=== PATIENT | female | born 1955 | race Caucasian/White ===

== ENCOUNTER 2016-04-25 18:59 | Inpatient (IN) | payer MEDICARE, OTHER ==
[2016-04-25] MEDS: NS 0.9% 1000 ML* 3,000 ML IV ONE ×2 (19:10→20:22)
[2016-04-25] MEDS ORDERED: Naloxone* 0.4 MG/ML 1 ML VIAL IV PUSH ONE (19:13)
[2016-04-25 19:26] LABS: Hematocrit 38 % (35-47); Hemoglobin 12.1 g/dl (12.0-16.0); Mean Corpuscular HGB Conc 32 g/dl (31-36); Mean Corpuscular Hemoglobin 28 pg (27-31); Mean Corpuscular Volume 88 fL (80-97); Mean Platelet Volume 8 um3 (7.4-10.4); Red Blood Count 4.27 10^6/ul (4.0-5.4); Red Cell Distribution Width 17 % (10.5-15); White Blood Count 5.3 10^3/ul (3.5-10.8)
[2016-04-25 19:33] LABS: Urine Bacteria Absent (Absent); Urine Bilirubin Negative (Negative); Urine Glucose Negative (Negative); Urine Nitrite Negative (Negative)
[2016-04-25] MEDS ORDERED: LORazepam INJ* 2 MG/ML 1 ML VIAL IV PUSH ONE ×4 (19:38→20:18)
[2016-04-25] MEDS ORDERED: LORazepam INJ* 2 MG/ML 1 ML VIAL ONE (19:39)
[2016-04-25 19:43] LABS: ALT 13 U/L (7-52); AST 25 U/L (13-39); Albumin 3.3 g/dL (3.2-5.2); Alkaline Phosphatase 60 U/L (34-104); Anion Gap 5 mmol/L (2-11); Blood Urea Nitrogen 19 mg/dL (6-24); CO2 Carbon Dioxide 34 mmol/L (22-32); Calcium 9.5 mg/dL (8.6-10.3); Chloride 95 mmol/L (101-111); Creatine Kinase 236 U/L (10-223); EGFR African American 42.8 (>60); EGFR Non-African American 33.2 (>60); Glucose 131 mg/dL (70-100); Potassium 3.8 mmol/L (3.5-5.0); Sodium 134 mmol/L (133-145); Total Protein 6.3 g/dL (6.4-8.9); Troponin I 0.02 ng/mL (<0.04)
[2016-04-25 20:03] LABS: Acetaminophen < 15 mcg/mL; Salicylate < 2.50 mg/dL (<30)
[2016-04-25] MEDS ORDERED: Ondansetron INJ* 2 MG/ML VIAL IV PRN (20:46)
[2016-04-25] MEDS ORDERED: Acetaminophen TAB* 325 MG PO PRN (20:46)
--- NOTE | 2016-04-25 20:56 | ED ---
I, Oh,Soohdebbie, scribed for Archie Patricia MD on 04/25/16 at 1925 . Altered Mental Status - HPI Summary HPI Summary: LEVEL 5 CAVEAT secondary to AMS This 60 y/o female presents to ED for AMS for unknown duration of time. Pt was found difficulty to arouse and nonverbal by EMT at the time of initial encounter. Pt has recently up the doses of her fentanyl patches from 50 mcg to 75 mcg. Pt also took unknown number of oxycodone 1400 PM today. She continues to be difficult to arouse and nonverbal at the time of the initial evaluation. PMHx includes LLE DVT, chronic regional pain syndrome, C5-6 compression fracture , and depression. Pt is DNR patient. Pt is noted with blood pressure of 63/54. - History Of Current Complaint Stated Complaint: POSSIBLE OVERDOSE Hx Obtained From: EMS Hx From Patient Unobtainable Due To: Altered Mental Status Onset/Duration: Unknown Timing: Constant Severity Initially: Severe Severity Currently: Severe Character: Responsiveness Aggravating Factor(s): Nothing Alleviating Factor(s): Nothing Associated Signs And Symptoms: Positive: Negative - Allergies/Home Medications Allergies/Adverse Reactions: Allergies Allergy/AdvReac Type Severity Reaction Status Date / Time Furosemide Allergy Severe Altered Verified 02/22/16 07:08 Mental Status Morphine Allergy Severe Altered Verified 02/22/16 07:08 Mental Status Latex Allergy Intermediate Rash Verified 02/22/16 07:08 Adhesive Tape Allergy Mild Blisters Verified 02/22/16 07:08 PMH/Surg Hx/FS Hx/Imm Hx Endocrine/Hematology History: Reports: Hx Diabetes, Hx Thyroid Disease - ON MEDS Cardiovascular History: Reports: Hx Hypertension - on medication, Other Cardiovascular Problems/Disorders - hx DVT LLE Denies: Hx Congestive Heart Failure, Hx Pacemaker/ICD History: Reports: Hx Kidney Stones - RT Denies: Hx Renal Disease Musculoskeletal History: Reports: Hx Arthritis - osteoarthritis, Other Musculoskeletal History - c5-c6 disc compression Sensory History: Reports: Hx Contacts or Glasses Denies: Hx Cataracts, Hx Glaucoma, Hx Hearing Aid Opthamlomology History: Reports: Hx Contacts or Glasses Denies: Hx Cataracts, Hx Glaucoma Neurological History: Reports: Other Neuro Impairments/Disorders - Chronic Regional Pain Syndrome, c5-c6 disc compression Psychiatric History: Reports: Hx Anxiety, Hx Depression Denies: Hx Panic Disorder - Cancer History Cancer Type, 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 Hx Chemotherapy: Yes Hx Radiation Therapy: No - Surgical History Surgery Procedure, Year, and Place: Carpel Tunnel Release in 1994, SKIN CA REMOVED FROM RIGHT LEG, gallbladder removed, isolation limb profusion, multiple moles removed. KIDNEY STENT. Hx Anesthesia Reactions: No - Family History Known Family History: Positive: Unknown - LEVEL 5 CAVEAT secondary to AMS - Social History Alcohol Use: None Hx Substance Use: No Substance Use Type: Reports: None Hx Tobacco Use: Yes Smoking Status (MU): Former Smoker Type: Cigarettes Review of Systems - ROS Summary Review of Systems Summary: LEVEL 5 CAVEAT secondary to AMS. Negative: Fever Positive: Other - blood pressure of 63/54 Neurological: Other - decreased level of responsiveness. Nonverbal Positive: Other - Possible OD. Negative: Anxious, Depressed All Other Systems Reviewed And Are Negative: No Physical Exam - Summary Physical Exam Summary: The patient is obese, unresponsive, and nonverbal. The skin is warm and dry and skin color reflects adequate perfusion. Melanoma RLE. HEENT: The head is normocephalic and atraumatic. The pupils are not pin point and 4 mm wide. The conjunctivae are clear and without drainage. Nares are patent and without drainage. Mouth reveals DRY mucous membranes. The external ears are intact. The ear canals are patent and without drainage. The tympanic membranes are intact bilat. Neck is supple with full range of motion and non-tender. There are no carotid bruits. There is no neck vein distension. Negative nuchal rigidity. Respiratory: Chest is non-tender. Lungs are clear to auscultation anteriorly and breath sounds are symmetrical and equal. Cardiovascular: Hear is regular rate and rhythm. There is no murmur or rub auscultated. There is no peripheral edema and pulses are symmetrical and equal. Abdomen: The abdomen is soft and non-tender. There are normal bowel sounds heard in all four quadrants and there is no organomegaly palpated. Musculoskeletal: There is no back pain noted. Extremities are non-tender with full range of motion. There is good capillary refill. Positive pitting edema. Neurological: Patient is alert and oriented to person, place and time. The patient has symmetrical motor strength in all four extremities. Cranial nerves are grossly intact. Deep tendon reflexes are symmetrical and equal in all four extremities. Psychiatric: The patient is nonresponsive and nonverbal. Triage Information Reviewed: Yes Vital Signs On Initial Exam: Initial Vitals Temp Pulse Resp BP Pulse Ox 98.2 F 88 30 77/63 100 04/25/16 19:00 04/25/16 19:00 04/25/16 19:00 04/25/16 19:00 04/25/16 19:00 Vital Signs Reviewed: Yes Diagnostics - Vital Signs Vital Signs Temp Pulse Resp BP Pulse Ox 04/25/16 20:30 98 24 210/113 98 04/25/16 20:26 20 04/25/16 20:17 94 17 202/117 98 04/25/16 20:00 93 21 97 04/25/16 19:50 28 04/25/16 19:40 30 04/25/16 19:38 88 19 100 04/25/16 19:30 88 23 185/117 99 04/25/16 19:24 14 04/25/16 19:23 156/116 04/25/16 19:00 98.2 F 88 30 77/63 100 - Laboratory Lab Results: Lab Results 04/25/16 04/25/16 04/25/16 Range/Units 19:10 19:10 19:10 WBC 5.3 (3.5-10.8) 10^3/ul RBC 4.27 (4.0-5.4) 10^6/ul Hgb 12.1 (12.0-16.0) g/dl Hct 38 (35-47) % MCV 88 (80-97) fL MCH 28 (27-31) pg MCHC 32 (31-36) g/dl RDW 17 H (10.5-15) % Plt Count 209 (150-450) 10^3/ul MPV 8 (7.4-10.4) um3 Neut % (Auto) 46.1 (38-83) % Lymph % (Auto) 37.6 (25-47) % [place] % (Auto) 9.1 H (1-9) % Eos % (Auto) 6.5 H (0-6) % Baso % (Auto) 0.7 (0-2) % Absolute Neuts (auto) 2.4 (1.5-7.7) 10^3/ul Absolute Lymphs (auto) 2.0 (1.0-4.8) 10^3/ul Absolute Monos (auto) 0.5 (0-0.8) 10^3/ul Absolute Eos (auto) 0.3 (0-0.6) 10^3/ul Absolute Basos (auto) 0 (0-0.2) 10^3/ul Absolute Nucleated RBC 0.01 10^3/ul Nucleated RBC % 0.2 INR (Anticoag Therapy) (0.89-1.11) Sodium 134 (133-145) mmol/L Potassium 3.8 (3.5-5.0) mmol/L Chloride 95 L (101-111) mmol/L Carbon Dioxide 34 H (22-32) mmol/L Anion Gap 5 (2-11) mmol/L BUN 19 (6-24) mg/dL Creatinine 1.58 H (0.51-0.95) mg/dL Est GFR ( Amer) 42.8 (>60) Est GFR (Non-Af Amer) 33.2 (>60) BUN/Creatinine Ratio 12.0 (8-20) Glucose 131 H (70-100) mg/dL Lactic Acid 1.6 (0.5-2.0) mmol/L Calcium 9.5 (8.6-10.3) mg/dL Total Bilirubin 0.50 (0.2-1.0) mg/dL AST 25 (13-39) U/L ALT 13 (7-52) U/L Alkaline Phosphatase 60 (34-104) U/L Ammonia (16-53) mol/L Total Creatine Kinase 236 H (10-223) U/L Troponin I 0.02 (<0.04) ng/mL B-Natriuretic Peptide ( - 100) pg/mL Total Protein 6.3 L (6.4-8.9) g/dL Albumin 3.3 (3.2-5.2) g/dL Globulin 3.0 (2-4) g/dL Albumin/Globulin Ratio 1.1 (1-3) Urine Color Urine Appearance Urine pH (5-9) Ur Specific Moriarty (1.010-1.030) Urine Protein (Negative) Urine Ketones (Negative) Urine Blood (Negative) Urine Nitrate (Negative) Urine Bilirubin (Negative) Urine Urobilinogen (Negative) Ur Leukocyte Esterase (Negative) Urine WBC (Auto) (Absent) Urine RBC (Auto) (Absent) Ur Squamous Epith Cells (Absent) Urine Bacteria (Absent) Urine Glucose (Negative) Salicylates < 2.50 (<30) mg/dL Acetaminophen < 15 mcg/mL 04/25/16 04/25/16 04/25/16 Range/Units 19:10 19:10 19:19 WBC (3.5-10.8) 10^3/ul RBC (4.0-5.4) 10^6/ul Hgb (12.0-16.0) g/dl Hct (35-47) % MCV (80-97) fL MCH (27-31) pg MCHC (31-36) g/dl RDW (10.5-15) % Plt Count (150-450) 10^3/ul MPV (7.4-10.4) um3 Neut % (Auto) (38-83) % Lymph % (Auto) (25-47) % Port[place] % (Auto) (1-9) % Eos % (Auto) (0-6) % Baso % (Auto) (0-2) % Absolute Neuts (auto) (1.5-7.7) 10^3/ul Absolute Lymphs (auto) (1.0-4.8) 10^3/ul Absolute Monos (auto) (0-0.8) 10^3/ul Absolute Eos (auto) (0-0.6) 10^3/ul Absolute Basos (auto) (0-0.2) 10^3/ul Absolute Nucleated RBC 10^3/ul Nucleated RBC % INR (Anticoag Therapy) 0.90 (0.89-1.11) Sodium (133-145) mmol/L Potassium (3.5-5.0) mmol/L Chloride (101-111) mmol/L Carbon Dioxide (22-32) mmol/L Anion Gap (2-11) mmol/L BUN (6-24) mg/dL Creatinine (0.51-0.95) mg/dL Est GFR ( Amer) (>60) Est GFR (Non-Af Amer) (>60) BUN/Creatinine Ratio (8-20) Glucose (70-100) mg/dL Lactic Acid (0.5-2.0) mmol/L Calcium (8.6-10.3) mg/dL Total Bilirubin (0.2-1.0) mg/dL AST (13-39) U/L ALT (7-52) U/L Alkaline Phosphatase (34-104) U/L Ammonia (16-53) mol/L Total Creatine Kinase (10-223) U/L Troponin I (<0.04) ng/mL B-Natriuretic Peptide 27 ( - 100) pg/mL Total Protein (6.4-8.9) g/dL Albumin (3.2-5.2) g/dL Globulin (2-4) g/dL Albumin/Globulin Ratio (1-3) Urine Color Yellow Urine Appearance Cloudy Urine pH 7.0 (5-9) Ur Specific Moriarty 1.010 (1.010-1.030) Urine Protein Negative (Negative) Urine Ketones Negative (Negative) Urine Blood 2+ H (Negative) Urine Nitrate Negative (Negative) Urine Bilirubin Negative (Negative) Urine Urobilinogen Negative (Negative) Ur Leukocyte Esterase 2+ H (Negative) Urine WBC (Auto) 2+(11-20/hpf) H (Absent) Urine RBC (Auto) 1+(3-5/hpf) H (Absent) Ur Squamous Epith Cells Present H (Absent) Urine Bacteria Absent (Absent) Urine Glucose Negative (Negative) Salicylates (<30) mg/dL Acetaminophen mcg/mL 04/25/16 Range/Units 20:00 WBC (3.5-10.8) 10^3/ul RBC (4.0-5.4) 10^6/ul Hgb (12.0-16.0) g/dl Hct (35-47) % MCV (80-97) fL MCH (27-31) pg MCHC (31-36) g/dl RDW (10.5-15) % Plt Count (150-450) 10^3/ul MPV (7.4-10.4) um3 Neut % (Auto) (38-83) % Lymph % (Auto) (25-47) % [place] % (Auto) (1-9) % Eos % (Auto) (0-6) % Baso % (Auto) (0-2) % Absolute Neuts (auto) (1.5-7.7) 10^3/ul Absolute Lymphs (auto) (1.0-4.8) 10^3/ul Absolute Monos (auto) (0-0.8) 10^3/ul Absolute Eos (auto) (0-0.6) 10^3/ul Absolute Basos (auto) (0-0.2) 10^3/ul Absolute Nucleated RBC 10^3/ul Nucleated RBC % INR (Anticoag Therapy) (0.89-1.11) Sodium (133-145) mmol/L Potassium (3.5-5.0) mmol/L Chloride (101-111) mmol/L Carbon Dioxide (22-32) mmol/L Anion Gap (2-11) mmol/L BUN (6-24) mg/dL Creatinine (0.51-0.95) mg/dL Est GFR ( Amer) (>60) Est GFR (Non-Af Amer) (>60) BUN/Creatinine Ratio (8-20) Glucose (70-100) mg/dL Lactic Acid (0.5-2.0) mmol/L Calcium (8.6-10.3) mg/dL Total Bilirubin (0.2-1.0) mg/dL AST (13-39) U/L ALT (7-52) U/L Alkaline Phosphatase (34-104) U/L Ammonia 57 H (16-53) mol/L Total Creatine Kinase (10-223) U/L Troponin I (<0.04) ng/mL B-Natriuretic Peptide ( - 100) pg/mL Total Protein (6.4-8.9) g/dL Albumin (3.2-5.2) g/dL Globulin (2-4) g/dL Albumin/Globulin Ratio (1-3) Urine Color Urine Appearance Urine pH (5-9) Ur Specific Moriarty (1.010-1.030) Urine Protein (Negative) Urine Ketones (Negative) Urine Blood (Negative) Urine Nitrate (Negative) Urine Bilirubin (Negative) Urine Urobilinogen (Negative) Ur Leukocyte Esterase (Negative) Urine WBC (Auto) (Absent) Urine RBC (Auto) (Absent) Ur Squamous Epith Cells (Absent) Urine Bacteria (Absent) Urine Glucose (Negative) Salicylates (<30) mg/dL Acetaminophen mcg/mL Result Diagrams: 04/25/16 19:10 04/25/16 19:10 Lab Statement: Any lab studies that have been ordered have been reviewed, and results considered in the medical decision making process. - Radiology CXR Radiology Interpretation Completed By: Radiologist - ordered -- pending. Please see EMR for radiologist reading - CT Brain CT Interpretation Completed By: Radiologist - ordered -- pending. See EMR for radiologist reading Re-Evaluation - Re-Evaluation First Eval Re-Evaluation Time: 19:37 Change: Worse Comment: Pt's responsiveness improves with narcan, but now Pt appears agitated and moves without purposes. 2x doses of Ativan ordered. Second Eval Re-Evaluation Time: 20:11 Change: Unchanged Comment: Unable to sedate for CT scan. Pt appears agitated with no purposeful movement. Pt is unable to follow command. Talked to pt's uncle. Plan of care is discussed. Altered Mental Statu Course/Dx - Course Assessment/Plan: Pt presents to ED via ambulance somnolent. Pt was noted with blood pressure of 63/54. IV fluid was ordered to improve pt's blood pressure. Pt 's responsiveness improved after administration of narcan, but then pt was noted agitated and unpurposeful movement. Due to these movements, pt was not able to be sent over for CT scan. 4x doses of lorazepam were ordered in order to control pt's agitated movement. Plan of care involving hospital admission was discussed with Dr. Rebollar, who accepts the admission of the pt. - Diagnoses Differential Diagnosis/HQI/PQRI: CVA, Hypoglycemia, Hypoxia, Intracranial Bleed , Metabolic Disorder, Postictal State, Sepsis, Other - narcotic od, hepatic encephelopathy Discharge Diagnoses: suspected narcotic overdose, Altered mental status - Provider Notifications Discussed Care Of Patient With: Dr. Rebollar (Hospitalist) at 2015 PM Time Discussed With Above Provider: 20:15 Discharge - Discharge Plan Condition: Stable Disposition: ADMITTED TO [facility] Referrals: Anne IBARRA,Darryn Molina [Primary Care Provider] - The documentation as recorded by the Brenton salcedo Soohyun accurately reflects the service I personally performed and the decisions made by me, Archie Patricia MD.
[2016-04-25] MEDS ORDERED: NS 0.9% 1000 ML* 1,000 ML IV SCH (21:00)
[2016-04-25 22:08] LABS: TSH (Thyroid Stimulating Horm) 0.92 mcIU/mL (0.34-5.60)
[2016-04-25] MEDS ORDERED: LORazepam INJ* 2 MG/ML 1 ML VIAL IV PUSH PRN (23:49)
[2016-04-26 00:02] LABS: Benzodiazepine Urine Screen None Detected (None Detect)
--- NOTE | 2016-04-26 00:31 | HP ---
HISTORY AND PHYSICAL: DATE OF ADMISSION: 04/25/16 PRIMARY CARE PROVIDER: Dr. Bro at [facility]. ATTENDING PHYSICIAN WHILE IN THE HOSPITAL: Dr. Chapito Rebollar * (report dictated by Heron Segura NP) CHIEF COMPLAINT: Altered mental status. HISTORY OF PRESENT ILLNESS: Ms. Diallo is a 60-year-old female patient. She has a history of hypertension, metastatic melanoma starting in her right leg, DVT in the past, pancreatitis, reflex dystrophy, carpal tunnel, C5-C6 compression. She also has a history of hypopituitarism, also history of hyperammonemia, history of urinary retention causing encephalopathy. In addition to this, also carries a history of hypothyroidism. She comes into the ER today, recently had an increase in her pain medications at [facility]. She resides there currently. According to her friend, the patient is unable to give any history because she is altered. She had a recent increase in her oxycodone. In addition to this, was on a fentanyl patch. The family members have noticed that over the last few days, she has been having worsening confusion. She has been more drowsy, more lethargic, but today she was almost nonverbal. Yesterday, the patient would follow commands and get up out of bed. There has been no recent reports of fever, neck pain. There has been no recent reports of cough and no recent reports of vomiting or diarrhea. There has been a recent report of bilateral swelling. The patient has not been complaining of any increased back pain or any dysuria according to the family that is present. There was concern because of the recent change in her medications that the patient may be experiencing adverse affects and may have been more confused because of narcotics. An attempt at the alf to give Narcan was tried, but they were unable to obtain the Narcan and it was noted that she was becoming more unresponsive. So, the alf sent the patient over to the ER. She was given 2 mg of Narcan. She woke up, but she is now noted to be extremely agitated and restless. There was concern because of the altered mental status and the hospitalist service was asked to evaluate for admission. PAST MEDICAL HISTORY: Significant for: 1. Hypertension. 2. Melanoma. 3. History of DVT. 4. Pancreatitis. 5. Reflex sympathetic dystrophy. 6. Carpal tunnel. 7. C5-C6 compression. 8. Hypopituitarism. 9. Hyperammonemia. 10. Hypothyroidism. PAST SURGICAL HISTORY: Unable to be obtained. I do note according to old notes , she has had extensive surgery to the right lower extremity from melanoma. HOME MEDICATIONS: She is currently taking according to [facility] include: 1. Hydrocortisone 10 mg p.o. daily. 2. Hydrochlorothiazide 25 mg daily. 3. Celexa 20 mg daily. 4. Atenolol 50 mg daily. 5. Xanax 0.25 mg daily. 6. Oxycodone 10 mg every 4 hours as needed. 7. Fentanyl patch 25 mcg transdermally every 72 hours. 8. Gabapentin 400 mg p.o. t.i.d. 9. Tylenol 1000 mg p.o. every 8 hours as needed. 10. Potassium 20 mEq p.o. b.i.d. ALLERGIES TO MEDICATIONS: Include LASIX, MORPHINE, LATEX and ADHESIVE TAPE. FAMILY HISTORY: According to old records, mother had history of bleeding. Father had heart disease. SOCIAL HISTORY: She has never been smoker. Does not drink. Surrogate decision maker is her friend, Lisa. She does reside at [facility]. REVIEW OF SYSTEMS: Unable to be obtained given the patient's current mentation. PHYSICAL EXAMINATION GENERAL: At this time, Ms. Diallo is a 60-year-old female patient. She is sitting in the ER stretcher. She is restless, agitated. She is unable to follow commands. VITAL SIGNS: Blood pressure 174/83; initially when she came in, it was 77/66, but then it was 185/117 and in the 200 systolically, heart rate is noted to be in the 90s, 98 to 97, respirations are 24, O2 sat 100%, temperature 99. HEENT: Head: Atraumatic, normocephalic. Eyes: Pupils were dilated bilaterally , but were reactive. She does blink to threat. Sclerae anicteric and not pale. Throat: Oral mucosa appears to be moist. No oropharyngeal erythema. NECK: Supple. LUNGS: Clear to auscultation bilaterally. No wheezes, rales, or rhonchi. HEART: Sounds S1, S2. Regular rate and rhythm. No murmurs, rubs, or gallops. ABDOMEN: Soft, it was flat, nontender. There was no CVA tenderness. EXTREMITIES: She is moving all 4 extremities grossly, but not to command. She does have +2 edema in the pedal area. NEUROLOGIC: She is awake, but again is restless, agitated, nonverbal at this point. She does withdrawal all 4 extremities to pain. She will open her eyes to sternal rub and then also open them sporadically when she is agitated. SKIN: Intact. LABORATORY DATA: Her labs today reveal a WBC of 5.7, RBC of 4.27, hemoglobin 12.1, hematocrit 38, platelet count 209. INR is 0.90. Sodium 134, potassium 3.8, chloride of 95, bicarb 34, BUN 19, creatinine 1.58, glucose 131, lactic 1.6 , calcium 9.5, total bili 0.5, AST 25, ALT 13, alk phos 60, ammonia was 57. She has been as high as 80 in the past. The troponin was 0.02, CK 236. BNP of 27, albumin 3.3. Urine shows 2+ blood, 2+ leukocyte esterase, 1+ rbc, 2+ wbc. Toxicology was negative. Again, a brain CT is pending at this point along with a chest x-ray and a renal ultrasound. Old medical records were reviewed. ASSESSMENT AND PLAN: Ms. Diallo is a 60-year-old female patient with multiple medical problems coming in today with a very complex presentation. She comes in essentially with altered mental status with unclear etiology. She will be admitted under inpatient status to the ICU for: 1. Altered mental status. Etiology is unclear. I do note that when we placed the To, she did place out about 3 L of urine. She has had encephalopathy in the past secondary to urinary retention. She may be experiencing urinary retention secondary to obstructive uropathy or possibly secondary to the fact that she had been taking increasing narcotics and this may have been causing urinary retention thus been causing her to become more confused in addition to this the narcotics causing her to be more confused. I do not see an active sign of infection. She had a PET scan back on 03/23/16 that showed no metastatic disease. I would like to obviously get a CT scan but at this point, she is restless and the CAT scan would be useless at this point because of her restlessness and inability to stay still long enough to get a good image. I think at this point, we will get a renal ultrasound to assess for obstructive uropathy. I am going to treat the ammonia level at 57 because she has had encephalopathy related to elevated ammonia in the past. We will panculture her which has been done. Her urine has been sent. We will try to get a chest x-ray , although I do not think she has any infection. We are going to hold her narcotics. Neuro checks every hour and continue to follow. I do not believe this is a seizure activity as she again will withdraw and respond to pain and grimace to pain as well. I will continue to monitor her. 2. Acute renal failure. Again, this could be from obstructive uropathy. She has had this in the past. I am going to go ahead and get a FENa. In addition to this, we will go ahead and ultrasound her kidneys and I will continue to follow. If there is any obstructive uropathy, we will get involvement of Urology. 3. Hypertension. Her blood pressure when she came in was in the 200s. At this point, given the Narcan and checking her blood pressure certainly could cause an elevation of blood pressure. We will treat this with p.r.n. hydralazine and her p.o. medications. 4. Melanoma. She can follow with her primary oncologist. 5. History of deep venous thrombosis. Not an active issue at this point, we will follow. 6. History of reflex sympathetic dystrophy. She is on disability for this and she is taking medications for this and chronic neck pain. We will go ahead and hold off on any narcotics because of the altered mental status. 7. Hypothyroidism. We have confirmed that she is not taking Synthroid. I am going to go ahead and check a TSH as this certainly could contribute to altered mental status and we will continue to follow and again we did clarify that she is not currently not on any more Synthroid. 8. Hypopituitary. Continue her hydrocortisone and follow. 9. DVT prophylaxis. Because I do not have a CAT scan back in altered mental status, I want to hold off on giving her any heparin products. I am just going to put her on SCDs. 10. Code status: She is a DNR. 11. Fluids, electrolytes, and nutrition: She is n.p.o. until her mentation clears. TIME SPENT: Time spent on the admission was approximately 90 minutes, greater than half the time was spent [id number] with the patient obtaining my history and physical, and the other half time was spent going over the plan of care with patient and implementing plan of care. I did discuss the plan of care with my attending, Dr. Rebollar, he is in agreement. HERON SEGURA NP CC: Dr. Bro at [facility]. [id number]/CPS #: [id number] MTDUsman
[2016-04-26 00:52] LABS: BUN/Creatinine Ratio 12.3 (8-20); Calcium 8.4 mg/dL (8.6-10.3); EGFR African American 53.6 (>60); EGFR Non-African American 41.6 (>60); Magnesium 1.5 mg/dL (1.9-2.7); Potassium 2.9 mmol/L (3.5-5.0)
[2016-04-26] MEDS: Lactulose 480 ML BTL*STOCK USE 480 ML ML PR SCH ×2 (01:08→04:27)
[2016-04-26] MEDS: NS 0.45% 1000 ML BAG* 1,000 ML IV SCH ×2 (03:09→07:04)
[2016-04-26] MEDS: hydrALAZINE IV* 20 MG/ML VIAL IV SLOW PU PRN (07:01)
--- NOTE | 2016-04-26 07:35 | RAD ---
INDICATION: Acute renal failure, kidney stones. COMPARISON: Comparison is made with a prior PET/CT study from March 23, 2016. TECHNIQUE: Multiple real-time images of the kidneys were obtained. FINDINGS: The kidneys are normal in size shape and echogenicity. There appears to be cortical thinning in the right kidney. The right kidney measured 10.5 x 5.1 x 5.9 cm and the left kidney measured 12.4 x 5.2 x 5.2 cm. There are multiple calculi in the upper and midportion of the right kidney. There is fullness in the right renal collecting system possibly indicating hydronephrosis. IMPRESSION: MULTIPLE RIGHT RENAL CALCULI AND POSSIBLE RIGHT RENAL HYDRONEPHROSIS. THIS COULD BE FURTHER EVALUATED WITH A CT OF THE ABDOMEN AND PELVIS WITHOUT CONTRAST.
--- NOTE | 2016-04-26 07:46 | RAD ---
HISTORY: Altered mental status COMPARISONS: December 30, 2015 VIEWS:1: Single frontal portable view of the chest at 1:00 AM FINDINGS: LINES AND TUBES: None. CARDIOMEDIASTINAL SILHOUETTE: The cardiac silhouette is enlarged. The cardiomediastinal silhouette is otherwise normal for portable technique. PLEURA: The costophrenic angles are sharp. No pleural abnormalities are noted. LUNG PARENCHYMA: The lung volumes are low. There is prominence of the central pulmonary vasculature with a diffuse reticular pattern of opacification ABDOMEN: The upper abdomen is clear. There is no subphrenic gas. BONES AND SOFT TISSUES: No bone or soft tissue abnormalities are noted. IMPRESSION: 1. LOW LUNG VOLUMES. 2. CARDIOMEGALY WITH PULMONARY INTERSTITIAL EDEMA
--- NOTE | 2016-04-26 07:49 | RAD ---
INDICATION: Altered mental status. COMPARISON: Comparison is made with a prior CT of the brain from December 18, 2015. TECHNIQUE: Contiguous axial sections of the brain were obtained from the skull base to the vertex without contrast. FINDINGS: The ventricles, cisterns and sulci are within normal limits. There are new focal areas of decreased attenuation present in the left caudate and lentiform nuclei suspicious for subacute infarcts. No hemorrhage is seen. There is mild mass effect with mild compression of the frontal horn of the left lateral ventricle. No significant focal osseous abnormality is seen. The visualized portion of the paranasal sinuses and mastoid air cells appear clear. IMPRESSION: THERE ARE FOCAL AREAS OF DECREASED ATTENUATION PRESENT WITHIN THE LEFT CAUDATE AND LENTIFORM NUCLEI NONSPECIFIC ALTHOUGH MOST CONSISTENT WITH SUBACUTE INFARCTS. RECOMMEND CLINICAL CORRELATION AND FOLLOW-UP.
[2016-04-26] MEDS ORDERED: Magnesium Sulfate IV* 3 GM in NS 0.9% 100 ML* 100 ML IVPB ONE (08:15)
[2016-04-26 08:18] LABS: Hematocrit 39 % (35-47); Hemoglobin 12.9 g/dl (12.0-16.0); Mean Corpuscular HGB Conc 33 g/dl (31-36); Mean Corpuscular Hemoglobin 29 pg (27-31); Mean Corpuscular Volume 87 fL (80-97); Mean Platelet Volume 8 um3 (7.4-10.4); Red Blood Count 4.44 10^6/ul (4.0-5.4); Red Cell Distribution Width 17 % (10.5-15); White Blood Count 9.2 10^3/ul (3.5-10.8)
[2016-04-26] MEDS ORDERED: Hydrocortisone TAB* 10 MG PO SCH (08:30)
[2016-04-26 08:33] LABS: Anion Gap 9 mmol/L (2-11); BUN/Creatinine Ratio 11.3 (8-20); Blood Urea Nitrogen 14 mg/dL (6-24); CO2 Carbon Dioxide 31 mmol/L (22-32); Calcium 9.1 mg/dL (8.6-10.3); Chloride 93 mmol/L (101-111); EGFR African American 56.6 (>60); Glucose 117 mg/dL (70-100); Sodium 133 mmol/L (133-145)
[2016-04-26] MEDS ORDERED: Citalopram TAB* 20 MG PO SCH (09:00)
[2016-04-26] MEDS ORDERED: Atenolol TAB* 50 MG PO SCH (09:00)
[2016-04-26] MEDS ORDERED: NS 0.45% 1000 ML BAG* 1,000 ML IV SCH (09:02)
[2016-04-26] MEDS: KCL 10 MEQ/50 ML IVPREMIX* 10 MEQ/50 ML BAG IV SCH ×3 (09:20→12:34)
[2016-04-26] MEDS: Hydrocortisone INJ* 100 MG VIAL IV SCH ×2 (09:35→19:20)
--- NOTE | 2016-04-26 10:29 | RAD ---
INDICATION: Right renal stone, hydronephrosis. COMPARISON: Correlation is made with a prior PET/CT study from March 23, 2016. TECHNIQUE: A CT scan of the abdomen and pelvis was performed without intravenous or oral contrast. Contiguous axial sections were obtained from the lung bases through the symphysis pubis. Images were reconstructed in the coronal and sagittal planes. FINDINGS: The lung bases are clear. There is mild pleural thickening at the left lung base. No pleural effusion is present. The liver is mildly enlarged without significant focal abnormality on this noncontrast study. The spleen appears to be within normal limits. The patient is status post cholecystectomy. The pancreas is normal in size. No ductal distention is seen. The adrenal glands and kidneys are normal in size. There is mild cortical thinning present on the right side. There are multiple right renal calculi measuring up to 1.3 cm in diameter. In addition there is a 1.2 cm calculus present in the right renal pelvis located at the ureteropelvic junction causing mild hydronephrosis. This is unchanged from the prior study. No bladder calculi are seen. There is a catheter within the urinary bladder. The aorta is normal in caliber with moderate calcific plaque present. No significant enlarged retroperitoneal lymph nodes are seen. The stomach, small and large bowel appear nondistended. The appendix is not well seen. There is mild descending and sigmoid diverticulosis without evidence for diverticulitis. The uterus is anteverted and normal in size. No free intraperitoneal air or fluid is seen. No significant focal osseous abnormality is seen. IMPRESSION: 1. MULTIPLE RIGHT RENAL CALCULI. IN ADDITION THERE IS A 1.2 CM CALCULUS PRESENT IN THE RIGHT RENAL PELVIS AT THE URETEROPELVIC JUNCTION CAUSING MILD HYDRONEPHROSIS WHICH IS UNCHANGED FROM THE PRIOR EXAM. 2. STATUS POST CHOLECYSTECTOMY.
[2016-04-26] MEDS ORDERED: Lactulose 480 ML BTL*STOCK USE 480 ML ML PR SCH (14:00)
[2016-04-26] MEDS: Heparin VIAL(*) 5000 UNITS/ML VIAL (FIVE THOUSAND) SUBCUT SCH ×2 (14:17→21:51)
[2016-04-26] MEDS ORDERED: cefTRIAXone VIAL(*) 1,000 MG in NS 0.9% 50 ML* 50 ML IVPB SCH (15:00)
--- NOTE | 2016-04-26 15:22 | PN ---
Subjective Date of Service: 04/26/16 Interval History: Patient seen this morning and again early afternoon. Remains lethargic but awakens briefly to sternal rub, will nod in response to questions, not speaking , quickly falls back asleep. Moving all 4 extremities. Family History: Unchanged from Admission Social History: Unchanged from Admission Past Medical History: Unchanged from Admission Objective Active Medications: Acetaminophen (Tylenol Tab*) 650 mg PO Q4H PRN Heparin Sodium (Porcine) (Heparin Vial(*)) 5,000 units SUBCUT Q8HR IMANI Hydralazine HCl (Apresoline Iv*) 5 mg IV SLOW PU Q6H PRN Hydrocortisone Sodium Succinate (Solu-Cortef*) 50 mg IV Q8H IMANI Sodium Chloride (Ns 0.45% 1000 Ml Bag*) 1,000 mls @ 10 mls/hr IV KVO IMANI Ceftriaxone Sodium 1,000 mg/ (Sodium Chloride) 50 mls @ 200 mls/hr IVPB Q24H IMANI Lactulose (Lactulose 480 Ml Btl*) 300 ml VA 0400,1000,1600,2200 IMANI Lorazepam (Ativan Inj*) 0.5 mg IV PUSH Q4H PRN Ondansetron HCl (Zofran Inj*) 4 mg IV Q6H PRN Vital Signs 04/25/16 04/25/16 04/25/16 20:59 21:00 21:02 Temperature 99 F Pulse Rate 97 Respiratory 22 Rate Blood Pressure 201/92 (mmHg) O2 Sat by Pulse 100 Oximetry 04/26/16 04/26/16 04/26/16 02:00 02:37 02:45 Temperature 98.6 F 98.3 F 98.3 F Pulse Rate 69 68 68 Respiratory 18 18 16 Rate Blood Pressure 153/82 138/85 (mmHg) O2 Sat by Pulse 99 100 100 Oximetry 04/26/16 04/26/16 04/26/16 08:05 08:30 08:44 Temperature 97.7 F 97.8 F 97.7 F Pulse Rate 51 62 60 Respiratory 14 13 12 Rate Blood Pressure 176/89 169/98 155/93 (mmHg) O2 Sat by Pulse 100 100 100 Oximetry 04/26/16 14:00 Temperature 98.1 F Pulse Rate 69 Respiratory 12 Rate Blood Pressure 167/91 (mmHg) O2 Sat by Pulse 100 Oximetry Oxygen Devices in Use Now: Nasal Cannula - 3L this AM, weaned off Appearance: Middle-aged, obese, F, laying in bed, asleep, lethargic Eyes: No Scleral Icterus Ears/Nose/Mouth/Throat: - - Dry MM Neck: NL Appearance and Movements; NL JVP Respiratory: Symmetrical Chest Expansion and Respiratory Effort, Clear to Auscultation - in anterior and lateral vidal Cardiovascular: NL Sounds; No Murmurs; No JVD, RRR Abdominal: NL Sounds; No Tenderness; No Distention Lymphatic: No Cervical Adenopathy Extremities: - - B/L LE edema, B/L UE edema, RLE with post-surgical changes Skin: No Rash or Ulcers Neurological: - - Lethargic, opens eyes to sternal rub, not verbal, withdraws to pain in all 4 extremities Result Diagrams: 04/26/16 08:03 04/26/16 08:03 Additional Lab and Data: Microbiology and Other Data: Microbiology 04/25/16 21:40 Nasal Screen MRSA (PCR)(MAXIMINO) - Final Nasal Mrsa Negative Assess/Plan/Problems-Billing Assessment: Altered mental status, encephalopathy in a 60 yo F with hx of HTN, melanoma not currently on treatment, pancreatitis, RSD, chronic pain on narcotics, hypopituitarism, hyperammonemia, hypothyroidism - Patient Problems (1) Altered mental state Current Visit: No Comment: Encephlaopathy. Somewhat similar to previous presentation. Patient did have increase in Fentanyl patch within the last 1-2 weeks and received large doses of BZDs in the ED after she had agitation post- narcan. CT shows subacute stroke, unclear if this is contributing to current presentation. Appreciate Neurology assistance. Will order MRI of the brain, EEG. UA abnormal, will cover for UTI until culture returns. Will give Hydrocortisone IV. Ammonia improved but will continue Lactulose VA as per Dr. Molina. Patient likely has some element of JENIFFER, should get overnight pulseox once more alert, sleep study as outpatient. (2) SLAVA (acute kidney injury) Current Visit: Yes Comment: Improving. Likely some post-obstructive (?2/2 narcotics) diuresis ongoing. Will hold on additional IVF for today, may need some maintenance tomorrow if not waking up. Monitor BMP daily. CT abd/pelvis shows renal calculus is unchanged. (3) HTN (hypertension) Current Visit: No Comment: BPs elevated, cannot take PO. Will start IV Metoprolol q6h in addition to prn hydralazine. (4) Hypopituitarism Current Visit: No Comment: IV hydrocortisone as above (5) Hypothyroidism Current Visit: Yes Comment: TSH low/normal. Not on outpatient therapy. (6) Reflex sympathetic dystrophy Current Visit: No Comment: Holding narcotics for now. (7) DVT prophylaxis Current Visit: No Comment: HSQ
[2016-04-26] MEDS: Metoprolol Tartrate IV* 1 MG/ML 5 ML VIAL IV SCH ×2 (16:06→21:52)
[2016-04-26] MEDS: LACTULOSE PR SCH ×2 (18:34→21:52)
--- NOTE | 2016-04-26 18:45 | CONS ---
CONSULTATION REPORT: DATE OF CONSULT/DICTATION: 04/26/16 PATIENT OF: Dr. Craft. HISTORY OF PRESENT ILLNESS: This is a 60-year-old woman I am asked to evaluate for obtundation, I had seen back in end of November for confusion and she had an elevated ammonia level at that point as well as a kidney disease and workup included an unremarkable MRI scan. LP was considered but she was doing better clinically, was being treated with lactulose, and therefore the LP was deferred. She had been not confused in her assisted up until a past couple of weeks, then the sister notes that she has begun acting a little bit loopy, although awake and talking. She was not sure what the change was at that point. She had some change in her pain medication in the recent week or so and she notes that on this past Monday, she had a conversation in the morning with Chela when she appeared awake and alert, and then later on in the day apparently , she was sleeping, left alone by the assisted, and then on Monday, she was transferred and was significantly obtunded and without any words yesterday. She also has a history of hypopituitarism, urinary retention associated with her past encephalopathy, she has metastatic melanoma starting in her leg. She has reflex sympathetic dystrophy and is on many pain meds. PAST MEDICAL HISTORY: Significant for hypertension, melanoma, history of DVT, pancreatitis, reflex sympathetic dystrophy, carpal tunnel syndrome, C5-6 compression, hypopituitarism, hyperammonemia, hypothyroidism. She has had surgery to the right lower extremity due to her melanoma at [facility]. MEDICATIONS: She is on: 1. Hydrocortisone 10 mg daily. 2. Hydrochlorothiazide 25 mg daily. 3. Celexa 20 mg daily. 4. Atenolol 50 daily. 5. Xanax 0.25 daily. 6. Oxycodone 10 mg q.4 hours as needed. 7. Fentanyl patch 25 mcg every 72 hours. 8. Gabapentin 400 t.i.d. 9. Potassium 20 mEq p.o. b.i.d. ALLERGIES: She is allergic to LASIX, MORPHINE, and LATEX. FAMILY HISTORY: There is a family history for bleeding in the mother and the father had heart disease. She has not been a smoker. She does not drink. REVIEW OF SYSTEMS: Negative in all 14 spheres other than HPI. PHYSICAL EXAM: Temperature 97.7 and she has been afebrile this hospitalization , pulse 63, respirations 12, blood pressure 169/94. She had not been opening her eyes earlier this morning, but she opened her eyes when her leg was repositioned and she was in pain. When her eyes were opened, I asked her name and she distinctly said Chela and then she went back to sleep. She was clearly obtunded. Pupils were equal, round, reactive to light. Red reflexes present. There were no focal cranial nerve findings, but she was not cooperative with exam. She did have symmetric facies and she had extraocular movements on doll' s maneuver. When they were manipulating her legs, she seemed to move all 4 extremities and seemed to be in pain at that point. Reflexes were trace to 1. Chest: Clear. Cardiovascular: Regular rate and rhythm. Abdomen: Soft with positive bowel sounds. She was obese. DIAGNOSTIC STUDIES/LAB DATA: Her CT scan was reviewed and showed at least 2 focal areas of hypoattenuation in the left basal ganglia without significant mass effect. Labs include CMP showing chloride of 95; bicarb of 34; creatinine initially 1.58 , now 1.24. CPK 236. Total protein 6.3. Ammonia was 57 initially, today it was 43 and she had been on lactulose which has now been stopped. Other labs include normal CBC, normal INR, negative toxicology studies. UA showing 2+ white cells, negative bacteria, and 2+ leuk esterase. She is getting increased hydrocortisone 50 mg IV q.12. IMPRESSION AND PLAN: I spoke with the sister and I have a call into Dr. Craft. I think that she could still have a liver encephalopathy even with normal ammonia level and her ammonia had been a little bit abnormal yesterday, will continue the lactulose for now. I will discuss with Dr. Craft the UA findings, whether she needs to be on antibiotics that could be another cause for her encephalopathy. Her change in pain meds in the assisted could also make an encephalopathy worse and I think that she should have at some point sleep study to make sure she is not having sleep apnea and possibly increasing her meds could have contributed more to that as well. We need to get an MRI scan hopefully with and without contrast to assess her new findings on CT scan. Her encephalopathy would suggest more of a generalized process, but there could be focal lesions in the brain that are contributing in that I would get that with and without contrast given her history of cancer if her radiologist thought her renal situation would allow for the contrast. [id number]/[facility] #: [id number] [facility]
--- NOTE | 2016-04-26 22:32 | RAD ---
HISTORY: Worsening confusion over 2-3 days COMPARISONS: Similar MRI of the brain dated December 19, 2015 TECHNIQUE: The following sequences were obtained of the head: Sagittal T1-weighted images, axial T2-weighted images, axial FLAIR images, axial susceptibility weighted images, axial T1-weighted images. Additionally, axial diffusion-weighted images were obtained with calculated apparent diffusion coefficients.. FINDINGS: HEMORRHAGE/INFARCT: There is no hemorrhage or acute infarct. MASSES/SHIFT: There is no mass or shift. EXTRA-AXIAL SPACES/MENINGES: There are no extra-axial fluid collections. SULCI AND VENTRICLES: The sulci and ventricles are normal in size and position for the patient's stated age. CEREBRUM: On the diffusion-weighted images there is increased signal at the left caudate head nucleus as well as the left basal ganglia and left subinsular ribbon consistent with subacute infarction. On the T2-weighted images there is corresponding high signal at these locations. There are additional T2 bright foci scattered in the periventricular and subcortical white matter more compatible with chronic microvascular disease. BRAINSTEM: There are no focal parenchymal abnormalities. CEREBELLUM: There are no focal parenchymal abnormalities. The cerebellar tonsils are normal in size and position. SELLA: The sella is normal. PINEAL: The pineal region is clear. CP ANGLE/TEMPORAL BONES: The labyrinthine structures are grossly normal. VESSELS: Normal flow-voids are noted within the visualized vertebral vasculature. DIFFUSION ABNORMALITIES: There are no diffusion abnormalities. PARANASAL SINUSES/MASTOIDS: The paranasal sinuses are clear. ORBITS: The orbits are unremarkable. BONES AND SOFT TISSUE: No bone or soft tissue abnormalities are noted. IMPRESSION: MRI FINDINGS ARE COMPATIBLE WITH MULTIFOCAL SUBACUTE INFARCTIONS INVOLVING THE LEFT CAUDATE HEAD NUCLEUS, BASAL GANGLIA AND SUBINSULAR RIBBON. FINDINGS WERE DISCUSSED WITH DYLAN AVILA RN AND DR. RAMONITA SHIPMAN OVER THE TELEPHONE AT 2220 HOURS ON APRIL 26, 2016
--- NOTE | 2016-04-27 02:21 | EEG ---
ELECTROENCEPHALOGRAPHY: DATE OF STUDY/DICTATION: 04/26/16 - ROOM #ICU-09 PATIENT OF: Dr. Craft. HISTORY: This 60-year-old woman being evaluated for encephalopathy. MEDICINES: Include: 1. Zofran. 2. Ativan. 3. Apresoline. 4. Hydrocodone. 5. Rocephin. 6. Lactulose. INTERPRETATION: With the patient obtunded, background cerebral activity consists of moderate amplitude 6 Hz rhythm with some admixed slow wave delta activity. No clear triphasic waves, epileptiform potentials, or major asymmetries of background are noted. IMPRESSION: This EEG is consistent with a diffuse encephalopathy, but nonspecific as to etiology. [id number]/[facility] #: [id number] MTDD
[2016-04-27] MEDS: Hydrocortisone INJ* 100 MG VIAL IV SCH ×3 (02:29→17:52)
[2016-04-27] MEDS: LACTULOSE PR SCH ×2 (04:42→10:53)
[2016-04-27] MEDS: Heparin VIAL(*) 5000 UNITS/ML VIAL (FIVE THOUSAND) SUBCUT SCH ×3 (05:43→22:42)
[2016-04-27] MEDS: Metoprolol Tartrate IV* 1 MG/ML 5 ML VIAL IV SCH ×4 (05:43→22:41)
[2016-04-27 07:57] LABS: BUN/Creatinine Ratio 9.6 (8-20); Blood Urea Nitrogen 10 mg/dL (6-24); CO2 Carbon Dioxide 28 mmol/L (22-32); Calcium 9.4 mg/dL (8.6-10.3); Chloride 93 mmol/L (101-111); EGFR African American 69.3 (>60); EGFR Non-African American 53.9 (>60); Glucose 154 mg/dL (70-100); Sodium 132 mmol/L (133-145)
--- NOTE | 2016-04-27 09:28 | PN ---
Subjective Date of Service: 04/27/16 Interval History: Patient seen this morning. Was very difficult to arouse but once awake was able to stay alert. Could tell me she was in the hospital and that it was Apr 2016. Was not sure why she was here. Denied SOB, said she was not feeling hungry. Followed, commands, moved all 4 extremities. Family History: Unchanged from Admission Social History: Unchanged from Admission Past Medical History: Unchanged from Admission Objective Active Medications: Acetaminophen (Tylenol Tab*) 650 mg PO Q4H PRN Heparin Sodium (Porcine) (Heparin Vial(*)) 5,000 units SUBCUT Q8HR IMANI Hydralazine HCl (Apresoline Iv*) 5 mg IV SLOW PU Q6H PRN Hydrocortisone Sodium Succinate (Solu-Cortef*) 50 mg IV Q8H IMANI Sodium Chloride (Ns 0.45% 1000 Ml Bag*) 1,000 mls @ 10 mls/hr IV KVO IMANI Ceftriaxone Sodium 1,000 mg/ (Sodium Chloride) 50 mls @ 200 mls/hr IVPB Q24H IMANI Potassium Chloride (Potassium Chloride 10 Meq/50 Ml Ivpremix*) 10 meq in 50 mls @ 50 mls/hr IV Q2H IMANI Lactulose (Lactulose 480 Ml Btl*) 300 ml NE 0400,1000,1600,2200 IMANI Lorazepam (Ativan Inj*) 0.5 mg IV PUSH Q4H PRN Metoprolol Tartrate (Lopressor Iv*) 5 mg IV Q6H IMANI Ondansetron HCl (Zofran Inj*) 4 mg IV Q6H PRN Vital Signs 04/26/16 04/26/16 04/26/16 10:00 10:30 11:00 Temperature 97.6 F 97.5 F 97.6 F Pulse Rate 66 65 63 Respiratory 13 12 12 Rate Blood Pressure 155/79 165/114 (mmHg) O2 Sat by Pulse 98 99 99 Oximetry 04/26/16 04/26/16 04/26/16 11:30 12:00 12:30 Temperature 97.6 F 97.7 F 97.9 F Pulse Rate 65 65 66 Respiratory 12 13 13 Rate Blood Pressure 171/74 169/104 177/89 (mmHg) O2 Sat by Pulse 100 100 100 Oximetry 04/26/16 04/26/16 04/26/16 13:00 13:30 14:00 Temperature 98.0 F 98.0 F 98.1 F Pulse Rate 66 68 69 Respiratory 15 18 12 Rate Blood Pressure 176/94 181/91 167/91 (mmHg) O2 Sat by Pulse 100 100 100 Oximetry 04/26/16 04/26/16 04/26/16 14:30 15:00 15:30 Temperature 98.2 F 98.3 F 98.4 F Pulse Rate 70 72 71 Respiratory 13 12 13 Rate Blood Pressure 158/91 192/91 173/93 (mmHg) O2 Sat by Pulse 100 100 100 Oximetry 04/26/16 04/26/16 04/26/16 15:45 16:00 16:30 Temperature 98.5 F 98.5 F 98.6 F Pulse Rate 72 71 69 Respiratory 12 12 11 Rate Blood Pressure 177/84 172/82 163/86 (mmHg) O2 Sat by Pulse 100 100 100 Oximetry 04/26/16 04/26/16 04/26/16 17:00 18:00 18:06 Temperature 98.7 F Pulse Rate 71 68 Respiratory 11 12 7 Rate Blood Pressure 146/85 (mmHg) O2 Sat by Pulse 100 76 Oximetry 04/26/16 04/26/16 04/26/16 18:20 19:00 19:28 Temperature 98.7 F 98.5 F 98.4 F Pulse Rate 70 67 66 Respiratory 14 12 11 Rate Blood Pressure 124/75 (mmHg) O2 Sat by Pulse 99 100 99 Oximetry 04/26/16 04/26/16 04/26/16 19:30 20:00 20:30 Temperature 98.5 F 97.4 F 98.5 F Pulse Rate 65 66 67 Respiratory 11 10 12 Rate Blood Pressure 138/85 149/74 150/97 (mmHg) O2 Sat by Pulse 99 99 99 Oximetry 04/26/16 04/26/16 04/26/16 21:00 21:30 22:00 Temperature 98.6 F 98.6 F 98.6 F Pulse Rate 66 65 65 Respiratory 11 11 11 Rate Blood Pressure 144/77 154/97 155/90 (mmHg) O2 Sat by Pulse 100 100 99 Oximetry 04/26/16 04/26/16 04/26/16 22:17 22:30 23:00 Temperature 98.7 F 98.6 F 98.7 F Pulse Rate 66 65 67 Respiratory 12 12 13 Rate Blood Pressure 153/101 154/93 (mmHg) O2 Sat by Pulse 100 100 100 Oximetry 04/26/16 04/27/16 04/27/16 23:30 00:00 00:01 Temperature 98.7 F 98.6 F 98.6 F Pulse Rate 66 71 69 Respiratory 11 13 12 Rate Blood Pressure 149/91 154/76 (mmHg) O2 Sat by Pulse 100 99 97 Oximetry 04/27/16 04/27/16 04/27/16 00:32 00:59 01:00 Temperature 98.6 F 98.6 F Pulse Rate 69 69 Respiratory 10 11 Rate Blood Pressure 93/47 (mmHg) O2 Sat by Pulse 100 98 100 Oximetry 04/27/16 04/27/16 04/27/16 01:03 01:30 02:00 Temperature 98.6 F 98.5 F 98.4 F Pulse Rate 69 73 66 Respiratory 12 14 19 Rate Blood Pressure 114/52 115/50 113/56 (mmHg) O2 Sat by Pulse 99 99 99 Oximetry 04/27/16 04/27/16 04/27/16 02:30 03:00 03:30 Temperature 98.4 F 98.4 F 98.4 F Pulse Rate 65 66 67 Respiratory 19 16 16 Rate Blood Pressure 111/61 114/58 119/71 (mmHg) O2 Sat by Pulse 100 100 99 Oximetry 04/27/16 04/27/16 04/27/16 04:00 04:30 05:00 Temperature 98.4 F 98.5 F 98.5 F Pulse Rate 66 63 64 Respiratory 19 16 15 Rate Blood Pressure 122/62 130/59 130/79 (mmHg) O2 Sat by Pulse 100 98 99 Oximetry 04/27/16 04/27/16 04/27/16 05:30 06:00 06:30 Temperature 98.6 F 98.3 F 98.6 F Pulse Rate 64 69 76 Respiratory 12 12 14 Rate Blood Pressure 137/82 149/93 174/155 (mmHg) O2 Sat by Pulse 98 100 82 Oximetry 04/27/16 04/27/16 07:00 08:00 Temperature 98.7 F 98.9 F Pulse Rate 66 72 Respiratory 12 12 Rate Blood Pressure 176/88 164/97 (mmHg) O2 Sat by Pulse 99 98 Oximetry Oxygen Devices in Use Now: Nasal Cannula Appearance: Middle-aged, obese, F, laying in bed in NAD Eyes: No Scleral Icterus Ears/Nose/Mouth/Throat: - - Dry MM Neck: NL Appearance and Movements; NL JVP Respiratory: Symmetrical Chest Expansion and Respiratory Effort, Clear to Auscultation - in anterior and lateral vidal Cardiovascular: NL Sounds; No Murmurs; No JVD, RRR Abdominal: - - Obese, soft, NTND, BS+ Lymphatic: No Cervical Adenopathy Extremities: - - B/L LE edema, B/L UE edema as well Skin: - - Chronic RLE surgical changes Neurological: - - Alert, oriented to self, place, month and year, follows commands, moves all 4 extremities Lines/Tubes/Other Access: Clean, Dry and Intact To Result Diagrams: 04/26/16 08:03 04/27/16 08:30 Additional Lab and Data: Microbiology and Other Data: Microbiology 04/25/16 21:40 Nasal Screen MRSA (PCR)(MAXIMINO) - Final Nasal Mrsa Negative Assess/Plan/Problems-Billing Assessment: Altered mental status, encephalopathy in a 60 yo F with hx of HTN, melanoma not currently on treatment, pancreatitis, RSD, chronic pain on narcotics, hypopituitarism, hyperammonemia, hypothyroidism - Patient Problems (1) Altered mental state Current Visit: No Comment: Encephlaopathy seems to be improving. Patient did have increase in Fentanyl patch within the last 1-2 weeks and received large doses of BZDs in the ED after she had agitation post-narcan. Appreciate Neurology assistance. MRI shows multifocal subacute infarcts, EEG c/w encephalopathy. UA abnormal, will cover for UTI until culture returns. Continue Hydrocortisone IV. Ammonia improved but will continue Lactulose NE as per Dr. Molina, can likely stop later today. Patient likely has some element of JENIFFER, should get overnight pulseox once more alert, sleep study as outpatient. Will get swallow eval. (2) SLAVA (acute kidney injury) Current Visit: Yes Comment: Improving. Hold additional IVF with diffuse edema , hopefully will be able to take PO today. CT abd/pelvis shows renal calculus is unchanged. (3) HTN (hypertension) Current Visit: No Comment: Continue IV Metoprolol q6h in addition to prn hydralazine. Consider restarting PO Atenolol today if she does well on swallow eval. (4) Hypopituitarism Current Visit: No Comment: IV hydrocortisone as above (5) Hypothyroidism Current Visit: Yes Comment: TSH low/normal. Not on outpatient therapy. (6) Reflex sympathetic dystrophy Current Visit: No Comment: Holding narcotics for now. (7) DVT prophylaxis Current Visit: No Comment: HSQ
[2016-04-27] MEDS: KCL 10 MEQ/50 ML IVPREMIX* 10 MEQ/50 ML BAG IV SCH ×2 (10:44→12:01)
[2016-04-27] MEDS ORDERED: Ampicillin ADVAN(*) 1 GM in NS 0.9% 50 ML* 50 ML IVPB SCH (14:00)
[2016-04-27] MEDS ORDERED: Lactulose 300 ML for PR* 10 GM/15 ML BTL PR SCH (16:00)
[2016-04-27] MEDS: Ampicillin ADVAN(*) 1 GM in NS 0.9% 50 ML* 50 ML IVPB SCH ×2 (16:10→22:38)
[2016-04-27] MEDS ORDERED: Iodixanol* (CONTRAST) 320 MG/ML 100 ML SDV IV ONE (20:03)
[2016-04-27] MEDS ORDERED: NS 0.9% 50 ML* 50 ML ONE (22:33)
[2016-04-27] MEDS: Aspirin EC Low Dose* 81 MG TAB.EC PO SCH (22:40)
--- NOTE | 2016-04-27 22:59 | RAD ---
INDICATION: CVA. COMPARISON: April 26, 2006 MRI brain TECHNIQUE: Multidetector CT images were obtained from the aortic arch to the vertex of the head with 80 mL Visipaque 320 IV contrast. Arterial phase of enhancement. Multiplanar reformation including maximum intensity projection. 3-D arterial volume rendering. Stenosis estimations based on denominator of distal arterial diameter. NECK ANGIOGRAM REPORT: Assessment of the ostia of the aortic arch branch vessels limited due to artifact from dense contrast in the LEFT brachiocephalic vein. Mild calcific and noncalcific plaque at the RIGHT carotid bifurcation with resulting 60% short segment stenosis. Mild predominant calcific plaque at the LEFT carotid bulb and proximal internal carotid artery with only approximate 20% stenosis resulting. Patent codominant vertebral arteries both contribute to the basilar artery. NECK ANGIOGRAM IMPRESSION: Approximate 60% short segment stenosis of the RIGHT proximal internal carotid artery. Approximate 20% short segment stenosis of the proximal LEFT internal carotid artery. HEAD ANGIOGRAM REPORT: While detail is limited due to surrounding dense bone at the skull base there is significant atherosclerotic plaque at the internal carotid arteries at the level of the carotid canals with approximate 70% bilateral internal carotid artery stenosis resulting. Moderate length segment approximate 50% stenosis of the M1 segment of the RIGHT middle cerebral artery. Unremarkable M2 segments of the RIGHT middle cerebral artery. Moderate length segment approximate 90% stenosis of the LEFT M1 middle cerebral artery segment. Corresponding moderately decreased opacification of the LEFT M2 segments. Patent diminutive A1 segments of the anterior cerebral arteries. Patent diminutive bilateral A2 anterior cerebral artery segments. Diminutive basilar artery without focal abnormality. Unremarkable cerebellar artery origins. Patent bilateral posterior cerebral arteries. The RIGHT posterior tibial artery is supplied by both the anterior and posterior circulation. The LEFT posterior cerebral artery is supplied predominantly by the posterior circulation with normal variant hypoplastic posterior communicating artery. No intracranial aneurysm or vascular malformation evident. HEAD ANGIOGRAM IMPRESSION: 1. While detail is limited due to surrounding dense bone at the skull base there is significant atherosclerotic plaque at the internal carotid arteries at the level of the carotid canals with approximate 70% bilateral internal carotid artery stenosis resulting. 2. Moderate length segment approximate 50% stenosis of the M1 segment of the RIGHT middle cerebral artery. 3. Moderate length segment approximate 90% stenosis of the LEFT M1 middle cerebral artery segment. Corresponding moderately decreased opacification of the LEFT M2 segments. CPT II: CPT II Codes: 3100F
[2016-04-28] MEDS: hydrALAZINE IV* 20 MG/ML VIAL IV SLOW PU PRN ×2 (00:16→18:08)
[2016-04-28] MEDS ORDERED: NS 0.9% 50 ML* 50 ML ONE ×2 (03:15→09:06)
[2016-04-28] MEDS: Hydrocortisone INJ* 100 MG VIAL IV SCH ×3 (03:18→18:06)
[2016-04-28] MEDS: Ampicillin ADVAN(*) 1 GM in NS 0.9% 50 ML* 50 ML IVPB SCH ×4 (03:29→21:21)
[2016-04-28] MEDS: Metoprolol Tartrate IV* 1 MG/ML 5 ML VIAL IV SCH (03:30)
[2016-04-28] MEDS: Heparin VIAL(*) 5000 UNITS/ML VIAL (FIVE THOUSAND) SUBCUT SCH ×3 (05:35→21:21)
[2016-04-28 06:06] LABS: BUN/Creatinine Ratio 10.5 (8-20); Calcium 8.6 mg/dL (8.6-10.3); EGFR African American 76.9 (>60); EGFR Non-African American 59.8 (>60); Potassium 2.9 mmol/L (3.5-5.0)
[2016-04-28] MEDS: Atenolol TAB* 50 MG PO SCH (09:24)
[2016-04-28] MEDS: KCL 20 MEQ/100 ML IVPREMIX* 20 MEQ/100 ML BAG IV SCH ×3 (09:24→15:51)
--- NOTE | 2016-04-28 12:52 | ECHO ---
Patient: LORENZO JACOBO [facility] Rec#: [id number] : 1955 Date: 04/28/2016 Age: 60y Height: 172 cm / 67.7 in Weight: 132 kg / 290.9 lbs Sex: F BSA: 2.39 Room#: [facility] Admit Date#: 04/28/2015 Type: Inpatient Referring: Eros Craft Reading: Toro Mcclain MD Manager Payer: Lester Newman RDCS Transthoracic Echocardiogram Indication: CVA BP: 140/78 HR: 82 Rhythm: NSR Findings History: Melanoma, chemotherapy, DVT Technical Comments: The study is technically limited due to patient body habitus. The study was technically limited due to the patient's inability to lay in the left lateral decubitus position. Completed 1100 Left Ventricle: The left ventricular chamber size is normal. There is normal left ventricular systolic function. The estimated ejection fraction is 55-60%. There is no consistent Doppler evidence of clinically significant diastolic dysfunction. Left Atrium: The left atrium is slightly dilated. Right Ventricle: The right ventricle is not well visualized. The right ventricular cavity size is normal. Right Atrium: The right atrial cavity size is normal. Aortic Valve: The aortic valve leaflets are mildly thickened. There is no evidence of aortic regurgitation. There is no evidence of aortic stenosis. Mitral Valve: The mitral valve leaflets appear normal. There is no evidence of mitral regurgitation. There is no evidence of mitral stenosis. Tricuspid Valve: The tricuspid valve structure is not well visualized. There is no evidence of tricuspid valve regurgitation. Pulmonic Valve: The pulmonic valve structure is not well visualized. Pericardium: There is no pericardial effusion. A pericardial fat pad is visualized. Aorta: There is no dilatation of the ascending aorta. The aortic arch is not well visualized. There is no dilation of the aortic root. Pulmonary Artery: The main pulmonary artery is not well visualized. Venous: The venous system is not well visualized. The inferior vena cava is not visualized. Conclusions The study is technically limited due to patient body habitus. The study was technically limited due to the patient's inability to lay in the left lateral decubitus position. There is normal left ventricular systolic function. The estimated ejection fraction is 55-60%. No significant valvular disease Measurements Name Value Normal Range RVIDd (AP) 2D 1.8 cm (0.9 - 2.6) RVDdMajor (2D) 3.6 cm (2.2 - 4.4) RAd ISD 4CH 4.1 cm (3.4 - 4.9) RA (A4C)W 3.3 cm (2.9 - 4.6) IVSd (2D) 1 cm (0.6 - 1) LVPWd (2D) 0.7 cm (0.6 - 1) LVIDd (2D) 5.4 cm (3.6 - 5.4) LVIDs (2D) 3.9 cm - LV FS (2D) 28 % (25 - 45) Aortic Annulus 1.9 cm (1.4 - 2.6) Ao root diameter (2D) 3.1 cm (2.1 - 3.5) Ascending Ao 2.8 cm (2.1 - 3.4) LA dimension (AP) 2D 3.9 cm (2.3 - 3.8) LAd ISD 4CH 5.7 cm (2.9 - 5.3) LA ISD 4CH W 3.7 cm (2.5 - 4.5) Name Value Normal Range LA ESV SP 4CH (A/L) 32 ml - LA ESV SP 2CH (A/L) 72 ml - LA ESV BP (A/L) 51 ml - LA ESV BP (A/L) index 21.4 ml/m2 - LA ESV SP 4CH (MOD) 30 ml - LA ESV SP 2CH (MOD) 68 ml - Name Value Normal Range MV E-wave Vmax 0.94 m/sec - MV deceleration time 143 msec - MV A-wave Vmax 0.91 m/sec - MV E:A ratio 1 ratio - LV septal e' Vmax 0.06 m/sec - LV lateral e' Vmax 0.08 m/sec - LV E:e' septal ratio 15 ratio - LV E:e' lateral ratio 11.8 ratio - Name Value Normal Range AV Vmax 0.8 m/sec - LVOT diameter 2.1 cm - LVOT Vmax 0.91 m/sec - Name Value Normal Range PV Vmax 0.6 m/sec -
--- NOTE | 2016-04-28 14:04 | PN ---
PROGRESS NOTE: DATE: 04/27/2016. PATIENT OF: Dr. Craft. HISTORY OF PRESENT ILLNESS: This is a 60-year-old woman, whom I am seeing in followup today. She is much more awake. She opens her eyes. She talks. She follows commands. She moves all extremities. She has no major complaints. MEDICATIONS: Include: 1. Metoprolol. 2. Lorazepam. 3. Lactulose. 4. Hydrocortisone. 5. Hydralazine. 6. Ampicillin. PHYSICAL EXAMINATION: Vital Signs: Temperature 98.9, pulse 77, respirations 19 , blood pressure 158/74. Neurologic: She is alert and oriented. She speaks in brief sentences today. Cranial nerves II through XII are intact. She has a minimal right facial weakness. Strength on the left side is trace weak, effort is not full, and 5-/5 strength on the right. Reflexes are 1. Toes are equivocal on the right and downgoing on the left. Chest: Clear. Cardiovascular: Regular rate and rhythm. Abdomen: Soft with positive bowel sounds. IMPRESSION AND RECOMMENDATIONS: I reviewed her MRI scan and showed the films to her sister, which showed subacute stroke in her basal ganglia, caudate nucleus, and subinsular region. I discussed with the sister and we will be discussing with Dr. Craft that even though these are distinct separate areas of brain injury, they are all in the distribution of the left middle cerebral artery, so this could be from a vascular lesion rather than cardioembolic, either would be possible, but the MRI scan is not specific to help distinguish between the two possibilities. She needs to have imaging of her carotids and cerebral vasculature and she needs to have an echo done as well. She should be started on an antiplatelet agent and fasting lipids should be checked. Discussed prognosis with the family. [id number]/[facility] #: [id number] CHAVA
--- NOTE | 2016-04-28 15:28 | PN ---
Subjective Date of Service: 04/28/16 Interval History: Patient seen this morning with Uncle Cedric in the room as well. She is alert and oriented, answering questions appropriately. Denies any pain or SOB. Says she has not felt hungry. Family History: Unchanged from Admission Social History: Unchanged from Admission Past Medical History: Unchanged from Admission Objective Active Medications: Acetaminophen (Tylenol Tab*) 650 mg PO Q4H PRN PRN Reason: FEVER/PAIN Aspirin (Ecotrin Ec Tab*) 325 mg PO DAILY [facility] Atenolol (Tenormin Tab*) 50 mg PO DAILY [facility] Last Admin: 04/28/16 09:24 Dose: 50 mg Atorvastatin Calcium (Lipitor*) 80 mg PO 1700 [facility] Heparin Sodium (Porcine) (Heparin Vial(*)) 5,000 units SUBCUT Q8HR [facility] Last Admin: 04/28/16 13:27 Dose: 5,000 units Hydralazine HCl (Apresoline Iv*) 5 mg IV SLOW PU Q6H PRN PRN Reason: BLOOD PRESSURE Last Admin: 04/28/16 00:16 Dose: 5 mg Hydrocortisone Sodium Succinate (Solu-Cortef*) 50 mg IV Q8H [facility] Last Admin: 04/28/16 09:21 Dose: 50 mg Sodium Chloride (Ns 0.45% 1000 Ml Bag*) 1,000 mls @ 10 mls/hr IV KVO [facility] Last Admin: 04/28/16 03:40 Dose: 10 mls/hr Ampicillin Sodium 1 gm/ Sodium (Chloride) 50 mls @ 200 mls/hr IVPB 0330,0930, 1530,2130 [facility] Last Admin: 04/28/16 09:22 Dose: 200 mls/hr Lorazepam (Ativan Inj*) 0.5 mg IV PUSH Q4H PRN PRN Reason: ANXIETY Ondansetron HCl (Zofran Inj*) 4 mg IV Q6H PRN PRN Reason: NAUSEA Vital Signs 04/27/16 04/27/16 04/27/16 16:00 17:00 18:00 Temperature 99.2 F 99.1 F 99.1 F Pulse Rate 72 76 75 Respiratory 10 13 13 Rate Blood Pressure 149/75 145/71 130/66 (mmHg) O2 Sat by Pulse 99 99 98 Oximetry 04/28/16 04/28/16 04/28/16 00:07 00:10 00:12 Temperature 99.2 F 99.1 F 99.1 F Pulse Rate 85 85 85 Respiratory 12 15 14 Rate Blood Pressure 196/89 175/108 187/103 (mmHg) O2 Sat by Pulse 96 95 97 Oximetry 04/28/16 04/28/16 04/28/16 01:00 02:00 03:00 Temperature 98.9 F 98.9 F 99.3 F Pulse Rate 85 89 91 Respiratory 23 13 17 Rate Blood Pressure 149/82 159/83 136/73 (mmHg) O2 Sat by Pulse 97 97 96 Oximetry 04/28/16 04/28/16 04/28/16 04:00 05:00 06:00 Temperature 99.4 F 99.6 F 99.6 F Pulse Rate 87 94 90 Respiratory 13 12 15 Rate Blood Pressure 137/75 140/78 (mmHg) O2 Sat by Pulse 97 93 95 Oximetry Oxygen Devices in Use Now: None Appearance: Middle-aged, F, laying in bed in NAD Eyes: No Scleral Icterus Ears/Nose/Mouth/Throat: Mucous Membranes Moist Neck: NL Appearance and Movements; NL JVP Respiratory: Symmetrical Chest Expansion and Respiratory Effort, Clear to Auscultation Cardiovascular: NL Sounds; No Murmurs; No JVD, RRR Abdominal: - - Obese, soft, NTND, BS+ Lymphatic: No Cervical Adenopathy Extremities: - - Chronic RLE surgical wounds, mild diffuse anasarca Skin: No Rash or Ulcers Neurological: Alert and Oriented x 3 Result Diagrams: 04/26/16 08:03 04/28/16 06:00 Additional Lab and Data: Microbiology and Other Data: Microbiology 04/25/16 21:40 Nasal Screen MRSA (PCR)(MAXIMINO) - Final Nasal Mrsa Negative Assess/Plan/Problems-Billing Assessment: Altered mental status, encephalopathy in a 60 yo F with hx of HTN, melanoma not currently on treatment, pancreatitis, RSD, chronic pain on narcotics, hypopituitarism, hyperammonemia, hypothyroidism - Patient Problems (1) Altered mental state Current Visit: No Comment: Encephlaopathy resolved, likely multifactorial. Patient did have increase in Fentanyl patch within the last 1-2 weeks and received large doses of BZDs in the ED after she had agitation post-narcan. Appreciate Neurology assistance. MRI of the brain shows multifocal subacute strokes, EEG c/w encephalopathy. Continue Ampicillin for Enterococcal UTI. Continue Hydrocortisone IV for today, can consider switching to PO over the next few days. Stopped Lactulose for mildly elevated ammonia. Patient likely has some element of JENIFFER, should get overnight pulseox once more alert, sleep study as outpatient. Will get swallow eval. (2) CVA (cerebral vascular accident) Current Visit: Yes Comment: Subacute infarcts on MRI. CTA shows 90% stenosis of M1 lesion and 70% lesions in the carotids B/L. Started ASA 325 mg daily and Atorvastatin [address] Molina feels she should have evaluation in the future for possible CEA. Images sent up to [place] ([place] by ICU steward/stewardess club car. Dr. Molina to let me know who to contact at [place]. Echo study was poor due to habitus, what was seen was unremarkable. (3) SLAVA (acute kidney injury) Current Visit: Yes Comment: Resolved. CT abd/pelvis shows renal calculus is unchanged. (4) HTN (hypertension) Current Visit: No Comment: Restarted home Atenolol. Continue prn hydralazine. (5) Hypopituitarism Current Visit: No Comment: IV hydrocortisone as above (6) Hypothyroidism Current Visit: Yes Comment: TSH low/normal. Not on outpatient therapy. (7) Reflex sympathetic dystrophy Current Visit: No Comment: Holding narcotics for now. (8) DVT prophylaxis Current Visit: No Comment: HSQ
[2016-04-28 16:24] LABS: BUN/Creatinine Ratio 10.2 (8-20); Calcium 9.5 mg/dL (8.6-10.3); EGFR African American 74.2 (>60); EGFR Non-African American 57.7 (>60); Potassium 5.4 mmol/L (3.5-5.0)
[2016-04-28] MEDS: Atorvastatin* 80 MG TAB PO SCH (18:09)
[2016-04-28] MEDS ORDERED: hydrALAZINE IV* 20 MG/ML VIAL IV SLOW PU ONE (18:37)
[2016-04-28] MEDS: Aspirin EC Low Dose* 81 MG TAB.EC PO SCH (19:14)
[2016-04-29] MEDS: Hydrocortisone INJ* 100 MG VIAL IV SCH ×3 (01:21→20:04)
[2016-04-29] MEDS: Ampicillin ADVAN(*) 1 GM in NS 0.9% 50 ML* 50 ML IVPB SCH ×4 (03:11→21:29)
[2016-04-29] MEDS: hydrALAZINE IV* 20 MG/ML VIAL IV SLOW PU PRN ×2 (04:12→11:54)
[2016-04-29] MEDS: Heparin VIAL(*) 5000 UNITS/ML VIAL (FIVE THOUSAND) SUBCUT SCH ×3 (05:10→21:33)
[2016-04-29] MEDS ORDERED: hydrALAZINE IV* 20 MG/ML VIAL IV SLOW PU ONE (05:40)
[2016-04-29 06:23] LABS: BUN/Creatinine Ratio 8.4 (8-20); Calcium 9.5 mg/dL (8.6-10.3); EGFR African American 76.9 (>60); EGFR Non-African American 59.8 (>60)
[2016-04-29 06:29] LABS: Potassium 2.6 mmol/L (3.5-5.0)
[2016-04-29] MEDS ORDERED: KCL 20 MEQ/100 ML IVPREMIX* 20 MEQ/100 ML BAG IV ONE (06:32)
[2016-04-29] MEDS ORDERED: Potassium Chlor TAB* 20 MEQ TAB.ER PO ONE (06:32)
--- NOTE | 2016-04-29 06:53 | PN ---
NEUROLOGY FOLLOWUP: DATE: 04/28/2016. PATIENT OF: Dr. Craft. HISTORY: A 60-year-old woman status post stroke. She has no headache or other complaints and is feeling good in general. She has not been up out of bed today , at this point, and she denies any confusion and feels mentally back to normal. She has now been started on Lipitor 80 mg daily and is on her aspirin, which is going to be increased to 325. She is now off her lactulose and her mental status remains good. Other meds are unchanged. PHYSICAL EXAMINATION: Vital Signs: Temperature 99.6, pulse 90, respirations 15 , and blood pressure 140/78. General: She is alert and oriented with normal speech. Cranial nerves II through XII were intact. Strength appears 5-/5 on the right, full on the left. Toes were downgoing. Chest: Clear. Cardiovascular: Regular rate and rhythm. Abdomen: Soft with positive bowel sounds. RADIOLOGICAL DATA: Her CTA showed a 70% bilateral carotid stenosis with 90% stenosis of the left M1 branch. Her echo was to be done. LABORATORY DATA: Include a potassium of 2.9 today, chloride of 98, and glucose 144. Her BNP is otherwise normal. Her LDL is 170 and is being treated now. As I had discussed earlier, her stroke is in the distribution of partial left middle cerebral artery stroke and this is most likely secondary to the abnormalities in her left M1 branch with 90% stenosis. It may have been a breakage of plaque for the downstream from her carotid. She was not a candidate for any acute intervention given the timing of her presentation but given her carotid stenosis on her symptomatic side, she would be a candidate for carotid endarterectomy and she would have vascular and neurosurgical followup and a referral to neurosurgeon should be made. She may or may not need rehab. What I would recommend doing is having the films pushed to [facility] [place] and then making referral to vascular neurosurgeons there. Thank you for sharing her case. [id number]/[facility] #: [id number] CHAAV
[2016-04-29] MEDS: Atenolol TAB* 50 MG PO SCH (08:34)
[2016-04-29] MEDS: Aspirin EC TAB* 325 MG PO SCH (08:34)
[2016-04-29] MEDS: Citalopram TAB* 20 MG PO SCH (08:34)
[2016-04-29] MEDS: KCL 20 MEQ/100 ML IVPREMIX* 20 MEQ/100 ML BAG IV SCH ×3 (15:38→20:02)
[2016-04-29] MEDS: amLODIPine TAB* 5 MG PO SCH (15:39)
[2016-04-29] MEDS: Atorvastatin* 80 MG TAB PO SCH (15:39)
[2016-04-29] MEDS: Hydrochlorothiazide TAB* 25 MG PO SCH (15:39)
--- NOTE | 2016-04-29 15:45 | PN ---
Subjective Date of Service: 04/29/16 Interval History: Seen with uncle william at bedside Pt without complaints She is beginning to wonder where she will go on discharge as she will not go to [facility]. Denies pain, N/V, LH, SOB Family History: Unchanged from Admission Social History: Unchanged from Admission Past Medical History: Unchanged from Admission Objective Active Medications: Acetaminophen (Tylenol Tab*) 650 mg PO Q4H PRN PRN Reason: FEVER/PAIN Amlodipine Besylate (Norvasc Tab*) 10 mg PO DAILY [facility] Last Admin: 04/29/16 15:39 Dose: 10 mg Aspirin (Ecotrin Ec Tab*) 325 mg PO DAILY [facility] Last Admin: 04/29/16 08:34 Dose: 325 mg Atenolol (Tenormin Tab*) 50 mg PO DAILY [facility] Last Admin: 04/29/16 08:34 Dose: 50 mg Atorvastatin Calcium (Lipitor*) 80 mg PO 1700 [facility] Last Admin: 04/29/16 15:39 Dose: 80 mg Citalopram Hydrobromide (Celexa Tab*) 20 mg PO DAILY [facility] Last Admin: 04/29/16 08:34 Dose: 20 mg Heparin Sodium (Porcine) (Heparin Vial(*)) 5,000 units SUBCUT Q8HR [facility] Last Admin: 04/29/16 15:39 Dose: 5,000 units Hydralazine HCl (Apresoline Iv*) 5 mg IV SLOW PU Q6H PRN PRN Reason: BLOOD PRESSURE Last Admin: 04/29/16 11:54 Dose: 5 mg Hydrochlorothiazide (Hydrodiuril Tab*) 25 mg PO DAILY [facility] Last Admin: 04/29/16 15:39 Dose: 25 mg Hydrocortisone Sodium Succinate (Solu-Cortef*) 50 mg IV Q12HR [facility] Ampicillin Sodium 1 gm/ Sodium (Chloride) 50 mls @ 200 mls/hr IVPB 0330,0930, 1530,2130 [facility] Last Admin: 04/29/16 10:46 Dose: 200 mls/hr Potassium Chloride (Potassium Chloride 20 Meq/100 Ml Ivpremix*) 20 meq in 100 mls @ 50 mls/hr IV Q2H [facility] Stop: 04/29/16 21:59 Last Admin: 04/29/16 15:38 Dose: 50 mls/hr Ondansetron HCl (Zofran Inj*) 4 mg IV Q6H PRN PRN Reason: NAUSEA Last Admin: 04/29/16 08:45 Dose: 4 mg Vital Signs 04/28/16 04/28/16 04/28/16 15:46 15:48 15:50 Temperature 98.5 F 98.4 F 98.4 F Pulse Rate 74 70 74 Respiratory 14 15 15 Rate Blood Pressure 179/105 (mmHg) O2 Sat by Pulse 97 96 94 Oximetry 04/28/16 04/28/16 04/28/16 16:00 17:00 18:10 Temperature 98.3 F 98.3 F 97.4 F Pulse Rate 60 65 72 Respiratory 18 17 16 Rate Blood Pressure 190/107 (mmHg) O2 Sat by Pulse 91 96 97 Oximetry 04/28/16 04/28/16 04/28/16 18:36 18:38 19:46 Temperature 98.0 F Pulse Rate 73 71 81 Respiratory 16 Rate Blood Pressure 181/106 208/98 176/94 (mmHg) O2 Sat by Pulse 99 99 97 Oximetry 04/28/16 04/28/16 04/28/16 20:00 21:30 23:33 Temperature 98.0 F Pulse Rate 74 Respiratory 16 20 Rate Blood Pressure 176/85 155/88 (mmHg) O2 Sat by Pulse 96 Oximetry 04/29/16 04/29/16 04/29/16 00:00 04:01 05:14 Temperature 98.0 F Pulse Rate 74 Respiratory 20 Rate Blood Pressure 186/89 183/77 (mmHg) O2 Sat by Pulse 96 98 Oximetry 04/29/16 04/29/16 04/29/16 06:29 07:32 08:00 Temperature 100.9 F Pulse Rate 88 Respiratory 16 20 Rate Blood Pressure 183/83 168/92 (mmHg) O2 Sat by Pulse 99 Oximetry 04/29/16 04/29/16 11:33 12:36 Temperature 100.9 F 98.5 F Pulse Rate 65 63 Respiratory 16 Rate Blood Pressure 192/95 180/96 (mmHg) O2 Sat by Pulse 97 97 Oximetry Oxygen Devices in Use Now: None Appearance: obese, interactive, NAD Eyes: No Scleral Icterus, PERRLA Ears/Nose/Mouth/Throat: Clear Oropharnyx, Mucous Membranes Moist Neck: NL Appearance and Movements; NL JVP, Trachea Midline Respiratory: Symmetrical Chest Expansion and Respiratory Effort, Clear to Auscultation Cardiovascular: NL Sounds; No Murmurs; No JVD, RRR Abdominal: NL Sounds; No Tenderness; No Distention, No Hepatosplenomegaly Lymphatic: No Cervical Adenopathy Extremities: No Edema, No Clubbing, Cyanosis Skin: - - multiple melanoms in right LE Neurological: Alert and Oriented x 3 Result Diagrams: 04/26/16 08:03 04/29/16 05:18 Additional Lab and Data: Microbiology and Other Data: Microbiology 04/25/16 21:40 Nasal Screen MRSA (PCR)(MAXIMINO) - Final Nasal Mrsa Negative Assess/Plan/Problems-Billing Assessment: 60 yo F with hx of HTN, melanoma on right LE (not currently on treatment), pancreatitis, RSD, chronic pain on narcotics, hypopituitarism on hydrocortisone , hyperammonemia, hypothyroidism p/w acute encephalopathy - Patient Problems (1) Altered mental state Comment: Acute Encephlaopathy now resolved. Etiology multifactorial: Recent increase in Fentanyl patch dose within the last 1-2 weeks MRI of the brain shows multifocal subacute strokes, EEG c/w encephalopathy. +Enterococcal UTI on Ampicillin for Decrease Hydrocortisone from TID to BID IV for today. Stopped Lactulose for mildly elevated ammonia. Patient likely has some element of JENIFFER, should get overnight pulseox once more alert, sleep study as outpatient. (2) CVA (cerebral vascular accident) Comment: Subacute infarcts on MRI. CTA shows 90% stenosis of M1 lesion and 70% lesions in the carotids B/L. Started ASA 325 mg daily and Atorvastatin [address] Molina feels she should have evaluation in the future for possible CEA ([phone]) Images sent up to [place]) by ICU airline stewardess. Unclear that CEA would be performed in setting of melanoma. Will follow up with records from Dr. Lynch's office (3) Acute urinary retention Comment: Suspect in setting of UTI and narcotics remove swenson 04/29/16 (4) UTI (urinary tract infection) Comment: On ampicillin (5) SLAVA (acute kidney injury) (6) HTN (hypertension) Comment: c/w Atenolol. start norvasc 10mg and HCTZ 25mg 05/09/16 Continue prn hydralazine. (7) Hypokalemia Comment: Replete IV trend (8) Hypothyroidism Comment: TSH low/normal. Not on outpatient therapy. (9) Reflex sympathetic dystrophy Comment: Holding narcotics for now. (10) DVT prophylaxis Comment: Q
[2016-04-29] MEDS: oxyCODONE TAB* 5 MG TAB PO PRN (19:07)
[2016-04-30] MEDS: oxyCODONE TAB* 5 MG TAB PO PRN ×5 (01:55→21:33)
[2016-04-30] MEDS: Ampicillin ADVAN(*) 1 GM in NS 0.9% 50 ML* 50 ML IVPB SCH ×4 (03:20→21:30)
[2016-04-30] MEDS: Heparin VIAL(*) 5000 UNITS/ML VIAL (FIVE THOUSAND) SUBCUT SCH ×3 (05:42→21:34)
[2016-04-30 05:46] LABS: BUN/Creatinine Ratio 10.7 (8-20); Calcium 9.5 mg/dL (8.6-10.3); EGFR African American 70.1 (>60); EGFR Non-African American 54.5 (>60); Potassium 2.8 mmol/L (3.5-5.0)
[2016-04-30] MEDS: Aspirin EC TAB* 325 MG PO SCH (08:09)
[2016-04-30] MEDS: amLODIPine TAB* 5 MG PO SCH (08:10)
[2016-04-30] MEDS: Citalopram TAB* 20 MG PO SCH (08:10)
[2016-04-30] MEDS: Hydrochlorothiazide TAB* 25 MG PO SCH (08:10)
[2016-04-30] MEDS: Atenolol TAB* 50 MG PO SCH (08:10)
[2016-04-30] MEDS: Hydrocortisone INJ* 100 MG VIAL IV SCH ×2 (08:14→20:09)
[2016-04-30] MEDS: KCL 20 MEQ/100 ML IVPREMIX* 20 MEQ/100 ML BAG IV SCH ×3 (09:31→13:50)
[2016-04-30] MEDS ORDERED: Lisinopril TAB* 10 MG PO ONE (15:24)
--- NOTE | 2016-04-30 15:31 | PN ---
Subjective Date of Service: 04/30/16 Interval History: Seen with uncle and friend at bedside several episodes of loose stool today decreased appetite pain increased in legs and lower back Family History: Unchanged from Admission Social History: Unchanged from Admission Past Medical History: Unchanged from Admission Objective Active Medications: Acetaminophen (Tylenol Tab*) 650 mg PO Q4H PRN PRN Reason: FEVER/PAIN Amlodipine Besylate (Norvasc Tab*) 10 mg PO DAILY [facility] Aspirin (Ecotrin Ec Tab*) 325 mg PO DAILY [facility] Last Admin: 04/30/16 08:09 Dose: 325 mg Atenolol (Tenormin Tab*) 50 mg PO DAILY [facility] Last Admin: 04/30/16 08:10 Dose: 50 mg Atorvastatin Calcium (Lipitor*) 80 mg PO 1700 [facility] Last Admin: 04/29/16 15:39 Dose: 80 mg Citalopram Hydrobromide (Celexa Tab*) 20 mg PO DAILY [facility] Last Admin: 04/30/16 08:10 Dose: 20 mg Heparin Sodium (Porcine) (Heparin Vial(*)) 5,000 units SUBCUT Q8HR [facility] Last Admin: 04/30/16 13:50 Dose: 5,000 units Hydralazine HCl (Apresoline Iv*) 5 mg IV SLOW PU Q6H PRN PRN Reason: BLOOD PRESSURE Last Admin: 04/29/16 11:54 Dose: 5 mg Hydrochlorothiazide (Hydrodiuril Tab*) 25 mg PO DAILY [facility] Hydrocortisone Sodium Succinate (Solu-Cortef*) 50 mg IV Q12HR [facility] Last Admin: 04/30/16 08:14 Dose: 50 mg Ampicillin Sodium 1 gm/ Sodium (Chloride) 50 mls @ 200 mls/hr IVPB 0330,0930, 1530,2130 [facility] Last Admin: 04/30/16 08:14 Dose: 200 mls/hr Lisinopril (Prinivil Tab*) 20 mg PO ONCE ONE Stop: 04/30/16 15:25 Lisinopril (Prinivil Tab*) 20 mg PO DAILY [facility] Ondansetron HCl (Zofran Inj*) 4 mg IV Q6H PRN PRN Reason: NAUSEA Last Admin: 04/29/16 08:45 Dose: 4 mg Oxycodone HCl (Roxycodone Tab*) 10 mg PO Q4H PRN PRN Reason: PAIN Vital Signs 04/29/16 04/29/16 04/29/16 15:43 16:02 19:07 Temperature 98.5 F Pulse Rate 72 Respiratory 18 20 Rate Blood Pressure 174/83 (mmHg) O2 Sat by Pulse 97 97 Oximetry 04/29/16 04/29/16 04/29/16 19:08 20:00 21:05 Temperature 99.0 F Pulse Rate 73 Respiratory 18 18 18 Rate Blood Pressure 173/89 (mmHg) O2 Sat by Pulse 97 Oximetry 04/29/16 04/30/16 04/30/16 23:44 01:55 03:23 Temperature 97.8 F 97.6 F Pulse Rate 61 60 Respiratory 18 18 16 Rate Blood Pressure 159/85 166/84 (mmHg) O2 Sat by Pulse 98 97 Oximetry 04/30/16 04/30/16 04/30/16 03:55 07:47 08:00 Temperature 98.3 F Pulse Rate 65 Respiratory 18 16 16 Rate Blood Pressure 191/101 (mmHg) O2 Sat by Pulse 97 Oximetry 04/30/16 04/30/16 04/30/16 08:09 10:09 10:17 Temperature Pulse Rate 60 Respiratory 16 16 Rate Blood Pressure 155/83 (mmHg) O2 Sat by Pulse Oximetry 04/30/16 04/30/16 11:25 12:48 Temperature 98.6 F Pulse Rate 58 Respiratory 16 16 Rate Blood Pressure 171/94 (mmHg) O2 Sat by Pulse 97 Oximetry Oxygen Devices in Use Now: None Appearance: obese, interactive, NAD Eyes: No Scleral Icterus, PERRLA Ears/Nose/Mouth/Throat: Clear Oropharnyx, Mucous Membranes Moist Neck: NL Appearance and Movements; NL JVP, Trachea Midline Respiratory: Symmetrical Chest Expansion and Respiratory Effort, Clear to Auscultation Cardiovascular: NL Sounds; No Murmurs; No JVD, RRR Abdominal: No Hepatosplenomegaly, - - soft, mild TTP RUQ, ND, +bs Lymphatic: No Cervical Adenopathy Extremities: No Edema Neurological: Alert and Oriented x 3 Result Diagrams: 04/26/16 08:03 04/30/16 05:04 Additional Lab and Data: Microbiology and Other Data: Microbiology 04/25/16 21:40 Nasal Screen MRSA (PCR)(MAXIMINO) - Final Nasal Mrsa Negative Assess/Plan/Problems-Billing Assessment: 60 yo F with hx of HTN, melanoma on right LE (not currently on treatment), pancreatitis, RSD, chronic pain on narcotics, hypopituitarism on hydrocortisone , hyperammonemia, hypothyroidism p/w acute encephalopathy - Patient Problems (1) Altered mental state Comment: Acute Encephlaopathy now resolved. Etiology multifactorial: Recent increase in Fentanyl patch dose within the last 1-2 weeks MRI of the brain shows multifocal subacute strokes, EEG c/w encephalopathy. +Enterococcal UTI on Ampicillin Decrease Hydrocortisone from TID to BID IV for 04/29/16 Stopped Lactulose for mildly elevated ammonia. Patient likely has some element of JENIFFER, should get overnight pulseox once more alert, sleep study as outpatient. (2) Loose stools Comment: suspect component of narcotic withdrawal and in setting of abx increased narcotics for pain follow (3) CVA (cerebral vascular accident) Comment: Subacute infarcts on MRI. CTA shows 90% stenosis of M1 lesion and 70% lesions in the carotids B/L. Started ASA 325 mg daily and Atorvastatin [address] Molina feels she should have evaluation in the future for possible CEA ([phone]) [facility] sent [facility] to [facility]) by ICU pantry steward/stewardess. Unclear that CEA would be performed in setting of melanoma. Will follow up with records from Dr. Lynch's office (4) Acute urinary retention Comment: Suspect in setting of UTI and narcotics remove swenson 04/30/16 (5) UTI (urinary tract infection) Comment: On ampicillin day 08/28 (6) SLAVA (acute kidney injury) (7) HTN (hypertension) Comment: c/w Atenolol. start norvasc 10mg and HCTZ 25mg 05/09/16 start lisinopril 20mg 04/30/16 Continue prn hydralazine. (8) Hypokalemia Comment: Replete IV trend (9) Hypothyroidism Comment: TSH low/normal. Not on outpatient therapy. (10) Reflex sympathetic dystrophy Comment: increase oxycodone from 5mg to 10mg PRN (11) DVT prophylaxis Comment: HSQ
[2016-04-30] MEDS: Atorvastatin* 80 MG TAB PO SCH (16:07)
[2016-05-01] MEDS: oxyCODONE TAB* 5 MG TAB PO PRN ×3 (01:54→21:41)
[2016-05-01] MEDS: Ampicillin ADVAN(*) 1 GM in NS 0.9% 50 ML* 50 ML IVPB SCH ×4 (03:20→21:37)
[2016-05-01] MEDS: Heparin VIAL(*) 5000 UNITS/ML VIAL (FIVE THOUSAND) SUBCUT SCH ×3 (05:13→21:42)
[2016-05-01] MEDS: Hydrocortisone INJ* 100 MG VIAL IV SCH (09:05)
[2016-05-01] MEDS: Citalopram TAB* 20 MG PO SCH (09:05)
[2016-05-01] MEDS: amLODIPine TAB* 5 MG PO SCH (09:05)
[2016-05-01] MEDS: Hydrochlorothiazide TAB* 25 MG PO SCH (09:05)
[2016-05-01] MEDS: Aspirin EC TAB* 325 MG PO SCH (09:05)
[2016-05-01] MEDS: Lisinopril TAB* 10 MG PO SCH (09:05)
[2016-05-01] MEDS: Atenolol TAB* 50 MG PO SCH (09:06)
[2016-05-01] MEDS ORDERED: oxyCODONE TAB* 5 MG TAB PO ONE (10:57)
[2016-05-01 11:23] LABS: BUN/Creatinine Ratio 15.2 (8-20); EGFR African American 63.6 (>60); EGFR Non-African American 49.5 (>60); Potassium 3.1 mmol/L (3.5-5.0)
[2016-05-01] MEDS ORDERED: Potassium Chlor TAB* 20 MEQ TAB.ER PO ONE (16:53)
--- NOTE | 2016-05-01 16:59 | PN ---
Subjective Date of Service: 05/01/16 Interval History: Seen and examined this AM Diarrhea/loose stool resolved Hesitant to get out of bed because she is concerned that she will get hurt Breathing at baseline. Pain well controlled on 10mg oxycodone but would like additional medication before getting out of bed with nurses Family History: Unchanged from Admission Social History: Unchanged from Admission Past Medical History: Unchanged from Admission Objective Active Medications: Acetaminophen (Tylenol Tab*) 650 mg PO Q4H PRN PRN Reason: FEVER/PAIN Amlodipine Besylate (Norvasc Tab*) 10 mg PO DAILY [facility] Last Admin: 05/01/16 09:05 Dose: 10 mg Aspirin (Ecotrin Ec Tab*) 325 mg PO DAILY [facility] Last Admin: 05/01/16 09:05 Dose: 325 mg Atenolol (Tenormin Tab*) 50 mg PO DAILY [facility] Last Admin: 05/01/16 09:06 Dose: 50 mg Atorvastatin Calcium (Lipitor*) 80 mg PO 1700 [facility] Last Admin: 04/30/16 16:07 Dose: 80 mg Citalopram Hydrobromide (Celexa Tab*) 20 mg PO DAILY [facility] Last Admin: 05/01/16 09:05 Dose: 20 mg Heparin Sodium (Porcine) (Heparin Vial(*)) 5,000 units SUBCUT Q8HR [facility] Last Admin: 05/01/16 13:43 Dose: 5,000 units Hydralazine HCl (Apresoline Iv*) 5 mg IV SLOW PU Q6H PRN PRN Reason: BLOOD PRESSURE Last Admin: 04/29/16 11:54 Dose: 5 mg Hydrochlorothiazide (Hydrodiuril Tab*) 25 mg PO DAILY [facility] Last Admin: 05/01/16 09:05 Dose: 25 mg Hydrocortisone Sodium Succinate (Solu-Cortef*) 50 mg IV Q12HR [facility] Last Admin: 05/01/16 09:05 Dose: 50 mg Ampicillin Sodium 1 gm/ Sodium (Chloride) 50 mls @ 200 mls/hr IVPB 0330,0930, 1530,2130 [facility] Last Admin: 05/01/16 15:01 Dose: 200 mls/hr Lisinopril (Prinivil Tab*) 20 mg PO DAILY [facility] Last Admin: 05/01/16 09:05 Dose: 20 mg Ondansetron HCl (Zofran Inj*) 4 mg IV Q6H PRN PRN Reason: NAUSEA Last Admin: 04/29/16 08:45 Dose: 4 mg Oxycodone HCl (Roxycodone Tab*) 10 mg PO Q4H PRN PRN Reason: PAIN Last Admin: 05/01/16 09:00 Dose: 10 mg Potassium Chloride (Klor Con Er Tab*) 60 meq PO ONCE ONE Stop: 05/01/16 16:54 Vital Signs 04/30/16 04/30/16 04/30/16 18:08 19:16 19:48 Temperature 98.4 F Pulse Rate 54 Respiratory 16 18 16 Rate Blood Pressure 134/67 (mmHg) O2 Sat by Pulse 95 Oximetry 04/30/16 04/30/16 05/01/16 21:33 23:33 00:20 Temperature 98.1 F Pulse Rate 51 Respiratory 18 16 20 Rate Blood Pressure 151/78 (mmHg) O2 Sat by Pulse 97 Oximetry 05/01/16 05/01/16 05/01/16 01:54 03:20 03:54 Temperature 98.5 F Pulse Rate 50 Respiratory 18 20 16 Rate Blood Pressure 152/82 (mmHg) O2 Sat by Pulse 96 Oximetry 05/01/16 05/01/16 05/01/16 07:37 08:00 09:00 Temperature 98.0 F Pulse Rate 53 Respiratory 16 12 14 Rate Blood Pressure 164/81 (mmHg) O2 Sat by Pulse 98 Oximetry 05/01/16 05/01/16 05/01/16 09:10 11:00 11:49 Temperature 98.5 F Pulse Rate 60 51 Respiratory 12 16 Rate Blood Pressure 152/81 (mmHg) O2 Sat by Pulse 100 Oximetry 05/01/16 05/01/16 12:02 14:02 Temperature Pulse Rate Respiratory 12 12 Rate Blood Pressure (mmHg) O2 Sat by Pulse Oximetry Oxygen Devices in Use Now: None Appearance: obese, interactive, NAD Eyes: No Scleral Icterus, PERRLA Ears/Nose/Mouth/Throat: Clear Oropharnyx, Mucous Membranes Moist Neck: NL Appearance and Movements; NL JVP, Trachea Midline Respiratory: Symmetrical Chest Expansion and Respiratory Effort, Clear to Auscultation Cardiovascular: RRR Abdominal: NL Sounds; No Tenderness; No Distention, No Hepatosplenomegaly Lymphatic: No Cervical Adenopathy Extremities: - - trace LE edema Skin: - - melanotic lesionon RLE Neurological: Alert and Oriented x 3 Result Diagrams: 04/26/16 08:03 05/01/16 11:00 Additional Lab and Data: Microbiology and Other Data: Microbiology 04/25/16 21:40 Nasal Screen MRSA (PCR)([facility]) - Final Nasal Mrsa Negative Assess/Plan/Problems-Billing Assessment: 60 yo F with hx of HTN, melanoma on right LE (not currently on treatment), pancreatitis, RSD, chronic pain on narcotics, hypopituitarism on hydrocortisone , hyperammonemia, hypothyroidism p/w acute encephalopathy - Patient Problems (1) Altered mental state Comment: Acute Encephlaopathy now resolved. Etiology multifactorial: Recent increase in Fentanyl patch dose within the last 1-2 weeks MRI of the brain shows multifocal subacute strokes, EEG c/w encephalopathy. +Enterococcal UTI on Ampicillin Stop Hydrocortisone IV 05/01 and restart PO 05/02 Stopped Lactulose for mildly elevated ammonia. Patient likely has some element of JENIFFER, should get overnight pulseox once more alert, sleep study as outpatient. (2) Loose stools Comment: suspect component of narcotic withdrawal and in setting of abx increased narcotics for pain resolved (3) CVA (cerebral vascular accident) Comment: Subacute infarcts on MRI. CTA shows 90% stenosis of M1 lesion and 70% lesions in the carotids B/L. Started ASA 325 mg daily and Atorvastatin [address] Molina feels she should have evaluation in the future for possible CEA ([phone]) Images sent up to [place] [facility] by ICU security clerk. Unclear that CEA would be performed in setting of melanoma. Will follow up with records from Dr. Lynch's office (4) Acute urinary retention Comment: Suspect in setting of UTI and narcotics remove swenson 04/30/16 (5) UTI (urinary tract infection) Comment: On ampicillin day 09/28 (6) SLAVA (acute kidney injury) (7) HTN (hypertension) Comment: c/w Atenolol. start norvasc 10mg and HCTZ 25mg 04/29/16 start lisinopril 20mg 04/30/16 Continue prn hydralazine. (8) Hypokalemia Comment: Replete PO trend (9) Hypothyroidism Comment: TSH low/normal. Not on outpatient therapy. (10) Reflex sympathetic dystrophy Comment: increase oxycodone from 5mg to 10mg PRN (11) DVT prophylaxis Comment: HSQ Status and Disposition: dispo planning starting tomorrow
[2016-05-01] MEDS: Atorvastatin* 80 MG TAB PO SCH (17:48)
[2016-05-02] MEDS: Ampicillin ADVAN(*) 1 GM in NS 0.9% 50 ML* 50 ML IVPB SCH ×2 (02:44→10:34)
[2016-05-02] MEDS: Heparin VIAL(*) 5000 UNITS/ML VIAL (FIVE THOUSAND) SUBCUT SCH ×2 (05:09→13:12)
[2016-05-02 07:47] LABS: BUN/Creatinine Ratio 18.4 (8-20); Calcium 9.2 mg/dL (8.6-10.3); EGFR African American 62.3 (>60); EGFR Non-African American 48.5 (>60); Potassium 3.4 mmol/L (3.5-5.0)
[2016-05-02] MEDS ORDERED: Potassium Chlor TAB* 20 MEQ TAB.ER PO ONE (08:36)
[2016-05-02] MEDS ORDERED: Hydrocortisone TAB* 10 MG PO SCH (09:00)
[2016-05-02 10:15] VITALS: BP 158/74
[2016-05-02] MEDS: oxyCODONE TAB* 5 MG TAB PO PRN ×2 (10:25→17:06)
[2016-05-02] MEDS: Lisinopril TAB* 10 MG PO SCH (10:27)
[2016-05-02] MEDS: Hydrochlorothiazide TAB* 25 MG PO SCH (10:28)
[2016-05-02] MEDS: Atenolol TAB* 50 MG PO SCH (10:29)
[2016-05-02] MEDS: Citalopram TAB* 20 MG PO SCH (10:29)
[2016-05-02] MEDS: Aspirin EC TAB* 325 MG PO SCH (10:29)
[2016-05-02] MEDS: amLODIPine TAB* 5 MG PO SCH (10:30)
--- NOTE | 2016-05-02 10:59 | PN ---
Progress Note - Progress Note SOAP: Subjective: []Meet with family after they call over weekend our office and Dr. Lynch at home. Following concerns: - They do not want to go back to [facility] - Diarrhea is recurred - Had bleeding from leg -Worried about strokes and blood clots in brain - still a little confused. Ms. Diallo is responsive and reports continued pain. She feels she is near baseline mental status. Not up much. Has diarrhea, no rectal pain. Acetaminophen (Tylenol Tab*) 650 mg PO Q4H PRN PRN Reason: FEVER/PAIN Amlodipine Besylate (Norvasc Tab*) 10 mg PO DAILY [facility] Last Admin: 05/02/16 10:30 Dose: 10 mg Aspirin (Ecotrin Ec Tab*) 325 mg PO DAILY [facility] Last Admin: 05/02/16 10:29 Dose: 325 mg Atenolol (Tenormin Tab*) 50 mg PO DAILY [facility] Last Admin: 05/02/16 10:29 Dose: 50 mg Atorvastatin Calcium (Lipitor*) 80 mg PO 1700 [facility] Last Admin: 05/01/16 17:48 Dose: 80 mg Citalopram Hydrobromide (Celexa Tab*) 20 mg PO DAILY [facility] Last Admin: 05/02/16 10:29 Dose: 20 mg Heparin Sodium (Porcine) (Heparin Vial(*)) 5,000 units SUBCUT Q8HR [facility] Last Admin: 05/02/16 05:09 Dose: 5,000 units Hydralazine HCl (Apresoline Iv*) 5 mg IV SLOW PU Q6H PRN PRN Reason: BLOOD PRESSURE Last Admin: 04/29/16 11:54 Dose: 5 mg Hydrochlorothiazide (Hydrodiuril Tab*) 25 mg PO DAILY [facility] Last Admin: 05/02/16 10:28 Dose: 25 mg Hydrocortisone (Cortef Tab*) 10 mg PO DAILY [facility] Last Admin: 05/02/16 10:28 Dose: 10 mg Ampicillin Sodium 1 gm/ Sodium (Chloride) 50 mls @ 200 mls/hr IVPB 0330,0930, 1530,2130 [facility] Last Admin: 05/02/16 10:34 Dose: 200 mls/hr Lisinopril (Prinivil Tab*) 20 mg PO DAILY [facility] Last Admin: 05/02/16 10:27 Dose: 20 mg Ondansetron HCl (Zofran Inj*) 4 mg IV Q6H PRN PRN Reason: NAUSEA Last Admin: 04/29/16 08:45 Dose: 4 mg Oxycodone HCl (Roxycodone Tab*) 10 mg PO Q4H PRN PRN Reason: PAIN Last Admin: 05/02/16 10:25 Dose: 10 mg Objective: [] Vital Signs Temp Pulse Resp BP Pulse Ox 99.3 F 60 12 158/74 99 05/02/16 08:06 05/02/16 08:06 05/02/16 10:25 05/02/16 08:06 05/02/16 08:06 HEENT - Pale and no lesions CTA RRR S1S2 Obese, non tender. Cannot feel liver, no CVA tenderness Right leg with multiple lesions. No bleeding. Nail setswana on hands. Neuro Oriented to hospital and understands she was confused at [place]. 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 Presented with MS changes after increase in narcotics at [facility], work up significant for UTI and kidney stones, mild increase in Ammonia. Now near baseline on antibiotics and short acting narcotics. Family contacted our office with concerns about discharge, diarrhea. Plan: []1. Discussed difficulty in staying in hospital with resolution of acute issues. She has refused going to [facility] and placement may take some time. If she is discharged in next day or two I can see her in clinic the day after discharge if needed. 2. Diarrhea. Consider C. dif and CBC. Will discuss imodium with Dr. Handy. 3. Melanoma. Therapy on hold. Question of T-VAC if functional status improved 4. Risk of additional CVA, medical management, surgical evaluation only as an outpatient. 5. Bleeding from leg on admission. No bleeding now and no infection.
--- NOTE | 2016-05-02 15:55 | DS ---
DATE OF ADMISSION: 04/25/2016. DATE OF DISCHARGE: 05/02/2016. PRIMARY CARE PHYSICIAN: Dr. Rodríguez. ONCOLOGIST: Dr. Lynch. PRIMARY DIAGNOSIS: Altered mental status. SECONDARY DIAGNOSES: Complicated urinary tract infection, unintentionally narcotic overdose, hyperammonemia, subacute cerebrovascular accidents, urinary retention, acute kidney injury, hypertensive urgency, hypokalemia, hypothyroidism, reflex sympathetic dystrophy, obesity, active melanoma, hypopituitarism per chart review. MEDICATIONS ON DISCHARGE: 1. Hydrocortisone 10 mg daily. 2. Hydrochlorothiazide 25 mg daily. 3. Citalopram 20 mg daily. 4. Atenolol 50 mg daily. 5. Alprazolam 0.25 mg daily. 6. Oxycodone 10 mg every 4 hours as needed for pain. 7. Gabapentin 400 mg 3 times a day. 8. Tylenol 1000 mg 3 times a day as needed for pain. 9. Potassium chloride tabs 20 mEq twice daily. 10. Amlodipine 10 mg daily. 11. Lisinopril 20 mg daily. 12. Atorvastatin 80 mg in the evening. 13. Aspirin 325 mg daily. PERTINENT IMAGING PERFORMED DURING HOSPITAL STAY: 1. CT abdomen and pelvis: Impression: Multiple right renal calculi. In addition, there is a 1.2 cm calculus present in the right renal pelvis and at the ureteropelvic junction causing mild hydro which is unchanged from the prior exam February 2016. Status post cholecystectomy. 2. Brain MRI: Impression: MRI findings are compatible with multifocal subacute infarcts involving the left caudate head nucleus, basal ganglia and subinsular ribbon. 3. CTA head and neck: Impression: Significant atherosclerotic plaque at the internal carotid arteries at the level of the carotid canals with approximately 70 percent bilateral internal carotid artery stenosis. Moderate length segment approximately 50 percent stenosis of the M1 segment of the right middle cerebral artery. Moderate length segment approximately 90 percent stenosis of the left M1 middle cerebral artery segment. Corresponding moderately decreased opacification of the left M2 segments. 4. Transthoracic echocardiogram: Impression: Technically limited. Normal left ventricular systolic function. Estimated LVEF 55 to 60 percent. No significant valvular disorder. 5. Telemetry monitoring: No malignant arrhythmia's including absence of atrial fibrillation. 6. Total cholesterol 255, LDL 170, HDL 46. HISTORY OF PRESENT ILLNESS AND HOSPITAL COURSE: This is a 60-year-old female who is currently [facility], who presented to the hospital with increasing altered mental status and confusion. It was noted that she had recently had an increase in her Fentanyl patch from 50 to 75 mcg. She received Narcan in the emergency room, became agitated after which she received Ativan for sedation. She was noted to have a urinary tract infection growing enterococcus faecalis, resistant with fluoroquinolones and tetracyclines. She is treated with the withholding of pain medications, particularly long-acting and reintroduction of Oxycodone prn as needed, as well as treatment of urinary tract infection with good response. Her mental status returned to its baseline. She did not require reinstitution of long-acting narcotics. Of note , her blood pressure was noted to be significantly elevated during the course of the hospital stay, systolics in the 200s. Multiple agents were started and continued on discharge with control of her blood pressure to sustain in the systolics 140s and diastolics 70 to 80s on the day of discharge. She is noted with multiple subacute CVA's, unclear how they contributed to her presentation; however, started on aspirin on discharge. She is noted to have 70 percent bilateral occlusions of her carotid arteries. A referral was sent to [facility]. They will contact the patient with a follow- up appointment; however, the patient is noted to have melanoma in her right leg , currently being evaluated by Dr. Lynch. She is potentially a candidate for further interventions. It is unclear how these further interventions will help or hinder potential planned intervention on her carotid arteries. Certainly conversation between neurovascular surgeon and an oncologist should be performed to establish best timeline for intervention of both her melanoma and her carotid arteries. On the day of discharge, the patient is interactive, pleasant, in no apparent distress. She had pain mostly in her right leg and her lower back, which was well-controlled with Oxycodone 10 mg as needed. Her blood pressure was under control. She had a regular rate and rhythm. Her lungs were clear to auscultation. She is alert and oriented times three and has an intact neurological exam without acute residual deficits. The patient did have loose stools during the hospital stay which improved the day prior to discharge with increasing Oxycodone dose. Resumed on the day of discharge loose stools; however, not increased frequency of loose stools. I suspect antibiotics are playing a roll in her loose stools. Today is her last day of Ampicillin after which she will be off of antibiotics. AT FOLLOW-UP, PLEASE: 1. Please ensure the patient follows with neurovascular surgeons in [place], as well as Dr. Lynch for interval followup. 2. Follow blood pressures, as I am sure you will. Ensure patient does not need additional titration of medications. As a target, Lisinopril can be doubled from 20 to 40. 3. The patient has hyperlipidemia, started on high dose statins, and had subacute CVA's. Please follow cholesterol for improvement. REASONS TO RETURN TO THE HOSPITAL INCLUDING, BUT NOT LIMITED TO: Recurrent or worsening symptoms, including chest pain, shortness of breath, nausea, vomiting , lightheadedness, headaches, loss of consciousness, near loss of consciousness , and increasing confusion were discussed with the patient and she acknowledged understanding. Sixty minutes were spent in the discharge of this patient. CC: Dr. Rodríguez; Dr. Lynch * [id number]/CPS #: [id number] MTDD
== END 2016-05-02 18:10 | DRG 70 ==
LOC: ED 18:59 → ICU 20:39 → MEDTELE 04-28 17:48
PROVIDERS: ADMIT Internal Medicine; ATTEND Internal Medicine
PROC: 0T9B70Z Drainage of Bladder with Drainage Device, Via Natural or Artificial Opening (ICD-10-PCS; principal; 2016-04-25)
PROC: 4A10X4Z Monitoring of Central Nervous Electrical Activity, External Approach (ICD-10-PCS; 2016-04-26)
DX: G93.40 Encephalopathy, unspecified (principal); I63.9 Cerebral infarction, unspecified; N17.9 Acute kidney failure, unspecified; E72.20 Disorder of urea cycle metabolism, unspecified; I10 Essential (primary) hypertension; E11.9 Type 2 diabetes mellitus without complications; B95.2 Enterococcus as the cause of diseases classified elsewhere; E23.0 Hypopituitarism; G90.50 Complex regional pain syndrome I, unspecified; N39.0 Urinary tract infection, site not specified; N13.2 Hydronephrosis with renal and ureteral calculous obstruction; Z68.41 Body mass index [BMI] 40.0-44.9, adult; R41.82 Altered mental status, unspecified; Z86.718 Personal history of other venous thrombosis and embolism; G89.4 Chronic pain syndrome; F32.9 Major depressive disorder, single episode, unspecified; Z66 Do not resuscitate; Z88.5 Allergy status to narcotic agent; Z88.8 Allergy status to other drugs, medicaments and biological substances; Z91.040 Latex allergy status; Z91.048 Other nonmedicinal substance allergy status; M19.90 Unspecified osteoarthritis, unspecified site; F41.9 Anxiety disorder, unspecified; Z87.891 Personal history of nicotine dependence; Z85.820 Personal history of malignant melanoma of skin; E66.9 Obesity, unspecified; E03.9 Hypothyroidism, unspecified; E87.6 Hypokalemia; R19.7 Diarrhea, unspecified; Z82.49 Family history of ischemic heart disease and other diseases of the circulatory system; I16.0 Hypertensive urgency; T40.601A Poisoning by unspecified narcotics, accidental (unintentional), initial encounter; Y92.9 Unspecified place or not applicable; Z79.82 Long term (current) use of aspirin; T36.95XA Adverse effect of unspecified systemic antibiotic, initial encounter
CPT/HCPCS: 36415; 70450; 70496; 70498; 70551; 71010; 74176; 76775; 80048; 80053; 80061; 80307; 80329; 81003; 81015; 82140; 82533; 82550; 82570; 83605; 83735; 83880; 83930; 83935; 84300; 84443; 84484; 85025; 85610; 87077; 87086; 87186; 87641; 93306; 94760; 95819; 99232; 99285; A9270-GY; G0480; J0360; J0696; J1644; J1720; J2060; J2405; J3475; J3480; J3490; Q9967

== ENCOUNTER 2016-10-11 12:16 | Inpatient (IN) | payer MEDICARE, OTHER ==
[2016-10-11] MEDS ORDERED: NS 0.9% 1000 ML* 1,000 ML IV ONE (14:36)
[2016-10-11] MEDS ORDERED: cefTRIAXone(*) 1 GM in NS 0.9% 50 ML* 50 ML IVPB ONE (14:50)
--- NOTE | 2016-10-11 15:19 | RAD ---
Indication: Right flank pain. CT of the abdomen and pelvis was performed after without oral or IV contrast administration. Coronal and sagittal reconstructed images were obtained. The lung bases demonstrate some minimal pleural thickening and dependent changes in the lung vidal. No focal nodules are identified. The heart demonstrates no pericardial effusion. Liver is normal in size. It is diffusely decreased in density consistent with hepatic steatosis. Patient status post cholecystectomy. No biliary duct dilatation is noted. Spleen is normal in size. The common duct is not dilated. The pancreas demonstrates no mass or pancreatic duct dilatation. No adrenal lesions are noted. There is marked right hydronephrosis present. There is an atrophic right kidney. There is a calculi in the proximal ureter at the level of L3. This calcification measures approximately 7 mm in greatest dimension. This calcification was present on prior exam of April 26, 2016. Calcifications is at the level of the left pelvic ureteral junction. Additional calculi in the posterior calyx of the right kidney measures up to 15 mm and 11 mm. This appears to be present on prior exam as well.. The left kidney demonstrates no hydronephrosis. No retroperitoneal adenopathy is noted. The colon is filled with stool. No hernias are noted. The urinary bladder is otherwise unremarkable. IMPRESSION: THERE IS A 12 MM CALCULI IN THE RIGHT URETER AT THE RIGHT URETEROPELVIC JUNCTION WITH MODERATE DEGREE OF RIGHT HYDRONEPHROSIS AND ATROPHY OF THE RIGHT KIDNEY. SIMILAR FINDINGS WERE NOTED ON APRIL 26, 2016. PERIURETERAL INFILTRATION OF FAT IS NOTED WHICH IS ALSO SIMILAR TO THAT SEEN ON APRIL 26, 2016. OTHER LARGE CALCULI MEASURING UP TO 15 MM ARE NOTED IN THE POSTERIOR INFERIOR CALYCES OF THE RIGHT KIDNEY. NO FREE FLUID IS IDENTIFIED.
[2016-10-11] MEDS ORDERED: Buffered Lidocaine 0.9% SYRIN* 5 ML/SYR SYRINGE INTRADERM ONE (16:03)
[2016-10-11] MEDS ORDERED: HYDROmorphone* 2 MG/ML 1 ML SYR IM ONE (16:53)
[2016-10-11] MEDS ORDERED: Ketorolac INJ* 60 MG/2 ML VIAL IM ONE (16:53)
[2016-10-11] MEDS ORDERED: Gabapentin CAP(*) 300 MG PO PRN (17:06)
[2016-10-11] MEDS ORDERED: Acetaminophen TAB* 325 MG PO PRN (17:06)
[2016-10-11] MEDS ORDERED: Ondansetron TAB* 4 MG PO PRN (17:21)
[2016-10-11] MEDS ORDERED: fentaNYL PATCHs 100 MCG/HR TRANSDERM SCH (18:00)
[2016-10-11] MEDS ORDERED: Al Hydrox/Mg Hydrox/Simet LIQ* 30 ML UDC PO PRN (18:58)
[2016-10-11] MEDS ORDERED: Magnesium CITRATE* 300 ML BTL PO ONE (19:01)
[2016-10-11 20:18] LABS: Urine Bacteria Absent (Absent); Urine Bilirubin Negative (Negative); Urine Glucose Negative (Negative); Urine Nitrite Negative (Negative)
[2016-10-11] MEDS ORDERED: cefTRIAXone VIAL(*) 1,000 MG VIAL IM ONE (22:50)
--- NOTE | 2016-10-11 23:59 | HP ---
CC: Dr. Friedman; [facility]; Dr. Bro * HISTORY AND PHYSICAL: DATE OF ADMISSION: 10/11/16 PRIMARY CARE PROVIDER: Physician at [facility]. CHIEF COMPLAINT: Abdominal pain. HISTORY OF PRESENT ILLNESS: Chela Diallo is a 60-year-old female with history of chronic right-sided hydronephrosis and chronic right ureteropelvic junction stone for which she is being evaluated by Dr. Friedman. The patient stated that she was seen by Dr. Friedman today in the morning and the ultrasound showed "new stones." After she left Dr. Friedman's office, she developed abdominal pain and she came to the ED for evaluation. Here, the CT of the abdomen and pelvis is basically unchanged from the CT from April 2016 and showed 12 mm calculi in the right ureter and right ureteropelvic junction with moderate degree of right hydronephrosis. The patient's pain is somewhat nonspecific and I am unsure if it is truly related to her hydronephrosis. She has not had a bowel movement for the past 3 days, but as per patient is "usual for her." She is going to be placed on overnight observation with plan to have a cystoscopy and stent placed by Dr. Vargas in the morning. PAST MEDICAL HISTORY: 1. History of hypertension. 2. History of melanoma of the right lower extremity, status post multiple surgeries on the right leg and chemotherapy that was stopped in 2015 due to side effects. 3. History of DVT. 4. History of pancreatitis. 5. History of reflex sympathetic dystrophy. 6. Carpal tunnel release. 7. History of C5-C6 compression. 8. Hypopituitarism. 9. Hyperammonemia due to fatty liver disease. 10. History of hypothyroidism. 11. History of recurrent bleeding and chronic wound on the right leg due to melanoma. MEDICATIONS AT HOME: Include: 1. Norvasc 10 mg daily. 2. Atenolol 50 mg daily. 3. Celexa 20 mg daily. 4. Fentanyl patch 100 mcg every 72 hours. 5. Gabapentin 300 mg b.i.d. p.r.n. 6. Hydrocortisone 10 mg daily. 7. Aspirin 325 mg daily. 8. Lisinopril 20 mg daily. 9. Roxicodone 5 mg every 4 hours p.r.n. 10. Voltaren gel 1% two applications daily to affected area. 11. Zofran 4 mg every 6 hours p.r.n. FAMILY HISTORY: Positive for father with heart disease. SOCIAL HISTORY: The patient denies any tobacco or drug use. She does not drink alcohol. She presented to the hospital with her uncle, who is her surrogate, Eric Contreras. The patient is currently a resident at [facility] and her ambulation is very limited. She is able to get out of bed with assist. Usually, she uses a wheelchair. REVIEW OF SYSTEMS: Please see in history of present illness. The patient stated that her right leg wound bleeds frequently. The dressings on the wound are changed every couple of days at [facility]. The patient stated that her last bowel movement was 3 days ago. She complains of abdominal pain that is localized in right upper and left upper quadrant and is intermittent. Currently, she is pain free. She denies any pain in her back or flanks. She denies any chest pain or shortness of breath. All the remaining 14 systems were reviewed with the patient and were otherwise negative. PHYSICAL EXAMINATION GENERAL: The patient is a very pleasant 60-year-old female, who is in no acute distress. Alert, awake, and oriented x3. VITAL SIGNS: Blood pressure of 139/70, heart rate of 44 and regular, respiratory rate 12, oxygen saturation 96% on room air, temperature of 97.7. HEENT: Head: Atraumatic, normocephalic. Eyes: Pupils equal, reactive to light and accommodation. Oropharynx clear. Mucosa moist. NECK: Supple. No JVD. No bruit bilaterally. RESPIRATORY: Clear to auscultation bilaterally. CARDIOVASCULAR: Regular rate and rhythm. No murmur. ABDOMEN: Soft, nontender. Bowel sounds present in all 4 quadrants. BACK: On evaluation of the back, the patient has mild CVA tenderness on the right side. EXTREMITIES: There is trace bilateral pedal edema. Pulses are 2+ bilaterally. There is no clubbing or cyanosis. The right lower extremity has multiple postsurgical changes from the level of the knee down. The patient has multiple areas of melanoma skin changes. There is a black raised lesion localized below her knee on the right lower extremity. There is also a lesion covered with eschar that is intermittently bleeding during the day of evaluation, localized in the middle of the distance between patient's ankle and patient's knee. Lesion is approximately 3 cm in diameter. NEUROLOGIC: Speech clear. Cranial nerves II through XII grossly intact. Motor strength is 5/5 bilaterally. PSYCHIATRIC: Oriented x3 with no evidence of anxiety or depression. DIAGNOSTIC STUDIES/LAB DATA: Still pending. We have also requested EKG to be performed that is still pending. CT of the abdomen and pelvis performed today, impression "there is a 12 mm calculus in the right ureter at the right ureteropelvic junction with moderate degree of right hydronephrosis and atrophy of the right kidney. Similar findings were noted on April 26, 2016. Periureteral infiltration of the fat is noted, which is also similar to that seen on 04/26/16. An enlarged calculi measuring up to 15 mm noted in the posterior and inferior calices of the right kidney. ASSESSMENT AND PLAN: A 60-year-old female with history of chronic right-sided hydronephrosis and nephrolithiasis as well as large right ureteral stone in the past who presents with some nonspecific abdominal pain. The patient was already planned for outpatient cystoscopy anyway. She is going to be placed on overnight observation. We will obtain her lab work. Due to her bradycardia, I will obtain an EKG to follow up and to clear the patient for surgery that will most likely happen in the morning. In regards to her hyperpituitarism and that she is "hydrocortisone dependent," the patient is going to receive 50 mg IV dose of hydrocortisone on the morning of surgery. For her hypertension, I will continue the patient's atenolol and Norvasc and hold her lisinopril preoperatively. For chronic pain, I will continue the patient's fentanyl patch as well as oxycodone as previously taken. For DVT prophylaxis, the patient is going to be placed on heparin subcutaneously. The patient's code status was confirmed with the patient and she wanted to be do not resuscitate. MOLST was previously signed and that is going to be confirmed. TIME SPENT: Approximately 65 minutes were spent on admission of this patient, more than half that time was spent [id number] with the patient during the interview and physical exam. [id number]/CPS #: [id number] [facility]TD[facility]
[2016-10-12] MEDS: Docusate CAP* 100 MG PO SCH ×3 (01:03→20:33)
[2016-10-12] MEDS ORDERED: oxyCODONE/Acetamin 5/325 MG* TAB PO ONE ×2 (01:14→02:12)
[2016-10-12] MEDS ORDERED: oxyCODONE/Acetamin 5/325 MG* TAB ONE ×2 (01:35→02:14)
[2016-10-12 02:31] LABS: Hematocrit 38 % (35-47); Hemoglobin 12.5 g/dl (12.0-16.0); Mean Corpuscular HGB Conc 33 g/dl (31-36); Mean Corpuscular Hemoglobin 30 pg (27-31); Mean Corpuscular Volume 90 fL (80-97); Mean Platelet Volume 8 um3 (7.4-10.4); Red Blood Count 4.24 10^6/ul (4.0-5.4); Red Cell Distribution Width 14 % (10.5-15); White Blood Count 5.8 10^3/ul (3.5-10.8)
[2016-10-12 02:47] LABS: ALT 36 U/L (7-52); AST 55 U/L (13-39); Albumin 4.2 g/dL (3.2-5.2); Alkaline Phosphatase 132 U/L (34-104); Anion Gap 6 mmol/L (2-11); BUN/Creatinine Ratio 17.1 (8-20); Blood Urea Nitrogen 18 mg/dL (6-24); C Reactive Protein 28.42 mg/L (< 5.00); CO2 Carbon Dioxide 29 mmol/L (22-32); Calcium 9.8 mg/dL (8.6-10.3); Chloride 96 mmol/L (101-111); EGFR African American 68.5 (>60); EGFR Non-African American 53.3 (>60); Globulin 3.4 g/dL (2-4); Glucose 98 mg/dL (70-100); Lipase < 10 U/L (11.0-82.0); Potassium 3.8 mmol/L (3.5-5.0); Sodium 131 mmol/L (133-145); Total Protein 7.6 g/dL (6.4-8.9)
[2016-10-12] MEDS ORDERED: NS 0.9% 1000 ML* 1,000 ML IV ONE (02:51)
[2016-10-12] MEDS ORDERED: HYDROmorphone* 1 MG/ML 1 ML SYR IV SLOW PU ONE (02:52)
[2016-10-12] MEDS ORDERED: HYDROmorphone* 1 MG/ML 1 ML SYR ONE (03:07)
[2016-10-12] MEDS ORDERED: Piperacillin/Tazobac (*) 3.375 GM ADDV.VIAL ONE (03:08)
[2016-10-12] MEDS ORDERED: fentaNYL PATCHs 100 MCG/HR TRANSDERM SCH ×2 (04:45)
[2016-10-12 06:04] LABS: Hematocrit 37 % (35-47); Hemoglobin 12.1 g/dl (12.0-16.0); Mean Corpuscular HGB Conc 33 g/dl (31-36); Mean Corpuscular Hemoglobin 30 pg (27-31); Mean Corpuscular Volume 89 fL (80-97); Mean Platelet Volume 8 um3 (7.4-10.4); Red Blood Count 4.09 10^6/ul (4.0-5.4); Red Cell Distribution Width 14 % (10.5-15); White Blood Count 4.9 10^3/ul (3.5-10.8)
[2016-10-12 06:27] LABS: BUN/Creatinine Ratio 16.7 (8-20); Calcium 9.4 mg/dL (8.6-10.3); EGFR African American 70.9 (>60); EGFR Non-African American 55.1 (>60); Potassium 3.8 mmol/L (3.5-5.0)
[2016-10-12] MEDS: fentaNYL Patch Check Q Shift 1 NOTE SCH ×3 (07:19→19:53)
[2016-10-12] MEDS ORDERED: Hydrocortisone INJ* 100 MG VIAL IV ONE (08:00)
[2016-10-12] MEDS ORDERED: Hydrocortisone INJ* 250 MG VIAL IV ONE (08:00)
[2016-10-12] MEDS: amLODIPine TAB* 5 MG PO SCH (08:18)
[2016-10-12] MEDS: Atenolol TAB* 50 MG PO SCH (08:18)
[2016-10-12] MEDS: Hydrocortisone TAB* 10 MG PO SCH (08:19)
[2016-10-12] MEDS ORDERED: Atenolol TAB* 50 MG PO SCH (09:00)
[2016-10-12] MEDS ORDERED: Iohexol 180 (CONTRAST) 10 ML SDV IV ONE (10:30)
[2016-10-12] MEDS ORDERED: fentaNYL* 50 MCG/ML 2 ML VIAL (100 MCG VIAL) ONE ×4 (10:53→13:55)
[2016-10-12] MEDS ORDERED: EPHEDrine (Pressors)* 50 MG/ML VIAL ONE (11:12)
[2016-10-12] MEDS ORDERED: Propofol* 10 MG/ML 20 ML BTL IV PUSH ONE (11:12)
[2016-10-12] MEDS ORDERED: Atropine 1MG/ML INJ* 1 ML VIAL ONE (11:12)
[2016-10-12] MEDS ORDERED: Lidocaine 2% PF * 5 ML VIAL ONE (11:23)
[2016-10-12] MEDS: fentaNYL* 50 MCG/ML 2 ML VIAL (100 MCG VIAL) IV PRN ×4 (12:20→14:12)
[2016-10-12] MEDS ORDERED: oxyCODONE TAB* 5 MG TAB ONE (12:31)
[2016-10-12] MEDS: oxyCODONE TAB* 5 MG TAB PO PRN ×2 (12:32→18:22)
--- NOTE | 2016-10-12 15:29 | PN ---
Subjective Date of Service: 10/12/16 Interval History: Pt is seen post op cystoscopy, slightly sedated, no c/o abd pain. Objective Active Medications: Acetaminophen (Tylenol Tab*) 1,000 mg PO Q8H PRN PRN Reason: TEMP > 100 or PAIN Al Hydrox/Mg Hydrox/Simethicone (Maalox Plus*) 30 ml PO Q6H PRN PRN Reason: INDIGESTION Amlodipine Besylate (Norvasc Tab*) 10 mg PO DAILY [facility] Last Admin: 10/12/16 08:18 Dose: Not Given Atenolol (Tenormin Tab*) 25 mg PO DAILY [facility] Last Admin: 10/12/16 08:18 Dose: Not Given Citalopram Hydrobromide (Celexa Tab*) 20 mg PO DAILY [facility] Docusate Sodium (Colace Cap*) 100 mg PO BID [facility] Last Admin: 10/12/16 08:19 Dose: Not Given Fentanyl (Duragesic Patch 100 Mcg/Hr *) 100 mcg TRANSDERM Q72H [facility] Last Admin: 10/12/16 04:53 Dose: 100 mcg Gabapentin (Neurontin Cap(*)) 300 mg PO BID PRN PRN Reason: PAIN Heparin Sodium (Porcine) (Heparin Vial(*)) 5,000 units SUBCUT Q8HR [facility] Hydrocortisone (Cortef Tab*) 10 mg PO DAILY [facility] Last Admin: 10/12/16 08:19 Dose: Not Given Lactated Ringer's (Lactated Ringers 1000 Ml Bag*) 1,000 mls @ 200 mls/hr IV PER RATE [facility] Stop: 10/12/16 20:00 Last Admin: 10/12/16 05:34 Dose: 200 mls/hr Ceftriaxone Sodium 1,000 mg/ (Sodium Chloride) 50 mls @ 200 mls/hr IVPB Q24H [facility] Ondansetron HCl (Zofran Tab*) 4 mg PO Q6H PRN PRN Reason: NAUSEA Oxycodone HCl (Roxycodone Tab*) 5 mg PO Q4H PRN PRN Reason: PAIN - MODERATE Last Admin: 10/12/16 12:32 Dose: 5 mg Pharmacy Profile Note (Fentanyl Patch Check Q Shift) 1 note N/A 0700,[id number] [facility] Last Admin: 10/12/16 07:19 Dose: 1 note Vital Signs 10/11/16 10/11/16 10/11/16 16:00 17:00 19:00 Temperature Pulse Rate 43 43 48 Respiratory Rate Blood Pressure (mmHg) O2 Sat by Pulse 96 96 97 Oximetry 10/11/16 10/11/16 10/11/16 20:00 22:45 22:56 Temperature Pulse Rate 46 45 Respiratory Rate Blood Pressure 114/65 105/67 (mmHg) O2 Sat by Pulse 97 96 Oximetry 10/11/16 10/11/16 10/12/16 23:00 23:30 00:00 Temperature Pulse Rate 45 43 47 Respiratory Rate Blood Pressure 113/65 114/58 (mmHg) O2 Sat by Pulse 96 96 96 Oximetry 10/12/16 10/12/16 10/12/16 00:01 00:30 01:00 Temperature Pulse Rate 47 44 44 Respiratory Rate Blood Pressure 113/70 119/69 121/79 (mmHg) O2 Sat by Pulse 97 98 96 Oximetry 10/12/16 10/12/16 10/12/16 01:30 01:36 02:15 Temperature Pulse Rate 43 Respiratory 16 18 Rate Blood Pressure (mmHg) O2 Sat by Pulse 97 Oximetry 10/12/16 10/12/16 10/12/16 02:49 02:58 03:00 Temperature 97.3 F Pulse Rate 46 Respiratory Rate Blood Pressure 119/60 (mmHg) O2 Sat by Pulse 96 Oximetry 10/12/16 10/12/16 10/12/16 03:09 03:30 04:00 Temperature 97.6 F Pulse Rate 44 44 Respiratory 18 15 20 Rate Blood Pressure 122/66 107/60 (mmHg) O2 Sat by Pulse 97 97 Oximetry 10/12/16 10/12/16 10/12/16 04:31 04:53 04:54 Temperature 97.3 F 97.6 F Pulse Rate 44 Respiratory 20 20 Rate Blood Pressure 107/60 (mmHg) O2 Sat by Pulse 97 Oximetry 10/12/16 10/12/16 10/12/16 07:31 08:00 11:35 Temperature 97.7 F 97.3 F Pulse Rate 45 58 Respiratory 18 17 12 Rate Blood Pressure 112/66 (mmHg) O2 Sat by Pulse 96 91 Oximetry 10/12/16 10/12/16 10/12/16 11:40 11:45 12:00 Temperature Pulse Rate 58 68 67 Respiratory 10 10 20 Rate Blood Pressure 95/61 109/72 113/71 (mmHg) O2 Sat by Pulse 94 95 99 Oximetry 10/12/16 10/12/16 10/12/16 12:15 12:20 12:29 Temperature Pulse Rate 67 Respiratory 18 22 20 Rate Blood Pressure 105/70 (mmHg) O2 Sat by Pulse 100 Oximetry 10/12/16 10/12/16 10/12/16 12:30 12:32 12:45 Temperature Pulse Rate 58 62 Respiratory 20 20 12 Rate Blood Pressure 119/71 124/70 (mmHg) O2 Sat by Pulse 100 100 Oximetry 10/12/16 10/12/16 10/12/16 13:00 13:15 13:30 Temperature Pulse Rate 57 53 56 Respiratory 16 11 8 Rate Blood Pressure 114/56 111/68 123/68 (mmHg) O2 Sat by Pulse 100 97 99 Oximetry 10/12/16 10/12/16 10/12/16 13:45 13:57 14:00 Temperature Pulse Rate 57 55 Respiratory 9 14 14 Rate Blood Pressure 103/69 121/66 (mmHg) O2 Sat by Pulse 100 100 Oximetry 10/12/16 10/12/16 10/12/16 14:12 14:15 14:35 Temperature 97.3 F Pulse Rate 59 51 Respiratory 16 14 13 Rate Blood Pressure 134/76 106/57 (mmHg) O2 Sat by Pulse 97 97 Oximetry Oxygen Devices in Use Now: None Appearance: 60 yo F in nAD, aAOx3 Eyes: No Scleral Icterus, PERRLA Ears/Nose/Mouth/Throat: NL Teeth, Lips, Gums, Mucous Membranes Moist Neck: NL Appearance and Movements; NL JVP, Trachea Midline Respiratory: Symmetrical Chest Expansion and Respiratory Effort, Clear to Auscultation Cardiovascular: NL Sounds; No Murmurs; No JVD, RRR Abdominal: NL Sounds; No Tenderness; No Distention, - - mild R CVA tenderness Lymphatic: No Cervical Adenopathy Extremities: No Clubbing, Cyanosis, - - trace pedal edema b/l Skin: No Nodules or Sclerosis, - - multiple melanotic lesions on r leg with eschar covered ulceration on R distal leg at 2-3 cm in diam Neurological: Alert and Oriented x 3, NL Muscle Strength and Tone Result Diagrams: 10/12/16 05:32 10/12/16 05:32 Microbiology and Other Data: Microbiology 10/12/16 09:00 Nasal Screen MRSA (PCR)(MAXIMINO) - Final Nasal Mrsa Negative Assess/Plan/Problems-Billing Assessment: 60 yo f with h/o r leg melanoma, HTN, depression presents with R kidney obstructing ureteral stone - Patient Problems (1) Pyelonephritis Comment: secondary to obstruction, s/p cystoscopy today.As d/w Dr. Vargas pt had purulent urine once stent was placed. cont Ceftriaxone. Will cont to monitor post op in hospital on IV antibiotics (2) Hypopituitarism Comment: IV hydrocortisone was given preop . will cont PO hydrocortisone in AM (3) HTN (hypertension) Comment: c/w Atenolol and Norvasc (4) DVT prophylaxis Comment: HSQ Status and Disposition: OBV will be changed to inpatient due to need for post op monitoring
[2016-10-12] MEDS: Citalopram TAB* 20 MG PO SCH (15:39)
--- NOTE | 2016-10-12 16:34 | RAD ---
INDICATION: Renal calculi, status post stent placement. COMPARISON: Comparison is made with a prior CT of the abdomen and pelvis from October 11, 2016. TECHNIQUE: Frontal supine films of the abdomen were obtained. FINDINGS: The small bowel and colon appear nondistended. There is a double-J stent catheter present on the right side. There are multiple right renal calculi. There is a 8 mm calculus adjacent to the proximal portion of the catheter. IMPRESSION: STATUS POST STENT PLACEMENT, MULTIPLE RIGHT RENAL CALCULI AND CALCULUS ADJACENT TO THE PROXIMAL PORTION OF THE STENT.
[2016-10-12] MEDS ORDERED: Acetaminophen TAB* 325 MG PO PRN (18:26)
[2016-10-12] MEDS: Heparin VIAL(*) 5000 UNITS/ML VIAL (FIVE THOUSAND) SUBCUT SCH ×2 (20:33→21:11)
[2016-10-12] MEDS ORDERED: cefTRIAXone VIAL(*) 1,000 MG in NS 0.9% 50 ML* 50 ML IVPB SCH (22:00)
[2016-10-13] MEDS: Heparin VIAL(*) 5000 UNITS/ML VIAL (FIVE THOUSAND) SUBCUT SCH (05:57)
[2016-10-13 06:18] LABS: Hematocrit 33 % (35-47); Mean Corpuscular HGB Conc 33 g/dl (31-36); Mean Corpuscular Hemoglobin 30 pg (27-31); Mean Corpuscular Volume 89 fL (80-97); Mean Platelet Volume 8 um3 (7.4-10.4); Red Blood Count 3.71 10^6/ul (4.0-5.4); Red Cell Distribution Width 14 % (10.5-15); White Blood Count 5.6 10^3/ul (3.5-10.8)
[2016-10-13 06:30] LABS: Calcium 9.1 mg/dL (8.6-10.3); EGFR African American 79.8 (>60); EGFR Non-African American 62.1 (>60); Potassium 3.6 mmol/L (3.5-5.0)
[2016-10-13] MEDS: fentaNYL Patch Check Q Shift 1 NOTE SCH (06:52)
[2016-10-13 07:47] VITALS: BP 106/54
--- NOTE | 2016-10-13 08:44 | RAD ---
INDICATION: RIGHT retrograde pyelogram and stent placement. Obstructive urolithiasis. COMPARISON: October 11, 2016 CT TECHNIQUE: 6 seconds fluoroscopy. FINDINGS: RIGHT retrograde pyelogram documents severe caliectasis. RIGHT ureteral stent placed IMPRESSION: Procedural fluoroscopy. CPT II Codes: 6045F
[2016-10-13] MEDS: amLODIPine TAB* 5 MG PO SCH (08:45)
[2016-10-13] MEDS: Docusate CAP* 100 MG PO SCH (08:45)
[2016-10-13] MEDS: Citalopram TAB* 20 MG PO SCH (08:46)
[2016-10-13] MEDS: oxyCODONE TAB* 5 MG TAB PO PRN ×2 (08:46→13:46)
[2016-10-13] MEDS: Hydrocortisone TAB* 10 MG PO SCH (08:46)
--- NOTE | 2016-10-13 09:39 | OP ---
CC: Darryn Rodríguez MD; Krissy Quinn MD * DATE OF OPERATION: 10/12/16 - ROOM #411 DATE OF : [birth year] - AGE/SEX: 60 years, female. SURGEON: Ron Vargas MD ANESTHESIOLOGIST: Johnny Roca MD ANESTHESIA: General. PRE-OP DIAGNOSES: 1. Right hydronephrosis. 2. Obstructing calculus, right proximal ureter. POST-OP DIAGNOSES: 1. Right hydronephrosis. 2. Obstructing calculus, right proximal ureter. OPERATIVE PROCEDURE: Cystoscopy, right retrograde pyelogram, right ureteral calculus manipulation, and right stent insertion. INDICATIONS: Chela Diallo is a 60-year-old lady with morbid obesity and recurrent renal calculi. She was evaluated and noted to have an obstructing calculus in the right proximal ureter. COMPLICATIONS: None. STENT USED: 8.5-Bahamian 28-cm silicone stent, right ureter. POSTOPERATIVE CONDITION: Stable. DESCRIPTION OF PROCEDURE: After induction of general anesthesia, the patient was placed in dorsal lithotomy position. Sequential compression device was in place on the left lower extremity, it was not placed on the right lower extremity where she has had a history of melanoma and prior surgery. Initial evaluation revealed a stenotic retracted urethral meatus. The bladder was examined. There was purulent urine noted in the bladder, which was drained and sent for culture. Because of the large amount of cloudy purulent urine, visibility during the cystoscopy was severely impaired. The right orifice was identified and a guidewire was introduced. Retrograde pyelogram confirmed right hydronephrosis. An open-ended catheter was carefully advanced under fluoroscopic monitoring and the calculus in the proximal ureter was advanced more proximally. Once this was done, there was significant amount of purulent urine draining from the right kidney noted. An 8.5- Bahamian 28-cm silicone stent was introduced and positioned under fluoroscopy with good proximal and distal positioning obtained. A To catheter was placed for bladder drainage. The patient tolerated the procedure satisfactorily and was transferred back to the recovery area in stable condition. [id number]/CPS #: [id number] [facility]
[2016-10-13] MEDS: Atenolol TAB* 50 MG PO SCH (09:41)
--- NOTE | 2016-10-13 11:44 | DS ---
CC: [facility] physician, Dr. Bro; Dr. Vargas * DISCHARGE SUMMARY: DATE OF ADMISSION: 10/11/16 DATE OF DISCHARGE: 10/13/16 PRIMARY CARE PROVIDER: [facility] physician, Dr. Bro. DISCHARGE DIAGNOSIS: Right-sided pyelonephritis due to obstructing ureteral stone, status post cystoscopy performed by Dr. Vargas on 10/12/16. SECONDARY DIAGNOSES: 1. History of nephrolithiasis. 2. History of hypertension. 3. History of melanoma in the right lower extremity. 4. History of deep venous thrombosis. 5. Pancreatitis. 6. History of reflex sympathetic dystrophy. 7. Status post carpal tunnel release. 8. History of C5-C6 compression. 9. History of chronic pain. 10. History of hypothyroidism. 11. History of fatty liver disease. 12. Hypopituitarism. 13. History of recurrent bleeding and chronic wound on the right leg due to melanoma. MEDICATIONS AT DISCHARGE: Include, 1. Cefdinir 300 mg b.i.d. for 10 days total. 2. Aspirin 325 mg daily. 3. Acetaminophen on a p.r.n. basis. 4. Celexa 20 mg daily. 5. Voltaren gel 1% apply to painful areas daily. 6. Gabapentin 10 mg twice a day. 7. Hydrocortisone 10 mg daily. 8. Lisinopril 20 mg daily. 9. Zofran 4 mg on a p.r.n. basis. 10. Norvasc 10 mg daily. 11. Fentanyl patch 100 mcg transdermally every 72 hours. 12. Oxycodone 5 mg every 4 hours p.r.n. Medications that were stopped was atenolol due to bradycardia throughout patient 's hospital stay. LABORATORY DATA AND STUDIES PERFORMED DURING THE HOSPITAL STAY: On 10/11/16, white blood cell count of 5.6, hemoglobin 11.7, hematocrit of 33, and platelets of 204. Sodium 136, potassium 3.6, chloride 101, carbon dioxide 29, BUN 11, creatinine 0.9. Microbiology tests showed urine cultures obtained from 10/11/16 were unremarkable and blood cultures also unremarkable. HOSPITALIZATION COURSE: Chela Diallo is a 50-year-old female with history of immobility due to right leg melanoma. The patient is currently a longterm resident at [facility]. The patient has history of chronic nephrolithiasis on the right kidney, but when she was seen by Dr. Vargas in his office on , it was noted to have progressed. At that point, the patient started complaining of right-sided abdominal pain and she came in for evaluation. A CT of the abdomen was basically unchanged from prior, which showed obstructing 12 mm right ureteral stone and right hydronephrosis. The patient was placed initially for overnight observation and then switched to inpatient care. A cystoscopy was performed by Dr. Vargas on 10/12/16 and after the obstruction was decompressed and stent was placed, purulent urine was obtained. The cultures are still pending at the time of dictation. The patient was placed on ceftriaxone with good results. The pain was basically gone by the time she is being discharged to home. She never became febrile. She did receive 1 stress- dose steroid prior to her cystoscopy in the morning due to her history of hypopituitarism. After discussion with Dr. Vargas at discharge, the patient is going to be continued on her antibiotics approximately for [address] Vargas is to see patient for a followup in approximately 7 days. PHYSICAL EXAM AT TIME OF DISCHARGE: Vital Signs: Blood pressure 106/54, heart rate of 61 and regular, respiratory rate 18, oxygen saturation 94% on room air, temperature 97.7. General: Patient is a very pleasant 60-year-old female who is in no acute distress. Alert, awake and oriented x3. HEENT: Head atraumatic , normocephalic. Eyes: Pupils equal, reactive to light and accommodation. Oropharynx clear. Mucosa moist. Neck: Supple. No JVD. No bruits bilaterally. Cardiovascular: Regular rate and rhythm. No murmur. Respiratory : Clear to auscultation bilaterally. Abdomen: Soft, nontender. Bowel sounds present in all 4 quadrants. Back: On evaluation of the back, there is very mild CVA tenderness on the right. Extremities: There is trace bilateral ankle edema. Pulses are 2+ bilaterally. There is no clubbing or cyanosis. On evaluation of the skin, the patient has melanoma lesions on her right lower extremity with 1 superficial ulcer approximately 2 cm that is covered with eschar. Please also note that the patient had been bradycardiac throughout her hospital stay and her atenolol was stopped. Please note this is a short summary of the patient's hospital stay. Please refer to further medical records for details. TIME SPENT: Approximately 45 minutes was spent in patient's discharge. [id number]/[facility] #: [id number] [facility]
== END 2016-10-13 13:45 | DRG 689 ==
LOC: ED 12:16 → MED 15:32 → OBSVTOIN 10-12 15:32
PROVIDERS: ADMIT Internal Medicine; ATTEND Internal Medicine
PROC: 0T768DZ Dilation of Right Ureter with Intraluminal Device, Via Natural or Artificial Opening Endoscopic (ICD-10-PCS; 2016-10-12)
PROC: BT1DYZZ Fluoroscopy of Right Kidney, Ureter and Bladder using Other Contrast (ICD-10-PCS; principal; 2016-10-12 11:30)
DX: N13.6 Pyonephrosis (principal); K85.90 Acute pancreatitis without necrosis or infection, unspecified; C43.71 Malignant melanoma of right lower limb, including hip; N11.1 Chronic obstructive pyelonephritis; K76.0 Fatty (change of) liver, not elsewhere classified; E23.0 Hypopituitarism; G90.50 Complex regional pain syndrome I, unspecified; Z68.42 Body mass index [BMI] 45.0-49.9, adult; E03.9 Hypothyroidism, unspecified; I10 Essential (primary) hypertension; R00.1 Bradycardia, unspecified; G89.29 Other chronic pain; Z66 Do not resuscitate; E66.01 Morbid (severe) obesity due to excess calories; Z82.49 Family history of ischemic heart disease and other diseases of the circulatory system; Z79.82 Long term (current) use of aspirin; Z79.899 Other long term (current) drug therapy; Z86.718 Personal history of other venous thrombosis and embolism
CPT/HCPCS: 36415; 74000; 74176; 74420; 80048; 80053; 81003; 81015; 83605; 83690; 85025; 85027; 86140; 87040; 87086; 87641; 93005; A9270-GY; C1876; G0378; J0461; J0696; J1170; J1580; J1644; J1720; J1885; J2543; J2704; J3010

== ENCOUNTER 2017-03-02 11:44 | Inpatient (IN) | payer MEDICARE, MEDICAID ==
[2017-03-02] MEDS: NS 0.9% 1000 ML* 3,000 ML IV ONE ×2 (12:10→12:12)
[2017-03-02] MEDS ORDERED: Naloxone* 0.4 MG/ML 1 ML VIAL ONE (12:13)
[2017-03-02] MEDS ORDERED: Ondansetron INJ* 2 MG/ML VIAL IV ONE (12:19)
[2017-03-02] MEDS ORDERED: Naloxone* 0.4 MG/ML 1 ML VIAL IV PUSH ONE ×2 (12:19→13:47)
[2017-03-02] MEDS ORDERED: Hydrocortisone INJ* 100 MG VIAL IV ONE (12:19)
[2017-03-02 12:36] LABS: Hematocrit 47 % (35-47); Hemoglobin 15.6 g/dl (12.0-16.0); Mean Corpuscular HGB Conc 33 g/dl (31-36); Mean Corpuscular Hemoglobin 30 pg (27-31); Mean Corpuscular Volume 90 fL (80-97); Mean Platelet Volume 9 um3 (7.4-10.4); Red Blood Count 5.24 10^6/ul (4.0-5.4); Red Cell Distribution Width 17 % (10.5-15); White Blood Count 9.3 10^3/ul (3.5-10.8)
[2017-03-02] MEDS ORDERED: Iodixanol* (CONTRAST) 320 MG/ML 100 ML SDV IV ONE (12:41)
[2017-03-02 12:49] LABS: ALT 18 U/L (7-52); Albumin 3.7 g/dL (3.2-5.2); Alkaline Phosphatase 52 U/L (34-104); BUN/Creatinine Ratio 18.5 (8-20); Blood Urea Nitrogen 28 mg/dL (6-24); CO2 Carbon Dioxide 28 mmol/L (22-32); Calcium 9.9 mg/dL (8.6-10.3); Chloride 99 mmol/L (101-111); EGFR African American 44.9 (>60); EGFR Non-African American 34.9 (>60); Globulin 3.3 g/dL (2-4); Glucose 154 mg/dL (70-100); Sodium 133 mmol/L (133-145)
[2017-03-02 12:52] LABS: Troponin I 0.03 ng/mL (<0.04)
[2017-03-02 12:56] LABS: Anion Gap 6 mmol/L (2-11)
[2017-03-02] MEDS ORDERED: Vancomycin(*) 1,000 MG VIAL IVPB SCH (13:00)
[2017-03-02] MEDS ORDERED: Vancomycin(*) 1,750 MG in NS 0.9% 500 ML* 500 ML IVPB ONE (13:00)
--- NOTE | 2017-03-02 13:16 | RAD ---
Indication: Sepsis. Weakness. Hypotension. Comparison: February 09, 2017 PET/CT. Technique: Upright AP 1235 hours Report: Obese body habitus limits image quality. No pulmonary infiltrate, pleural effusion, or pneumothorax evident. Negative for cardiomegaly. Unremarkable central pulmonary vasculature. Moderately tortuous thoracic aorta. IMPRESSION: No evidence for pneumonia or pulmonary edema.
[2017-03-02] MEDS ORDERED: Naloxone* 2 MG in NS 0.9% 250 ML* 245 ML IV SCH (14:00)
[2017-03-02] MEDS ORDERED: Norepinephrine 16MCG/ML IVPRE* 4,000 MCG/250 ML BAG IV SCH (14:00)
--- NOTE | 2017-03-02 14:06 | RAD ---
INDICATION: Hypoxia hypotension evaluate for pulmonary embolism, right upper quadrant pain and sepsis. COMPARISON: Comparison is made with a prior PET/CT study from February 09, [address] of the abdomen and pelvis from October 11, 2016. Correlation is also made with a prior PET/CT study from March 23, 2016. TECHNIQUE: A CT angiogram of the chest and a CT of the abdomen and pelvis was performed with intravenous contrast following intravenous injection of 141 ml of Visipaque 320 nonionic contrast. Contiguous axial sections were obtained from the lung apices through the symphysis pubis. Images were reconstructed in the coronal and sagittal planes. FINDINGS: CT ANGIOGRAM OF THE CHEST: Flow phenomena are noted in the main pulmonary arteries. No significant intraluminal filling defect or pulmonary embolism is seen. The heart is within normal limits in size. There is a trace pericardial effusion which is unchanged from the prior PET/CT study. The thoracic aorta is normal in caliber and demonstrates homogeneous contrast opacification without evidence for dissection. There is a slightly prominent lymph node present anterior to the ascending thoracic aorta measuring 0.9 cm in transverse dimension which is unchanged from the prior [address] studies. No other enlarged mediastinal or hilar lymph nodes are seen. There is mild dependent right lower lobe subsegmental atelectasis and a trace right pleural effusion present which is new from the prior PET/CT study. The lungs are otherwise clear. CT OF THE ABDOMEN AND PELVIS: The liver and spleen are normal in size. The liver is decreased in attenuation consistent with fatty filtration. There are multiple focal areas of decreased attenuation present in the anterior aspects of the right and left hepatic lobes and centrally in the liver in the region of the caudate lobe which were present on the prior PET/CT study and are not PET avid and likely represent more focal areas of fatty infiltration. The patient is status post cholecystectomy. The pancreas appears to be within normal limits. The adrenal glands appear within normal limits. There is relatively prominent bilateral cortical renal thinning. There are small bilateral renal cysts. There is a double-J stent catheter present on the right side which demonstrates normal course. There is mild thickening of the right renal pelvis and proximal ureter which appears similar to the prior PET/CT study. The abdominal aorta is normal in caliber. There is mild calcific plaque present. No significant enlarged retroperitoneal lymph nodes are seen. The stomach, small and large bowel appear nondistended. The appendix appears to be within normal limits. There is mild diffuse thickening of the wall of the small bowel which is most prominent in the mid and distal portion of the small bowel. There is a small amount of free intraperitoneal fluid adjacent to the liver, spleen and in the mesentery adjacent to the small bowel loops. No free intraperitoneal air is seen. No significant focal osseous abnormality is seen. IMPRESSION: 1. NO EVIDENCE FOR PULMONARY EMBOLISM. 2. TRACE RIGHT PLEURAL EFFUSION. 3. MILDLY ENLARGED ANTERIOR MEDIASTINAL LYMPH NODE, UNCHANGED. 4. SMALL AMOUNT OF ASCITES. 5. DIFFUSE THICKENING OF THE WALL OF THE SMALL BOWEL POSSIBLY SECONDARY TO THE ASCITES PRESENT ALTERNATIVELY THIS MAY BE DUE TO AN INFECTIOUS ENTERITIS, ISCHEMIA OR SHOCKED BOWEL. 6. RIGHT URETERAL STENT CATHETER IN PLACE. THICKENING OF THE RIGHT RENAL PELVIS AND PROXIMAL URETER, UNCHANGED LIKELY SECONDARY TO INFLAMMATION OR INFECTION. THERE IS BILATERAL RENAL ATROPHY. 7. HEPATIC STEATOSIS.
[2017-03-02] MEDS ORDERED: Dextrose 50% Syringe 50 ML* 25 GM/50 ML SYRINGE IV PUSH PRN (15:15)
--- NOTE | 2017-03-02 15:40 | HP ---
H&P (Free Text) History and Physical: Admission H&P - Critical Care HPI: 61y F w/pmhx of HTN, DM, metastatic melanoma, h/o right ureteral stent, h/ o dvt not on AC; comes to ER from [facility] for nausea and vomitting since yesterday night, lethargic, noted BP low. In ER she was tachycarcic, SBP 60s, lethargic. Noted to be on fentanyl patch, given narcan 0.4mg iv x1 with some improvingment in mental status. Given sepsis criteria IVF bolus 2500cc and started on IV abx. She is more awake now, states she doesnt remember yesterday but has been vomitting today, does have abd pain, no diarrhea. no cp/sob. no fever/chills. No recent travel. Family at bedside and state she is close to her baseline mental status now. She is currently recieving IVF and narcan infusion started. Repeat BP now 110 systolic, HR ~100 More awake, alert, able to speak and give history. She is DNR/DNI as per chart. Family okay with conservative measures to treat her with IVF/Abx and pressors if needed. no intubation or cpr. her HCP is her friend 'sonia' on documentation, family knows that is her. CT abd/pelvis with small bowel wall thickening+, other findings reviewed. Called by ED for eval of hypotension, suspected sepsis. ROS: negative except for pertinent positives mentioned above. limited somewhat due to mental status change also. PMHx: HTN, DM, metastatic melanoma, h/o right ureteral stent, h/o dvt not on AC PSHx: unable to obtain Social History: Alcohol-no, Smoking-no, Drug use-no; lives at [facility]. Allergies: Allergies Allergy/AdvReac Type Severity Reaction Status Date / Time Furosemide Allergy Severe Altered Verified 10/11/16 12:44 Mental Status Morphine Allergy Severe Altered Verified 10/11/16 12:44 Mental Status Latex Allergy Intermediate Rash Verified 10/11/16 12:44 Adhesive Tape Allergy Mild Blisters Verified 10/11/16 12:44 Home Medications: oxyCODONE TAB* [Roxycodone TAB 5 mg*] 5 mg PO Q4HR PRN 12/18/15 [History Confirmed 03/02/17] Hydrocortisone TAB* [Cortef TAB*] 10 mg PO DAILY 04/25/16 [History Confirmed 01/08] Gabapentin CAP(*) [Neurontin 300 CAP(*)] 300 mg PO BID PRN 10/11/16 [History Confirmed 03/02/17] Ondansetron TAB* [Zofran 4 MG Tab*] 4 mg PO Q6H PRN 10/11/16 [History Confirmed 03/02/17] fentaNYL PATCHs 100 MCG/HR* [Duragesic Patch 100 Mcg/Hr *] 100 mcg TRANSDERM Q72H 10/11/16 [History Confirmed 03/02/17] Acetaminophen [Acetaminophen Extra Stren] 1,000 mg PO Q8HR PRN 03/02/17 [ History Confirmed 03/02/17] Aspirin EC Low Dose* [Ecotrin EC Low Dose 81 MG*] 81 mg PO DAILY 03/02/17 [ History Confirmed 03/02/17] Lisinopril TAB* [Prinivil TAB*] 10 mg PO DAILY 03/02/17 [History Confirmed 03/02] Venlafaxine EXT RELEASE CAP* [Effexor Xr CAP*] 37.5 mg PO DAILY 03/02/17 [ History Confirmed 03/02/17] Tele: sinus tachycardia Vitals: Vital Signs Temp 96.2 F 03/02/17 11:47 Pulse 99 03/02/17 13:47 Resp 18 03/02/17 13:47 BP 98/62 03/02/17 13:47 Pulse Ox 97 03/02/17 13:47 Intake & Output 03/01/17 03/02/17 03/02/17 18:59 06:59 18:59 Intake Total 1100 Balance 1100 Weight 255 lb Intake: IV Fluids 1100 O2/Vent: oximizer mask, sat 100%, rr 18 Infusions: NS, narcan infusion Current Medications: Dextrose (D50w Syringe 50 Ml*) 12.5 gm IV PUSH .FOR FS < 60 - SS PRN PRN Reason: FS < 60 Hydrocortisone Sodium Succinate (Solu-Cortef*) 100 mg IV Q12H IMANI Stop: 03/04/17 14:01 Vancomycin HCl 1,750 mg/ (Sodium Chloride) 500 mls @ 166.667 mls/hr IVPB ONCE ONE Stop: 03/02/17 15:59 Last Admin: 03/02/17 13:48 Dose: 166.667 mls/hr Norepinephrine Bitartrate (Levophed 16 Mcg/Ml Premix Bag*) 4,000 mcg in 250 mls @ 18.75 mls/hr IV .INITIAL RATE IMANI PRN Reason: 5 MCG/MIN Naloxone HCl 2 mg/ Sodium (Chloride) 250 mls @ 50 mls/hr IV ED ONCE ONE PRN Reason: 0.4 MG/HR Stop: 03/02/17 22:58 Sodium Chloride (Ns 0.9% 1000 Ml*) 1,000 mls @ 100 mls/hr IV PER RATE [facility] Piperacillin Sod/Tazobactam (Sod 3.375 gm/ Sodium Chloride) 100 mls @ 25 mls/ hr IVPB Q8H [facility] Insulin Human Lispro (Humalog*) 0 units SUBCUT ACHS IMANI PRN Reason: Protocol Ondansetron HCl (Zofran Inj*) 4 mg IV Q4H PRN PRN Reason: NAUSEA/VOMITING Pharmacy Consult (Vancomycin Per Pharmacy*) 1 note FOLLOW UP .VANC PER PHARMACY IMANI Physical Exam: General: awake, alert, distress form abd discomfort and back pain, no diaphoresis Head: normocephalic, atraumatic HEENT: no pallor, no icterus, dry mucous membranes Neck: soft, supple, no jvd, no stridor CVS: tachycardic, normal rhythm, no murmur Resp: bilateral air entry, no rhales, no wheeze, no rhonchi, no acc muscle use Abdomen: soft, mild tenderness on deep palpation, no rebound, no distension, bowel sounds present Ext: pulses+, warm, no edema Skin: intact, no breakdown, noted areas of melanoma on lower ext. Neuro: awake, alert, orientedx2, moving all extremities, no gross focal deficit Labs: Laboratory Results - last 24 hr 03/02/17 03/02/17 03/02/17 12:10 12:10 12:10 WBC 9.3 RBC 5.24 Hgb 15.6 Hct 47 MCV 90 MCH 30 MCHC 33 RDW 17 H Plt Count 296 MPV 9 Neut % (Auto) 61.4 Lymph % (Auto) 33.9 Gallia % (Auto) 2.3 Eos % (Auto) 1.1 Baso % (Auto) 1.3 Absolute Neuts (auto) 5.7 Absolute Lymphs (auto) 3.2 Absolute Monos (auto) 0.2 Absolute Eos (auto) 0.1 Absolute Basos (auto) 0.1 Absolute Nucleated RBC 0.01 Nucleated RBC % 0.1 ESR Cancelled INR (Anticoag Therapy) 0.82 L APTT 27.0 Sodium 133 Potassium TNP Chloride 99 L Carbon Dioxide 28 Anion Gap 6 BUN 28 H Creatinine 1.51 H Est GFR ( Amer) 44.9 Est GFR (Non-Af Amer) 34.9 BUN/Creatinine Ratio 18.5 Glucose 154 H Lactic Acid Calcium 9.9 Total Bilirubin 0.50 AST TNP ALT 18 Alkaline Phosphatase 52 Troponin I 0.03 Total Protein 7.0 Albumin 3.7 Globulin 3.3 Albumin/Globulin Ratio 1.1 03/02/17 03/02/17 12:10 13:00 WBC RBC Hgb Hct MCV MCH MCHC RDW Plt Count MPV Neut % (Auto) Lymph % (Auto) Gallia % (Auto) Eos % (Auto) Baso % (Auto) Absolute Neuts (auto) Absolute Lymphs (auto) Absolute Monos (auto) Absolute Eos (auto) Absolute Basos (auto) Absolute Nucleated RBC Nucleated RBC % ESR INR (Anticoag Therapy) APTT Sodium Potassium 3.3 L Chloride Carbon Dioxide Anion Gap BUN Creatinine Est GFR ( Amer) Est GFR (Non-Af Amer) BUN/Creatinine Ratio Glucose Lactic Acid 2.2 H* Calcium Total Bilirubin AST 19 ALT Alkaline Phosphatase Troponin I Total Protein Albumin Globulin Albumin/Globulin Ratio Imaging: CT abd/pelvis 03/02 - small bowel wall thickening; reviewed report cxr - no acute infiltrate/process noted. Assessment: 61y F w/pmhx of HTN, DM, metastatic melanoma, h/o right ureteral stent, h/o dvt not on AC; comes to ER from [facility] for nausea and vomitting since yesterday night, lethargic, noted BP low. In ER she was tachycarcic, SBP 60s, lethargic. Noted to be on fentanyl patch, given narcan 0.4mg iv x1 with some improvingment in mental status. Given sepsis criteria IVF bolus 2500cc and started on IV abx, BP improving. -Hypovolemia -acute abdomen, suspect gastroenteritis, possible infectious, r/o ischemic -encephelopathy, metabolic/toxic, sepsis vs opiate induced. -acute kidney injury, likely pre-renal azotemia vs septic atn -severe sepsis -hypokalemia Plan: Neuro- improved mental status. encephalopathy likely more from acute volume depletion/metabolic component of sepsis. will dec narcan infusion further. keep fentanyl patch off for now. restart if off narcan later. fentanyl has short half -life, out of her system by now. known to be oxycodone at [facility] also. delirium prec. fall prec. asp prec. CVS- BP improving. cont NS @ 100cc/hour. LA trend. blood cx sent. likely source from small bowel enteritis. IV abx for abd coverage. no diarrhea. check c.diff also. no pressors indicated at this time. Resp- on oximask; no resp distress noted. cxr clear. wean down oxygen. ID- hypothermic, wbc normal. was hypotensive to 60s and LA elevated. likely more from volume depletion. cover for abd sepsis from enteritis for now, Zosyn and Vanco IV for now. Blood cx sent. GI- Ct findings reviewed. small bowel wall thickening. cont to check lactic acid. check amylase/lipase/cpk also. r/o any ischemic etiology of wall thickening, though no pneumotosis noted on scan. IVF hydration. IV abx for abd coverage. zofran prn. clear liquid diet as tolerated. no surgical indication for consult at this time. Renal- SLAVA suspect pre-renal from vomitting and poor po intake +/- abd sepsis. IVF hydration. replete K for hypokalemia with IV. swenson as needed. trend LA. Heme- hg okay, plt okay. heparin sq proph. Endo- fingersticks ac/hs Musculsk- stable. pressure ulcer proph Wounds- none Nutrition- clear liquid diet as tolerated. DVT prophylaxis: compression stalkings and heparin sq GI prophylaxis: protonix Central Line: no Arterial Line: no Swenson Cathetor: no Disposition: ICU for hypotension and lethargy. Code Status: DNR/DNI Total Critical Care time is 60 minutes, excluding procedures/teaching Rob Hall MD Costuming Supervisor (Electronically Signed)
[2017-03-02] MEDS ORDERED: Vancomycin per Pharmacy* NOTE FOLLOW UP SCH (16:00)
[2017-03-02] MEDS: NS 0.9% 1000 ML* 1,000 ML IV SCH (16:31)
[2017-03-02] MEDS: Pantoprazole IV* 40 MG IV SCH (16:38)
[2017-03-02] MEDS: KCL 20 MEQ/100 ML IVPREMIX* 20 MEQ/100 ML BAG IV SCH ×2 (16:39→22:21)
[2017-03-02] MEDS: Insulin LISPRO* 1 UNITS UNIT SUBCUT SCH ×2 (17:03→20:30)
[2017-03-02] MEDS: Naloxone* 2 MG in NS 0.9% 250 ML* 245 ML IV SCH ×2 (17:53→23:35)
[2017-03-02] MEDS ORDERED: Naloxone* 2 MG in NS 0.9% 250 ML* 245 ML IV ONE (17:59)
--- NOTE | 2017-03-02 18:32 | RAD ---
INDICATION: Right upper quadrant pain, hypotension. COMPARISON: Correlation is made with a prior CT of the abdomen and pelvis of the same day. TECHNIQUE: Multiple real-time images of the right upper quadrant were obtained. The exam is extremely limited. The patient was unable to tolerate and complete the exam. FINDINGS: The patient is status post cholecystectomy. The liver appears normal in size and increased in echogenicity correlating with fatty infiltration on the prior CT study. No focal abnormality is seen. The common bile duct was not visualized. The pancreas and right kidney were not visualized on this study. There is free intraperitoneal fluid adjacent to the liver. IMPRESSION: 1. EXTREMELY LIMITED STUDY. 2. STATUS POST CHOLECYSTECTOMY. 3. HEPATIC STEATOSIS. 4. ASCITES.
[2017-03-02] MEDS: Heparin VIAL(*) 5000 UNITS/ML VIAL (FIVE THOUSAND) SUBCUT SCH (22:21)
[2017-03-03] MEDS ORDERED: Vancomycin(*) 1,250 MG in NS 0.9% 250 ML* 250 ML IVPB SCH (02:00)
[2017-03-03] MEDS ORDERED: Hydrocortisone INJ* 100 MG VIAL IV SCH (02:00)
[2017-03-03 06:13] LABS: Hematocrit 38 % (35-47); Hemoglobin 12.4 g/dl (12.0-16.0); Mean Corpuscular HGB Conc 33 g/dl (31-36); Mean Corpuscular Hemoglobin 30 pg (27-31); Mean Corpuscular Volume 91 fL (80-97); Mean Platelet Volume 8 um3 (7.4-10.4); Red Blood Count 4.15 10^6/ul (4.0-5.4); Red Cell Distribution Width 17 % (10.5-15); White Blood Count 10.2 10^3/ul (3.5-10.8)
[2017-03-03 06:27] LABS: Calcium 9.5 mg/dL (8.6-10.3); EGFR African American 59.1 (>60); Potassium 4.1 mmol/L (3.5-5.0)
[2017-03-03 06:51] LABS: Vancomycin Random 24.1 mcg/mL
[2017-03-03] MEDS: Insulin LISPRO* 1 UNITS UNIT SUBCUT SCH ×4 (09:01→21:01)
--- NOTE | 2017-03-03 09:06 | ED ---
Wan Prado SooYoung, scribed for Diogo Jarquin MD on 03/02/17 at 1216 . Complex/Multi-Sys Presentation - HPI Summary HPI Summary: A 61 y/o F SERG presents to ED with low BP onset HR GENERALIST. Per EMS report, pt brought in for n/v/d. Associated sx: R-sided abd pain. Pt states feeling "weirdness." Per Uncle, pt has RLE pain above knee and back pain per baseline. Home medications include Fentanyl, pain meds. Denies PMHx: PE. - History Of Current Complaint Chief Complaint: EDNauseaVomitDiarrh Time Seen by Provider: 03/02/17 12:05 Hx Obtained From: Patient, Family/Recreation Adviser - uncle, EMS Onset/Duration: Still Present Severity Currently: Severe Associated Signs And Symptoms: Positive: Nausea, Vomiting, Diarrhea, Abdominal Pain - R-sided - Allergies/Home Medications Allergies/Adverse Reactions: Allergies Allergy/AdvReac Type Severity Reaction Status Date / Time Furosemide Allergy Severe Altered Verified 10/11/16 12:44 Mental Status Morphine Allergy Severe Altered Verified 10/11/16 12:44 Mental Status Latex Allergy Intermediate Rash Verified 10/11/16 12:44 Adhesive Tape Allergy Mild Blisters Verified 10/11/16 12:44 Home Medications: Home Medications Acetaminophen [Acetaminophen Extra Stren] 1,000 mg PO Q8HR PRN 03/02/17 [ History Confirmed 03/02/17] Aspirin EC Low Dose* [Ecotrin EC Low Dose 81 MG*] 81 mg PO DAILY 03/02/17 [ History Confirmed 03/02/17] Lisinopril TAB* [Prinivil TAB*] 10 mg PO DAILY 03/02/17 [History Confirmed 03/02] Venlafaxine EXT RELEASE CAP* [Effexor Xr CAP*] 37.5 mg PO DAILY 03/02/17 [ History Confirmed 03/02/17] PMH/Surg Hx/FS Hx/Imm Hx Previously Healthy: No Endocrine/Hematology History: Reports: Hx Diabetes, Hx Thyroid Disease Cardiovascular History: Reports: Hx Hypertension, Other Cardiovascular Problems/ Disorders - hx DVT LLE Denies: Hx Congestive Heart Failure, Hx Pacemaker/ICD Respiratory History: Denies: Hx Pulmonary Embolism History: Reports: Hx Kidney Infection, Hx Kidney Stones - RT, Other Problems/Disorders - Right stent Denies: Hx Renal Disease Musculoskeletal History: Reports: Hx Arthritis - osteoarthritis, Hx Back Problems, Hx Osteoporosis, Other Musculoskeletal History - c5-c6 disc compression Sensory History: Reports: Hx Contacts or Glasses Denies: Hx Cataracts, Hx Glaucoma, Hx Hearing Aid Opthamlomology History: Reports: Hx Contacts or Glasses Denies: Hx Cataracts, Hx Glaucoma Neurological History: Reports: Other Neuro Impairments/Disorders - Chronic Regional Pain Syndrome, c5-c6 disc compression Psychiatric History: Reports: Hx Anxiety, Hx Depression Denies: Hx Panic Disorder - Cancer History Cancer Type, 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 Hx Chemotherapy: Yes Hx Radiation Therapy: No - Surgical History Surgery Procedure, Year, and Place: MELANOMA REMOVALS; KIDNEY STENT; CHOLECYSTECTOMY; CARPAL TUNNEL RELEASE Hx Anesthesia Reactions: No Infectious Disease History: No Infectious Disease History: Denies: Traveled Outside the in Last 30 Days - Family History Known Family History: Positive: Unknown - LEVEL 5 CAVEAT secondary to AMS, Other - No - Malignant hypothermia - Social History Occupation: Disabled Lives: At [facility] Alcohol Use: None Hx Substance Use: No Substance Use Type: Reports: None Hx Tobacco Use: Yes Smoking Status (MU): Former Smoker Type: Cigarettes Review of Systems Negative: Fever, Chills Negative: Erythema Negative: Sore Throat Negative: Chest Pain Negative: Shortness Of Breath, Cough Positive: Abdominal Pain - R-sided, Vomiting, Diarrhea, Nausea Negative: dysuria, hematuria Negative: Myalgia, Edema Negative: Rash Neurological: Other - neg: dizziness All Other Systems Reviewed And Are Negative: Yes Physical Exam - Summary Physical Exam Summary: Constitutional: Well-developed, Well-nourished, Alert. (-) Distressed, WEAKLY VERBALLY RESPONSIVE Skin: Warm, Dry, PALE HENT: Normocephalic; Atraumatic Eyes: Conjunctiva normal, PUPILS ARE 2 MM Neck: Musculoskeletal ROM normal neck. (-) JVD, (-) Stridor, (-) Tracheal deviation Cardio: Rhythm regular, rate normal, Heart sounds normal; Intact distal pulses; The pedal pulses are 2+ and symmetric. Radial pulses are 2+ and symmetric. (-) Murmur Pulmonary/Chest wall: Effort normal. (-) Respiratory distress, (-) Wheezes, (-) Rales Abd: Soft, MILD RUQ TENDERNESS, (-) Distension, (-) Guarding, (-) Rebound Musculoskeletal: (-) Edema Lymph: (-) Cervical adenopathy Neuro: Alert, Oriented x3 Psych: Mood and affect Normal Triage Information Reviewed: Yes Vital Signs On Initial Exam: Initial Vitals Temp Pulse Resp BP Pulse Ox 96.2 F 94 16 64/50 92 03/02/17 11:47 03/02/17 11:47 03/02/17 11:47 03/02/17 11:47 03/02/17 11:47 Vital Signs Reviewed: Yes Diagnostics - Vital Signs Vital Signs Temp Pulse Resp BP Pulse Ox 03/02/17 11:47 96.2 F 94 16 64/50 92 - Laboratory Lab Results: Lab Results 03/02/17 03/02/17 03/02/17 Range/Units 12:10 12:10 12:10 WBC 9.3 (3.5-10.8) 10^3/ul RBC 5.24 (4.0-5.4) 10^6/ul Hgb 15.6 (12.0-16.0) g/dl Hct 47 (35-47) % MCV 90 (80-97) fL MCH 30 (27-31) pg MCHC 33 (31-36) g/dl RDW 17 H (10.5-15) % Plt Count 296 (150-450) 10^3/ul MPV 9 (7.4-10.4) um3 Neut % (Auto) 61.4 (38-83) % Lymph % (Auto) 33.9 (25-47) % [place] % (Auto) 2.3 (1-9) % Eos % (Auto) 1.1 (0-6) % Baso % (Auto) 1.3 (0-2) % Absolute Neuts (auto) 5.7 (1.5-7.7) 10^3/ul Absolute Lymphs (auto) 3.2 (1.0-4.8) 10^3/ul Absolute Monos (auto) 0.2 (0-0.8) 10^3/ul Absolute Eos (auto) 0.1 (0-0.6) 10^3/ul Absolute Basos (auto) 0.1 (0-0.2) 10^3/ul Absolute Nucleated RBC 0.01 10^3/ul Nucleated RBC % 0.1 ESR Cancelled INR (Anticoag Therapy) 0.82 L (0.89-1.11) APTT 27.0 (26.0-36.3) seconds Sodium 133 (133-145) mmol/L Potassium TNP Chloride 99 L (101-111) mmol/L Carbon Dioxide 28 (22-32) mmol/L Anion Gap 6 (2-11) mmol/L BUN 28 H (6-24) mg/dL Creatinine 1.51 H (0.51-0.95) mg/dL Est GFR ( Amer) 44.9 (>60) Est GFR (Non-Af Amer) 34.9 (>60) BUN/Creatinine Ratio 18.5 (8-20) Glucose 154 H (70-100) mg/dL Lactic Acid (0.5-2.0) mmol/L Calcium 9.9 (8.6-10.3) mg/dL Total Bilirubin 0.50 (0.2-1.0) mg/dL AST TNP ALT 18 (7-52) U/L Alkaline Phosphatase 52 (34-104) U/L Total Creatine Kinase (10-223) U/L Troponin I 0.03 (<0.04) ng/mL Total Protein 7.0 (6.4-8.9) g/dL Albumin 3.7 (3.2-5.2) g/dL Globulin 3.3 (2-4) g/dL Albumin/Globulin Ratio 1.1 (1-3) Amylase (29-103) U/L Lipase (11.0-82.0) U/L 03/02/17 03/02/17 Range/Units 12:10 13:00 WBC (3.5-10.8) 10^3/ul RBC (4.0-5.4) 10^6/ul Hgb (12.0-16.0) g/dl Hct (35-47) % MCV (80-97) fL MCH (27-31) pg MCHC (31-36) g/dl RDW (10.5-15) % Plt Count (150-450) 10^3/ul MPV (7.4-10.4) um3 Neut % (Auto) (38-83) % Lymph % (Auto) (25-47) % [place] % (Auto) (1-9) % Eos % (Auto) (0-6) % Baso % (Auto) (0-2) % Absolute Neuts (auto) (1.5-7.7) 10^3/ul Absolute Lymphs (auto) (1.0-4.8) 10^3/ul Absolute Monos (auto) (0-0.8) 10^3/ul Absolute Eos (auto) (0-0.6) 10^3/ul Absolute Basos (auto) (0-0.2) 10^3/ul Absolute Nucleated RBC 10^3/ul Nucleated RBC % ESR INR (Anticoag Therapy) (0.89-1.11) APTT (26.0-36.3) seconds Sodium (133-145) mmol/L Potassium 3.3 L Chloride (101-111) mmol/L Carbon Dioxide (22-32) mmol/L Anion Gap (2-11) mmol/L BUN (6-24) mg/dL Creatinine (0.51-0.95) mg/dL Est GFR ( Amer) (>60) Est GFR (Non-Af Amer) (>60) BUN/Creatinine Ratio (8-20) Glucose (70-100) mg/dL Lactic Acid 2.2 H* (0.5-2.0) mmol/L Calcium (8.6-10.3) mg/dL Total Bilirubin (0.2-1.0) mg/dL AST 19 ALT (7-52) U/L Alkaline Phosphatase (34-104) U/L Total Creatine Kinase 135 (10-223) U/L Troponin I (<0.04) ng/mL Total Protein (6.4-8.9) g/dL Albumin (3.2-5.2) g/dL Globulin (2-4) g/dL Albumin/Globulin Ratio (1-3) Amylase 18 L (29-103) U/L Lipase 11 (11.0-82.0) U/L Result Diagrams: 03/03/17 05:55 03/03/17 05:55 Lab Statement: Any lab studies that have been ordered have been reviewed, and results considered in the medical decision making process. - Radiology CXR Xray Interpretation: No Acute Changes - IMPRESSION: No evidence for PNA or PE. ED physician has reviewed this radiology report and agrees. Radiology Interpretation Completed By: Radiologist - CT C/A/P CTA CT Interpretation: Positive (See Comments) - IMPRESSION: 1. NO EVIDENCE FOR PULMONARY EMBOLISM. 2. TRACE RIGHT PLEURAL EFFUSION. 3. MILDLY ENLARGED ANTERIOR MEDIASTINAL LYMPH NODE, UNCHANGED. 4. SMALL AMOUNT OF ASCITES. 5. DIFFUSE THICKENING OF THE WALL OF THE SMALL BOWEL POSSIBLY SECONDARY TO THE ASCITES PRESENT ALTERNATIVELY THIS MAY BE DUE TO AN INFECTIOUS ENTERITIS, ISCHEMIA OR SHOCKED BOWEL. 6. RIGHT URETERAL STENT CATHETER IN PLACE. THICKENING OF THE RIGHT RENAL PELVIS AND PROXIMAL URETER, UNCHANGED LIKELY SECONDARY TO INFLAMMATION OR INFECTION. THERE IS BILATERAL RENAL ATROPHY. 7. HEPATIC STEATOSIS. ED physician has reviewed this radiology report and agrees. CT Interpretation Completed By: Radiologist - EKG 1224 Cardiac Rate: Tachycardia EKG Rhythm: Sinus Tachycardia - [address] Segment: Normal EKG Interpretation: No STEMI. EKG Comparison: No Significant Change - from previous EKG on 10/11/16. Re-Evaluation - Re-Evaluation 1 Re-Evaluation Time: 13:45 Change: Improved Comment: Pt's BP is systolic, in the 80s. She is somnulent, snoring respirations are present. 2500 mls of fluids are in. Will start Pressors. Complex Multi-Symp Course/Dx Course Of Treatment: A 61 y/o F BIBA presents to ED with low BP onset HR GENERALIST. Per EMS report, pt brought in for n/v/d. Associated sx: R-sided abd pain. Pt states feeling "weirdness." Per , pt has RLE pain above knee and back pain per baseline. Home medications include Fentanyl, pain meds. Denies PMHx: PE. Pt given Piperacillin Sod/Tazobactam Sod, Hydrocortisone, Narcan, Zofran in ED. Lab results show lactic acid is 2.2. C/A/P CTA shows "1. NO EVIDENCE FOR PULMONARY EMBOLISM. 2. TRACE RIGHT PLEURAL EFFUSION. 3. MILDLY ENLARGED ANTERIOR MEDIASTINAL LYMPH NODE, UNCHANGED. 4. SMALL AMOUNT OF ASCITES. 5. DIFFUSE THICKENING OF THE WALL OF THE SMALL BOWEL POSSIBLY SECONDARY TO THE ASCITES PRESENT ALTERNATIVELY THIS MAY BE DUE TO AN INFECTIOUS ENTERITIS, ISCHEMIA OR SHOCKED BOWEL. 6. RIGHT URETERAL STENT CATHETER IN PLACE. THICKENING OF THE RIGHT RENAL PELVIS AND PROXIMAL URETER, UNCHANGED LIKELY SECONDARY TO INFLAMMATION OR INFECTION. THERE IS BILATERAL RENAL ATROPHY. 7. HEPATIC STEATOSIS.". I suspect opiate intoxication is contributing to the patient's depressed mental status and hypotension, she may have increased clinical effects of fentanyl related to hypovolemia secondary to vomiting and diarrhea. I did cover with empiric antibiotics due to extremis. She had excellent response and recovery with narcan intermittently and I elected for narcan infusion. - Diagnoses Provider Diagnoses: opiate intoxication, septic shock possible, Vomiting - Physician Notifications Discussed Care Of Patient With: Rob Hall - Elevator Operator Service Time Discussed With Above Provider: 12:20 Instructed by Provider To: Other - Made aware of pt. - Critical Care Time Critical Care Time: 75-104 min - 90 minutes Discharge - Discharge Plan Condition: Fair Disposition: ADMITTED TO [facility] Consult Consult: 2948: Consult with Dr. Hall Will admit pt. The documentation as recorded by the Wan salcedo SooYoung accurately reflects the service I personally performed and the decisions made by me, Diogo Jarquin MD.
[2017-03-03] MEDS: Heparin VIAL(*) 5000 UNITS/ML VIAL (FIVE THOUSAND) SUBCUT SCH ×3 (09:09→21:32)
[2017-03-03] MEDS: Pantoprazole IV* 40 MG IV SCH (09:09)
[2017-03-03] MEDS: Naloxone* 2 MG in NS 0.9% 250 ML* 245 ML IV SCH (10:07)
[2017-03-03] MEDS ORDERED: Ondansetron TAB* 4 MG PO PRN (12:57)
[2017-03-03] MEDS ORDERED: Gabapentin CAP(*) 300 MG PO PRN (12:57)
--- NOTE | 2017-03-03 13:01 | PN ---
Progress Note - Progress Note Date of Service: 03/03/17 Note: CRITICAL CARE MEDICINE Date: 03/03/17 Time: 1100 SUBJECTIVE: Patient seen and examined. PHYSICAL EXAM: Vital Signs: Reviewed. Neurologic: awakens, communicates HEENT: pupils equal. Sclera anicteric. Trachea midline. Cardiovascular: S1 S2 distant Respiratory: clear bl; mark Abdomen: Soft, obese, nt. Extremities: Warm. LABS: Reviewed. BC with non staph a, gram pos cocci IMAGING: Reviewed. MEDICATIONS: Reviewed. ASSESSMENT: 61 F Severe sepsis sec to enteritis? More hypovolemic - responded to ivf Relative adrenal insuff - stress dose steroids Narcotic dependency - off narcan gtt SLAVA - improved Deconditioning at baseline PLAN: Neurologic: resume prns and look to add back fent td as re-assessed crhonic pain Cardiovascular: perfusign well. fluid balance met. can come off fluids later today. Respiratory: vicki on ra. Gastrointestinal: po diet. f/u for any bowel ailments. no cdiff test needed Renal/Metabolic: improved fx. no swenson Infectious Disease: on vanco/zosyn. can dc vanco and f/u cx and clinical dynamics to de-escalate further. Hematology: stable. hsq Endocrine: received stress dose steroids. taper to prednisone. f/u Musculoskeletal: oob as able. pt prn Psych/Social: pt expressed understanding Supportive and preventative care as ordered. Disposition: to floor Code Status: Full Critical Care Time: 25min FLizz Lau DO
[2017-03-03] MEDS: predniSONE TAB* 20 MG PO SCH (13:05)
[2017-03-03] MEDS: NS 0.9% 1000 ML* 1,000 ML IV SCH (15:18)
[2017-03-03 16:42] LABS: Budding Yeast Present (Absent); Urine Bacteria Absent (Absent); Urine Bilirubin 1+ (Negative); Urine Glucose 1+(50 mg/dL) (Negative); Urine Nitrite Negative (Negative)
[2017-03-04] MEDS: hydrALAZINE IV* 20 MG/ML VIAL IV PRN ×2 (00:29→04:05)
[2017-03-04] MEDS: Heparin VIAL(*) 5000 UNITS/ML VIAL (FIVE THOUSAND) SUBCUT SCH ×3 (04:04→22:29)
[2017-03-04] MEDS: NS 0.9% 1000 ML* 1,000 ML IV SCH ×2 (07:54→17:26)
[2017-03-04] MEDS: Aspirin EC Low Dose* 81 MG TAB.EC PO SCH (07:55)
[2017-03-04] MEDS: oxyCODONE TAB* 5 MG TAB PO PRN ×2 (07:55→22:28)
[2017-03-04] MEDS: predniSONE TAB* 20 MG PO SCH (07:55)
[2017-03-04 10:00] LABS: Hematocrit 38 % (35-47); Hemoglobin 12.1 g/dl (12.0-16.0); Mean Corpuscular HGB Conc 32 g/dl (31-36); Mean Corpuscular Hemoglobin 29 pg (27-31); Mean Corpuscular Volume 90 fL (80-97); Red Blood Count 4.18 10^6/ul (4.0-5.4); Red Cell Distribution Width 17 % (10.5-15); White Blood Count 10.4 10^3/ul (3.5-10.8)
[2017-03-04 10:01] LABS: Comments Flag Yes
[2017-03-04] MEDS: Insulin LISPRO* 1 UNITS UNIT SUBCUT SCH ×4 (10:13→22:29)
[2017-03-04 10:30] LABS: Mean Platelet Volume 9 um3 (7.4-10.4)
[2017-03-04 11:56] LABS: BUN/Creatinine Ratio 9.7 (8-20); Blood Urea Nitrogen 9 mg/dL (6-24); CO2 Carbon Dioxide 19 mmol/L (22-32); Calcium 9.6 mg/dL (8.6-10.3); Chloride 101 mmol/L (101-111); EGFR African American 78.6 (>60); EGFR Non-African American 61.1 (>60); Glucose 139 mg/dL (70-100); Sodium 133 mmol/L (133-145)
[2017-03-04 12:16] LABS: Anion Gap 13 mmol/L (2-11)
[2017-03-04] MEDS ORDERED: Vancomycin Trough Check NOTE FOLLOW UP ONE (13:30)
[2017-03-04] MEDS: Ondansetron INJ* 2 MG/ML VIAL IV PRN ×2 (14:09→18:15)
--- NOTE | 2017-03-04 18:07 | PN ---
Subjective Date of Service: 03/04/17 Interval History: . spoke with patient and uncle at bedside asked for oncology consult early this week. very tired eating small alounts. N&V improved. zofran helps antibiotics ongoing for unclear source of sepsis evident on admission. sleeps often / very fatigued. Family History: Unchanged from Admission Social History: Unchanged from Admission Past Medical History: Unchanged from Admission Objective Active Medications: . Aspirin (Aspirin Ec Low Dose*) 81 mg PO DAILY [facility] Last Admin: 03/04/17 07:55 Dose: 81 mg Dextrose (D50w Syringe 50 Ml*) 12.5 gm IV PUSH .FOR FS < 60 - SS PRN PRN Reason: FS < 60 Gabapentin (Neurontin Cap(*)) 300 mg PO BID PRN PRN Reason: PAIN Heparin Sodium (Porcine) (Heparin Vial(*)) 5,000 units SUBCUT Q8HR [facility] Last Admin: 03/04/17 12:59 Dose: 5,000 units Sodium Chloride (Ns 0.9% 1000 Ml*) 1,000 mls @ 100 mls/hr IV PER RATE [facility] Last Admin: 03/04/17 17:26 Dose: 100 mls/hr Piperacillin Sod/Tazobactam (Sod 3.375 gm/ Sodium Chloride) 100 mls @ 25 mls/ hr IVPB Q8H [facility] Last Admin: 03/04/17 16:40 Dose: 25 mls/hr Insulin Human Lispro (Humalog*) 0 units SUBCUT ACHS [facility] PRN Reason: Protocol Last Admin: 03/04/17 17:35 Dose: Not Given Ondansetron HCl (Zofran Inj*) 4 mg IV Q4H PRN PRN Reason: NAUSEA/VOMITING Last Admin: 03/04/17 14:09 Dose: 4 mg Ondansetron HCl (Zofran Tab*) 4 mg PO Q6H PRN PRN Reason: NAUSEA Last Admin: 03/04/17 07:55 Dose: 4 mg Oxycodone HCl (Roxycodone Tab*) 5 mg PO Q4HR PRN PRN Reason: PAIN - MODERATE Last Admin: 03/04/17 07:55 Dose: 5 mg Prednisone (Deltasone Tab*) 40 mg PO DAILY [facility] Last Admin: 03/04/17 07:55 Dose: 40 mg . Vital Signs 03/03/17 03/03/17 03/03/17 20:01 22:53 23:22 Temperature 97.8 F 97.6 F Pulse Rate 93 87 Respiratory 16 15 16 Rate Blood Pressure 173/97 177/101 (mmHg) O2 Sat by Pulse 98 96 Oximetry 03/04/17 03/04/17 03/04/17 03:23 06:43 07:55 Temperature 97.8 F Pulse Rate 85 95 Respiratory 16 16 Rate Blood Pressure 186/99 176/101 (mmHg) O2 Sat by Pulse 100 Oximetry Oxygen Devices in Use Now: None Appearance: NAD - sleeping often Ears/Nose/Mouth/Throat: Clear Oropharnyx Neck: Trachea Midline Respiratory: Symmetrical Chest Expansion and Respiratory Effort Cardiovascular: NL Sounds; No Murmurs; No JVD Abdominal: NL Sounds; No Tenderness; No Distention Extremities: - - extensive metastatic melanoma involvement of RLE. Skin: - - + metastatic melanoma Neurological: Alert and Oriented x 3 Lines/Tubes/Other Access: Clean, Dry and Intact Peripheral IV Nutrition: Taking PO's Result Diagrams: 03/05/17 07:29 03/05/17 07:29 Additional Lab and Data: . Microbiology and Other Data: Microbiology 03/02/17 17:00 Nasal Screen MRSA (PCR)(MAXIMINO) - Final Nasal Mrsa Negative Assess/Plan/Problems-Billing . Assessment: 61y F w/pmhx of HTN, DM, metastatic melanoma, h/o right ureteral stent, h/o dvt not on AC; comes to ER from [facility] for nausea and vomitting, lethargic, noted BP low. In ER she was tachycarcic, SBP 60s, lethargic. Noted to be on fentanyl patch, given narcan 0.4mg iv x1 with some improvingment in mental status. Given sepsis criteria IVF bolus 2500cc and started on IV abx, BP improving. DDX: - UTI and sepsis - Enteritis (given N&V) - ? metastatic disease involving colon? - Patient Problems (1) Enteritis Current Visit: Yes Status: Acute Priority: High Code(s): K52.9 - NONINFECTIVE GASTROENTERITIS AND COLITIS, UNSPECIFIED Comment: - IV Zosyn - IVF - mainly nausea, not much diarrhea (2) Sepsis Current Visit: Yes Status: Acute Priority: High Comment: - Stress dose steroids - IVF - IV antiobitics - Lungs clear / urine (UA) was abnormal --> but Ucx neg...
[2017-03-05] MEDS: NS 0.9% 1000 ML* 1,000 ML IV SCH (04:40)
[2017-03-05] MEDS: Heparin VIAL(*) 5000 UNITS/ML VIAL (FIVE THOUSAND) SUBCUT SCH ×3 (05:38→20:48)
[2017-03-05 07:42] LABS: Hematocrit 36 % (35-47); Hemoglobin 11.9 g/dl (12.0-16.0); Mean Corpuscular HGB Conc 33 g/dl (31-36); Mean Corpuscular Hemoglobin 29 pg (27-31); Mean Corpuscular Volume 88 fL (80-97); Mean Platelet Volume 7 um3 (7.4-10.4); Red Blood Count 4.08 10^6/ul (4.0-5.4); Red Cell Distribution Width 17 % (10.5-15)
[2017-03-05] MEDS: Insulin LISPRO* 1 UNITS UNIT SUBCUT SCH ×4 (07:46→20:54)
[2017-03-05 07:57] LABS: BUN/Creatinine Ratio 8.7 (8-20); Calcium 9.8 mg/dL (8.6-10.3); EGFR African American 69.1 (>60); EGFR Non-African American 53.7 (>60); Potassium 3.1 mmol/L (3.5-5.0)
[2017-03-05] MEDS: Aspirin EC Low Dose* 81 MG TAB.EC PO SCH (09:20)
[2017-03-05] MEDS: predniSONE TAB* 20 MG PO SCH (09:20)
[2017-03-05] MEDS: oxyCODONE TAB* 5 MG TAB PO PRN ×2 (09:28→20:50)
[2017-03-05] MEDS ORDERED: Potassium Chlor TAB* 20 MEQ TAB.ER PO ONE ×2 (12:18→20:00)
[2017-03-05] MEDS ORDERED: amLODIPine TAB* 5 MG PO ONE (15:33)
--- NOTE | 2017-03-05 16:46 | PN ---
Subjective Date of Service: 03/05/17 Interval History: . patient exhausted again moved to chair earlier today, but very taxing on her PT/OT ordered IVF stopped --> seems quite fluid repleted at this point IV Antibiotics ongoing... no fevers... Questions remain about treatment strategy for melanoma --> will d/w Dr. Lynch on Monday. Consider palliative care consult mid week depending on trajectory of discussion. . Family History: Unchanged from Admission Social History: Unchanged from Admission Past Medical History: Unchanged from Admission Objective Active Medications: . Amlodipine Besylate (Norvasc Tab*) 10 mg PO DAILY [facility] Aspirin (Aspirin Ec Low Dose*) 81 mg PO DAILY [facility] Last Admin: 03/05/17 09:20 Dose: 81 mg Dextrose (D50w Syringe 50 Ml*) 12.5 gm IV PUSH .FOR FS < 60 - SS PRN PRN Reason: FS < 60 Gabapentin (Neurontin Cap(*)) 300 mg PO BID PRN PRN Reason: PAIN Heparin Sodium (Porcine) (Heparin Vial(*)) 5,000 units SUBCUT Q8HR [facility] Last Admin: 03/05/17 14:25 Dose: 5,000 units Piperacillin Sod/Tazobactam (Sod 3.375 gm/ Sodium Chloride) 100 mls @ 25 mls/ hr IVPB Q8H [facility] Last Admin: 03/05/17 09:20 Dose: 25 mls/hr Insulin Human Lispro (Humalog*) 0 units SUBCUT ACHS [facility] PRN Reason: Protocol Last Admin: 03/05/17 14:24 Dose: 2 unit Ondansetron HCl (Zofran Inj*) 4 mg IV Q4H PRN PRN Reason: NAUSEA/VOMITING Last Admin: 03/04/17 18:15 Dose: 4 mg Ondansetron HCl (Zofran Tab*) 4 mg PO Q6H PRN PRN Reason: NAUSEA Last Admin: 03/04/17 07:55 Dose: 4 mg Oxycodone HCl (Roxycodone Tab*) 5 mg PO Q4HR PRN PRN Reason: PAIN - MODERATE Last Admin: 03/05/17 09:28 Dose: 5 mg Potassium Chloride (Klor Con Er Tab*) 40 meq PO ONCE ONE Stop: 03/05/17 20:01 Prednisone (Deltasone Tab*) 40 mg PO DAILY [facility] Last Admin: 03/05/17 09:20 Dose: 40 mg . Vital Signs 03/04/17 03/04/17 03/04/17 20:00 20:22 20:29 Temperature 98.1 F Pulse Rate 101 Respiratory 18 18 Rate Blood Pressure 185/100 178/97 (mmHg) O2 Sat by Pulse 99 99 Oximetry 03/04/17 03/04/17 03/05/17 20:40 22:28 00:14 Temperature 98.0 F Pulse Rate 104 84 Respiratory 18 16 Rate Blood Pressure 170/84 170/98 (mmHg) O2 Sat by Pulse 98 Oximetry Oxygen Devices in Use Now: None Appearance: Very tired appearing Ears/Nose/Mouth/Throat: Clear Oropharnyx Neck: Trachea Midline Respiratory: Symmetrical Chest Expansion and Respiratory Effort Cardiovascular: NL Sounds; No Murmurs; No JVD Abdominal: NL Sounds; No Tenderness; No Distention Lymphatic: No Cervical Adenopathy Extremities: - - + extensive MM on RLE - to mid-thigh Skin: No Rash or Ulcers Neurological: Alert and Oriented x 3 - but lethergic and sleeping often Lines/Tubes/Other Access: Clean, Dry and Intact Peripheral IV Nutrition: Taking PO's Result Diagrams: 03/05/17 07:29 03/05/17 07:29 Additional Lab and Data: . Microbiology and Other Data: Microbiology 03/02/17 17:00 Nasal Screen MRSA (PCR)([facility]IMINO) - Final Nasal Mrsa Negative Assess/Plan/Problems-Billing . Assessment: 61y F w/pmhx of HTN, DM, metastatic melanoma, h/o right ureteral stent, h/o dvt not on AC; comes to ER from [facility] for nausea and vomitting, lethargic, noted BP low. In ER she was tachycarcic, SBP 60s, lethargic. Noted to be on fentanyl patch, given narcan 0.4mg iv x1 with some improvement in mental status. Given sepsis criteria IVF bolus 2500cc and started on IV abx, BP improving. DDX: - UTI and sepsis - Enteritis (given N&V) - ? metastatic disease involving colon? - Patient Problems (1) Enteritis Current Visit: Yes Status: Acute Priority: High Code(s): K52.9 - NONINFECTIVE GASTROENTERITIS AND COLITIS, UNSPECIFIED Comment: - IV Zosyn /IVF - mainly nausea, not much diarrhea - resolved? (2) Sepsis Current Visit: Yes Status: Acute Priority: High Comment: - Stress dose steroids...taper down. - IV fluids / antibiotics - Lungs clear / urine (UA) was abnormal --> but Ucx neg... (3) Metastatic malignant melanoma with diffuse hypermelanosis Current Visit: Yes Status: Acute Priority: High Code(s): C79.2 - SECONDARY MALIGNANT NEOPLASM OF SKIN Comment: - have requested consultation with Dr. Lynch --> on 03/05/17 (4) Major depression Current Visit: Yes Status: Acute Priority: High Code(s): F32.9 - MAJOR DEPRESSIVE DISORDER, SINGLE EPISODE, UNSPECIFIED Comment: - demoralized by multiple factors, including grave prognosis relating to MM - start fluoxetine and methylphenidate 03/06/17. - baseline EKG ordered. / no known h/o coronary dz/arrhythmias. .
[2017-03-06] MEDS: Heparin VIAL(*) 5000 UNITS/ML VIAL (FIVE THOUSAND) SUBCUT SCH ×3 (05:46→21:13)
[2017-03-06 07:42] LABS: CO2 Carbon Dioxide 25 mmol/L (22-32); Calcium 10.1 mg/dL (8.6-10.3); Chloride 101 mmol/L (101-111); EGFR Non-African American 57.5 (>60); Glucose 107 mg/dL (70-100); Sodium 134 mmol/L (133-145)
[2017-03-06] MEDS: Insulin LISPRO* 1 UNITS UNIT SUBCUT SCH ×4 (07:42→21:14)
[2017-03-06 07:44] LABS: Hematocrit 39 % (35-47); Hemoglobin 12.6 g/dl (12.0-16.0); Mean Corpuscular HGB Conc 33 g/dl (31-36); Mean Corpuscular Hemoglobin 29 pg (27-31); Mean Corpuscular Volume 88 fL (80-97); Red Blood Count 4.38 10^6/ul (4.0-5.4); Red Cell Distribution Width 17 % (10.5-15); White Blood Count 12.8 10^3/ul (3.5-10.8)
[2017-03-06 07:47] LABS: Comments Flag Yes
[2017-03-06 08:42] LABS: BUN/Creatinine Ratio 12.2 (8-20); Blood Urea Nitrogen 12 mg/dL (6-24)
[2017-03-06 08:51] LABS: Anion Gap 8 mmol/L (2-11)
[2017-03-06] MEDS: predniSONE TAB* 20 MG PO SCH (09:06)
[2017-03-06] MEDS: amLODIPine TAB* 5 MG PO SCH (09:06)
[2017-03-06] MEDS: Aspirin EC Low Dose* 81 MG TAB.EC PO SCH (09:06)
[2017-03-06] MEDS: Methylphenidate TAB* 5 MG PO SCH ×2 (09:15→13:37)
[2017-03-06] MEDS: FLUoxetine CAP* 10 MG PO SCH ×2 (09:15→13:37)
--- NOTE | 2017-03-06 23:15 | PN ---
Subjective Date of Service: 03/06/17 Interval History: . Tired this AM --> discussed adding ritalin + fluoxetine --> patient agreed Tolerated these agents well --> felt more alert later in day (likely due to ritalin) eager to speak with Dr. Lynch Patient lives at [facility] --> can likely go back after consultation. denies pain. poor appetite. Family History: Unchanged from Admission Social History: Unchanged from Admission Past Medical History: Unchanged from Admission Objective Active Medications: . Amlodipine Besylate (Norvasc Tab*) 10 mg PO DAILY [facility] Last Admin: 03/06/17 09:06 Dose: 10 mg Aspirin (Aspirin Ec Low Dose*) 81 mg PO DAILY [facility] Last Admin: 03/06/17 09:06 Dose: 81 mg Dextrose (D50w Syringe 50 Ml*) 12.5 gm IV PUSH .FOR FS < 60 - SS PRN PRN Reason: FS < 60 Fluoxetine HCl (Prozac Cap*) 10 mg PO DAILY [facility] Last Admin: 03/06/17 13:37 Dose: 10 mg Gabapentin (Neurontin Cap(*)) 300 mg PO BID PRN PRN Reason: PAIN Heparin Sodium (Porcine) (Heparin Vial(*)) 5,000 units SUBCUT Q8HR [facility] Last Admin: 03/06/17 21:13 Dose: 5,000 units Piperacillin Sod/Tazobactam (Sod 3.375 gm/ Sodium Chloride) 100 mls @ 25 mls/ hr IVPB Q8H [facility] Last Admin: 03/06/17 17:50 Dose: 25 mls/hr Insulin Human Lispro (Humalog*) 0 units SUBCUT ACHS [facility] PRN Reason: Protocol Last Admin: 03/06/17 21:14 Dose: 2 unit Methylphenidate HCl (Ritalin Tab*) 5 mg PO 0700,1400 [facility] Last Admin: 03/06/17 13:37 Dose: 5 mg Ondansetron HCl (Zofran Inj*) 4 mg IV Q4H PRN PRN Reason: NAUSEA/VOMITING Last Admin: 03/04/17 18:15 Dose: 4 mg Ondansetron HCl (Zofran Tab*) 4 mg PO Q6H PRN PRN Reason: NAUSEA Last Admin: 03/04/17 07:55 Dose: 4 mg Oxycodone HCl (Roxycodone Tab*) 5 mg PO Q4HR PRN PRN Reason: PAIN - MODERATE Last Admin: 03/05/17 20:50 Dose: 5 mg Prednisone (Deltasone Tab*) 40 mg PO DAILY [facility] Last Admin: 03/06/17 09:06 Dose: 40 mg . Vital Signs 03/05/17 03/06/17 03/06/17 23:32 02:00 04:26 Temperature 97.8 F 97.5 F Pulse Rate 85 86 Respiratory 14 17 17 Rate Blood Pressure 153/99 157/98 (mmHg) O2 Sat by Pulse 99 100 Oximetry 03/06/17 03/06/17 03/06/17 07:43 09:08 11:26 Temperature 98.1 F 98.9 F Pulse Rate 91 88 Respiratory 16 16 18 Rate Blood Pressure 172/100 184/112 (mmHg) O2 Sat by Pulse 100 98 Oximetry 03/06/17 15:36 Temperature 97.4 F Pulse Rate 100 Respiratory 20 Rate Blood Pressure 153/98 (mmHg) O2 Sat by Pulse 99 Oximetry Oxygen Devices in Use Now: None Appearance: tired, though more laert than previously. Ears/Nose/Mouth/Throat: NL Teeth, Lips, Gums, Clear Oropharnyx Neck: NL Appearance and Movements; NL JVP Respiratory: Symmetrical Chest Expansion and Respiratory Effort Cardiovascular: NL Sounds; No Murmurs; No JVD Abdominal: NL Sounds; No Tenderness; No Distention Lymphatic: No Cervical Adenopathy Extremities: - - + MM on RLE, no change from previously described Skin: No Nodules or Sclerosis Neurological: Alert and Oriented x 3 Lines/Tubes/Other Access: Clean, Dry and Intact Peripheral IV Nutrition: Taking PO's Result Diagrams: 03/06/17 07:06 03/06/17 09:41 Additional Lab and Data: . Microbiology and Other Data: Microbiology 03/02/17 17:00 Nasal Screen MRSA (PCR)([facility]) - Final Nasal Mrsa Negative Assess/Plan/Problems-Billing . Assessment: 61y F w/pmhx of HTN, DM, metastatic melanoma, h/o right ureteral stent, h/o dvt not on AC; comes to ER from [facility] for nausea and vomitting, lethargic, noted BP low. In ER she was tachycarcic, SBP 60s, lethargic. Noted to be on fentanyl patch, given narcan 0.4mg iv x1 with some improvement in mental status. Given sepsis criteria IVF bolus 2500cc and started on IV abx, BP improving. DDX: - UTI and sepsis - Enteritis (given N&V) - ? metastatic disease involving colon? - Patient Problems (1) Enteritis Current Visit: Yes Status: Acute Priority: High Code(s): K52.9 - NONINFECTIVE GASTROENTERITIS AND COLITIS, UNSPECIFIED Comment: - IV Zosyn /IVF - mainly nausea, not much diarrhea - resolved. (2) Sepsis Current Visit: Yes Status: Acute Priority: High Comment: - Stress dose steroids...taper down...30 mg prednisone 03/07 --> decrease by 10 mg every 2 days (as outpatient) - IV fluids / antibiotics - Lungs clear / urine (UA) was abnormal --> but Ucx neg... - I favor stopping Pip/Tazo 03/07/17 (~ a 5 day course) (3) Metastatic malignant melanoma with diffuse hypermelanosis Current Visit: Yes Status: Acute Priority: High Code(s): C79.2 - SECONDARY MALIGNANT NEOPLASM OF SKIN Comment: - have requested consultation with Dr. Lynch --> on 03/05/17 (4) Major depression Current Visit: Yes Status: Acute Priority: High Code(s): F32.9 - MAJOR DEPRESSIVE DISORDER, SINGLE EPISODE, UNSPECIFIED Comment: - demoralized by multiple factors, including grave prognosis relating to MM - start fluoxetine and methylphenidate 03/06/17. - baseline EKG ordered. / no known h/o coronary dz/arrhythmias. .
[2017-03-07] MEDS: Heparin VIAL(*) 5000 UNITS/ML VIAL (FIVE THOUSAND) SUBCUT SCH ×3 (05:45→22:10)
[2017-03-07] MEDS: Insulin LISPRO* 1 UNITS UNIT SUBCUT SCH ×4 (08:22→22:10)
[2017-03-07] MEDS: predniSONE TAB* 10 MG PO SCH (08:36)
[2017-03-07] MEDS: amLODIPine TAB* 5 MG PO SCH (08:36)
[2017-03-07] MEDS: Methylphenidate TAB* 5 MG PO SCH ×2 (08:36→14:36)
[2017-03-07] MEDS: FLUoxetine CAP* 10 MG PO SCH (08:36)
[2017-03-07] MEDS: Aspirin EC Low Dose* 81 MG TAB.EC PO SCH (08:36)
[2017-03-07] MEDS: oxyCODONE TAB* 5 MG TAB PO PRN ×4 (08:37→22:10)
[2017-03-07 12:31] LABS: Hematocrit 37 % (35-47); Hemoglobin 12.5 g/dl (12.0-16.0); Mean Corpuscular HGB Conc 34 g/dl (31-36); Mean Corpuscular Hemoglobin 30 pg (27-31); Mean Corpuscular Volume 88 fL (80-97); Mean Platelet Volume 7 um3 (7.4-10.4); Red Blood Count 4.22 10^6/ul (4.0-5.4); Red Cell Distribution Width 17 % (10.5-15); White Blood Count 11.6 10^3/ul (3.5-10.8)
[2017-03-07 12:37] LABS: BUN/Creatinine Ratio 21.1 (8-20); Calcium 10.2 mg/dL (8.6-10.3); EGFR African American 76.7 (>60); EGFR Non-African American 59.6 (>60); Potassium 3.5 mmol/L (3.5-5.0)
[2017-03-08] MEDS: Methylphenidate TAB* 5 MG PO SCH ×4 (05:30→13:00)
[2017-03-08] MEDS: Heparin VIAL(*) 5000 UNITS/ML VIAL (FIVE THOUSAND) SUBCUT SCH ×2 (05:30→12:59)
[2017-03-08] MEDS: predniSONE TAB* 10 MG PO SCH (08:59)
[2017-03-08] MEDS: amLODIPine TAB* 5 MG PO SCH (08:59)
[2017-03-08] MEDS: FLUoxetine CAP* 10 MG PO SCH (08:59)
[2017-03-08] MEDS: Aspirin EC Low Dose* 81 MG TAB.EC PO SCH (08:59)
[2017-03-08] MEDS: Insulin LISPRO* 1 UNITS UNIT SUBCUT SCH ×2 (09:00→13:00)
[2017-03-08] MEDS ORDERED: Lisinopril TAB* 10 MG PO SCH (11:00)
--- NOTE | 2017-03-08 13:09 | DCNOTE ---
Subjective Date of Service: 03/08/17 Interval History: No new c/o. Family History: Unchanged from Admission Social History: Unchanged from Admission Past Medical History: Unchanged from Admission Objective Active Medications: Amlodipine Besylate (Norvasc Tab*) 10 mg PO DAILY [facility] Last Admin: 03/08/17 08:59 Dose: 10 mg Aspirin (Aspirin Ec Low Dose*) 81 mg PO DAILY [facility] Last Admin: 03/08/17 08:59 Dose: 81 mg Dextrose (D50w Syringe 50 Ml*) 12.5 gm IV PUSH .FOR FS < 60 - SS PRN PRN Reason: FS < 60 Fluoxetine HCl (Prozac Cap*) 10 mg PO DAILY [facility] Last Admin: 03/08/17 08:59 Dose: 10 mg Gabapentin (Neurontin Cap(*)) 300 mg PO BID PRN PRN Reason: PAIN Last Admin: 03/07/17 08:37 Dose: 300 mg Heparin Sodium (Porcine) (Heparin Vial(*)) 5,000 units SUBCUT Q8HR [facility] Last Admin: 03/08/17 12:59 Dose: 5,000 units Insulin Human Lispro (Humalog*) 0 units SUBCUT ACHS [facility] PRN Reason: Protocol Last Admin: 03/08/17 13:00 Dose: 3 unit Lisinopril (Prinivil Tab*) 10 mg PO DAILY [facility] Last Admin: 03/08/17 12:59 Dose: 10 mg Methylphenidate HCl (Ritalin Tab*) 5 mg PO 0800,1400 [facility] Last Admin: 03/08/17 13:00 Dose: 5 mg Ondansetron HCl (Zofran Inj*) 4 mg IV Q4H PRN PRN Reason: NAUSEA/VOMITING Last Admin: 03/04/17 18:15 Dose: 4 mg Ondansetron HCl (Zofran Tab*) 4 mg PO Q6H PRN PRN Reason: NAUSEA Last Admin: 03/04/17 07:55 Dose: 4 mg Oxycodone HCl (Roxycodone Tab*) 5 mg PO Q4HR PRN PRN Reason: PAIN - MODERATE Last Admin: 03/07/17 22:10 Dose: 5 mg Prednisone (Deltasone Tab*) 20 mg PO DAILY [facility] Vital Signs 03/07/17 03/07/17 03/07/17 14:36 15:15 16:02 Temperature 98.1 F Pulse Rate 91 Respiratory 16 20 16 Rate Blood Pressure 168/99 (mmHg) O2 Sat by Pulse 98 Oximetry 03/07/17 03/07/17 03/07/17 17:40 17:57 20:00 Temperature Pulse Rate Respiratory 17 18 19 Rate Blood Pressure (mmHg) O2 Sat by Pulse 99 Oximetry 03/07/17 03/07/17 03/07/17 20:34 22:10 23:09 Temperature 98.1 F 97.9 F Pulse Rate 84 80 Respiratory 20 20 17 Rate Blood Pressure 144/86 180/106 (mmHg) O2 Sat by Pulse 97 98 Oximetry 03/07/17 03/08/17 03/08/17 23:26 03:22 03:25 Temperature 98.1 F Pulse Rate 81 Respiratory 18 19 Rate Blood Pressure 152/88 139/81 (mmHg) O2 Sat by Pulse 99 Oximetry 03/08/17 03/08/17 03/08/17 06:26 07:25 08:00 Temperature 97.7 F Pulse Rate 85 Respiratory 18 16 16 Rate Blood Pressure 179/100 (mmHg) O2 Sat by Pulse 99 99 Oximetry 03/08/17 09:30 Temperature Pulse Rate Respiratory Rate Blood Pressure 174/104 (mmHg) O2 Sat by Pulse Oximetry Oxygen Devices in Use Now: None Appearance: Alert, partly up in bed. Seems somewhat depressed, otherwise looks comfortable. Eyes: No Scleral Icterus Neck: NL Appearance and Movements; NL JVP, No Thyroid Enlargement, Masses Respiratory: Symmetrical Chest Expansion and Respiratory Effort, Clear to Auscultation, Clear to Percussion Cardiovascular: NL Sounds; No Murmurs; No JVD, RRR, No Edema, - Extremities: No Clubbing, Cyanosis, - - 1+ edema both feet Skin: - - R leg many black melanoma mets foot to knee Neurological: Alert and Oriented x 3, NL Sensation Result Diagrams: 03/07/17 12:06 03/07/17 12:06 Additional Lab and Data: . Microbiology and Other Data: Microbiology 03/02/17 17:00 Nasal Screen MRSA (PCR)([facility]) - Final Nasal Mrsa Negative Assess/Plan/Problems-Billing . Assessment: 61y F w/pmhx of HTN, DM, metastatic melanoma, h/o right ureteral stent, h/o dvt not on AC; comes to ER from [facility] for nausea and vomitting, lethargic, noted BP low. In ER she was tachycarcic, SBP 60s, lethargic. Noted to be on fentanyl patch, given narcan 0.4mg iv x1 with some improvement in mental status. Given sepsis criteria IVF bolus 2500cc and started on IV abx, BP improving. DDX: - UTI and sepsis - Enteritis (given N&V) - ? metastatic disease involving colon? - Patient Problems (1) Melanoma Current Visit: No Status: Acute Code(s): C43.9 - MALIGNANT MELANOMA OF SKIN , UNSPECIFIED SNOMED Code(s): 959691732 Comment: Fup with Dr. Lynch. (2) Sepsis Current Visit: Yes Status: Acute Priority: High Comment: Due to gastroenteritis. 5 day course pip/haresh completed. C (3) Morbid obesity Current Visit: No Status: Acute Code(s): E66.01 - MORBID (SEVERE) OBESITY DUE TO EXCESS CALORIES SNOMED Code(s): 110724666 Comment: BMI 42+. (4) Depression Current Visit: Yes Status: Acute Code(s): F32.9 - MAJOR DEPRESSIVE DISORDER , SINGLE EPISODE, UNSPECIFIED SNOMED Code(s): 66002528 Comment: Continue fluoxetine and methylphenidate. (5) Hypopituitarism Current Visit: No Status: Acute Code(s): E23.0 - HYPOPITUITARISM SNOMED Code(s): 32295957 Comment: Need thryoid replacement, start at 50 mcg daily, recheck free T4 in 1 week. (6) Hyperglycemia Current Visit: Yes Status: Acute Code(s): R73.9 - HYPERGLYCEMIA, UNSPECIFIED SNOMED Code(s): 92024443 Comment: In part related to glucocorticoid administration. I have recommended FS glucose bid at her SNF.
--- NOTE | 2017-03-08 13:27 | PN ---
Progress Note - Progress Note Date of Service: 03/08/17 Note: Time spent on discharge 50 minutes.
[2017-03-08] MEDS ORDERED: Levothyroxine TAB* 50 MCG TAB PO SCH (13:30)
--- NOTE | 2017-03-08 14:37 | TRS ---
CC: Dr. Witt; Dr. Lynch * DISCHARGE SUMMARY: DATE OF ADMISSION: 03/02/17 DATE OF TRANSFER: 03/08/17. HISTORY: This is a 61-year-old woman presented with nausea, vomiting, lethargy and low blood pressure. She met sepsis criteria. She was given intravenous fluids and broad spectrum antibiotic. She had a CTA of the chest, abdomen and pelvis. This did not show any evidence of pulmonary embolism. The stomach, small and large bowel were not distended. There was a small amount of free intraperitoneal fluid. There was mild diffuse thickening of the wall of the small bowel, which was prominent in the mid and distal portion of the small bowel. Her hospital course is compatible with viral gastroenteritis and severe dehydration. She also showed signs of hypopituitarism which is a known diagnosis. She seems to be on a small replacement dose of hydrocortisone 10 mg daily. I would need to know more of her history to be able to tell if this is the correct dose and in the meantime, we will continue this dose. She did get stress dose steroids and these should be tapered over 4 days to off and then resume her maintenance hydrocortisone 10 mg daily. Her free T4 was markedly reduced. The TSH would likely be misleading in view of her hypopituitarism. I did not see where she was getting thyroid hormone in the past. I am starting her on 50 mcg daily. I suspect she will need a larger dose. I would repeat her free T4 in about 2 weeks. As mentioned above, the TSH level would be misleading in this patient. Her antidepressants were changed somewhat. She was seen by Dr. Lynch in consultation and should follow up with him. FINAL DIAGNOSES: 1. Sepsis likely due to gastroenteritis. 2. Metastatic melanoma. 3. Morbid obesity. 4. Depression. 5. Hypopituitarism. 6. Hyperglycemia. 7. Hypertension. DISCHARGE MEDICATIONS: 1. Amlodipine 10 mg daily. 2. Fluoxetine 10 mg daily. 3. Methylphenidate 5 mg b.i.d. at 8 a.m. and 2 p.m. 4. Prednisone 20 mg daily to taper to 0 over 4 days, then resume her hydrocortisone 10 mg daily. 5. Levothyroxine 50 mcg daily. 6. Oxycodone 5 mg every 4 hours p.r.n. 7. Hydrocortisone 10 mg daily. 8. Gabapentin 300 mg b.i.d. p.r.n. 9. Lisinopril 10 mg daily. 10. Aspirin 81 mg daily. 11. Acetaminophen 1000 mg every 8 hours p.r.n. [id number]/[facility] #: [id number] [facility]
[2017-03-08 16:52] VITALS: BP 155/81
[2017-03-09] MEDS ORDERED: predniSONE TAB* 10 MG PO SCH (09:00)
--- NOTE | 2017-03-10 16:28 | PN ---
Subjective Date of Service: 03/07/17 Interval History: . discussed case with Dr. Lynch patient doing ok plan for dc tomorrow. Family History: Unchanged from Admission Social History: Unchanged from Admission Past Medical History: Unchanged from Admission Objective Active Medications: in JUN. . in medical record in vitals section reviewed Oxygen Devices in Use Now: None Appearance: NAD Eyes: No Scleral Icterus Ears/Nose/Mouth/Throat: NL Teeth, Lips, Gums Neck: NL Appearance and Movements; NL JVP Respiratory: Symmetrical Chest Expansion and Respiratory Effort Cardiovascular: NL Sounds; No Murmurs; No JVD Abdominal: NL Sounds; No Tenderness; No Distention Lymphatic: No Cervical Adenopathy Extremities: No Edema Skin: - - melanoma noted - no change from prior Neurological: Alert and Oriented x 3 Lines/Tubes/Other Access: Clean, Dry and Intact Peripheral IV Nutrition: Taking PO's Result Diagrams: 03/07/17 12:06 03/07/17 12:06 Additional Lab and Data: . Microbiology and Other Data: Microbiology 03/02/17 17:00 Nasal Screen MRSA (PCR)([facility]) - Final Nasal Mrsa Negative Assess/Plan/Problems-Billing . Assessment: 61y F w/pmhx of HTN, DM, metastatic melanoma, h/o right ureteral stent, h/o dvt not on AC; comes to ER from [facility] for nausea and vomitting, lethargic, noted BP low. In ER she was tachycarcic, SBP 60s, lethargic. Noted to be on fentanyl patch, given narcan 0.4mg iv x1 with some improvement in mental status. Given sepsis criteria IVF bolus 2500cc and started on IV abx, BP improving. DDX: - UTI and sepsis - Enteritis (given N&V) - ? metastatic disease involving colon? - Patient Problems (1) Enteritis Status: Acute Priority: High Code(s): K52.9 - NONINFECTIVE GASTROENTERITIS AND COLITIS, UNSPECIFIED Comment: - IV Zosyn /IVF - mainly nausea, not much diarrhea - resolved. (2) Sepsis Status: Acute Priority: High Comment: Due to gastroenteritis. 5 day course pip/haresh completed. C (3) Metastatic malignant melanoma with diffuse hypermelanosis Status: Acute Priority: High Code(s): C79.2 - SECONDARY MALIGNANT NEOPLASM OF SKIN Comment: - have requested consultation with Dr. Lynch --> on 03/05/17 (4) Major depression Status: Acute Priority: High Code(s): F32.9 - MAJOR DEPRESSIVE DISORDER, SINGLE EPISODE, UNSPECIFIED Comment: - demoralized by multiple factors, including grave prognosis relating to MM - start fluoxetine and methylphenidate 03/06/17. - baseline EKG ordered. / no known h/o coronary dz/arrhythmias. .
== END 2017-03-08 15:00 | DRG 871 ==
LOC: ED 11:44 → ICU 15:07 → MED 03-03 14:55
PROVIDERS: ADMIT Internal Medicine; ATTEND Internal Medicine
DX: A41.1 Sepsis due to other specified staphylococcus (principal); G92 Toxic encephalopathy; C43.9 Malignant melanoma of skin, unspecified; N17.9 Acute kidney failure, unspecified; E23.0 Hypopituitarism; E11.65 Type 2 diabetes mellitus with hyperglycemia; E66.01 Morbid (severe) obesity due to excess calories; E86.1 Hypovolemia; N39.0 Urinary tract infection, site not specified; Z68.41 Body mass index [BMI] 40.0-44.9, adult; R65.20 Severe sepsis without septic shock; F32.9 Major depressive disorder, single episode, unspecified; K52.9 Noninfective gastroenteritis and colitis, unspecified; E87.6 Hypokalemia; Z66 Do not resuscitate; I10 Essential (primary) hypertension; Z79.84 Long term (current) use of oral hypoglycemic drugs; Z79.1 Long term (current) use of non-steroidal anti-inflammatories (NSAID); Z79.82 Long term (current) use of aspirin; Z79.891 Long term (current) use of opiate analgesic; Z79.899 Other long term (current) drug therapy; R68.0 Hypothermia, not associated with low environmental temperature; Z86.718 Personal history of other venous thrombosis and embolism
CPT/HCPCS: 36415; 71010; 71275; 74177; 76705; 80048; 80053; 80202; 81003; 81015; 82150; 82550; 83605; 83690; 84484; 85025; 85027; 85610; 85652; 85730; 87040; 87077; 87086; 87150; 87205; 87641; 93005; A9270-GY; J0360; J1644; J1720; J2310; J2405; J2543; J3370; J3480; J7512; Q9967

== ENCOUNTER 2017-06-08 06:40 | Inpatient (IN) | payer MEDICARE, MEDICAID ==
[2017-06-08] MEDS ORDERED: NS 0.9% 1000 ML*IV.FLUID IV ONE (06:48)
[2017-06-08] MEDS ORDERED: Vancomycin(*) 1,000 MG in NS 0.9% 250 ML* 250 ML IVPB ONE (06:51)
[2017-06-08] MEDS ORDERED: Cefepime(*) 2 GM in NS 0.9% 50 ML* 50 ML IVPB ONE (06:52)
[2017-06-08 07:40] LABS: ABS Basophils 0 10^3/ul (0-0.2); ABS Eosinophils 0.1 10^3/ul (0-0.6); ABS Lymphocytes 2.8 10^3/ul (1.0-4.8); ABS Monocytes 0.7 10^3/ul (0-0.8); ABS Neutrophils 8.4 10^3/ul (1.5-7.7); ABS Nucleated RBC 0 10^3/ul; Eosinophil % 0.9 % (0-6); Hematocrit 37 % (35-47); Hemoglobin 12.2 g/dl (12.0-16.0); Mean Corpuscular HGB Conc 33 g/dl (31-36); Mean Corpuscular Hemoglobin 29 pg (27-31); Mean Corpuscular Volume 88 fL (80-97); Mean Platelet Volume 8 um3 (7.4-10.4); Nucleated Red Blood Cells % 0; Platelet Count 338 10^3/ul (150-450); Red Blood Count 4.19 10^6/ul (4.0-5.4); Red Cell Distribution Width 15 % (10.5-15)
[2017-06-08 07:52] LABS: INR 1.12 (0.77-1.02)
[2017-06-08 07:56] LABS: EGFR Non-African American 15.3 (>60)
--- NOTE | 2017-06-08 08:07 | ED ---
Sayda Prado Nilda, scribed for James Jacob MD on 06/08/17 at 0740 . Altered Mental Status - HPI Summary HPI Summary: LVL 5 Caveat: Hx and PE are limited due to AMS. This patient is a 61 year old F BIBA accompanied by family with a chief complaint of constant AMS since early this morning, per EMS. Symptoms aggravated and alleviated by nothing. Per EMS, staff at [facility] reports fever, tachycardia, and unresponsiveness. EMS state possible sepsis. PMHx includes bowel obstructions (BM yesterday after no BM for 5 days). - History Of Current Complaint Chief Complaint: EDAltMentalStatus Stated Complaint: UNRESPONSIVE Time Seen by Provider: 06/08/17 06:41 Hx Obtained From: EMS Hx From Patient Unobtainable Due To: Altered Mental Status Onset/Duration: Still Present Timing: Constant Character: Responsiveness - unresponsive Aggravating Factor(s): Nothing Alleviating Factor(s): Nothing Associated Signs And Symptoms: Positive: Fever - Allergies/Home Medications Allergies/Adverse Reactions: Allergies Allergy/AdvReac Type Severity Reaction Status Date / Time furosemide Allergy Severe Altered Verified 06/08/17 06:44 Mental Status morphine Allergy Severe Altered Verified 06/08/17 06:44 Mental Status latex Allergy Intermediate Rash Verified 06/08/17 06:44 adhesive tape Allergy Mild Blisters Verified 06/08/17 06:44 Iodinated Contrast- Oral and Allergy Unknown Verified 06/08/17 07:09 IV Dye Reaction Details pregabalin [From Lyrica] Allergy Unknown Verified 06/08/17 07:09 Reaction Details Ringer's solution,lactated Allergy Unknown Verified 06/08/17 07:09 Reaction Details Home Medications: Home Medications Magnesium Hydroxide LIQ* [Milk of Magnesia LIQ*] 30 ml PO BEDTIME PRN 06/08/17 [ History Confirmed 06/08/17] Senna/Docusate (NF) [Sennokot-S] 1 tab PO BID 06/08/17 [History Confirmed ] Sodium Phosphate ADULT ENEMA* [Fleet Enema*] 1 enema OK DAILY PRN 06/08/17 [ History Confirmed 06/08/17] Triamcinolone 0.5% CREAM(NF) [Triamcinolone 0.5% CREAM*] 1 applic TOPICAL BID [History Confirmed 06/08/17] Venlafaxine EXT RELEASE CAP* [Effexor Xr CAP*] 37.5 mg PO DAILY 06/08/17 [ History Confirmed 06/08/17] oxyCODONE TAB* [Roxycodone TAB 5 mg*] 10 mg PO Q6H PRN 06/08/17 [History Confirmed 06/08/17] PMH/Surg Hx/FS Hx/Imm Hx Endocrine/Hematology History: Reports: Hx Diabetes, Hx Thyroid Disease Cardiovascular History: Reports: Hx Hypertension, Other Cardiovascular Problems/ Disorders - hx DVT LLE Denies: Hx Congestive Heart Failure, Hx Pacemaker/ICD Respiratory History: Denies: Hx Pulmonary Embolism History: Reports: Hx Kidney Infection, Hx Kidney Stones - RT, Other Problems/Disorders - Right stent Denies: Hx Renal Disease Musculoskeletal History: Reports: Hx Arthritis - osteoarthritis, Hx Back Problems, Hx Osteoporosis, Other Musculoskeletal History - c5-c6 disc compression Sensory History: Reports: Hx Contacts or Glasses Denies: Hx Cataracts, Hx Glaucoma, Hx Hearing Aid Opthamlomology History: Reports: Hx Contacts or Glasses Denies: Hx Cataracts, Hx Glaucoma Neurological History: Reports: Other Neuro Impairments/Disorders - Chronic Regional Pain Syndrome, c5-c6 disc compression Psychiatric History: Reports: Hx Anxiety, Hx Depression Denies: Hx Panic Disorder - Cancer History Cancer Type, 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 Hx Chemotherapy: Yes Hx Radiation Therapy: No - Surgical History Surgery Procedure, Year, and Place: MELANOMA REMOVALS; KIDNEY STENT; CHOLECYSTECTOMY; CARPAL TUNNEL RELEASE Hx Anesthesia Reactions: No - Immunization History Date of Tetanus Vaccine: unk Date of Influenza Vaccine: unk Infectious Disease History: Unable to Obtain/Confirm Infectious Disease History: Denies: Traveled Outside the [place] in Last 30 Days - Family History Known Family History: Positive: Unknown - LEVEL 5 CAVEAT secondary to AMS, Other - No - Malignant hypothermia - Social History Alcohol Use: None Hx Substance Use: No Substance Use Type: Reports: None Hx Tobacco Use: Yes Smoking Status (MU): Former Smoker Type: Cigarettes Review of Systems Positive: Fever Positive: Other - tachycardia Positive: Other - BM yesterday after no BM for 5 days Neurological: Other - AMS, unresponsiveness All Other Systems Reviewed And Are Negative: No Physical Exam - Summary Physical Exam Summary: General: no pain distress Skin: warm, pale, dry Head: normal Eyes: EOMI, ZEV ENT: normal except for dry oral mucosa Neck: supple, nontender Respiratory: CTA, breath sounds present Cardiovascular: tachycardic Abdomen: soft, nontender Bowel sounds: hypoactive Musculoskeletal: normal, strength/ROM intact Neurological: Decreased level consciousness Psychological: affect/mood appropriate Triage Information Reviewed: Yes Vital Signs On Initial Exam: Initial Vitals Temp Pulse Resp BP Pulse Ox 97.2 F 112 17 147/83 94 06/08/17 06:42 06/08/17 06:42 06/08/17 06:42 06/08/17 06:42 06/08/17 06:42 Vital Signs Reviewed: Yes Completion Of Physical Exam Limited Due To: Level 5 - LVL 5 Caveat: Hx and PE are limited due to AMS. - [place] Coma Scale Best Eye Response: 3 - To Speech Best Motor Response: 1 - None Best Verbal Response: 4 - Confused Coma Scale Total: 8 Diagnostics - Vital Signs Vital Signs Temp Pulse Resp BP Pulse Ox 06/08/17 06:42 97.2 F 112 17 147/83 94 - Laboratory Lab Results: Lab Results 06/08/17 06/08/17 06/08/17 Range/Units 07:24 07:24 07:24 WBC (3.5-10.8) 10^3/ul RBC (4.0-5.4) 10^6/ul Hgb (12.0-16.0) g/dl Hct (35-47) % MCV (80-97) fL MCH (27-31) pg MCHC (31-36) g/dl RDW (10.5-15) % Plt Count (150-450) 10^3/ul MPV (7.4-10.4) um3 Neut % (Auto) (38-83) % Lymph % (Auto) (25-47) % [place] % (Auto) (1-9) % Eos % (Auto) (0-6) % Baso % (Auto) (0-2) % Absolute Neuts (auto) (1.5-7.7) 10^3/ul Absolute Lymphs (auto) (1.0-4.8) 10^3/ul Absolute Monos (auto) (0-0.8) 10^3/ul Absolute Eos (auto) (0-0.6) 10^3/ul Absolute Basos (auto) (0-0.2) 10^3/ul Absolute Nucleated RBC 10^3/ul Nucleated RBC % INR (Anticoag Therapy) 1.12 H (0.77-1.02) APTT 33.4 (26.0-36.3) seconds Sodium 134 (133-145) mmol/L Potassium 4.2 (3.5-5.0) mmol/L Chloride 97 L (101-111) mmol/L Carbon Dioxide 28 (22-32) mmol/L Anion Gap 9 (2-11) mmol/L BUN 19 (6-24) mg/dL Creatinine 3.09 H (0.51-0.95) mg/dL Est GFR ( Amer) 19.7 (>60) Est GFR (Non-Af Amer) 15.3 (>60) BUN/Creatinine Ratio 6.1 L (8-20) Glucose 132 H (70-100) mg/dL Lactic Acid (0.5-2.0) mmol/L Calcium 9.8 (8.6-10.3) mg/dL Total Bilirubin 0.90 (0.2-1.0) mg/dL AST 160 H (13-39) U/L ALT 119 H (7-52) U/L Alkaline Phosphatase 178 H (34-104) U/L Troponin I 0.03 (<0.04) ng/mL C-Reactive Protein 300.88 H (< 5.00) mg/L B-Natriuretic Peptide 38 ( - 100) pg/mL Total Protein 6.8 (6.4-8.9) g/dL Albumin 3.5 (3.2-5.2) g/dL Globulin 3.3 (2-4) g/dL Albumin/Globulin Ratio 1.1 (1-3) 06/08/17 06/08/17 Range/Units 07:24 07:24 WBC 12.0 H (3.5-10.8) 10^3/ul RBC 4.19 (4.0-5.4) 10^6/ul Hgb 12.2 (12.0-16.0) g/dl Hct 37 (35-47) % MCV 88 (80-97) fL MCH 29 (27-31) pg MCHC 33 (31-36) g/dl RDW 15 (10.5-15) % Plt Count 338 (150-450) 10^3/ul MPV 8 (7.4-10.4) um3 Neut % (Auto) 70.1 (38-83) % Lymph % (Auto) 23.0 L (25-47) % [place] % (Auto) 5.7 (1-9) % Eos % (Auto) 0.9 (0-6) % Baso % (Auto) 0.3 (0-2) % Absolute Neuts (auto) 8.4 H (1.5-7.7) 10^3/ul Absolute Lymphs (auto) 2.8 (1.0-4.8) 10^3/ul Absolute Monos (auto) 0.7 (0-0.8) 10^3/ul Absolute Eos (auto) 0.1 (0-0.6) 10^3/ul Absolute Basos (auto) 0 (0-0.2) 10^3/ul Absolute Nucleated RBC 0 10^3/ul Nucleated RBC % 0 INR (Anticoag Therapy) (0.77-1.02) APTT (26.0-36.3) seconds Sodium (133-145) mmol/L Potassium (3.5-5.0) mmol/L Chloride (101-111) mmol/L Carbon Dioxide (22-32) mmol/L Anion Gap (2-11) mmol/L BUN (6-24) mg/dL Creatinine (0.51-0.95) mg/dL Est GFR ( Amer) (>60) Est GFR (Non-Af Amer) (>60) BUN/Creatinine Ratio (8-20) Glucose (70-100) mg/dL Lactic Acid 2.6 H* (0.5-2.0) mmol/L Calcium (8.6-10.3) mg/dL Total Bilirubin (0.2-1.0) mg/dL AST (13-39) U/L ALT (7-52) U/L Alkaline Phosphatase (34-104) U/L Troponin I (<0.04) ng/mL C-Reactive Protein (< 5.00) mg/L B-Natriuretic Peptide ( - 100) pg/mL Total Protein (6.4-8.9) g/dL Albumin (3.2-5.2) g/dL Globulin (2-4) g/dL Albumin/Globulin Ratio (1-3) Result Diagrams: 06/08/17 07:24 06/08/17 07:24 Lab Statement: Any lab studies that have been ordered have been reviewed, and results considered in the medical decision making process. Altered Mental Statu Course/Dx - Course Assessment/Plan: LVL 5 Caveat: Hx and PE are limited due to AMS. This patient is a 61 year old F BIBA accompanied by family with a chief complaint of AMS since early this morning, per EMS. Symptoms aggravated and alleviated by nothing. Per EMS, staff at [facility] reports fever, tachycardia, and unresponsiveness. EMS state possible sepsis. PMHx includes bowel obstructions ( BM yesterday after no BM for 5 days). Patient will be s/o to Dr. Ross, pending dispo, awaiting labs, CXR, and CT head. [0715] Dr. Handy (hospitalist ) agrees to see pt in ED once more labs and imaging are available. DISPOSITION PENDING AT SHIFT CHANGE. - Diagnoses Discharge Diagnoses: Sepsis, Altered mental state - Provider Notifications Discussed Care Of Patient With: Justin Handy - Hospitalist Time Discussed With Above Provider: 07:15 Instructed by Provider To: MD Will See In ED - Critical Care Time Critical Care Time: 30-74 min Discharge - Discharge Plan Condition: Critical Disposition: OTHER Discharge Disposition Comment: s/o to Dr. Ross, pending dispo, awaiting labs, CXR, and CT Head Referrals: Anne IBARRA,Darryn Molina [Primary Care Provider] - The documentation as recorded by the Sayda salcedo Nilda accurately reflects the service I personally performed and the decisions made by me, James Jacob MD.
[2017-06-08] MEDS ORDERED: NS 0.9% 50 ML* 50 ML ONE (08:33)
[2017-06-08] MEDS ORDERED: Cefepime 2 GM in Dextrose(*) 2 GM/50 ML BAG IV ONE (08:36)
--- NOTE | 2017-06-08 08:38 | RAD ---
INDICATION: Fever altered mental status. COMPARISON: Comparison is made with a prior chest x-ray study from March 02, 2017. TECHNIQUE: A portable view of the chest was obtained. FINDINGS: Cardiac and mediastinal contours appear to be within normal limits. The lungs are underinflated and clear. No pleural effusion is seen. IMPRESSION: NO EVIDENCE FOR ACUTE DISEASE.
[2017-06-08 08:42] LABS: Urine Appearance Turbid; Urine Blood 3+ (Negative); Urine Color Amber; Urine Ketones Negative (Negative); Urine Protein 2+(100 mg/dL) (Negative); Urine Specific Gravity 1.011 (1.010-1.030); Urine Urobilinogen Negative (Negative)
[2017-06-08] MEDS ORDERED: metroNIDAZOLE IV 500 MG/100ML* 500 MG/100 ML BAG IVPB ONE (10:00)
--- NOTE | 2017-06-08 12:31 | RAD ---
INDICATION: Altered mental status. COMPARISON: Comparison is made with prior CT of the brain and MRI of the brain from [place] 2016. TECHNIQUE: Contiguous axial sections of the brain were obtained from the skull base to the vertex without contrast. FINDINGS: The ventricles, cisterns and sulci are enlarged consistent with age-related atrophy. There are focal subacute to chronic appearing infarcts in the left caudate nucleus and external capsule with negative mass effect correlating with the infarcts noted on the prior study. No other focal abnormality or mass effect is seen. There is no evidence for hemorrhage. No significant focal osseous abnormality is seen. The visualized portion of the paranasal sinuses and mastoid air cells appear clear. IMPRESSION: 1. NO EVIDENCE FOR ACUTE FINDING. 2. 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
[2017-06-08] MEDS ORDERED: Albumin Human 5%* 250 GM/250 ML BTL IV ONE (12:38)
[2017-06-08] MEDS: NS 0.9% 1000 ML* 1,000 ML IV SCH ×2 (12:46→20:46)
[2017-06-08] MEDS: NS 0.9% 250 ML* 246 ML with Norepinephrine VIAL* 4 MG IV SCH ×4 (12:57→21:19)
[2017-06-08] MEDS ORDERED: Vancomycin per Pharmacy* NOTE FOLLOW UP PRN (12:58)
[2017-06-08] MEDS ORDERED: Vancomycin(*) 1,500 MG in NS 0.9% 250 ML* 250 ML IVPB ONE (13:00)
--- NOTE | 2017-06-08 13:44 | PN ---
Progress Note - Progress Note Date of Service: 06/08/17 Note: Critical Care Admission (H&P) Note 61 yo female brought by EMS to ER re altered mental status. Evaluation in ER found patient to be lethargic. A CT Head was nonrevealing. Laboratory data revealed acute kidney injury with a low grade leucocytosis. Her urinalysis revealed pyuria leading to a diagnosis of sepsis due to UTI. Patient treated with aggressive fluids and broad antibiotics administered. Blood pressure were quite labile in ER leading to referral to the ICU by Dr Ross who kindly placed a central line in event that pressors were needed. On arival to ICU patient hypotensive so further fluids and Levophed ordered. Patient lethargic so majority of history obtained from EMR Of note patient is a DNR+DNI (confirmed by Dr Ross)...and has been for quite some time Allergy Lasix, Morphine, Latex, adhesive tapes PMH DM, HTN, Hypothyroidism, ?Hypopituitarism/Hypoadrenalism?, Nephrolithiasis with prior Rt ureteral stenting, prior UTI, Cervical Disc Disease, Melanoma, Cholecystectomy, Carpal Tunnel release, DVT, Anxiety, Depression Soc Hx former tobacco, neg EtOH, Fam Hx unable owing to condition ROS unable owing to condition SBP 84 HR 95 RR 15 SpO2 98 Skin no diaphoresis, no cyanosis Sclerae anicteric, pupils equal Oral mucosa pink, quite dry Lungs clear overall, no wheezes Cor RRR no rub, no murmur Abd soft, obese, nontender swenson Ext mild-mod edema, no cord, multiple hyperpigmented macules along leg Neuro sluggish but awakens with prodding, falls back asleep quickly, will follow commands and move extrems to command, does know she is in hospital WBC 12 Hgb 12.2 Plt 338 INR 1.1 PTT 33.4 K 4.2 BUN/Creat 19/3.09 Lactate 1.3 (down from 2.6) Alb 3.5 UA 3(+)Leuc esterase 3(+) WBC CXR clear IMP: Severe Sepsis/Septic Shock due to UTI Lactic acidosis subsided Acute Renal Failure Septic Encephalopathy Hx HTN HX Chronic steroid use with diagnoses of ? Hypopituitarism vs Hypoadrenalism Hx Hypothyroidism Hx Nephrolithiasis Hx DVT Obesity Melanoma Hx Anxiety Hx Depresion PLAN: Admit to ICU IV fluids...combination of crystalloid and colloid IV Levophed as needed for MAP>65 Solucortef 50 mg IV Q 6 hrs Further Vanco to be dosed according to Pharmacy guidelines Cefipime 1 gm Q 12 hrs Keep HOB >30 deg DVT prophyl with SQ Heparin Check TFTs Bedrest for now till recovers more so NPO for now till mental status recovers To respect longstanding DNR+DNI status Discussed with Nurse T>40 min, CCM services rendered
[2017-06-08 14:10] LABS: ABS Basophils 0.1 10^3/ul (0-0.2); ABS Eosinophils 0.1 10^3/ul (0-0.6); ABS Monocytes 0.6 10^3/ul (0-0.8); ABS Neutrophils 6.8 10^3/ul (1.5-7.7); ABS Nucleated RBC 0 10^3/ul; Eosinophil % 1.2 % (0-6); Hematocrit 33 % (35-47); Hemoglobin 10.7 g/dl (12.0-16.0); Lymphocyte % 20.8 % (25-47); Mean Corpuscular HGB Conc 33 g/dl (31-36); Mean Corpuscular Hemoglobin 29 pg (27-31); Mean Corpuscular Volume 89 fL (80-97); Mean Platelet Volume 8 um3 (7.4-10.4); Nucleated Red Blood Cells % 0; Platelet Count 249 10^3/ul (150-450); Red Blood Count 3.67 10^6/ul (4.0-5.4); Red Cell Distribution Width 15 % (10.5-15); White Blood Count 9.7 10^3/ul (3.5-10.8)
[2017-06-08 14:21] LABS: INR 1.13 (0.77-1.02)
[2017-06-08 14:33] LABS: EGFR Non-African American 22.5 (>60)
[2017-06-08] MEDS: Heparin VIAL(*) 5000 UNITS/ML VIAL (FIVE THOUSAND) SUBCUT SCH ×2 (15:00→20:24)
[2017-06-08] MEDS: Hydrocortisone INJ* 100 MG VIAL IV SCH ×2 (15:00→20:24)
--- NOTE | 2017-06-08 18:23 | RAD ---
INDICATION: Urinary tract infections COMPARISON: Renal sonogram April 25, 2016; CT March 02, 2017 TECHNIQUE: Longitudinal and transverse scans of the kidneys were obtained. FINDINGS: Kidneys: The right kidney is mildly diminutive measuring 9.7 x 4.8 by approximately 4.5 cm There are right-sided renal calculi with multiple calculi in the upper pole which are best evaluated on the earlier CT examination. These calculi are in the 1 cm range. There also appears to be a right renal stent. There is no hydronephrosis. There is no evidence of perinephric fluid collection. The left kidney is unremarkable measuring 13.1 x 5.6 x 5.7 cm. IMPRESSION: MILDLY DIMINUTIVE RIGHT KIDNEY WITH UPPER POLE RENAL CALCULI. PRESUMED RIGHT URETERAL STENTING. NO HYDRONEPHROSIS.
[2017-06-08] MEDS: Cefepime(*) 1 GM in D5W 50 ML BAG* 50 ML IVPB SCH (20:24)
[2017-06-09] MEDS: Hydrocortisone INJ* 100 MG VIAL IV SCH ×4 (01:53→20:23)
[2017-06-09] MEDS: NS 0.9% 1000 ML* 1,000 ML IV SCH ×3 (03:38→20:23)
[2017-06-09] MEDS ORDERED: Vancomycin Random Level* NOTE FOLLOW UP ONE (06:00)
[2017-06-09 06:03] LABS: ABS Basophils 0 10^3/ul (0-0.2); ABS Eosinophils 0 10^3/ul (0-0.6); ABS Lymphocytes 0.6 10^3/ul (1.0-4.8); ABS Monocytes 0.1 10^3/ul (0-0.8); ABS Nucleated RBC 0 10^3/ul; Eosinophil % 0 % (0-6); Hematocrit 33 % (35-47); Hemoglobin 10.8 g/dl (12.0-16.0); Lymphocyte % 6.6 % (25-47); Mean Corpuscular HGB Conc 33 g/dl (31-36); Mean Corpuscular Hemoglobin 29 pg (27-31); Mean Corpuscular Volume 88 fL (80-97); Mean Platelet Volume 8 um3 (7.4-10.4); Nucleated Red Blood Cells % 0; Platelet Count 248 10^3/ul (150-450); Red Blood Count 3.71 10^6/ul (4.0-5.4); Red Cell Distribution Width 15 % (10.5-15); White Blood Count 8.8 10^3/ul (3.5-10.8)
[2017-06-09 06:19] LABS: EGFR Non-African American 48.8 (>60)
[2017-06-09] MEDS: Heparin VIAL(*) 5000 UNITS/ML VIAL (FIVE THOUSAND) SUBCUT SCH ×3 (06:41→20:43)
[2017-06-09] MEDS: NS 0.9% 250 ML* 246 ML with Norepinephrine VIAL* 4 MG IV SCH ×2 (06:41)
[2017-06-09] MEDS: Cefepime(*) 1 GM in D5W 50 ML BAG* 50 ML IVPB SCH ×2 (08:00→20:34)
[2017-06-09] MEDS ORDERED: Alteplase (CATHFLO)* 2 MG VIAL IV ONE (11:00)
[2017-06-09] MEDS ORDERED: Potassium Chlor TAB* 20 MEQ TAB.ER PO ONE (12:48)
--- NOTE | 2017-06-09 13:48 | PN ---
Date of Service: 06/09/17 - [facility] progress note Critical Care Services: Pt seen and examined at bedside. Pt was admitted for AMS yesterday from [place]. She was found to be lethargic in ED, CT brain was negative, Admitted with sepis sec to UTI. Received fluid resuscitation, required Levophed. Pt is alert, oriented to self and place. No acute events o/n. Has been off Levophed since 6 am, was on 1mcg last night. Has good UO, swenson reinserted this am. Allergies reviewed PMHx, Social and FHX reviewed ROS is limited Vital Signs: Temp Pulse Resp BP SpO2 FiO2 97.7 F 100 16 129/66 100 100 06/09/17 08:00 06/09/17 11:45 06/09/17 11:45 06/09/17 11:45 06/09/17 11:45 06/09 04:00 Physical Exam: Gen: Pt in NAD, alert, awake HEENT:PERRLA, No JVD, Sclerae anicteric Lungs: Good a/e b/l, no wheeze Cardiac: S1, S2+, RRR no rub, no murmur Abdomen: Obese, BS+ Extremities: Edema+, normal ROM Skin: Hyperpigmented macules RLE Neuro: Slight improvement in mental status from admission, more alert Fluid Balance (Past 24 Hours): I= 3032 O= 3150 Net -118 Intake & Output 06/07/17 06/08/17 06/09/17 06/10/17 06:59 06:59 06:59 06:59 Intake Total 3032 Output Total 3150 Balance -118 Weight 257 lb 0.944 oz Intake: IV Fluids 2288 NS (0.9%) 2288 IVPB 330 ABX - CEFEPIME 50 ABX - VANCOMYCIN 280 Medicated IV 414 CC - Norepinephrine/ 414 Levophed Output: Swenson 3150 Other: Estimated Void Medium Estimated Stool Amount Medium Labs: Laboratory Results - last 24 hr 06/08/17 06/08/17 06/08/17 13:28 13:28 13:28 WBC 9.7 RBC 3.67 L Hgb 10.7 L Hct 33 L MCV 89 MCH 29 MCHC 33 RDW 15 Plt Count 249 MPV 8 Neut % (Auto) 70.5 Lymph % (Auto) 20.[address] [place] % (Auto) 6.5 Eos % (Auto) 1.2 Baso % (Auto) 1.0 Absolute Neuts (auto) 6.8 Absolute Lymphs (auto) 2.0 Absolute Monos (auto) 0.6 Absolute Eos (auto) 0.1 Absolute Basos (auto) 0.1 Absolute Nucleated RBC 0 Nucleated RBC % 0 INR (Anticoag Therapy) 1.13 H APTT 29.8 Sodium Potassium Chloride Carbon Dioxide Anion Gap BUN 18 Creatinine 2.21 H Est GFR ( Amer) 28.9 Est GFR (Non-Af Amer) 22.5 BUN/Creatinine Ratio Glucose POC Glucose (mg/dL) Calcium Ionized Calcium Magnesium TSH Free T4 06/08/17 06/09/17 06/09/17 17:56 00:15 05:35 WBC RBC Hgb Hct MCV MCH MCHC RDW Plt Count MPV Neut % (Auto) Lymph % (Auto) [place] % (Auto) Eos % (Auto) Baso % (Auto) Absolute Neuts (auto) Absolute Lymphs (auto) Absolute Monos (auto) Absolute Eos (auto) Absolute Basos (auto) Absolute Nucleated RBC Nucleated RBC % INR (Anticoag Therapy) APTT Sodium 139 Potassium 3.4 L Chloride 108 Carbon Dioxide 22 Anion Gap 9 BUN 12 Creatinine 1.13 H Est GFR ( Amer) 62.7 Est GFR (Non-Af Amer) 48.8 BUN/Creatinine Ratio 10.6 Glucose 201 H POC Glucose (mg/dL) 122 H 200 H Calcium 8.9 Ionized Calcium Magnesium 2.1 TSH < 0.01 L Free T4 0.62 06/09/17 06/09/17 06/09/17 05:35 05:35 05:57 WBC 8.8 RBC 3.71 L Hgb 10.8 L Hct 33 L MCV 88 MCH 29 MCHC 33 RDW 15 Plt Count 248 MPV 8 Neut % (Auto) 91.5 H Lymph % (Auto) 6.[address] % (Auto) 1.6 Eos % (Auto) 0 Baso % (Auto) 0.3 Absolute Neuts (auto) 8.0 H Absolute Lymphs (auto) 0.6 L Absolute Monos (auto) 0.1 Absolute Eos (auto) 0 Absolute Basos (auto) 0 Absolute Nucleated RBC 0 Nucleated RBC % 0 INR (Anticoag Therapy) APTT Sodium Potassium Chloride Carbon Dioxide Anion Gap BUN Creatinine Est GFR ( Amer) Est GFR (Non-Af Amer) BUN/Creatinine Ratio Glucose POC Glucose (mg/dL) 200 H Calcium Ionized Calcium 4.62 L Magnesium TSH Free T4 Studies: U/S kidney: No hydronephrosis, rt ureteral stenting, rt upper pole stone Nutrition: Diabetic diet Impression: 61 y o obese f with h/o DM, HTN, Hypothyroidism, Hypopituitarism/Hypoadrenalism? , Nephrolithiasis with prior Rt ureteral stenting, prior UTI, Cervical Disc Disease, Melanoma, s/p Cholecystectomy, Carpal Tunnel release, DVT, Anxiety, Depression a/w AMS 1. Sepsis sec to UTI 2. Septic encephalopathy resulting in AMS, improving 3. Septic shock improved with fluid resuscitation and is off Levophed since this am 4. ARF sec to hypotension, sepsis improving 5. Electrolyte derangement, hypokalemis being repleated 6.TSH elevated with normal T4, likely sick euthyroid 7. Normocytic anemia Plan: 1. Neuro: AMS sec to septic encephalopathy, mental status improved since admission, however not at baseline as per her friends at [place] who have been visiting her today. Able to protect airway, not confused, appears fatigued 2. CVS: Remains hemodynamically stable, off Levophed since 6 am, has only required small dose since admission. Will c/w IVF for now. On hydrocortisone for septic shock and relative adrenal insufficiency 3. ID: Urosepsis, h/o UTIs, renal calculi, no hydronephrosis on U/S. On broad spectrum abx, lactate normalized 4. Renal: UTI, renal stones, has swenson given bed ridden status. ARF sec to hypotension, sepsis, dehydration, improving, c/w IVF 5. GI: c/w PO diet, c/w PPI 6. Endo: H/o DM, Hypothyroidism, Hypopituitarism/Hypoadrenalism?, TSH low with normal T4, clinically not looking like hyperthyroid state. on stress dose steroids 7. Haem: Anemia of chronic disease, stable, leucocytosis resolved 8. Musculoskletal: Has macular lesions and chronic skin changes in LE. 9. Psycho social: Cognitive impairment, unclear baseline 10. IV access: Femoral CVC, to be removed, will insert midline for access Critical Care Time: 30 min
[2017-06-09] MEDS: Vancomycin(*) 750 MG in NS 0.9% 250 ML* 250 ML IVPB SCH (16:46)
--- NOTE | 2017-06-09 18:19 | ED ---
Mason Prado Angela, scribed for Eriberto Ross MD on 06/08/17 at 0744 . Progress - Progress Note Progress Note: This pt was signed out by Dr. Jacob, pending disposition, awaiting lab results, CXR, and CT brain. Pt is a 61 y/o female presenting to [facility] via EMS for unresponsiveness. Rectal temperature is 101.6 F. Pt was noted to have mucous and bloody stool. Per ED nurse, the last time the pt had an altered mental status episode pt had a mix up in her medications, and had taken more of one. Pt's twin sister is her health care proxy. Pt is DNR and DNI. VITAL SIGNS: Reviewed. GENERAL: Patient is an obtunded female who is lying comfortable in the stretcher. HEAD AND FACE: No signs of trauma. No ecchymosis, hematomas or skull depressions. No sinus tenderness. EYES: PERRLA, EOMI x 2, No injected conjunctiva, no nystagmus. EARS: Hearing grossly intact. Ear canals and tympanic membranes are within normal limits. MOUTH: Oropharynx within normal limits. Oral mucosa is dry. NECK: Supple, trachea is midline, no adenopathy, no JVD, no carotid bruit, no c- spine tenderness, neck with full ROM. CHEST: Symmetric, no tenderness at palpation LUNGS: Clear to auscultation bilaterally. No wheezing or crackles. CVS: Regular rate and rhythm, S1 and S2 present, no murmurs or gallops appreciated. ABDOMEN: Soft, non-tender. No signs of distention. No rebound no guarding, and no masses palpated. Bowel sounds are normal. EXTREMITIES: FROM in all major joints, no edema, no cyanosis or clubbing. RLE: right leg has deformity from the knee down possibly secondary to malignant melanoma. NEURO: Obtunded. Pt responds to painful stimuli. SKIN: Dry and warm. Chest XR, as read by radiologist: IMPRESSION: No evidence for acute disease. Brain CT, as read by radiologist: IMPRESSION: 1. No evidence for acute finding. 2. 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 Dr. Ross has reviewed these radiology reports. This pt was signed out by Dr. Jacob to follow up the pt who is unresponsive. I went to assess the pt and she is obtunded and is able to wake up to painful stimuli. I order blood work and the test results show slight anemia, creatinine of 3/09, glucose 132, increased LFTs, CRP of 300. The pt is tachycardic, hypotensive and febrile. Therefore the sepsis protocol was started with IV fluids and was given Cefepime, vancomycin, and Flagyl as broad spectrum antibiotics. The blood pressure continued to decreased, therefore I obtained consent from the family and pt, and they consented for the central line placement. Central line was placed on the right femoral vein without any complications. Please see procedure note. The pt was started with more fluids and blood pressure increased to 102/64, therefore I did not use pressors at this time. I discussed the pts case with Dr. Richardson, criminal researcher, who accepted the pt for admission. The pt is more stable, therefore she will be transferred to the ICU services. Pt is still critical. Pt will be admitted to [facility], in critical condition, with a diagnosis of sepsis, hypotension, and acute renal failure. Condition: Critical Disposition: Admit to ICU [facility] Course/Dx - Diagnoses Provider Diagnoses: Sepsis, Hypotension, Acute renal failure - Provider Notifications Discussed Care Of Patient With: Jose Ramon Richardson Time Discussed With Above Provider: 09:45 Instructed by Provider To: Other - I discussed pt care with Dr. Richardson, criminal researcher, who has accepted the pt for admission to the ICU. - Critical Care Time Critical Care Time: 75-104 min Procedures - Procedure Summary Procedure Summary: Procedure Note: Central Venous Catheter Insertion- Right FEMORAL VEIN Indication: Hypotension [place] Protocol: a timeout was performed and the correct patient and site were verified Consent: Obtained The patient was placed in Trendelenburg. Patient and all elements of maximal sterile barrier technique (MSBT) were used. Anesthesia was obtained with local infiltration of 3 ml 1% lidocaine. Hand hygiene was performed prior to procedure. Chlorhexidine used to prep the skin and dried for 2 minutes prior to skin puncture. Traffic was limited during the procedure. Full barrier precaution utilized. Dynamic ultrasound guidance used and the right internal jugular vein was cannulated. A 7 [place] triple lumen catheter was placed using the Seldinger technique. All lines flushed and tamia nonpulsatile dark venous blood appropriately. The line was secured with sutures. A biopatch and dressing was placed over the site. The patient tolerated the procedure well. A post-line CXR was reviewed demonstrating the tip of the catheter in the SVC. Post-Procedure Diagnosis: Hypotension Complications: none Estimated Blood Loss: minimal The documentation as recorded by the Mason salcedo Angela accurately reflects the service I personally performed and the decisions made by Cody blackmon Walter, MD.
[2017-06-10] MEDS: Hydrocortisone INJ* 100 MG VIAL IV SCH ×4 (02:27→21:15)
[2017-06-10] MEDS: Vancomycin(*) 750 MG in NS 0.9% 250 ML* 250 ML IVPB SCH ×2 (04:54→15:47)
[2017-06-10] MEDS: Heparin VIAL(*) 5000 UNITS/ML VIAL (FIVE THOUSAND) SUBCUT SCH ×3 (05:29→21:20)
[2017-06-10] MEDS: Cefepime(*) 1 GM in D5W 50 ML BAG* 50 ML IVPB SCH ×2 (07:15→21:05)
[2017-06-10] MEDS: oxyCODONE/Acetamin 5/325 MG* TAB PO PRN ×2 (08:40→15:46)
--- NOTE | 2017-06-10 10:52 | PN ---
Subjective Date of Service: 06/10/17 Interval History: Patient seen and examined at bedside. Ms. Diallo is alert and appropriately responding. Baseline is not fully known, but she is able to make needs known, albeit she is slow in her responses (this may be her baseline). She denies any fever/chills, CP, SOB, abd pain. She reports some mild nausea and loose stools. She also reports decreased appetite. No other complaints at this time. Family History: Unchanged from Admission Social History: Unchanged from Admission Past Medical History: Unchanged from Admission Objective Active Medications: Heparin Sodium (Porcine) (Heparin Vial(*)) 5,000 units SUBCUT Q8HR [facility] Last Admin: 06/10/17 05:29 Dose: 5,000 units Heparin Sodium (Porcine) (Heparin Flush Picc/Ml/Cvc(*)) 1 ml FLUSH 0600,1800 IMANI PRN Reason: Protocol Last Admin: 06/10/17 05:37 Dose: 1 ml Hydrocortisone Sodium Succinate (Solu-Cortef*) 50 mg IV Q6H [facility] Last Admin: 06/10/17 07:15 Dose: 50 mg Sodium Chloride (Ns 0.9% 1000 Ml*) 1,000 mls @ 150 mls/hr IV PER RATE [facility] Last Admin: 06/09/17 20:23 Dose: 150 mls/hr Cefepime HCl 1 gm/ Dextrose 50 mls @ 100 mls/hr IVPB Q12H [facility] Last Admin: 06/10/17 07:15 Dose: 100 mls/hr Vancomycin HCl 750 mg/ Sodium (Chloride) 250 mls @ 166.667 mls/hr IVPB Q12H [facility] Last Admin: 06/10/17 04:54 Dose: 166.667 mls/hr Oxycodone/Acetaminophen (Percocet 5/325 Tab*) 1 tab PO Q4H PRN PRN Reason: PAIN Last Admin: 06/10/17 08:40 Dose: 1 tab Pharmacy Consult (Vancomycin Per Pharmacy*) 1 note FOLLOW UP . PRN PRN Reason: PER PROTOCOL Pharmacy Profile Note (Vancomycin Trough Check) 1 note FOLLOW UP ONCE ONE Stop: 06/11/17 16:01 Vital Signs - 8 hr 06/10/17 06/10/17 06/10/17 03:17 07:10 07:58 Temperature 98.0 F 97.3 F Pulse Rate 93 90 101 Respiratory 20 16 Rate Blood Pressure 138/72 132/76 146/72 (mmHg) O2 Sat by Pulse 100 100 Oximetry 06/10/17 06/10/17 06/10/17 08:04 08:40 09:34 Temperature Pulse Rate Respiratory 18 18 16 Rate Blood Pressure (mmHg) O2 Sat by Pulse Oximetry Oxygen Devices in Use Now: None Appearance: Older female, lying in bed, in NAD Eyes: No Scleral Icterus, PERRLA Ears/Nose/Mouth/Throat: Clear Oropharnyx, Mucous Membranes Moist Neck: NL Appearance and Movements; NL JVP Respiratory: Symmetrical Chest Expansion and Respiratory Effort, Clear to Auscultation Cardiovascular: NL Sounds; No Murmurs; No JVD, RRR, - - BLE edema 1+ Abdominal: NL Sounds; No Tenderness; No Distention Extremities: No Clubbing, Cyanosis Skin: - - hyperpigmented macules to RLE Neurological: - - Alert, oriented to self and place Result Diagrams: 06/09/17 05:35 06/09/17 05:35 Additional Lab and Data: Lab Results 06/08/17 06/08/17 06/08/17 Range/Units 07:24 07:24 07:24 WBC (3.5-10.8) 10^3/ul RBC (4.0-5.4) 10^6/ul Hgb (12.0-16.0) g/dl Hct (35-47) % MCV (80-97) fL MCH (27-31) pg MCHC (31-36) g/dl RDW (10.5-15) % Plt Count (150-450) 10^3/ul MPV (7.4-10.4) um3 Neut % (Auto) (38-83) % Lymph % (Auto) (25-47) % [place] % (Auto) (1-9) % Eos % (Auto) (0-6) % Baso % (Auto) (0-2) % Absolute Neuts (auto) (1.5-7.7) 10^3/ul Absolute Lymphs (auto) (1.0-4.8) 10^3/ul Absolute Monos (auto) (0-0.8) 10^3/ul Absolute Eos (auto) (0-0.6) 10^3/ul Absolute Basos (auto) (0-0.2) 10^3/ul Absolute Nucleated RBC 10^3/ul Nucleated RBC % INR (Anticoag Therapy) 1.12 H (0.77-1.02) APTT 33.4 (26.0-36.3) seconds Sodium 134 (133-145) mmol/L Potassium 4.2 (3.5-5.0) mmol/L Chloride 97 L (101-111) mmol/L Carbon Dioxide 28 (22-32) mmol/L Anion Gap 9 (2-11) mmol/L BUN 19 (6-24) mg/dL Creatinine 3.09 H (0.51-0.95) mg/dL Est GFR ( Amer) 19.7 (>60) Est GFR (Non-Af Amer) 15.3 (>60) BUN/Creatinine Ratio 6.1 L (8-20) Glucose 132 H (70-100) mg/dL Lactic Acid (0.5-2.0) mmol/L Calcium 9.8 (8.6-10.3) mg/dL Total Bilirubin 0.90 (0.2-1.0) mg/dL AST 160 H (13-39) U/L ALT 119 H (7-52) U/L Alkaline Phosphatase 178 H (34-104) U/L Troponin I 0.03 (<0.04) ng/mL C-Reactive Protein 300.88 H (< 5.00) mg/L B-Natriuretic Peptide 38 ( - 100) pg/mL Total Protein 6.8 (6.4-8.9) g/dL Albumin 3.5 (3.2-5.2) g/dL Globulin 3.3 (2-4) g/dL Albumin/Globulin Ratio 1.1 (1-3) 06/08/17 06/08/17 Range/Units 07:24 07:24 WBC 12.0 H (3.5-10.8) 10^3/ul RBC 4.19 (4.0-5.4) 10^6/ul Hgb 12.2 (12.0-16.0) g/dl Hct 37 (35-47) % MCV 88 (80-97) fL MCH 29 (27-31) pg MCHC 33 (31-36) g/dl RDW 15 (10.5-15) % Plt Count 338 (150-450) 10^3/ul MPV 8 (7.4-10.4) um3 Neut % (Auto) 70.1 (38-83) % Lymph % (Auto) 23.0 L (25-47) % [place] % (Auto) 5.7 (1-9) % Eos % (Auto) 0.9 (0-6) % Baso % (Auto) 0.3 (0-2) % Absolute Neuts (auto) 8.4 H (1.5-7.7) 10^3/ul Absolute Lymphs (auto) 2.8 (1.0-4.8) 10^3/ul Absolute Monos (auto) 0.7 (0-0.8) 10^3/ul Absolute Eos (auto) 0.1 (0-0.6) 10^3/ul Absolute Basos (auto) 0 (0-0.2) 10^3/ul Absolute Nucleated RBC 0 10^3/ul Nucleated RBC % 0 INR (Anticoag Therapy) (0.77-1.02) APTT (26.0-36.3) seconds Sodium (133-145) mmol/L Potassium (3.5-5.0) mmol/L Chloride (101-111) mmol/L Carbon Dioxide (22-32) mmol/L Anion Gap (2-11) mmol/L BUN (6-24) mg/dL Creatinine (0.51-0.95) mg/dL Est GFR ( Amer) (>60) Est GFR (Non-Af Amer) (>60) BUN/Creatinine Ratio (8-20) Glucose (70-100) mg/dL Lactic Acid 2.6 H* (0.5-2.0) mmol/L Calcium (8.6-10.3) mg/dL Total Bilirubin (0.2-1.0) mg/dL AST (13-39) U/L ALT (7-52) U/L Alkaline Phosphatase (34-104) U/L Troponin I (<0.04) ng/mL C-Reactive Protein (< 5.00) mg/L B-Natriuretic Peptide ( - 100) pg/mL Total Protein (6.4-8.9) g/dL Albumin (3.2-5.2) g/dL Globulin (2-4) g/dL Albumin/Globulin Ratio (1-3) Microbiology and Other Data: Microbiology 06/09/17 14:15 Stool Gross Appearance - Final Stool C. difficile DNA Amplification - Final 027 Presumptive NEGATIVE Toxigenic C.diff NEGATIVE 06/08/17 12:35 Nasal Screen MRSA (PCR)(MAXIMINO) - Final Nasal Mrsa Not Detected Assess/Plan/Problems-Billing Assessment: Ms. Diallo is a 61 yo female with a PMH of DM, HTN, hypothyroidism, hypopituitarism/hypoadrenalsim, nephrolithiasis w/ prior right ureteral stenting , prior UTI, cervical disc disease, melanoma, DVT, anxiety, and depression who presented to the ED on 06/08/17 with concern for AMS secondary to urosepsis. - Patient Problems (1) UTI (urinary tract infection) Comment: With urosepsis/septic shock Urine culture with enterococcus faecalis Continue vancomycin (2) Altered mental state Code(s): R41.82 - ALTERED MENTAL STATUS, UNSPECIFIED Comment: Appears multifactorial, but most likely cause appears secondary to sepsis Patient with positive enterococcal UTI. CT brain negative for acute findings. Continue stress dose steroids Baseline unclear, but patient is improving and able to make needs known (3) Septic shock Code(s): A41.9 - SEPSIS, UNSPECIFIED ORGANISM; R65.21 - SEVERE SEPSIS WITH SEPTIC SHOCK Comment: Meets sepsis criteria on admission by SOFA with low MAP requiring pressors, AMS , and acute renal failure with elevated creatinine. Meets sepsis criteria on admission by SIRS with lactic acidosis, leukocytosis, hypotension, low MAP. Source is Enterococcal UTI Given extent of infection, continue cefepime and vancomycin today. Consider downgrading antibiotics to ampicillin to cover enterococcus as patient continues to improve. (4) Acute renal failure Comment: Improving Multifactorial: Likely secondary to septic shock w/ concurrent hypoperfusion to kidneys as well as dehydration Decrease rate of IVF from 150 to 100 mL to prevent fluid overload Continue swenson catheter for now, as patient is weak and there is benefit for hemodynamic monitoring, but plan to discontinue as soon as possible, given UTI. (5) Hypothyroidism Code(s): E03.9 - HYPOTHYROIDISM, UNSPECIFIED Comment: TSH low, but normal T4 Suspect sick euthyroid Resume PO levothyroxine (6) Type 2 diabetes mellitus Comment: Diet controlled BG well controlled, mild elevations likely secondary to stress dose steroids Start Lispro SSI coverage while on steroids Resume gabapentin for neuropathic pain. (7) Depression Code(s): F32.9 - MAJOR DEPRESSIVE DISORDER, SINGLE EPISODE, UNSPECIFIED Comment: Resume home venlafaxine. (8) HTN (hypertension) SNOMED Code(s): 30388108 Comment: Normotensive Plan to resume home amlodipine and lisinopril with hold parameters. (9) Hypopituitarism Code(s): E23.0 - HYPOPITUITARISM Comment: Continue IV hydrocortisone and resume levothyroxine Start to taper down hydrocortisone from q6h (10) DVT prophylaxis Comment: SQ heparin Status and Disposition: Previous ICU care for septic shock requiring pressors. Anticipate discharge to [facility] when medically stable.
[2017-06-10] MEDS ORDERED: Ondansetron INJ* 2 MG/ML VIAL IV PRN (12:24)
[2017-06-10] MEDS: NS 0.9% 1000 ML* 1,000 ML IV SCH (12:59)
[2017-06-10] MEDS ORDERED: Dextrose 50% Syringe 50 ML* 25 GM/50 ML SYRINGE IV PUSH PRN (13:05)
[2017-06-10] MEDS: Lactobacillus Acidophilu (GG)* 1 CAP CAP PO SCH (13:07)
[2017-06-10] MEDS ORDERED: Hydrocortisone INJ* 100 MG VIAL IV SCH (14:00)
[2017-06-10] MEDS: Insulin LISPRO* 1 UNITS UNIT SUBCUT SCH (17:19)
[2017-06-10] MEDS: Gabapentin CAP(*) 300 MG PO SCH (21:14)
[2017-06-10] MEDS: Triamcinolone 0.5% OINT * 15 GM TUBE TOPICAL SCH (21:40)
[2017-06-11] MEDS: NS 0.9% 1000 ML* 1,000 ML IV SCH (01:17)
[2017-06-11] MEDS: oxyCODONE/Acetamin 5/325 MG* TAB PO PRN ×3 (03:57→21:18)
[2017-06-11] MEDS: Vancomycin(*) 750 MG in NS 0.9% 250 ML* 250 ML IVPB SCH (03:59)
[2017-06-11] MEDS: Levothyroxine TAB* 50 MCG TAB PO SCH (05:42)
[2017-06-11] MEDS: Hydrocortisone INJ* 100 MG VIAL IV SCH (05:42)
[2017-06-11] MEDS: Heparin VIAL(*) 5000 UNITS/ML VIAL (FIVE THOUSAND) SUBCUT SCH ×3 (05:43→21:17)
[2017-06-11 06:03] LABS: ABS Basophils 0.1 10^3/ul (0-0.2); ABS Eosinophils 0 10^3/ul (0-0.6); ABS Monocytes 0.3 10^3/ul (0-0.8); ABS Nucleated RBC 0 10^3/ul; Eosinophil % 0 % (0-6); Hematocrit 28 % (35-47); Hemoglobin 9.6 g/dl (12.0-16.0); Lymphocyte % 15.2 % (25-47); Mean Corpuscular HGB Conc 34 g/dl (31-36); Mean Corpuscular Hemoglobin 29 pg (27-31); Mean Corpuscular Volume 87 fL (80-97); Mean Platelet Volume 8 um3 (7.4-10.4); Nucleated Red Blood Cells % 0; Platelet Count 242 10^3/ul (150-450); Red Blood Count 3.28 10^6/ul (4.0-5.4); Red Cell Distribution Width 15 % (10.5-15); White Blood Count 6.3 10^3/ul (3.5-10.8)
[2017-06-11 06:23] LABS: EGFR Non-African American 80.8 (>60)
[2017-06-11] MEDS: Insulin LISPRO* 1 UNITS UNIT SUBCUT SCH ×3 (08:41→16:30)
[2017-06-11] MEDS: Amoxicillin/Clavulanate TAB* 875 MG PO SCH ×2 (08:41→21:17)
[2017-06-11] MEDS: Lactobacillus Acidophilu (GG)* 1 CAP CAP PO SCH (08:41)
[2017-06-11] MEDS: Gabapentin CAP(*) 300 MG PO SCH ×2 (08:42→21:17)
[2017-06-11] MEDS: Venlafaxine EXT RELEASE CAP* 37.5 MG PO SCH (08:42)
[2017-06-11] MEDS: Lisinopril TAB* 10 MG PO SCH (08:42)
[2017-06-11] MEDS: amLODIPine TAB* 5 MG PO SCH (08:43)
[2017-06-11] MEDS: Triamcinolone 0.5% OINT * 15 GM TUBE TOPICAL SCH ×2 (08:43→21:17)
[2017-06-11] MEDS ORDERED: Vancomycin Trough Check NOTE FOLLOW UP ONE (16:00)
--- NOTE | 2017-06-11 21:08 | PN ---
Subjective Date of Service: 06/11/17 Interval History: Afebrile, WBC 6. Repeated Blood Cx. stopped vanc/cefepime -> augmentin. removed swenson. stopped IVF. stopped solucorteg lived at [facility] last 2 years. chronic pain in right lower extremity 2/2 melanoma. planned chemo with Dr. Lynch. Family History: Unchanged from Admission Social History: Unchanged from Admission Past Medical History: Unchanged from Admission Objective Active Medications: Amlodipine Besylate (Norvasc Tab*) 10 mg PO DAILY [facility] Last Admin: 06/11/17 08:43 Dose: 10 mg Amoxicillin/Clavulanate Potassium (Augmentin Tab*) 875 mg PO BID [facility] Last Admin: 06/11/17 08:41 Dose: 875 mg Dextrose (D50w Syringe 50 Ml*) 12.5 gm IV PUSH .FOR FS < 60 - SS PRN PRN Reason: FS < 60 Gabapentin (Neurontin Cap(*)) 300 mg PO BID [facility] Last Admin: 06/11/17 08:42 Dose: 300 mg Heparin Sodium (Porcine) (Heparin Vial(*)) 5,000 units SUBCUT Q8HR [facility] Last Admin: 06/11/17 14:19 Dose: 5,000 units Heparin Sodium (Porcine) (Heparin Flush Picc/Ml/Cvc(*)) 1 ml FLUSH 0600,1800 [facility] PRN Reason: Protocol Last Admin: 06/11/17 16:57 Dose: 2 ml Insulin Human Lispro (Humalog*) 0 units SUBCUT AC [facility] PRN Reason: Protocol Last Admin: 06/11/17 16:30 Dose: Not Given Lactobacillus Rhamnosus (Culturelle*) 1 cap PO DAILY [facility] Last Admin: 06/11/17 08:41 Dose: 1 cap Levothyroxine Sodium (Synthroid Tab*) 50 mcg PO DAILY@0600 [facility] Last Admin: 06/11/17 05:42 Dose: 50 mcg Lisinopril (Prinivil Tab*) 10 mg PO DAILY [facility] Last Admin: 06/11/17 08:42 Dose: 10 mg Ondansetron HCl (Zofran Inj*) 4 mg IV Q6H PRN PRN Reason: NAUSEA Oxycodone/Acetaminophen (Percocet 5/325 Tab*) 1 tab PO Q4H PRN PRN Reason: PAIN Last Admin: 06/11/17 14:19 Dose: 1 tab Triamcinolone Acetonide (Triamcinolone 0.5% Oint *) 1 applic TOPICAL BID [facility] Last Admin: 06/11/17 08:43 Dose: 1 applic Venlafaxine HCl (Effexor Xr Cap*) 37.5 mg PO DAILY [facility] Last Admin: 06/11/17 08:42 Dose: 37.5 mg Vital Signs - 8 hr 06/11/17 06/11/17 06/11/17 14:19 14:51 15:42 Temperature 97.9 F Pulse Rate 76 Respiratory 16 16 16 Rate Blood Pressure 124/64 (mmHg) O2 Sat by Pulse 97 Oximetry Oxygen Devices in Use Now: None Appearance: NAD Eyes: No Scleral Icterus Respiratory: Symmetrical Chest Expansion and Respiratory Effort, Clear to Auscultation Cardiovascular: NL Sounds; No Murmurs; No JVD, RRR Extremities: - - trace edema b/l. right leg with extensive e/o of melanoma Skin: - - melanoma extensively on right lower extremity. Neurological: Alert and Oriented x 3 Nutrition: Taking PO's Result Diagrams: 06/11/17 05:45 06/11/17 05:45 Additional Lab and Data: Laboratory Results - last 24 hr 06/10/17 06/11/17 06/11/17 21:10 05:45 05:45 WBC 6.3 RBC 3.28 L Hgb 9.6 L Hct 28 L MCV 87 MCH 29 MCHC 34 RDW 15 Plt Count 242 MPV 8 Neut % (Auto) 78.1 Lymph % (Auto) 15.2 L [place] % (Auto) 5.5 Eos % (Auto) 0 Baso % (Auto) 1.2 Absolute Neuts (auto) 5.0 Absolute Lymphs (auto) 1.0 Absolute Monos (auto) 0.3 Absolute Eos (auto) 0 Absolute Basos (auto) 0.1 Absolute Nucleated RBC 0 Nucleated RBC % 0 BUN 7 Creatinine 0.73 Est GFR ( Amer) 103.9 Est GFR (Non-Af Amer) 80.8 POC Glucose (mg/dL) 140 H 06/11/17 06/11/17 06/11/17 07:20 11:35 16:29 WBC RBC Hgb Hct MCV MCH MCHC RDW Plt Count MPV Neut % (Auto) Lymph % (Auto) [place] % (Auto) Eos % (Auto) Baso % (Auto) Absolute Neuts (auto) Absolute Lymphs (auto) Absolute Monos (auto) Absolute Eos (auto) Absolute Basos (auto) Absolute Nucleated RBC Nucleated RBC % BUN Creatinine Est GFR ( Amer) Est GFR (Non-Af Amer) POC Glucose (mg/dL) 169 H 174 H 125 H Microbiology and Other Data: Microbiology 06/08/17 07:03 Blood Venous Aerobic Blood Culture - Preliminary No Growth Day 3 06/08/17 07:03 Blood Venous Anaerobic Blood Culture - Preliminary No Growth Day 3 06/08/17 07:55 Urine Urine Culture - Final Enterococcus Faecalis Normal [place] 06/08/17 07:24 Blood Venous Aerobic Blood Culture - Final Strep Salivari ([place] Strep) Strep Mitis/Strep Oralis 06/08/17 07:24 Blood Venous Anaerobic Blood Culture - Final Strep Salivari ([place] Strep) Strep Mitis/Strep Oralis 06/09/17 14:15 Stool Stool Gross Appearance - Final 06/09/17 14:15 Stool C. difficile DNA Amplification - Final 027 Presumptive NEGATIVE Toxigenic C.diff NEGATIVE 06/08/17 12:35 Nasal Nasal Screen MRSA (PCR)(MAXIMINO) - Final Mrsa Not Detected Assess/Plan/Problems-Billing Assessment: Ms. Diallo is a 61 yo female with a PMH of metastatic melanoma(extensive on RLE ) with planned chemo, DM, HTN, hypothyroidism, nephrolithiasis w/ prior right ureteral stenting, prior UTI, cervical disc disease, , DVT, anxiety, and depression who presented to the ED on 06/08/17 with concern for AMS secondary to urosepsis. Enterococcus faecalis on UCx. - Patient Problems (1) Acute renal failure Current Visit: Yes Status: Acute Comment: resolved. stop IVF, pull swenson. Multifactorial: thought secondary to septic shock w/ concurrent hypoperfusion to kidneys as well as dehydration (2) Septic shock Current Visit: Yes Status: Acute Code(s): A41.9 - SEPSIS, UNSPECIFIED ORGANISM; R65.21 - SEVERE SEPSIS WITH SEPTIC SHOCK SNOMED Code(s): 97380468 Comment: Meets sepsis criteria on admission by SOFA with low MAP requiring pressors, AMS , and acute renal failure with elevated creatinine. Meets sepsis criteria on admission by SIRS with lactic acidosis, leukocytosis, hypotension, low MAP. Source is Enterococcal UTI stop cefepime and vancomycin. Start augmentin stop solucortef. (3) Type 2 diabetes mellitus Current Visit: Yes Status: Chronic Comment: Diet controlled BG well controlled, mild elevations likely secondary to stress dose steroids continue Lispro SSI coverage while on steroids Resume gabapentin for neuropathic pain. (4) Metastatic malignant melanoma with diffuse hypermelanosis Current Visit: No Status: Acute Priority: High Code(s): C79.2 - SECONDARY MALIGNANT NEOPLASM OF SKIN SNOMED Code(s): 000804240 Comment: follows with Dr. Lynch. chemo planned. Status and Disposition: Previous ICU care for septic shock requiring pressors. Anticipate discharge to [facility] when medically stable.
[2017-06-11] MEDS: NS 0.9% 250 ML* 246 ML with Norepinephrine VIAL* 4 MG IV SCH ×2 (23:20)
[2017-06-12] MEDS: Levothyroxine TAB* 50 MCG TAB PO SCH (05:10)
[2017-06-12] MEDS: Heparin VIAL(*) 5000 UNITS/ML VIAL (FIVE THOUSAND) SUBCUT SCH ×2 (05:12→14:42)
[2017-06-12] MEDS: Insulin LISPRO* 1 UNITS UNIT SUBCUT SCH ×2 (07:51→12:16)
[2017-06-12] MEDS: oxyCODONE/Acetamin 5/325 MG* TAB PO PRN (08:24)
[2017-06-12] MEDS: Amoxicillin/Clavulanate TAB* 875 MG PO SCH (08:55)
[2017-06-12] MEDS: Lactobacillus Acidophilu (GG)* 1 CAP CAP PO SCH (08:56)
[2017-06-12] MEDS: amLODIPine TAB* 5 MG PO SCH (08:56)
[2017-06-12] MEDS: Gabapentin CAP(*) 300 MG PO SCH (08:57)
[2017-06-12] MEDS: Venlafaxine EXT RELEASE CAP* 37.5 MG PO SCH (08:58)
[2017-06-12] MEDS: Lisinopril TAB* 10 MG PO SCH (08:58)
[2017-06-12] MEDS: Triamcinolone 0.5% OINT * 15 GM TUBE TOPICAL SCH (08:59)
--- NOTE | 2017-06-12 09:40 | PN ---
Subjective Date of Service: 06/12/17 Interval History: Patient seen and examined at bedside. Denies fever, chills, shortness of breath , chest discomfort, N/V/D. Tele: Sinus rhythm, rate 80's Family History: Unchanged from Admission Social History: Unchanged from Admission Past Medical History: Unchanged from Admission Objective Active Medications: Amlodipine Besylate (Norvasc Tab*) 10 mg PO DAILY [facility] Amoxicillin/Clavulanate Potassium (Augmentin Tab*) 875 mg PO BID [facility] Dextrose (D50w Syringe 50 Ml*) 12.5 gm IV PUSH .FOR FS < 60 - SS PRN Reason: FS < 60 Gabapentin (Neurontin Cap(*)) 300 mg PO BID [facility] Heparin Sodium (Porcine) (Heparin Vial(*)) 5,000 units SUBCUT Q8HR IMANI Heparin Sodium (Porcine) (Heparin Flush Picc/Ml/Cvc(*)) 1 ml FLUSH 0600,1800 IMANI Insulin Human Lispro (Humalog*) 0 units SUBCUT AC IMANI Lactobacillus Rhamnosus (Culturelle*) 1 cap PO DAILY [facility] Levothyroxine Sodium (Synthroid Tab*) 50 mcg PO DAILY@0600 [facility] Lisinopril (Prinivil Tab*) 10 mg PO DAILY [facility] Ondansetron HCl (Zofran Inj*) 4 mg IV Q6H PRN Reason: NAUSEA Oxycodone/Acetaminophen (Percocet 5/325 Tab*) 1 tab PO Q4H PRN Reason: PAIN Triamcinolone Acetonide (Triamcinolone 0.5% Oint *) 1 applic TOPICAL BID [facility] Venlafaxine HCl (Effexor Xr Cap*) 37.5 mg PO DAILY [facility] Vital Signs - 8 hr 06/12/17 06/12/17 06/12/17 03:53 07:23 08:24 Temperature 97.7 F 97.3 F Pulse Rate 68 70 Respiratory 16 16 16 Rate Blood Pressure 150/62 139/69 (mmHg) O2 Sat by Pulse 97 99 Oximetry 06/12/17 06/12/17 08:31 08:57 Temperature Pulse Rate Respiratory 16 16 Rate Blood Pressure (mmHg) O2 Sat by Pulse 99 Oximetry Oxygen Devices in Use Now: None Appearance: NAD, laying in bed Ears/Nose/Mouth/Throat: Mucous Membranes Moist Respiratory: Symmetrical Chest Expansion and Respiratory Effort, Clear to Auscultation Cardiovascular: NL Sounds; No Murmurs; No JVD, RRR Abdominal: NL Sounds; No Tenderness; No Distention Extremities: - - Mild bilateral LE edema Skin: No Rash or Ulcers Neurological: Alert and Oriented x 3, NL Muscle Strength and Tone Lines/Tubes/Other Access: Clean, Dry and Intact PICC Line - Site benign Nutrition: Taking PO's Result Diagrams: 06/11/17 05:45 06/11/17 05:45 Microbiology and Other Data: Microbiology 06/08/17 07:03 Blood Venous Aerobic Blood Culture - Preliminary No Growth Day 3 06/08/17 07:03 Blood Venous Anaerobic Blood Culture - Preliminary No Growth Day 3 06/08/17 07:55 Urine Urine Culture - Final Enterococcus Faecalis Normal Hamida 06/08/17 07:24 Blood Venous Aerobic Blood Culture - Final Strep Salivari (Viridan Strep) Strep Mitis/Strep Oralis 06/08/17 07:24 Blood Venous Anaerobic Blood Culture - Final Strep Salivari (Viridan Strep) Strep Mitis/Strep Oralis 06/09/17 14:15 Stool Stool Gross Appearance - Final 06/09/17 14:15 Stool C. difficile DNA Amplification - Final 027 Presumptive NEGATIVE Toxigenic C.diff NEGATIVE 06/08/17 12:35 Nasal Nasal Screen MRSA (PCR)(MAXIMINO) - Final Mrsa Not Detected Assess/Plan/Problems-Billing Assessment: Ms. Diallo is a 61 yo female with a PMH of metastatic melanoma(extensive on RLE ) with planned chemo, DM, HTN, hypothyroidism, nephrolithiasis w/ prior right ureteral stenting, prior UTI, cervical disc disease, , DVT, anxiety, and depression who presented to the ED on 06/08/17 with concern for AMS secondary to urosepsis. Enterococcus faecalis on UCx. - Patient Problems (1) UTI (urinary tract infection) Comment: - With urosepsis/septic shock - Urine culture with enterococcus faecalis - Continue augmentin (2) Septic shock Code(s): A41.9 - SEPSIS, UNSPECIFIED ORGANISM; R65.21 - SEVERE SEPSIS WITH SEPTIC SHOCK SNOMED Code(s): 20895877 Comment: - Resolved - Meeting sepsis criteria on admission by SOFA with low MAP requiring pressors, AMS, and acute renal failure with elevated creatinine. - Meeting sepsis criteria on admission by SIRS with lactic acidosis, leukocytosis, hypotension, low MAP. - Source is Enterococcal UTI - Continue augmentin (3) Acute renal failure Comment: - Resolved. - Multifactorial: thought secondary to septic shock w/ concurrent hypoperfusion to kidneys as well as dehydration (4) Type 2 diabetes mellitus Comment: - Glucose 90-170's - Glucose well controlled, mild elevations likely secondary to stress dose steroids - Continue Lispro SSI coverage - Continue gabapentin for neuropathic pain (5) Altered mental state Code(s): R41.82 - ALTERED MENTAL STATUS, UNSPECIFIED SNOMED Code(s): 930877323 Comment: - Appears multifactorial, but most likely cause appears secondary to sepsis - Patient with positive enterococcal UTI - CT brain negative for acute findings - Baseline unclear, but patient is improving and able to make needs known (6) CVA (cerebral vascular accident) Code(s): I63.9 - CEREBRAL INFARCTION, UNSPECIFIED SNOMED Code(s): 778009681 Comment: - History - Resume ASA (7) Hypothyroidism Code(s): E03.9 - HYPOTHYROIDISM, UNSPECIFIED SNOMED Code(s): 91540317 Comment: - TSH low, but normal T4 - Suspect sick euthyroid - Continue levothyroxine (8) Morbid obesity Code(s): E66.01 - MORBID (SEVERE) OBESITY DUE TO EXCESS CALORIES SNOMED Code(s ): 990442440 Comment: - BMI ~ 42 (9) Depression Code(s): F32.9 - MAJOR DEPRESSIVE DISORDER, SINGLE EPISODE, UNSPECIFIED SNOMED Code(s): 76066948 Comment: - Continue venlafaxine (10) HTN (hypertension) Code(s): I10 - ESSENTIAL (PRIMARY) HYPERTENSION SNOMED Code(s): 87332298 Comment: - Normotensive, SBP 130-150's - Continue amlodipine and lisinopril (11) Hypopituitarism Code(s): E23.0 - HYPOPITUITARISM SNOMED Code(s): 65565824 Comment: - Continue levothyroxine - Hydrocortisone discontinued yesterday (12) DVT prophylaxis Onset Date: 05/04/14 Code(s): [id number] - SNOMED Code(s): 854942654 Comment: - SQ heparin (13) DNR (do not resuscitate) Status and Disposition: Inpatient. Anticipate discharge to [facility] when medically stable, later today if bed is available.
[2017-06-12 12:14] VITALS: BP 134/61
--- NOTE | 2017-06-12 12:42 | DS ---
CC: Kati Haskins; Dr. Darryn Rodríguez* DATE OF ADMISSION: 06/08/2017. DATE OF DISCHARGE: 06/12/2017. ATTENDING PHYSICIAN: Dr. Susanna Acevedo* (dictated by Jc Licona NP). PRIMARY CARE PROVIDER: Kati Haskins and Dr. Darryn Rodríguez. PRIMARY DIAGNOSES: 1. Urosepsis. 2. Septic shock. 3. Lactic acidosis, resolved. 4. Acute renal failure, resolved. 5. Septic encephalopathy. SECONDARY DIAGNOSES: 1. Anemia of chronic disease. 2. Hypertension. 3. Chronic steroid use suspect secondary to hypopituitarism versus hypoadrenalism. 4. Hypothyroidism. 5. Nephrolithiasis. 6. History of DVT. 7. Obesity. 8. Malignant melanoma. 9. Anxiety. 10. Depression. STUDIES DONE WHILE IN THE HOSPITAL: 1. Brain CT, 06/08/2017: Radiologist's impression: No evidence for acute finding. 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 2. Chest x-ray, 06/08/2017: Radiologist's impression: No evidence for acute disease. 3. Renal ultrasound, 06/08/2017: Radiologist's impression: Mildly diminutive right kidney with upper pole renal calculi. Presumed right ureteral stenting. No hydronephrosis. DISCHARGE MEDICATIONS: New home medications: 1. Augmentin 875 mg oral twice daily for 6 more days. 2. Probiotic one capsule oral daily. Continued home medications: 1. Oxycodone 10 mg oral twice daily. 2. Zofran 4 mg oral every 6 hours as needed for nausea. 3. Gabapentin 300 mg oral twice daily. 4. Lisinopril 10 mg oral daily. 5. Aspirin 81 mg oral daily. 6. Amlodipine 10 mg oral daily. 7. Levothyroxine 50 mcg oral daily. 8. Triamcinolone 0.5% apply topical twice daily. 9. Oxycodone 10 mg oral every 6 hours as needed for breakthrough pain. 10. Magnesium Oxide 30 ml oral daily at bedtime as needed for constipation. 11. Senokot S one tablet oral twice daily. 12. Effexor XR 37.5 mg daily. HISTORY OF PRESENT ILLNESS/HOSPITAL COURSE: Ms. Diallo is a 61-year-old female with a past medical history significant for diabetes mellitus, hypertension, hypothyroidism, suspected hypopituitarism, nephrolithiasis, malignant melanoma, and history of DVT, anxiety, depression, and cervical disk disease who is a resident at [facility] who presented to the emergency room with altered mental status. While in the emergency room, the patient had a head CT showing no acute findings. She had laboratory data revealing acute kidney injury with a low grade leukocytosis. Her urinalysis revealed a pyuria leading to a diagnosis of urosepsis. The patient was treated with aggressive IV fluids and broad antibiotics were administered. The patient has labile blood pressures leading to a referral to the court assistant. The patient had a central line placed in the event that pressors were needed. While in the hospital, the patient was initially admitted to the ICU and hypotensive. She received IV fluid resuscitation in addition to Levophed. She was lethargic. During her stay, she was initially treated with Vancomycin for her urosepsis. She has blood cultures with two out of four bottles positive for strep salivarius, strep mitis, and strep oralis, and this was suspected to be secondary to contamination. Her urine culture grew enterococcus. During her stay, her altered mental status improved. Her leukocytosis resolved. Her acute kidney injury resolved. She was eventually able to be weaned off of Levophed. Her lactic acidosis resolved. She was transitioned from IV Vancomycin to Augmentin. She has remained afebrile. Ms. Diallo is stable for discharge to [facility]. Vital signs are as follows: Temperature 97.3, heart rate 70, respiratory rate 16, O2 sat 99 percent on room air, blood pressure 139/69. PLAN: Ms. Diallo will be discharged to [facility]. As far as her urosepsis and enterococcus UTI, she should be continued on Augmentin twice daily for six more days to complete a ten day course of antibiotics. The patient was noted to have a low TSH. It is suspected to be secondary to her acute illness. I recommend rechecking TSH and once she has recovered as she may need her Levothyroxine decreased. Her free T4 is within normal limits. As far as the patient's acute kidney injury, this has resolved. She should be resumed on her other usual home medications. Her diabetes has been controlled and she should be continued on a diet controlled diabetes management. Her altered mental status appeared to be multifactorial, likely secondary to her sepsis. This has resolved. She appears to be at her baseline. The patient she be seen in follow -up by a provider at [facility] per their protocol. The patient should return to the emergency room for any chest pain or shortness of breath. ACTIVITY: As tolerated. DIET: She should be on a heart healthy consistent carbohydrate diet. This is a summarized report of a complex medical history and hospital stay. For further details, please see the entire medical record. Time for this discharge was approximately 50 minutes, greater than half of that was spent with the patient discussing discharge plans and instructions. CONDITION ON DISCHARGE: Stable. JC LICONA NP [id number]/[facility] #: [id number] CHAVA
[2017-06-13] MEDS ORDERED: Aspirin EC Low Dose* 81 MG TAB.EC PO SCH (09:00)
== END 2017-06-12 15:05 | DRG 871 ==
LOC: ED 06:40 → ICU 10:53 → MED 06-09 18:34
PROVIDERS: ADMIT Internal Medicine Critical Care Medicine; ATTEND Internal Medicine
PROC: 05HM33Z Insertion of Infusion Device into Right Internal Jugular Vein, Percutaneous Approach (ICD-10-PCS; principal; 2017-06-08)
PROC: B543ZZA Ultrasonography of Right Jugular Veins, Guidance (ICD-10-PCS; 2017-06-08)
PROC: 3E033XZ Introduction of Vasopressor into Peripheral Vein, Percutaneous Approach (ICD-10-PCS; 2017-06-08)
PROC: 02HV33Z Insertion of Infusion Device into Superior Vena Cava, Percutaneous Approach (ICD-10-PCS; 2017-06-09)
DX: A41.9 Sepsis, unspecified organism (principal); R40.2312 Coma scale, best motor response, none, at arrival to emergency department; R65.21 Severe sepsis with septic shock; G93.41 Metabolic encephalopathy; N17.9 Acute kidney failure, unspecified; C79.9 Secondary malignant neoplasm of unspecified site; E87.2 Acidosis; E23.0 Hypopituitarism; E27.40 Unspecified adrenocortical insufficiency; G90.50 Complex regional pain syndrome I, unspecified; N39.0 Urinary tract infection, site not specified; Z68.41 Body mass index [BMI] 40.0-44.9, adult; E66.01 Morbid (severe) obesity due to excess calories; E11.9 Type 2 diabetes mellitus without complications; I10 Essential (primary) hypertension; M19.90 Unspecified osteoarthritis, unspecified site; M81.0 Age-related osteoporosis without current pathological fracture; F41.9 Anxiety disorder, unspecified; F32.9 Major depressive disorder, single episode, unspecified; Z96.0 Presence of urogenital implants; R40.2132 Coma scale, eyes open, to sound, at arrival to emergency department; R40.2242 Coma scale, best verbal response, confused conversation, at arrival to emergency department; Z66 Do not resuscitate; E03.9 Hypothyroidism, unspecified; M50.30 Other cervical disc degeneration, unspecified cervical region; E87.6 Hypokalemia; N20.0 Calculus of kidney; B95.2 Enterococcus as the cause of diseases classified elsewhere; E86.0 Dehydration; C44.792 Other specified malignant neoplasm of skin of right lower limb, including hip; M50.922 Unspecified cervical disc disorder at C5-C6 level; Z86.73 Personal history of transient ischemic attack (TIA), and cerebral infarction without residual deficits; D63.8 Anemia in other chronic diseases classified elsewhere; Z79.82 Long term (current) use of aspirin; Z88.5 Allergy status to narcotic agent; Z88.8 Allergy status to other drugs, medicaments and biological substances; Z87.442 Personal history of urinary calculi; Z86.718 Personal history of other venous thrombosis and embolism; Z92.21 Personal history of antineoplastic chemotherapy; Z91.041 Radiographic dye allergy status; Z91.040 Latex allergy status; Z90.49 Acquired absence of other specified parts of digestive tract; Z87.891 Personal history of nicotine dependence
CPT/HCPCS: 36415; 70450; 71045; 76775; 80048; 80053; 80202; 80307; 81003; 81015; 82330; 82565; 83605; 83735; 83880; 84145; 84439; 84443; 84484; 84520; 85025; 85610; 85730; 86140; 87040; 87077; 87086; 87186; 87205; 87493; 87641; 93005; 99285; A9270-GY; C1751; J0692; J1644; J1720; J2997; J3370; J3490; P9045

== ENCOUNTER 2017-08-14 18:46 | Inpatient (IN) | payer MEDICARE, MEDICAID ==
[2017-08-14] MEDS ORDERED: NS 0.9% 1000 ML* 1,000 ML IV ONE (19:08)
[2017-08-14] MEDS ORDERED: NS 0.9% 1000 ML*IV.FLUID IV ONE (19:10)
[2017-08-14 20:09] LABS: ABS Basophils 0.1 10^3/ul (0-0.2); ABS Eosinophils 0.1 10^3/ul (0-0.6); ABS Lymphocytes 1.4 10^3/ul (1.0-4.8); ABS Monocytes 0.7 10^3/ul (0-0.8); ABS Neutrophils 3.6 10^3/ul (1.5-7.7); ABS Nucleated RBC 0 10^3/ul; Eosinophil % 2.2 % (0-6); Hematocrit 35 % (35-47); Hemoglobin 11.7 g/dl (12.0-16.0); Lymphocyte % 23.3 % (25-47); Mean Corpuscular HGB Conc 34 g/dl (31-36); Mean Corpuscular Hemoglobin 28 pg (27-31); Mean Corpuscular Volume 83 fL (80-97); Mean Platelet Volume 7.6 um3 (7.4-10.4); Nucleated Red Blood Cells % 0.1; Platelet Count 337 10^3/ul (150-450); Red Blood Count 4.19 10^6/ul (4.0-5.4); Red Cell Distribution Width 16 % (10.5-15); White Blood Count 5.9 10^3/ul (3.5-10.8)
[2017-08-14 20:17] LABS: INR 1.13 (0.77-1.02)
--- NOTE | 2017-08-14 20:21 | ED ---
Vicente Prado Nikita, scribed for Lucy Dee MD on 08/14/17 at 1930 . Altered Mental Status - HPI Summary HPI Summary: This patient is a 40 year old M BIBA from [facility] to ED accompanied by her maternal uncle with a chief complaint of hypotension with increased confusion in the past few days. Symptoms aggravated by nothing. Symptoms alleviated by nothing. Uncle reports increased lethargy and no pain, 0/10. PMHx HTN, dx of UTI on 08/01/17 (abx cipro), malignant melanoma (dx 2 years ago, had some treatment but did not want further treatment for it). Pt is a DNR, however per Sarai Ocampo NP, who saw pt at [facility] today, family wanted pt transported to the hospital. - History Of Current Complaint Chief Complaint: EDAltMentalStatus Stated Complaint: POSS. ALT. MENTAL STATE Time Seen by Provider: 08/14/17 19:07 Hx Obtained From: Family/Dog Obedience Instructor, Other: - from [facility] Hx From Patient Unobtainable Due To: Altered Mental Status Onset/Duration: Still Present, Gradually Timing: Constant Severity Initially: Severe Severity Currently: Severe Character: Confusion, Lethargy Aggravating Factor(s): Nothing Alleviating Factor(s): Nothing Associated Signs And Symptoms: Positive: Fever Related History: Similar Episode/Diagnosed As: - UTI - Allergies/Home Medications Allergies/Adverse Reactions: Allergies Allergy/AdvReac Type Severity Reaction Status Date / Time furosemide Allergy Severe Altered Verified 06/08/17 06:44 Mental Status morphine Allergy Severe Altered Verified 06/08/17 06:44 Mental Status latex Allergy Intermediate Rash Verified 06/08/17 06:44 adhesive tape Allergy Mild Blisters Verified 06/08/17 06:44 Iodinated Contrast- Oral and Allergy Unknown Verified 06/08/17 07:09 IV Dye Reaction Details pregabalin [From Lyrica] Allergy Unknown Verified 06/08/17 07:09 Reaction Details Ringer's solution,lactated Allergy Unknown Verified 06/08/17 07:09 Reaction Details PMH/Surg Hx/FS Hx/Imm Hx Previously Healthy: No Endocrine/Hematology History: Reports: Hx Diabetes, Hx Thyroid Disease Cardiovascular History: Reports: Hx Hypertension, Other Cardiovascular Problems/ Disorders - hx DVT LLE Denies: Hx Congestive Heart Failure, Hx Pacemaker/ICD Respiratory History: Denies: Hx Pulmonary Embolism History: Reports: Hx Kidney Infection, Hx Kidney Stones, Other Problems/ Disorders - Right renal stent Denies: Hx Renal Disease Musculoskeletal History: Reports: Hx Arthritis - osteoarthritis, Hx Back Problems, Hx Osteoporosis, Other Musculoskeletal History - c5-c6 disc compression Sensory History: Reports: Hx Contacts or Glasses Denies: Hx Cataracts, Hx Glaucoma, Hx Hearing Aid Opthamlomology History: Reports: Hx Contacts or Glasses Denies: Hx Cataracts, Hx Glaucoma Neurological History: Reports: Other Neuro Impairments/Disorders - Chronic Regional Pain Syndrome, c5-c6 disc compression Psychiatric History: Reports: Hx Anxiety, Hx Depression Denies: Hx Panic Disorder - Cancer History Cancer Type, Location and Year: malignant melanoma Hx Chemotherapy: Yes - Kati cohen denies that patient has had chemo Hx Radiation Therapy: No - Surgical History Surgery Procedure, Year, and Place: MELANOMA REMOVALS; KIDNEY STENT; CHOLECYSTECTOMY; CARPAL TUNNEL RELEASE Hx Anesthesia Reactions: No - Immunization History Date of Tetanus Vaccine: unk Date of Influenza Vaccine: unk Infectious Disease History: No Infectious Disease History: Denies: Traveled Outside the [place] in Last 30 Days - Family History Known Family History: Positive: Unknown - LEVEL 5 CAVEAT secondary to AMS, Other - No - Malignant hypothermia - Social History Occupation: Disabled Lives: [facility] Alcohol Use: None Hx Substance Use: No Substance Use Type: Reports: None Hx Tobacco Use: Yes Smoking Status (MU): Former Smoker Type: Cigarettes Have You Smoked in the Last Year: - carlos Review of Systems Positive: Fever, Other - no pain Positive: Other - hypotension Respiratory: Negative Gastrointestinal: Negative Positive: no symptoms reported Musculoskeletal: Negative Positive: Other - melanoma on right lower leg Neurological: Other - increased confusion and lethargy Positive: Other - oriented to name only, cooperative All Other Systems Reviewed And Are Negative: Yes Physical Exam - Summary Physical Exam Summary: Appearance: Ill-appearing, appears in moderate distress, Well-nourished Skin: Warm, Multiple black lesions consistent with melanoma in the right lower leg. Deformity from prior surgery in the right lower leg. Head: atraumatic, hirsutism Eyes: Conjunctiva clear, prefers eyes closed, PERRL ENT:dry oral mucosa Neck: Supple, no nodes, no JVD. Respiratory: no respiratory distress, diminished breath sounds throughout, no wheezes Cardio: RRR, No murmur, pulses normal, brisk capillary refill Abdomen: soft, nontender, not distended, no masses Bowel sounds: present Musculoskeletal: Strength Intact/ ROM intact. No calf tenderness. No edema. Psychological: Normal Neuro: Alert, muscle tone normal, no focal deficit. Oriented to name only, GCS 14 Triage Information Reviewed: Yes Vital Signs On Initial Exam: Initial Vitals Pulse Resp Pulse Ox 97 20 96 08/14/17 18:54 08/14/17 18:54 08/14/17 18:54 Vital Signs Reviewed: Yes Procedures - Procedure Summary Procedure Summary: Swenson insertion by MD: Indication: Swenson placed to obtain urine sample, and to monitor input and output in pt with sepsis due to urinary tract infection. Sterile technique. 16 Fr swenson inserted without difficulty. Purulent urine returns, sent for UA C&S. Pt tolerated procedure well. Diagnostics - Vital Signs Vital Signs Temp Pulse Resp BP Pulse Ox 08/14/17 19:01 100.2 F 98 24 80/55 98 08/14/17 19:00 94 22 98 08/14/17 18:56 99 18 80/55 99 08/14/17 18:54 97 20 96 - Laboratory Lab Results: Lab Results 08/14/17 08/14/17 Range/Units 19:48 19:48 WBC 5.9 (3.5-10.8) 10^3/ul RBC 4.19 (4.0-5.4) 10^6/ul Hgb 11.7 L (12.0-16.0) g/dl Hct 35 (35-47) % MCV 83 (80-97) fL MCH 28 (27-31) pg MCHC 34 (31-36) g/dl RDW 16 H (10.5-15) % Plt Count 337 (150-450) 10^3/ul MPV 7.6 (7.4-10.4) um3 Neut % (Auto) 61.7 (38-83) % Lymph % (Auto) 23.3 L (25-47) % Slope % (Auto) 11.9 H (0-7) % Eos % (Auto) 2.2 (0-6) % Baso % (Auto) 0.9 (0-2) % Absolute Neuts (auto) 3.6 (1.5-7.7) 10^3/ul Absolute Lymphs (auto) 1.4 (1.0-4.8) 10^3/ul Absolute Monos (auto) 0.7 (0-0.8) 10^3/ul Absolute Eos (auto) 0.1 (0-0.6) 10^3/ul Absolute Basos (auto) 0.1 (0-0.2) 10^3/ul Absolute Nucleated RBC 0 10^3/ul Nucleated RBC % 0.1 ESR Pending INR (Anticoag Therapy) 1.13 H (0.77-1.02) APTT 35.9 (26.0-36.3) seconds Result Diagrams: 08/14/17 19:48 08/14/17 19:48 Lab Statement: Any lab studies that have been ordered have been reviewed, and results considered in the medical decision making process. - Radiology Chest X-ray Radiology Interpretation Completed By: Radiologist - CXR reveals NO ACTIVE CARDIOPULMONARY DISEASE IS NOTED. The ED Physician has reviewed this radiology report. - CT CT Brain CT Interpretation Completed By: Radiologist - CT Brain reveals no evidence of intracranial mass or hemorrhage. Likely old infarct involving the left external capsule and left caudate nucleus as per radiologist. The ED Physician has reviewed this radiology report. - EKG 1933 Cardiac Rate: NL EKG Rhythm: Sinus Rhythm - 98 bpm. An EKG [id number] reveals prolonged AV conduction time, 1st degree AV block (201), nml IVCT, prolonged QTc (510), and left axis-10. ST Segment: Non-Specific Ectopy: None EKG Comparison: No Significant Change - Prior 06/12/17 Re-Evaluation - Re-Evaluation First Eval Re-Evaluation Time: 21:15 Change: Unchanged - remains oriented to name only. Swenson cath placed by . Altered Mental Statu Course/Dx - Course Assessment/Plan: Allergies noted. Pt medications reviewed this visit. The Chest X-ray revealed NO ACTIVE CARDIOPULMONARY DISEASE as per radiologist. The pt is [place] be [place] [facility] Swenson catheter placed by . See procedure noted. Discussed the case with Dr. Rodriguez and he accepts pt care. Based pm prior urine culture results, pt will be given Zosyn. Dr. Rodriguez will adjust Zosyn amount based on renal function and Dr. Rodriguez to order the antibiotic. Nurses report some delay in administration of Zosyn due to dosage ordered based on renal function, not carried in ED Pyxis for emergent administration. Pharmacy is mixing the dose adjusted zosyn. CT Brain is also done to assess altered mental status possible metastatic disease. The pt dx will be Altered mental status. Sepsis due to UTI. Hyponatremia. Hypercalcemia. Chronic Kidney stage 4. Hypotension. PROCEDURE: Swenson insertion by . Critical Care time: 30 min. - Diagnoses Provider Diagnoses: Altered mental status, Sepsis due to urinary tract infection, Hyponatremia, Hypercalcemia, Chronic kidney disease, stage 4 (severe), Hypotension, Melanoma - Provider Notifications Discussed Care Of Patient With: Jayro Rodriguez - We discussed pt care. Time Discussed With Above Provider: 20:50 Instructed by Provider To: Admit As Inpatient - Critical Care Time Critical Care Time: 30-74 min - 30 minutes Discharge - Sign-Out/Discharge Documenting (check all that apply): Discharge/Admit/Transfer - [place] [facility] [place] Discharge Plan Condition: Critical Disposition: ADMITTED TO [facility] Referrals: Drew Lynch MD [Primary Care Provider] - - Billing Disposition and Condition Condition: CRITICAL Disposition: [facility] The documentation as recorded by the Vicente salcedo Nikita accurately reflects the service I personally performed and the decisions made by Luiz blackmon Barbara J, MD.
[2017-08-14 20:26] LABS: EGFR Non-African American 18.7 (>60)
--- NOTE | 2017-08-14 20:29 | RAD ---
Indication: Altered mental status. Single frontal view of the chest performed at 1926 hours was reviewed. Comparison is made with previous exam dated June 08, 2014. No mediastinal shift is noted. Heart is of normal size and configuration. Lung vidal appear clear. IMPRESSION: NO ACTIVE CARDIOPULMONARY DISEASE IS NOTED.
[2017-08-14] MEDS ORDERED: Piperacillin/Tazobactam VIAL*) 3.375 GM/15 ML VIAL IVPB SCH (21:00)
--- NOTE | 2017-08-14 21:00 | RAD ---
Indication: Confusion history of melanoma. CT of the brain was performed without IV contrast. Ventricular structures are midline. No midline shift is noted. The extra-axial spaces are unremarkable. Old infarct involving the left external capsule is noted. This is unchanged. There is also hypodensity in the left caudate nucleus likely representing old infarct and is not changed. Central and cortical atrophy is noted. Mastoid air cells and paranasal sinuses are otherwise unremarkable. IMPRESSION: No evidence of intracranial mass or hemorrhage. Likely old infarct involving the left external capsule and left caudate nucleus..
[2017-08-14] MEDS ORDERED: Piperacillin/Tazobac (*) 3.375 GM BAG ONE (22:01)
[2017-08-14 22:14] LABS: Urine Appearance Turbid; Urine Blood 1+ (Negative); Urine Color Amber; Urine Ketones Trace (Negative); Urine Protein 2+(100 mg/dL) (Negative); Urine Specific Gravity 1.019 (1.010-1.030); Urine Urobilinogen Negative (Negative)
[2017-08-14] MEDS ORDERED: Zosyn per Pharmacy* NOTE FOLLOW UP PRN (22:25)
[2017-08-14] MEDS ORDERED: Zosyn 3.375 GM IV - ED ONCE IVPB ONE ×2 (22:30)
[2017-08-15] MEDS ORDERED: Iohexol 180 (CONTRAST) 10 ML SDV IV ONE (02:00)
[2017-08-15] MEDS ORDERED: Sodium Citrate/Citric Acid* 15 ML UDC ONE (02:19)
[2017-08-15] MEDS ORDERED: fentaNYL* 50 MCG/ML 2 ML VIAL (100 MCG VIAL) ONE (02:23)
[2017-08-15] MEDS ORDERED: Lidocaine 2% PF * 5 ML VIAL ONE (02:24)
[2017-08-15] MEDS ORDERED: Propofol* 10 MG/ML 20 ML BTL IV PUSH ONE (02:24)
--- NOTE | 2017-08-15 02:48 | HP ---
AMENDED REPORT TO CHANGE WORK TYPE PER MS. VALDEZ ADMISSION HISTORY AND PHYSICAL / CONSULTATION REPORT: DATE OF CONSULT: 08/14/17 DATE OF ADMISSION: 08/15/17 PROVIDER: Bozena Valdez NP. ATTENDING PHYSICIAN: Dr. Rodriguez *(report dictated by Bozena Valdez NP). PRIMARY CARE PROVIDER: Dr. Flores at [facility] and Sarai Ocampo NP. CHIEF COMPLAINT: Lethargy, altered mental status, hypoxia, and hypotension. HISTORY OF PRESENT ILLNESS: Ms. Diallo is a 61-year-old female with a past medical history of diabetes, hypertension, hypothyroidism, hypopituitarism/ hypoadrenalism, ? nephrolithiasis with prior right ureteral stenting, history of UTIs, recurrent history of melanoma on her right lower leg, who presents from [facility] today for altered mental status, lethargy, found to be hypoxic with O2 sats of 85% and a blood pressure of 84/52, who was sent to the emergency department for further evaluation. he patient had recently been treated for urinary tract infection with Cipro on 08/01/17. The patient was found today to be lethargic with altered mental status. She was transferred to the emergency department in which I suspected she has urosepsis. She does have noted urine culture from 07/31/17 with Morganella morganii and E. coli. She was started on Zosyn in the emergency department and IV fluids. She was quite hypotensive on her arrival with blood pressures systolically in the 80s and a low-grade temperature of 100.2. No leukocytosis, but she has CRP of 318. The patient was also noted to have acute renal failure with a creatinine of 2.59. On evaluation in the emergency department, the patient is complaining of back and abdominal pain. A CAT scan was ordered, as I have concern about her right renal stent possibly being infected. Per the nurse who placed the To, reporting it to appear a milky like with a foul odor. The patient's sister is at the bedside. She reports that she is more lethargic than normal. The patient is alert and oriented, but states she feels very sleepy. We discussed the possibility and the concern that her right ureteral stent could possibly be infected and at this time the CT is pending. My recommendation is that if the CT returns with the possible obstruction or new hydronephrosis, discussion with the urologist should be made prior to admitting the patient to the hospital as the patient may require transfer to a different facility due to no urologist is on- call overnight. I discussed this with the attending with Dr. Rodriguez, who will follow the CAT scan results and the decision will be made, admission versus transfer. Currently, the patient's blood pressures have improved. The patient reports she feels a little better. Recommendation to continue IV fluids. PAST MEDICAL HISTORY: 1. History of right renal stent. 2. History of urinary tract infection. 3. Anemia of chronic disease. 4. Hypertension. 5. Chronic steroid use secondary to hypopituitarism/hypoadrenalism, ? nephrolithiasis. 6. History of DVT. 7. Obesity. 8. Malignant melanoma, status post chemo. The patient has decided to stop treatment and was followed by Dr. Lynch. She has significant melanoma on her right lower extremity. 9. Anxiety. 10. Depression. 11. History of urosepsis with septic shock and acute renal failure with accompanying septic encephalopathy. CURRENT MEDICATIONS: 1. Oxycodone 10 mg p.o. q. 6 hours p.r.n. 2. Oxycodone 10 mg p.o. t.i.d. 3. Norvasc 10 mg p.o. daily. 4. Effexor XR 37.5 mg p.o. daily. 5. Triamcinolone 0.5% cream application topical b.i.d. 6. One Enema daily p.r.n. 7. Senna with docusate sodium one tab p.o. b.i.d. 8. Zofran 4 mg p.o. q. 6 hours p.r.n. 9. Milk of magnesia 30 mL p.o. bedtime p.r.n. 10. Lisinopril 10 mg p.o. daily. 11. Synthroid 50 mcg p.o. daily. 12. Lactobacillus acidophilus 1 cap p.o. daily. 13. Neurontin 300 mg p.o. b.i.d. 14. Aspirin 81 mg daily. ALLERGIES: LASIX, MORPHINE, LATEX, ADHESIVE TAPE, IODINE CONTRAST, ORAL and IV DYE, LYRICA LR, unknown reaction. FAMILY HISTORY: Reviewed and noncontributory. SOCIAL HISTORY: The patient currently resides at a long-term facility at [facility] and her sister, Sarah Alvarado, is her healthcare proxy. Her number is . REVIEW OF SYSTEMS: A 14-point review of systems was performed. All the pertinent positives and negatives are mentioned in the history of present illness. Otherwise, negative. PHYSICAL EXAMINATION Vital Signs: Temperature of 100.2, heart rate 88, respirations 18, blood pressure 106/61, pulse oximetry is 97% on 2 L nasal cannula. General Appearance: Chronically ill, 61-year-old female, morbidly obese, lying on the emergency department stretcher, mildly lethargic. She awakes to voice and found to be alert and oriented x3. HEENT: Head is normocephalic, atraumatic. Pupils are equal and reactive to light. Oropharynx is clear. Dry mucous membranes. Cardiac: S1, S2, regular rate and rhythm. No lower extremity edema noted. Lungs are clear to auscultation bilaterally. Good aeration throughout. Abdomen: Obese, soft, suprapubic tenderness. Possible CVA tenderness. However , this was difficult to assess, as the patient had difficulty rolling over in bed; however, she does complain of lower back pain, difficult to distinguish if this is a CVA tenderness/pain. Extremities: No clubbing, cyanosis or edema. Moves all extremities. Neuro: Alert and oriented x3. No focal deficits noted. ASSESSMENT AND PLAN: Ms. Diallo is a 61-year-old female with a complex past medical history with right renal stent, history of urinary tract infections with history of urosepsis and septic shock on 06/08/17 to 06/12/17, when she was hospitalized in the ICU, found at that time to have no hydronephrosis. She then developed a urinary tract infection several weeks ago and was treated with ciprofloxacin. She was found today to have altered mental status, hypoxia, and hypotension, was sent to the emergency department for further evaluation. Sepsis, suspect urosepsis. Concern for infected right ureteral stent. CT is still pending at this time, as stated above Dr. Rodriguez will follow up on the CT. The patient may need to be transferred to a different facility. She has been started on Zosyn and is being given fluid resuscitation. Her vital signs have stabilized. She has no lactic acidosis, no leukocytosis, but her CRP is quite elevated at 318. Blood cultures have been sent. At this time, admission is on hold until the results of the CT can be reviewed and discussed with Urology. It is noted during the patient's last hospitalization in mid May in which she was admitted for urosepsis with septic shock and acute renal failure. Her ultrasound at that time showed no hydronephrosis. At this point, the patient is in limbo until the results of the CT scan have resulted. TIME SPENT: Approximately, 60 minutes was spent on this consultation. This was discussed with Dr. Rodriguez, who will continue to follow the patient. BOZENA VALDEZ, JAY [id number]/[facility] #: [id number] CHAVA
[2017-08-15] MEDS: Heparin VIAL(*) 5000 UNITS/ML VIAL (FIVE THOUSAND) SUBCUT SCH ×4 (03:24→20:37)
[2017-08-15] MEDS ORDERED: Naloxone* 0.4 MG/ML 1 ML VIAL IV PRN (03:27)
[2017-08-15] MEDS: Piperacillin/Tazobactam 13.5 GM IV 24 hour continuous infusion IVPB SCH ×2 (04:16)
[2017-08-15] MEDS: NS 0.9% 1000 ML* 1,000 ML IV SCH ×3 (04:16→21:30)
--- NOTE | 2017-08-15 05:31 | OP ---
OPERATIVE REPORT: DATE OF OPERATION: 08/15/17 - Inpatient, room BRY35-31. DATE OF : 53. SURGEON: Baldemar Friedman MD. ANESTHESIOLOGIST: Dr. Jermaine Montejo. ANESTHESIA: IV sedation with MAC. PRE-OP DIAGNOSES: 1. Right hydronephrosis. 2. Right pyonephrosis. 3. Urosepsis due to above. 4. Status post placement of right ureteral stent. POST-OP DIAGNOSES: 1. Right hydronephrosis. 2. Right pyonephrosis. 3. Urosepsis due to above. 4. Status post placement of right ureteral stent. OPERATIVE PROCEDURE: 1. Cystoscopy. 2. Right retrograde pyelography. 3. Right ureteral stent exchange (black silicon, 24 cm, 8.5 Algerian). INDICATION FOR PROCEDURE: Ms. Diallo is a 61-year-old white female who had placement of a right ureteral stent in September 2016 because of obstructing right renal calculi. The patient is known to have melanoma and she had foregone any additional treatments, and she is DNR. She presented to the emergency room earlier this past evening because of confusion and she was noted to be septic. Noncontrast CT of the abdomen and pelvis showed the right ureteral stent in place, right hydroureteronephrosis and right renal calculi. The serum creatinine was elevated at 2.6. The patient was well hydrated and given IV Zosyn. She is taken to the operating room on an emergency basis for right ureteral stent exchange. PATHOLOGY AT CYSTOSCOPY: There was purulent urine from her To catheter. There was diffuse hyperemia and edema of the bladder mucosa. The distal limb of the stent was coming from the right ureteral orifice. After right ureteral catheterization and placement of the open ended catheter in the renal pelvis, a total of 70 cc of thick pus was aspirated from the right pelvis and collecting system. DESCRIPTION OF PROCEDURE: Under intravenous sedation, and with anesthesia monitoring, the patient was placed in the lithotomy position and was prepped and draped for a cystoscopy. Cystoscopy was performed, the bladder was inspected, and the above findings were noted. The right ureteral stent was removed. A flexible-tip guidewire was then introduced into the right orifice and positioned in the area of the renal pelvis. A 5-Algerian open-ended catheter was then fed on top of the guidewire and positioned in the area of the renal pelvis. A total of 70 cc of thick pus was aspirated from the kidney. Specimen was sent for urine C & S. After decompressing the kidney, a total of 3 cc of contrast was then injected delineating the renal pelvis and the collecting system. A black silicon stent, 8.5 Algerian, 24 cm long, was then fed on top of the guidewire and positioned with the proximal end coiling in the renal pelvis and the distal end coiling inside the bladder. An 18-Algerian To catheter was then placed inside the bladder. The patient tolerated the procedure well. Her vital signs were all stable during the procedure and she did not become hypotensive. [id number]/[facility] #: [id number] CHAVA
--- NOTE | 2017-08-15 05:52 | PN ---
Progress Note - Progress Note Date of Service: 08/15/17 Note: Evaluated in ICU shortly after return from OR. Vitals & exam stable. S MD [facility] urology reported no issues intra-operatively, aminta pus from the kidney, stent successfully changed. Continue close monitoring.
--- NOTE | 2017-08-15 08:05 | RAD ---
INDICATION: Sepsis, abdominal pain and hypoxia. COMPARISON: Comparison is made with a prior CT angiogram of the chest, abdomen and pelvis from March 02, 2017. TECHNIQUE: A CT scan of the chest, abdomen and pelvis was performed without intravenous or oral contrast. Contiguous axial sections were obtained from the lung apices through the symphysis pubis. Images were reconstructed in the coronal and sagittal planes. FINDINGS: There is mild dependent bilateral lower lobe subsegmental atelectasis. No pleural effusion is seen. There is a small subcentimeter calcified nodule in the right middle lobe suggestive of old granulomatous disease. There is a solitary and large 0.9 cm lymph node located anterior to the ascending thoracic aorta which is unchanged. No enlarged hilar lymph nodes are seen. The heart is within normal limits in size. No pericardial effusion is present. The thoracic aorta is normal in caliber. There is mild calcific plaque present. The liver and spleen are normal in size. The liver is decreased in attenuation consistent with fatty infiltration with more focal areas of decreased attenuation present which are most prominent in the anterior aspect of the left hepatic lobe although also present centrally which appears similar to the prior exam likely representing more focal areas of fatty infiltration as previously noted. There is a calcified nodule in the posterior segment of the right hepatic lobe most consistent with old granulomatous disease. The patient is status post cholecystectomy. The pancreas appears to be within normal limits. The adrenal glands appear to be within normal limits. The right kidney is enlarged with perinephric stranding. There is a ureteral stent catheter present which appears to be in normal position. There is increased dilatation of the right renal calyces, pelvis and ureter. There is also stranding adjacent to the proximal ureter. These findings raise pelvis possibility of stent failure or infection. There are multiple bilateral renal calculi. There is a To catheter within the urinary bladder. The aorta is normal in caliber and there is moderate calcific plaque present. There are slightly prominent retroperitoneal lymph nodes in the upper abdomen at the level of the left renal hilum which is progressed slightly from the prior exam also raising the possibility of an infectious process measuring up to 1.0 cm in transverse dimension. The stomach, small and large bowel appear nondistended. There is thickening of the rectal wall and stranding in the presacral soft tissues raising the possibility of proctitis. There is stranding in the soft tissues in the left buttock posterior to the sacrum suggesting the possibility of cellulitis. No focal fluid collection is present. No free intraperitoneal air or fluid is seen. No significant focal osseous abnormality is seen. IMPRESSION: 1. MODERATE TO SEVERE RIGHT HYDRONEPHROSIS AND PERINEPHRIC STRANDING WITH A STENT IN PLACE. THIS RAISES THE POSSIBILITY OF STENT FAILURE OR INFECTION. RECOMMEND CLINICAL CORRELATION. 2. RECTAL WALL THICKENING AND PERIRECTAL STRANDING SUGGESTIVE OF PROCTITIS. 3. SOFT TISSUE SWELLING IN THE LEFT GLUTEAL REGION SUGGESTIVE OF CELLULITIS. 4. HEPATIC STEATOSIS. 5. STATUS POST CHOLECYSTECTOMY. 6. ENLARGED RETROPERITONEAL LYMPH NODES NEW POSSIBLY SECONDARY TO RIGHT RENAL INFECTION. 7. ENLARGED MEDIASTINAL LYMPH NODE UNCHANGED.
--- NOTE | 2017-08-15 08:08 | RAD ---
INDICATION: Stent exchange COMPARISONS: CT dated August 14, 2014 TECHNIQUE: Fluoroscopy was provided for a retrograde pyelogram and stent placement. Total fluoroscopy time is: 8 seconds FINDINGS: Spot images demonstrate contrast within the renal collecting system which appears dilated with calyceal blunting. A ureteral stent is noted. IMPRESSION: FLUOROSCOPY WAS PROVIDED FOR A RETROGRADE PYELOGRAM AND STENT PLACEMENT CPT II Codes: G9500
[2017-08-15] MEDS: Aspirin EC TAB* 81 MG TAB.EC PO SCH (08:18)
[2017-08-15] MEDS: Lactobacillus Acidophilus* 1 TAB PO SCH (08:18)
[2017-08-15] MEDS: Venlafaxine EXT RELEASE CAP* 37.5 MG PO SCH (08:18)
[2017-08-15] MEDS: Gabapentin CAP(*) 300 MG PO SCH ×2 (08:18→20:23)
[2017-08-15] MEDS ORDERED: oxyCODONE TAB* 5 MG TAB PO SCH (09:00)
[2017-08-15] MEDS ORDERED: Lisinopril TAB* 10 MG PO SCH (09:00)
--- NOTE | 2017-08-15 13:27 | PN ---
Subjective Date of Service: 08/15/17 Interval History: Seen by me this morning and again this afternoon when her friend arrived. Both times she was very drowsy and answered questions inappropriately. She has been afebrile all day, has been normotensive with good urine output. She has no complaints initially and then when i attempt to move her extremities she complains of right upper extremity pain. Objective Active Medications: Aspirin (Aspirin Ec Tab*) 81 mg PO DAILY [facility] Last Admin: 08/15/17 08:18 Dose: 81 mg Gabapentin (Neurontin Cap(*)) 300 mg PO BID [facility] Last Admin: 08/15/17 08:18 Dose: Not Given Heparin Sodium (Porcine) (Heparin Vial(*)) 5,000 units SUBCUT Q8HR [facility] Last Admin: 08/15/17 06:13 Dose: 5,000 units Sodium Chloride (Ns 0.9% 1000 Ml*) 1,000 mls @ 125 mls/hr IV PER RATE [facility] Stop: 08/16/17 05:14 Last Admin: 08/15/17 13:20 Dose: 125 mls/hr Piperacillin Sod/Tazobactam (Sod 13.5 gm/ Sodium Chloride) 500 mls @ 20.833 mls /hr IVPB Q24H [facility] Last Admin: 08/15/17 04:16 Dose: 20.833 mls/hr Lactobacillus Rhamnosus (Lactobacillus Acidophilus*) 1 tab PO DAILY [facility] Last Admin: 08/15/17 08:18 Dose: Not Given Oxycodone HCl (Roxycodone Tab*) 10 mg PO Q6H PRN PRN Reason: PAIN - BREAKTHROUGH Pharmacy Consult (Zosyn Per Pharmacy*) 1 note FOLLOW UP . PRN PRN Reason: PER PROTOCOL Venlafaxine HCl (Effexor Xr Cap*) 37.5 mg PO DAILY [facility] Last Admin: 08/15/17 08:18 Dose: Not Given Vital Signs - 8 hr 08/15/17 08/15/17 08/15/17 05:31 05:45 06:00 Temperature Pulse Rate 90 92 90 Respiratory 11 8 5 Rate Blood Pressure 117/66 119/69 118/75 (mmHg) O2 Sat by Pulse 93 91 94 Oximetry 08/15/17 08/15/17 08/15/17 06:15 06:35 06:45 Temperature Pulse Rate 86 94 88 Respiratory 8 7 8 Rate Blood Pressure 128/75 125/69 118/67 (mmHg) O2 Sat by Pulse 93 92 92 Oximetry 08/15/17 08/15/17 08/15/17 07:00 07:15 07:30 Temperature Pulse Rate 87 89 86 Respiratory 13 13 12 Rate Blood Pressure 121/63 115/66 116/69 (mmHg) O2 Sat by Pulse 93 94 93 Oximetry 08/15/17 08/15/17 08/15/17 07:45 08:00 08:15 Temperature 97.1 F Pulse Rate 87 84 89 Respiratory 13 11 4 Rate Blood Pressure 113/62 107/65 124/64 (mmHg) O2 Sat by Pulse 93 93 93 Oximetry 08/15/17 08/15/17 08/15/17 08:30 08:45 09:00 Temperature Pulse Rate 92 91 92 Respiratory 10 12 5 Rate Blood Pressure 117/67 133/70 113/61 (mmHg) O2 Sat by Pulse 93 93 93 Oximetry 08/15/17 08/15/17 08/15/17 09:30 09:45 10:00 Temperature Pulse Rate 92 90 91 Respiratory 10 10 18 Rate Blood Pressure 112/70 112/57 114/58 (mmHg) O2 Sat by Pulse 94 94 94 Oximetry 08/15/17 08/15/17 08/15/17 10:15 10:30 11:00 Temperature Pulse Rate 88 91 87 Respiratory 14 17 11 Rate Blood Pressure 98/64 107/61 (mmHg) O2 Sat by Pulse 94 93 92 Oximetry 08/15/17 08/15/17 08/15/17 11:01 11:15 11:30 Temperature Pulse Rate 88 90 90 Respiratory 13 12 11 Rate Blood Pressure 102/64 115/63 112/66 (mmHg) O2 Sat by Pulse 93 93 93 Oximetry 08/15/17 08/15/17 08/15/17 11:47 12:00 12:15 Temperature 97.6 F Pulse Rate 91 87 Respiratory 17 10 18 Rate Blood Pressure 108/70 111/65 (mmHg) O2 Sat by Pulse 91 93 Oximetry Oxygen Devices in Use Now: None Appearance: sleepy, pale, ill appearing Eyes: No Scleral Icterus Ears/Nose/Mouth/Throat: NL Teeth, Lips, Gums Neck: NL Appearance and Movements; NL JVP Respiratory: Symmetrical Chest Expansion and Respiratory Effort, Clear to Auscultation Cardiovascular: NL Sounds; No Murmurs; No JVD, RRR Abdominal: NL Sounds; No Tenderness; No Distention, No Hepatosplenomegaly Lymphatic: No Cervical Adenopathy Extremities: - - rle with scattered black macules, edema with muscular deformity Neurological: - - oriented to person only Result Diagrams: 08/14/17 19:48 08/14/17 19:48 Additional Lab and Data: Lab Results 08/14/17 08/14/17 Range/Units 19:48 19:48 WBC 5.9 (3.5-10.8) 10^3/ul RBC 4.19 (4.0-5.4) 10^6/ul Hgb 11.7 L (12.0-16.0) g/dl Hct 35 (35-47) % MCV 83 (80-97) fL MCH 28 (27-31) pg MCHC 34 (31-36) g/dl RDW 16 H (10.5-15) % Plt Count 337 (150-450) 10^3/ul MPV 7.6 (7.4-10.4) um3 Neut % (Auto) 61.7 (38-83) % Lymph % (Auto) 23.3 L (25-47) % [place] % (Auto) 11.9 H (0-7) % Eos % (Auto) 2.2 (0-6) % Baso % (Auto) 0.9 (0-2) % Absolute Neuts (auto) 3.6 (1.5-7.7) 10^3/ul Absolute Lymphs (auto) 1.4 (1.0-4.8) 10^3/ul Absolute Monos (auto) 0.7 (0-0.8) 10^3/ul Absolute Eos (auto) 0.1 (0-0.6) 10^3/ul Absolute Basos (auto) 0.1 (0-0.2) 10^3/ul Absolute Nucleated RBC 0 10^3/ul Nucleated RBC % 0.1 ESR Pending INR (Anticoag Therapy) 1.13 H (0.77-1.02) APTT 35.9 (26.0-36.3) seconds Microbiology and Other Data: Microbiology 08/15/17 04:12 Nasal Screen MRSA (PCR)(MAXIMINO) - Final Nasal Mrsa Not Detected Assess/Plan/Problems-Billing Assessment: 61 yo female with history of ureteral stent, melanoma untreated x years, DM2, HTN admitted with drowsiness and hypotension and hypoxia from [facility] and found to have pyelonephritis with stent malfunction - Patient Problems (1) Pyelonephritis due to Escherichia coli Current Visit: Yes Status: Acute Code(s): N12 - TUBULO-INTERSTITIAL NEPHRITIS, NOT SPCF ACUTE OR CHRONIC; B96.20 - UNSP ESCHERICHIA COLI THE CAUSE OF DISEASES [facility]SD [facility] SNOMED Code(s): 85575488 Comment: Due to R ureteral stent malfunction S/p retrograde cystoscopy and stent exchange overnight last night Pip/tazo day 1 blood cultures negative (2) Altered mental state Current Visit: No Status: Acute Priority: High Code(s): R41.82 - ALTERED MENTAL STATUS, UNSPECIFIED SNOMED Code(s): 716412856 Comment: this has been ongoing for months at this point, likely related to sepsis but I cannot rule out metastatic melanoma to the brain, which I discussed with her friend also was witnessed to have a period of hypoxia today while she was sleeping, so I suspect also underlying JENIFFER check am abg will consider ct brain with contrast vs. mri if she does not improve over the next few days IF she and her family are interested in pursuing treatment or if we need to better characterize her prognosis from an oncologic perspective (3) Melanoma Current Visit: No Status: Acute Code(s): C43.9 - MALIGNANT MELANOMA OF SKIN , UNSPECIFIED SNOMED Code(s): 363319533 Comment: stage is unclear she has declined her follow up appointments with Dr. Lynch (4) Obstructive uropathy Current Visit: No Status: Acute Code(s): N13.9 - OBSTRUCTIVE AND REFLUX UROPATHY, UNSPECIFIED SNOMED Code(s): 0714811 Comment: s/p stent exchange overnight as described above following (5) Sepsis Current Visit: No Status: Acute Priority: High Comment: present on admission, due to pyelonephritis now resolved on pip/tazo Status and Disposition: inpatient, ICU
[2017-08-16] MEDS ORDERED: NS 0.9% 1000 ML* 1,000 ML IV SCH (00:45)
[2017-08-16] MEDS ORDERED: NS 0.9% 1000 ML* 1,000 ML IV ONE (01:00)
[2017-08-16] MEDS: NS 0.9% 1000 ML* 1,000 ML IV SCH ×4 (01:41→21:23)
[2017-08-16] MEDS: Piperacillin/Tazobactam 13.5 GM IV 24 hour continuous infusion IVPB SCH ×2 (04:10)
[2017-08-16 05:41] LABS: ABS Basophils 0.1 10^3/ul (0-0.2); ABS Eosinophils 0.3 10^3/ul (0-0.6); ABS Lymphocytes 1.1 10^3/ul (1.0-4.8); ABS Monocytes 0.5 10^3/ul (0-0.8); ABS Neutrophils 2.6 10^3/ul (1.5-7.7); ABS Nucleated RBC 0 10^3/ul; Eosinophil % 5.8 % (0-6); Hematocrit 29 % (35-47); Hemoglobin 9.4 g/dl (12.0-16.0); Lymphocyte % 24.4 % (25-47); Mean Corpuscular HGB Conc 32 g/dl (31-36); Mean Corpuscular Hemoglobin 27 pg (27-31); Mean Corpuscular Volume 84 fL (80-97); Mean Platelet Volume 6.9 um3 (7.4-10.4); Nucleated Red Blood Cells % 0; Platelet Count 262 10^3/ul (150-450); Red Blood Count 3.48 10^6/ul (4.0-5.4); Red Cell Distribution Width 16 % (10.5-15); White Blood Count 4.6 10^3/ul (3.5-10.8)
[2017-08-16] MEDS: Heparin VIAL(*) 5000 UNITS/ML VIAL (FIVE THOUSAND) SUBCUT SCH ×3 (05:44→21:20)
[2017-08-16 05:55] LABS: EGFR Non-African American 44.2 (>60)
[2017-08-16] MEDS: Lactobacillus Acidophilus* 1 TAB PO SCH (08:23)
[2017-08-16] MEDS: Aspirin EC TAB* 81 MG TAB.EC PO SCH (08:23)
[2017-08-16] MEDS: Gabapentin CAP(*) 300 MG PO SCH ×2 (08:23→21:20)
[2017-08-16] MEDS: Venlafaxine EXT RELEASE CAP* 37.5 MG PO SCH (08:23)
--- NOTE | 2017-08-16 08:58 | PN ---
Subjective Date of Service: 08/16/17 Interval History: Hypotensive overnight to 82/62, improved with saline bolus. She is more awake this morning, does not know where she is. She answers some of my questions, not all questions. She says she has no pain when at rest, only when I move her extremities. Family History: Unchanged from Admission Social History: Unchanged from Admission Past Medical History: Unchanged from Admission Objective Active Medications: Aspirin (Aspirin Ec Tab*) 81 mg PO DAILY [facility] Last Admin: 08/16/17 08:23 Dose: Not Given Gabapentin (Neurontin Cap(*)) 300 mg PO BID [facility] Last Admin: 08/16/17 08:23 Dose: Not Given Heparin Sodium (Porcine) (Heparin Vial(*)) 5,000 units SUBCUT Q8HR [facility] Last Admin: 08/16/17 05:44 Dose: 5,000 units Heparin Sodium (Porcine) (Heparin Flush Picc/Ml/Cvc(*)) 1 - 3 ml FLUSH 0600, 1800 [facility] PRN Reason: Protocol Last Admin: 08/16/17 05:41 Dose: Not Given Piperacillin Sod/Tazobactam (Sod 13.5 gm/ Sodium Chloride) 500 mls @ 20.833 mls /hr IVPB Q24H [facility] Last Admin: 08/16/17 04:10 Dose: 20.833 mls/hr Sodium Chloride (Ns 0.9% 1000 Ml*) 1,000 mls @ 150 mls/hr IV PER RATE [facility] Last Admin: 08/16/17 08:06 Dose: 150 mls/hr Lactobacillus Rhamnosus (Lactobacillus Acidophilus*) 1 tab PO DAILY [facility] Last Admin: 08/16/17 08:23 Dose: Not Given Oxycodone HCl (Roxycodone Tab*) 10 mg PO Q6H PRN PRN Reason: PAIN - BREAKTHROUGH Pharmacy Consult (Zosyn Per Pharmacy*) 1 note FOLLOW UP . PRN PRN Reason: PER PROTOCOL Venlafaxine HCl (Effexor Xr Cap*) 37.5 mg PO DAILY [facility] Last Admin: 08/16/17 08:23 Dose: Not Given Vital Signs - 8 hr 08/16/17 08/16/17 08/16/17 01:00 01:01 01:11 Temperature Pulse Rate 82 78 Respiratory 16 13 Rate Blood Pressure 91/50 (mmHg) O2 Sat by Pulse 99 99 95 Oximetry 04/25/18 04/25/18 04/25/18 01:15 01:30 01:43 Temperature Pulse Rate 83 77 78 Respiratory 18 20 18 Rate Blood Pressure 90/48 88/47 98/61 (mmHg) O2 Sat by Pulse 95 98 97 Oximetry 08/16/17 08/16/17 08/16/17 01:45 02:00 02:15 Temperature Pulse Rate 78 78 81 Respiratory 19 17 17 Rate Blood Pressure 88/51 90/53 102/58 (mmHg) O2 Sat by Pulse 97 97 97 Oximetry 08/16/17 08/16/17 08/16/17 02:31 03:00 03:01 Temperature Pulse Rate 86 85 82 Respiratory 15 17 18 Rate Blood Pressure 107/56 94/54 (mmHg) O2 Sat by Pulse 95 94 95 Oximetry 08/16/17 08/16/17 08/16/17 03:30 03:32 03:41 Temperature 100.1 F Pulse Rate 82 Respiratory 22 16 Rate Blood Pressure 96/53 (mmHg) O2 Sat by Pulse 96 Oximetry 08/16/17 08/16/17 08/16/17 04:00 04:30 04:55 Temperature Pulse Rate 82 83 Respiratory 18 19 16 Rate Blood Pressure 92/58 111/57 (mmHg) O2 Sat by Pulse 96 96 Oximetry 08/16/17 08/16/17 08/16/17 05:00 05:01 05:30 Temperature Pulse Rate 82 80 83 Respiratory 15 18 6 Rate Blood Pressure 89/51 100/58 (mmHg) O2 Sat by Pulse 98 97 94 Oximetry 08/16/17 08/16/17 08/16/17 05:48 06:00 06:01 Temperature 97.9 F Pulse Rate 81 84 Respiratory 18 19 Rate Blood Pressure 104/53 (mmHg) O2 Sat by Pulse 88 Oximetry 08/16/17 08/16/17 08/16/17 06:31 07:00 07:01 Temperature Pulse Rate 78 87 Respiratory 21 19 17 Rate Blood Pressure 90/49 82/62 (mmHg) O2 Sat by Pulse 100 100 Oximetry 08/16/17 08/16/17 08/16/17 07:29 07:37 08:00 Temperature 97.5 F Pulse Rate 83 Respiratory 15 15 Rate Blood Pressure 109/56 (mmHg) O2 Sat by Pulse 98 Oximetry Oxygen Devices in Use Now: Nasal Cannula Appearance: drowsy, awakens to voice, pale, ill appearing Eyes: No Scleral Icterus, - - pupils 5mm b/l Neck: NL Appearance and Movements; NL JVP Respiratory: - - unable to sit forward, lungs clear b/l Cardiovascular: - - irregular rhythm, no murmurs Abdominal: NL Sounds; No Tenderness; No Distention Lymphatic: No Cervical Adenopathy Extremities: - - RLE with many scattered black macules, edema, muscular deformity. moans when I move all her extremities at the proximal joints and does not cooperate with active motion instructions. muscles are nontender to palpation. voluntarily moves all distal joints Result Diagrams: 08/16/17 05:25 08/16/17 05:25 Additional Lab and Data: Lab Results 08/14/17 08/14/17 Range/Units 19:48 19:48 WBC 5.9 (3.5-10.8) 10^3/ul RBC 4.19 (4.0-5.4) 10^6/ul Hgb 11.7 L (12.0-16.0) g/dl Hct 35 (35-47) % MCV 83 (80-97) fL MCH 28 (27-31) pg MCHC 34 (31-36) g/dl RDW 16 H (10.5-15) % Plt Count 337 (150-450) 10^3/ul MPV 7.6 (7.4-10.4) um3 Neut % (Auto) 61.7 (38-83) % Lymph % (Auto) 23.3 L (25-47) % [place] % (Auto) 11.9 H (0-7) % Eos % (Auto) 2.2 (0-6) % Baso % (Auto) 0.9 (0-2) % Absolute Neuts (auto) 3.6 (1.5-7.7) 10^3/ul Absolute Lymphs (auto) 1.4 (1.0-4.8) 10^3/ul Absolute Monos (auto) 0.7 (0-0.8) 10^3/ul Absolute Eos (auto) 0.1 (0-0.6) 10^3/ul Absolute Basos (auto) 0.1 (0-0.2) 10^3/ul Absolute Nucleated RBC 0 10^3/ul Nucleated RBC % 0.1 ESR Pending INR (Anticoag Therapy) 1.13 H (0.77-1.02) APTT 35.9 (26.0-36.3) seconds Microbiology and Other Data: Microbiology 08/15/17 04:12 Nasal Screen MRSA (PCR)([facility]IMINO) - Final Nasal Mrsa Not Detected Assess/Plan/Problems-Billing Assessment: 61 yo female with history of ureteral stent, melanoma untreated x years, DM2, HTN admitted with drowsiness and hypotension and hypoxia from [facility] and found to have pyelonephritis with stent malfunction - Patient Problems (1) Pyelonephritis due to Escherichia coli Current Visit: Yes Status: Acute Code(s): N12 - TUBULO-INTERSTITIAL NEPHRITIS, NOT SPCF ACUTE OR CHRONIC; B96.20 - UNSP ESCHERICHIA COLI THE CAUSE OF DISEASES CLASSD [facility] SNOMED Code(s): 02618940 Comment: Due to R ureteral stent malfunction S/p retrograde cystoscopy and stent exchange; copiuos pus found intraoperatively Pip/tazo day 2 --> e. coli is sensitive to pip/tazo blood cultures negative so far (2) Altered mental state Current Visit: No Status: Acute Priority: High Code(s): R41.82 - ALTERED MENTAL STATUS, UNSPECIFIED SNOMED Code(s): 023688238 Comment: this has been ongoing for months at this point, likely related to sepsis but I cannot rule out metastatic melanoma to the brain, which I discussed with her friend and will discuss with her sister, who is supposed to be coming in today am abg did not show hypercapnia will consider ct brain with contrast vs. mri if she does not improve over the next few days IF she and her family are interested in pursuing treatment or if we need to better characterize her prognosis from an oncologic perspective (3) Melanoma Current Visit: No Status: Acute Code(s): C43.9 - MALIGNANT MELANOMA OF SKIN , UNSPECIFIED SNOMED Code(s): 323688064 Comment: stage is unclear she has declined her follow up appointments with Dr. Lynch I suspect it is metastatic but we do not know to what extent because she has not wanted treatemnt in the past (4) Obstructive uropathy Current Visit: No Status: Acute Code(s): N13.9 - OBSTRUCTIVE AND REFLUX UROPATHY, UNSPECIFIED SNOMED Code(s): 0880059 Comment: s/p stent exchange overnight as described above following (5) Sepsis Current Visit: No Status: Acute Priority: High Comment: present on admission, due to pyelonephritis now resolved on pip/tazo (6) Acute renal failure Current Visit: No Status: Acute Comment: Improving with volume resuscitation Status and Disposition: inpatient, ICU
[2017-08-16] MEDS ORDERED: NS 0.9% 500 ML* 500 ML IV ONE (11:00)
[2017-08-16] MEDS: oxyCODONE TAB* 5 MG TAB PO PRN (17:41)
[2017-08-17] MEDS: NS 0.9% 1000 ML* 1,000 ML IV SCH ×2 (02:36→09:31)
[2017-08-17] MEDS: Piperacillin/Tazobactam 13.5 GM IV 24 hour continuous infusion IVPB SCH ×2 (02:36)
[2017-08-17 04:23] LABS: ABS Basophils 0 10^3/ul (0-0.2); ABS Eosinophils 0.4 10^3/ul (0-0.6); ABS Lymphocytes 1.3 10^3/ul (1.0-4.8); ABS Monocytes 0.4 10^3/ul (0-0.8); ABS Neutrophils 2.4 10^3/ul (1.5-7.7); ABS Nucleated RBC 0 10^3/ul; Eosinophil % 8.6 % (0-6); Hematocrit 31 % (35-47); Hemoglobin 10.2 g/dl (12.0-16.0); Lymphocyte % 29.4 % (25-47); Mean Corpuscular HGB Conc 33 g/dl (31-36); Mean Corpuscular Hemoglobin 27 pg (27-31); Mean Corpuscular Volume 83 fL (80-97); Mean Platelet Volume 6.7 um3 (7.4-10.4); Nucleated Red Blood Cells % 0; Platelet Count 293 10^3/ul (150-450); Red Blood Count 3.77 10^6/ul (4.0-5.4); Red Cell Distribution Width 16 % (10.5-15); White Blood Count 4.5 10^3/ul (3.5-10.8)
[2017-08-17 04:38] LABS: EGFR Non-African American 60.3 (>60)
[2017-08-17] MEDS: Heparin VIAL(*) 5000 UNITS/ML VIAL (FIVE THOUSAND) SUBCUT SCH ×3 (05:04→21:50)
[2017-08-17] MEDS: oxyCODONE TAB* 5 MG TAB PO PRN (05:04)
[2017-08-17] MEDS ORDERED: Dextrose 50% Syringe 50 ML* 25 GM/50 ML SYRINGE IV PUSH PRN (07:19)
[2017-08-17] MEDS: Aspirin EC TAB* 81 MG TAB.EC PO SCH (10:10)
[2017-08-17] MEDS: Gabapentin CAP(*) 300 MG PO SCH ×2 (10:10→21:39)
[2017-08-17] MEDS: Lactobacillus Acidophilus* 1 TAB PO SCH (10:11)
[2017-08-17] MEDS: Venlafaxine EXT RELEASE CAP* 37.5 MG PO SCH (10:11)
[2017-08-17] MEDS: D5W 1/2 NS 40 Meq KCL 1000 ML* 1,000 ML IV SCH ×2 (12:32→23:24)
--- NOTE | 2017-08-17 18:48 | PN ---
Subjective Date of Service: 08/17/17 Interval History: No overnight events. Much more alert today, she knows she is in the hospital. SHe has no complaints, denies pain except when I move her extremities. Family History: Unchanged from Admission Social History: Unchanged from Admission Past Medical History: Unchanged from Admission Objective Active Medications: Aspirin (Aspirin Ec Tab*) 81 mg PO DAILY [facility] Last Admin: 08/17/17 10:10 Dose: Not Given Dextrose (D50w Syringe 50 Ml*) 25 gm IV PUSH .FOR FS < 60 - SS PRN PRN Reason: FS < 60 Gabapentin (Neurontin Cap(*)) 300 mg PO BID [facility] Last Admin: 08/17/17 10:10 Dose: Not Given Heparin Sodium (Porcine) (Heparin Vial(*)) 5,000 units SUBCUT Q8HR [facility] Last Admin: 08/17/17 15:01 Dose: 5,000 units Heparin Sodium (Porcine) (Heparin Flush Picc/Ml/Cvc(*)) 1 - 3 ml FLUSH 0600, 1800 [facility] PRN Reason: Protocol Last Admin: 08/17/17 05:04 Dose: 1 ml Piperacillin Sod/Tazobactam (Sod 13.5 gm/ Sodium Chloride) 500 mls @ 20.833 mls /hr IVPB Q24H [facility] Last Admin: 08/17/17 02:36 Dose: 20.833 mls/hr Sodium Chloride (Ns 0.9% 1000 Ml*) 1,000 mls @ 150 mls/hr IV PER RATE [facility] Last Admin: 08/17/17 09:31 Dose: 150 mls/hr Potassium Chloride/Dextrose (D5w 1/2 Ns 40 Meq Kcl 1000 Ml*) 1,000 mls @ 100 mls/hr IV PER RATE [facility] Last Admin: 08/17/17 12:32 Dose: 100 mls/hr Lactobacillus Rhamnosus (Lactobacillus Acidophilus*) 1 tab PO DAILY [facility] Last Admin: 08/17/17 10:11 Dose: Not Given Nystatin (Nystatin Top Powder*) 1 applic TOPICAL BID [facility] Oxycodone HCl (Roxycodone Tab*) 10 mg PO Q6H PRN PRN Reason: PAIN - BREAKTHROUGH Last Admin: 08/17/17 05:04 Dose: 10 mg Pharmacy Consult (Zosyn Per Pharmacy*) 1 note FOLLOW UP . PRN PRN Reason: PER PROTOCOL Venlafaxine HCl (Effexor Xr Cap*) 37.5 mg PO DAILY [facility] Last Admin: 08/17/17 10:11 Dose: Not Given Vital Signs - 8 hr 08/17/17 08/17/17 08/17/17 11:37 14:47 15:19 Temperature 98.6 F 98.6 F Pulse Rate 89 87 Respiratory 15 16 16 Rate Blood Pressure 115/66 117/65 (mmHg) O2 Sat by Pulse 97 98 Oximetry Oxygen Devices in Use Now: None Appearance: alerts to voice, no distress Eyes: No Scleral Icterus Ears/Nose/Mouth/Throat: NL Teeth, Lips, Gums, - - gingival hyperplasia. dry mucosa. Neck: NL Appearance and Movements; NL JVP Respiratory: Symmetrical Chest Expansion and Respiratory Effort, Clear to Auscultation Abdominal: NL Sounds; No Tenderness; No Distention Lymphatic: No Cervical Adenopathy Skin: - - diffuse black macules over right leg with muscular deformity. pain diffusely with passive motion. Neurological: - Result Diagrams: 08/17/17 04:15 08/17/17 04:15 Additional Lab and Data: Lab Results 08/14/17 08/14/17 Range/Units 19:48 19:48 WBC 5.9 (3.5-10.8) 10^3/ul RBC 4.19 (4.0-5.4) 10^6/ul Hgb 11.7 L (12.0-16.0) g/dl Hct 35 (35-47) % MCV 83 (80-97) fL MCH 28 (27-31) pg MCHC 34 (31-36) g/dl RDW 16 H (10.5-15) % Plt Count 337 (150-450) 10^3/ul MPV 7.6 (7.4-10.4) um3 Neut % (Auto) 61.7 (38-83) % Lymph % (Auto) 23.3 L (25-47) % [place] % (Auto) 11.9 H (0-7) % Eos % (Auto) 2.2 (0-6) % Baso % (Auto) 0.9 (0-2) % Absolute Neuts (auto) 3.6 (1.5-7.7) 10^3/ul Absolute Lymphs (auto) 1.4 (1.0-4.8) 10^3/ul Absolute Monos (auto) 0.7 (0-0.8) 10^3/ul Absolute Eos (auto) 0.1 (0-0.6) 10^3/ul Absolute Basos (auto) 0.1 (0-0.2) 10^3/ul Absolute Nucleated RBC 0 10^3/ul Nucleated RBC % 0.1 ESR Pending INR (Anticoag Therapy) 1.13 H (0.77-1.02) APTT 35.9 (26.0-36.3) seconds Microbiology and Other Data: Microbiology 08/15/17 04:12 Nasal Screen MRSA (PCR)([facility]IM[facility]) - Final Nasal Mrsa Not Detected Assess/Plan/Problems-Billing Assessment: 61 yo female with history of ureteral stent, melanoma untreated x years, DM2, HTN admitted with drowsiness and hypotension and hypoxia from [facility] and found to have pyelonephritis with stent malfunction - Patient Problems (1) Pyelonephritis due to Escherichia coli Current Visit: Yes Status: Acute Code(s): N12 - TUBULO-INTERSTITIAL NEPHRITIS, NOT SPCF ACUTE OR CHRONIC; B96.20 - UNSP ESCHERICHIA COLI THE CAUSE OF DISEASES CLASSD [facility] SNOMED Code(s): 79412630 Comment: Due to R ureteral stent malfunction S/p retrograde cystoscopy and stent exchange; copiuos pus found intraoperatively Pip/tazo day 3 --> e. coli is sensitive to pip/tazo blood cultures remain negative (2) Altered mental state Current Visit: No Status: Acute Priority: High Code(s): R41.82 - ALTERED MENTAL STATUS, UNSPECIFIED SNOMED Code(s): 906958032 Comment: this has been ongoing for months, however it is markedly improved today compared to yesterday adn the day prior am abg did not show hypercapnia will consider ct brain with contrast vs. mri if she does not improve over the next few days IF she and her family are interested in pursuing treatment or if we need to better characterize her prognosis from an oncologic perspective (3) Melanoma Current Visit: No Status: Acute Code(s): C43.9 - MALIGNANT MELANOMA OF SKIN , UNSPECIFIED SNOMED Code(s): 428120813 Comment: stage is unclear she has declined her follow up appointments with Dr. Garbo I suspect it is metastatic but we do not know to what extent because she has not wanted treatemnt in the past I have discussed this with her sister Sarah (4) Obstructive uropathy Current Visit: No Status: Acute Code(s): N13.9 - OBSTRUCTIVE AND REFLUX UROPATHY, UNSPECIFIED SNOMED Code(s): 6197810 Comment: s/p stent exchange by (5) Sepsis Current Visit: No Status: Acute Priority: High Comment: present on admission, due to pyelonephritis now resolved on pip/tazo (6) Acute renal failure Current Visit: No Status: Acute Comment: resolved (7) Dysphagia Current Visit: Yes Status: Acute Code(s): R13.10 - DYSPHAGIA, UNSPECIFIED SNOMED Code(s): 74100731 Comment: Speech therapy suggests a mechanical esophageal pathology Will retest tomorrow, since she has improved so much from a mental status perspective, may need further imaging Status and Disposition: inpatient, ICU
[2017-08-17] MEDS: Nystatin TOP POWDER* 15 GM BTL TOPICAL SCH (21:39)
[2017-08-18] MEDS: Piperacillin/Tazobactam 13.5 GM IV 24 hour continuous infusion IVPB SCH ×2 (02:01)
[2017-08-18] MEDS: fentaNYL* 50 MCG/ML 2 ML VIAL (100 MCG VIAL) IV SLOW PU PRN ×2 (02:38→05:13)
[2017-08-18] MEDS ORDERED: Dextrose 50% Syringe 50 ML* 25 GM/50 ML SYRINGE IV PUSH PRN (05:07)
[2017-08-18] MEDS: Heparin VIAL(*) 5000 UNITS/ML VIAL (FIVE THOUSAND) SUBCUT SCH ×3 (05:11→20:30)
[2017-08-18] MEDS: Aspirin EC TAB* 81 MG TAB.EC PO SCH (08:06)
[2017-08-18] MEDS: Lactobacillus Acidophilus* 1 TAB PO SCH (08:07)
[2017-08-18] MEDS: Venlafaxine EXT RELEASE CAP* 37.5 MG PO SCH (08:07)
[2017-08-18] MEDS: Gabapentin CAP(*) 300 MG PO SCH ×2 (08:07→20:29)
[2017-08-18] MEDS: Nystatin TOP POWDER* 15 GM BTL TOPICAL SCH ×2 (08:15→20:30)
[2017-08-18] MEDS: D5W 1/2 NS 40 Meq KCL 1000 ML* 1,000 ML IV SCH ×2 (10:19→22:21)
[2017-08-18 10:26] LABS: EGFR Non-African American 68.7 (>60)
--- NOTE | 2017-08-18 14:56 | RAD ---
HISTORY: Dysphagia, drowsiness COMPARISONS: Head CT dated August 14, 2017, April 26, 2016 TECHNIQUE: The following sequences were obtained of the head: Sagittal T1-weighted images, axial T2-weighted images, axial FLAIR images, axial susceptibility weighted images, axial T1-weighted images. Additionally, axial diffusion-weighted images were obtained with calculated apparent diffusion coefficients. FINDINGS: HEMORRHAGE/INFARCT: There is no hemorrhage or acute infarct. MASSES/SHIFT: There is no mass or shift. EXTRA-AXIAL SPACES/MENINGES: There are no extra-axial fluid collections. SULCI AND VENTRICLES: The sulci and ventricles are normal in size and position for the patient's stated age. CEREBRUM: There is encephalomalacia of the left basal ganglia consistent with remote infarct. There are scattered small foci of elevated T2/FLAIR signal, stable. BRAINSTEM: There are no focal parenchymal abnormalities. CEREBELLUM: There are no focal parenchymal abnormalities. The cerebellar tonsils are normal in size and position. SELLA: The sella is normal. PINEAL: The pineal region is clear. CP ANGLE/TEMPORAL BONES: The labyrinthine structures are grossly normal. VESSELS: Normal flow-voids are noted within the visualized vertebral vasculature. DIFFUSION ABNORMALITIES: There are no diffusion abnormalities. PARANASAL SINUSES/MASTOIDS: The paranasal sinuses are clear. There is a small left mastoid effusion. ORBITS: The orbits are unremarkable. BONES AND SOFT TISSUE: No bone or soft tissue abnormalities are noted. OTHER: None IMPRESSION: 1. ENCEPHALOMALACIA WITHIN THE LEFT BASAL GANGLIA CONSISTENT WITH REMOTE INFARCT. 2. STABLE SCATTERED NONSPECIFIC WHITE MATTER CHANGES.
--- NOTE | 2017-08-18 15:42 | CONSULT ---
Palliative / Hospice Consult Ordering Provider: Susanna Acevedo - Subjective Code Status: DNR Advance Directives Location: In Chart MOLST Part A Completed: Yes - DNR Date: 01/18/16 MOLST Part E Completed:: Yes - DNI HCP Completed: Yes - sister Argenis - History or Present Illness History or Present Illness: This 61 year old woman has been a resident of [facility] andhas been essentially immobile there, remaining in bed at all times. She has also been hospitalized multiple times for complications related to nephrolithiasis and UTIs, and has a right ureteral stent that required replacement on this admission due to infection. She has a long-standing history of malignant melanoma on her right LE for which she refused treatment when she was still capable of understanding the consequences. She has been diagnosed with hypopituitism and hypoadrenalism, and had a prolonged hospital stay for altered mental status which has not completely resolved. Currently she has a very low TSH and is not on thyroid replacement. She failed a swallow evaluation. She has lost a tremendous amount of weight, 66 pounds since April 2016, 34 pounds since February 2017, and 17 pounds in just the last two months. 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 There is no evidence of melanoma metastases, per Dr. Lynch. Lab Values: Abnormal Lab Results 08/17/17 08/17/17 08/18/17 16:47 21:29 03:39 Sodium Potassium Chloride Carbon Dioxide Anion Gap BUN Creatinine Est GFR ( Amer) Est GFR (Non-Af Amer) BUN/Creatinine Ratio Glucose POC Glucose (mg/dL) 102 H 118 H 65 L Calcium Magnesium 08/18/17 08/18/17 08/18/17 05:50 09:40 12:08 Sodium 137 L Potassium 2.8 L Chloride 102 Carbon Dioxide 23 Anion Gap 12 H BUN 3 L Creatinine 0.84 Est GFR ( Amer) 88.4 Est GFR (Non-Af Amer) 68.7 BUN/Creatinine Ratio 3.6 L Glucose 137 H POC Glucose (mg/dL) 48 L 140 H Calcium 8.4 L Magnesium 1.0 L Laboratory Last Values WBC 4.5 10^3/ul (3.5-10.8) 08/17/17 04:15 RBC 3.77 10^6/ul (4.0-5.4) L 08/17/17 04:15 Hgb 10.2 g/dl (12.0-16.0) L 08/17/17 04:15 Hct 31 % (35-47) L 08/17/17 04:15 MCV 83 fL (80-97) 08/17/17 04:15 MCH 27 pg (27-31) 08/17/17 04:15 MCHC 33 g/dl (31-36) 08/17/17 04:15 RDW 16 % (10.5-15) H 08/17/17 04:15 Plt Count 293 10^3/ul (150-450) 08/17/17 04:15 MPV 6.7 um3 (7.4-10.4) L 08/17/17 04:15 Neut % (Auto) 52.4 % (38-83) 08/17/17 04:15 Lymph % (Auto) 29.4 % (25-47) 08/17/17 04:15 Beltrami % (Auto) 8.7 % (0-7) H 08/17/17 04:15 Eos % (Auto) 8.6 % (0-6) H 08/17/17 04:15 Baso % (Auto) 0.9 % (0-2) 08/17/17 04:15 Absolute Neuts (auto) 2.4 10^3/ul (1.5-7.7) 08/17/17 04:15 Absolute Lymphs (auto) 1.3 10^3/ul (1.0-4.8) 08/17/17 04:15 Absolute Monos (auto) 0.4 10^3/ul (0-0.8) 08/17/17 04:15 Absolute Eos (auto) 0.4 10^3/ul (0-0.6) 08/17/17 04:15 Absolute Basos (auto) 0 10^3/ul (0-0.2) 08/17/17 04:15 Absolute Nucleated RBC 0 10^3/ul 08/17/17 04:15 Nucleated RBC % 0 08/17/17 04:15 ESR 86 mm/Hr (0-30) H 08/14/17 19:48 INR (Anticoag Therapy) 1.13 (0.77-1.02) H 08/14/17 19:48 APTT 35.9 seconds (26.0-36.3) 08/14/17 19:48 ABG pH 7.33 (7.35-7.45) L 08/16/17 05:35 ABG pCO2 41 mmHg (35-45) 08/16/17 05:35 ABG pO2 70 mmHg (80-100) L 08/16/17 05:35 ABG HCO3 21.7 mmol/L (19-31) 08/16/17 05:35 ABG O2 Saturation 97.7 % (95-98) 08/16/17 05:35 ABG Base Excess -4.1 (-2.0-2.0) L 08/16/17 05:35 Sodium 137 mmol/L (139-145) L 08/18/17 09:40 Potassium 2.8 mmol/L (3.5-5.0) L 08/18/17 09:40 Chloride 102 mmol/L (101-111) 08/18/17 09:40 Carbon Dioxide 23 mmol/L (22-32) 08/18/17 09:40 Anion Gap 12 mmol/L (2-11) H 08/18/17 09:40 BUN 3 mg/dL (6-24) L 08/18/17 09:40 Creatinine 0.84 mg/dL (0.51-0.95) 08/18/17 09:40 Est GFR ( Amer) 88.4 (>60) 08/18/17 09:40 Est GFR (Non-Af Amer) 68.7 (>60) 08/18/17 09:40 BUN/Creatinine Ratio 3.6 (8-20) L 08/18/17 09:40 Glucose 137 mg/dL (70-100) H 08/18/17 09:40 POC Glucose (mg/dL) 140 mg/dL (70-100) H 08/18/17 12:08 Lactic Acid 0.9 mmol/L (0.5-2.0) 08/15/17 05:20 Calcium 8.4 mg/dL (8.6-10.3) L 08/18/17 09:40 Magnesium 1.0 mg/dL (1.9-2.7) L 08/18/17 09:40 Total Bilirubin 0.80 mg/dL (0.2-1.0) 08/14/17 19:48 AST 56 U/L (13-39) H 08/14/17 19:48 ALT 18 U/L (7-52) 08/14/17 19:48 Alkaline Phosphatase 118 U/L (34-104) H 08/14/17 19:48 Ammonia 32 mcmol/L (16-53) 08/14/17 19:48 Total Creatine Kinase 195 U/L (10-223) 08/14/17 19:48 Troponin I 0.01 ng/mL (<0.04) 08/14/17 19:48 C-Reactive Protein 318.28 mg/L (< 5.00) H 08/14/17 19:48 B-Natriuretic Peptide 35 pg/mL (-100) 08/14/17 19:48 Total Protein 6.9 g/dL (6.4-8.9) 08/14/17 19:48 Albumin 3.3 g/dL (3.2-5.2) 08/14/17 19:48 Globulin 3.6 g/dL (2-4) 08/14/17 19:48 Albumin/Globulin Ratio 0.9 (1-3) L 08/14/17 19:48 TSH 0.01 mcIU/mL (0.34-5.60) L 08/14/17 19:48 Free T4 0.75 ng/dL (0.61-1.12) 08/14/17 19:48 Free T3 2.30 pg/mL (2.5-3.9) L 08/14/17 19:48 Urine Color Naty 08/14/17 21:27 Urine Appearance Turbid 08/14/17 21:27 Urine pH 5.0 (5-9) 08/14/17 21: Ur Specific Foss 1.019 (1.010-1.030) 08/14/17 21: Urine Protein 2+(100 mg/dl) (Negative) A 08/14/17 21: Urine Ketones Trace (Negative) A 08/14/17 21: Urine Blood 1+ (Negative) A 08/14/17 21: Urine Nitrate Negative (Negative) 08/14/17 21: Urine Bilirubin Negative (Negative) 08/14/17 21:27 Urine Urobilinogen Negative (Negative) 08/14/17 21:27 Ur Leukocyte Esterase 1+ (Negative) A 08/14/17 21:27 Urine WBC (Auto) 3+(>20/hpf) (Absent) A 08/14/17 21:27 Urine RBC (Auto) Absent (Absent) 08/14/17 21:27 Urine Bacteria Absent (Absent) 08/14/17 21:27 Urine Glucose Negative (Negative) 08/14/17 21:27 Salicylates < 2.50 mg/dL (<30) 08/14/17 19:48 Acetaminophen < 15 mcg/mL 08/14/17 19:48 Influenza A (Rapid) Negative (Negative) 08/14/17 20:21 Influenza B (Rapid) Negative (Negative) 08/14/17 20:21 - Objective Active Medications: Aspirin (Aspirin Ec Tab*) 81 mg PO DAILY [facility] Last Admin: 08/18/17 08:06 Dose: Not Given Dextrose (D50w Syringe 50 Ml*) 25 gm IV PUSH .FOR FS < 60 - SS PRN PRN Reason: FS < 60 Last Admin: 08/18/17 05:56 Dose: 25 gm Fentanyl Citrate (Fentanyl*) 25 mcg IV SLOW PU Q2H PRN PRN Reason: PAIN Last Admin: 08/18/17 05:13 Dose: 25 mcg Gabapentin (Neurontin Cap(*)) 300 mg PO BID [facility] Last Admin: 08/18/17 08:07 Dose: Not Given Heparin Sodium (Porcine) (Heparin Vial(*)) 5,000 units SUBCUT Q8HR [facility] Last Admin: 08/18/17 13:44 Dose: 5,000 units Heparin Sodium (Porcine) (Heparin Flush Picc/Ml/Cvc(*)) 1 - 3 ml FLUSH 0600, 1800 [facility] PRN Reason: Protocol Last Admin: 08/18/17 05:12 Dose: 1 ml Piperacillin Sod/Tazobactam (Sod 13.5 gm/ Sodium Chloride) 500 mls @ 20.833 mls /hr IVPB Q24H [facility] Last Admin: 08/18/17 02:01 Dose: 20.833 mls/hr Potassium Chloride/Dextrose (D5w 1/2 Ns 40 Meq Kcl 1000 Ml*) 1,000 mls @ 100 mls/hr IV PER RATE [facility] Last Admin: 08/18/17 10:19 Dose: 100 mls/hr Lactobacillus Rhamnosus (Lactobacillus Acidophilus*) 1 tab PO DAILY [facility] Last Admin: 08/18/17 08:07 Dose: Not Given Levothyroxine Sodium (Synthroid Tab*) 25 mcg PO DAILY@0600 [facility] Nystatin (Nystatin Top Powder*) 1 applic TOPICAL BID [facility] Last Admin: 08/18/17 08:15 Dose: 1 applic Oxycodone HCl (Roxycodone Tab*) 10 mg PO Q6H PRN PRN Reason: PAIN - BREAKTHROUGH Last Admin: 08/17/17 05:04 Dose: 10 mg Pharmacy Consult (Zosyn Per Pharmacy*) 1 note FOLLOW UP . PRN PRN Reason: PER PROTOCOL Venlafaxine HCl (Effexor Xr Cap*) 37.5 mg PO DAILY [facility] Last Admin: 08/18/17 08:07 Dose: Not Given Vital Signs: Vital Signs: Temp Pulse Resp BP Pulse Ox 99.2 F 96 20 130/63 100 08/18/17 11:27 08/18/17 11:27 08/18/17 11:27 08/18/17 11:27 08/18/17 11:27 Patient Weight: Weight 229 lb Intake and Output: Intake & Output 08/16/17 08/17/17 08/18/17 08/19/17 06:59 06:59 06:59 06:59 Intake Total 4635 4612 3150 668 Output Total 1175 5750 2625 1100 Balance 3460 -1138 525 -432 Weight 231 lb 14.821 oz 233 lb 12.8 oz 229 lb 229 lb Intake: IV Fluids 4465 4612 3120 428 ABX - ZOSYN 318 493 502 KVO 83 645 NS (0.9%) 4064 3474 1041 [id number] 1577 428 IVPB 170 ABX - ZOSYN 170 Oral 0 30 240 Output: To 1175 5750 2625 1100 Other: Date of Last Bowel 08/16/2017 08/18/17 Movement # Bowel Movements 1 2 1 Estimated Stool Amount Large Medium Small ADLs: Meal Record Start: 08/15/17 01: 51 Freq: ,,18 Status: Inactive Protocol: Document 08/15/17 09:00 [id number] (Rec: 08/15/17 09:33 [id number] ICU-C15) Document 08/15/17 13:00 [id number] (Rec: 08/15/17 15:10 [id number] ICU-C12) Document 08/15/17 17:45 [id number] (Rec: 08/15/17 17:45 [id number] ICU-M09) Document 08/16/17 08:23 [id number] (Rec: 08/16/17 08:23 [id number] ICU-C15) Document 08/16/17 12:49 [id number] (Rec: 08/16/17 12:49 [id number] ICU-C15) ADLs: Meal Record Start: 08/16/17 15: 02 Freq: DAILY@0900,1400,1800 Status: Active Protocol: Created 08/16/17 15:02 [id number] (Rec: 08/16/17 15:02 [id number] TELE-C02) Document 08/17/17 09:00 [id number] (Rec: 08/17/17 10:52 [id number] TELE-C07) Document 08/17/17 14:00 [id number] (Rec: 08/17/17 14:54 [id number] TELE-C01) Document 08/17/17 22:01 [id number] (Rec: 08/17/17 22:01 [id number] TELE-C05) Document 08/18/17 09:00 TGZ7299 (Rec: 08/18/17 09:45 [id number] TELE-C09) Document 08/18/17 14:00 [id number] (Rec: 08/18/17 14:13 [id number] TELE-C09) Intake and Output Start: 08/15/17 01: 51 Freq: 06,14,22 Status: Inactive Protocol: Document 08/15/17 06:16 [id number] (Rec: 08/15/17 06:17 [id number] ICU-M09) Document 08/15/17 14:26 [id number] (Rec: 08/15/17 14:26 [id number] ICU-C12) Document 08/15/17 17:44 [id number] (Rec: 08/15/17 17:44 [id number] ICU-M09) Document 08/15/17 21:51 [id number] (Rec: 08/15/17 21:51 [id number] ICU-C14) Document 08/16/17 04:53 [id number] (Rec: 08/16/17 04:54 [id number] ICU-C06) Document 08/16/17 05:37 [id number] (Rec: 08/16/17 05:37 [id number] ICU-C06) Intake and Output Start: 08/16/17 15: 02 Freq: DAILY@0600,1400,2200 Status: Active Protocol: Created 08/16/17 15:02 [id number] (Rec: 08/16/17 15:02 [id number] TELE-C02) Document 08/16/17 15:19 [id number] (Rec: 08/16/17 15:19 [id number] ICU-C15) Document 08/16/17 20:36 [id number] (Rec: 08/16/17 20:36 GVO7680 TELE-C13) Document 08/16/17 22:14 [id number] (Rec: 08/16/17 22:15 [id number] TELE-C09) Document 08/17/17 06:00 [id number] (Rec: 08/17/17 06:22 [id number] TELE-C32) Document 08/17/17 14:00 [id number] (Rec: 08/17/17 14:54 [id number] TELE-C01) Document 08/17/17 16:42 [id number] (Rec: 08/17/17 16:42 [id number] TELE-C09) Document 08/17/17 21:56 [id number] (Rec: 08/17/17 21:57 [id number] TELE-C05) Document 08/18/17 06:00 [id number] (Rec: 08/18/17 06:14 IHG2358 TELE-C35) Document 08/18/17 06:12 [id number] (Rec: 08/18/17 06:14 [id number] TELE-C35) Document 08/18/17 14:00 [id number] (Rec: 08/18/17 14:13 [id number] TELE-C09) General Impression: Lethargic, smiling but vacant, obese patient lying in bed in NAD. Head: Normal Eyes: No Scleral Icterus Ears/Nose/Mouth/Throat: NL Teeth, Lips, Gums, - - gingival hyperplasia. Neck: NL Appearance and Movements; NL JVP, Trachea Midline Cardiovascular: - - irregular rhythm, no murmurs Respiratory: Symmetrical Chest Expansion and Respiratory Effort Abdominal: NL Sounds; No Tenderness; No Distention Extremities: - - RLE with many scattered black macules, edema, muscular deformity. does not cooperate with active motion instructions. muscles are nontender to palpation. voluntarily moves all distal joints Neurological: - Other Findings: No palpable inguinal adenopathy on either side. - Assessment Assessment: This unfortunate woman has mental vagueness that has been ongoing with fluctuations for several years. The etiology of this is not entirely clear, and has not been elucidated despite various evaluations in the past. Since there is no evidence of cerebral metastases from her melanoma, I am inclined to think her mental status abnormalities are due to longstanding effects of hypopituitism. I doubt the change is completely reversible. She has not been out of bed for a very long time. She can not swallow, and has lostt 66 pounds in 18 months. I note her TSH is very low, possibly on the basis of her hypopituitism, and would suggest replacement thyroid hormone. I communincated this to Dr. Acevedo. However, I would suggest returning her to [facility] on hospice services, for which she qualifies with a primary diagnosis of malignant melanoma, secondary of altered mental status, comorbid dysphagia and weight loss. She will receive excellent comfort measures with the extra layer of support from hospice at [facility]. Thanks. - Plan Consult Plan (MU): Hospice - Time On Unit Date of Evaluation: 08/18/17 Hospice Consult Time in: 14:45 Hospice Consult Time Out: 16:00 Hospice Consult Time Total: 75 > 50% of Time Spend In Counseling or Coordinating Care: Yes
--- NOTE | 2017-08-18 18:05 | PN ---
Subjective Date of Service: 08/18/17 Interval History: No overnight events, more alert this morning. No complaints. She was hypoglycemic to 48 this morning, improved with apple juice. She denies pain until her extremities are moved. Family History: Unchanged from Admission Social History: Unchanged from Admission Past Medical History: Unchanged from Admission Objective Active Medications: Aspirin (Aspirin Ec Tab*) 81 mg PO DAILY [facility] Last Admin: 08/18/17 08:06 Dose: Not Given Dextrose (D50w Syringe 50 Ml*) 25 gm IV PUSH .FOR FS < 60 - SS PRN PRN Reason: FS < 60 Last Admin: 08/18/17 05:56 Dose: 25 gm Fentanyl Citrate (Fentanyl*) 25 mcg IV SLOW PU Q2H PRN PRN Reason: PAIN Last Admin: 08/18/17 05:13 Dose: 25 mcg Gabapentin (Neurontin Cap(*)) 300 mg PO BID [facility] Last Admin: 08/18/17 08:07 Dose: Not Given Heparin Sodium (Porcine) (Heparin Vial(*)) 5,000 units SUBCUT Q8HR [facility] Last Admin: 08/18/17 13:44 Dose: 5,000 units Heparin Sodium (Porcine) (Heparin Flush Picc/Ml/Cvc(*)) 1 - 3 ml FLUSH 0600, 1800 [facility] PRN Reason: Protocol Last Admin: 08/18/17 05:12 Dose: 1 ml Piperacillin Sod/Tazobactam (Sod 13.5 gm/ Sodium Chloride) 500 mls @ 20.833 mls /hr IVPB Q24H [facility] Last Admin: 08/18/17 02:01 Dose: 20.833 mls/hr Potassium Chloride/Dextrose (D5w 1/2 Ns 40 Meq Kcl 1000 Ml*) 1,000 mls @ 100 mls/hr IV PER RATE [facility] Last Admin: 08/18/17 10:19 Dose: 100 mls/hr Lactobacillus Rhamnosus (Lactobacillus Acidophilus*) 1 tab PO DAILY [facility] Last Admin: 08/18/17 08:07 Dose: Not Given Levothyroxine Sodium (Synthroid Tab*) 25 mcg PO DAILY@0600 [facility] Nystatin (Nystatin Top Powder*) 1 applic TOPICAL BID [facility] Last Admin: 08/18/17 08:15 Dose: 1 applic Oxycodone HCl (Roxycodone Tab*) 10 mg PO Q6H PRN PRN Reason: PAIN - BREAKTHROUGH Last Admin: 08/17/17 05:04 Dose: 10 mg Pharmacy Consult (Zosyn Per Pharmacy*) 1 note FOLLOW UP . PRN PRN Reason: PER PROTOCOL Venlafaxine HCl (Effexor Xr Cap*) 37.5 mg PO DAILY [facility] Last Admin: 08/18/17 08:07 Dose: Not Given Vital Signs - 8 hr 08/18/17 08/18/17 11:27 15:41 Temperature 99.2 F 99.5 F Pulse Rate 96 103 Respiratory 20 30 Rate Blood Pressure 130/63 123/66 (mmHg) O2 Sat by Pulse 100 97 Oximetry Oxygen Devices in Use Now: None Appearance: alerts to voice, answers most questions, knows she is in the hospital, slow to respond, cannot answer more complex questions Eyes: No Scleral Icterus Ears/Nose/Mouth/Throat: - - gingival hypertrophy Neck: NL Appearance and Movements; NL JVP Respiratory: Symmetrical Chest Expansion and Respiratory Effort, Clear to Auscultation Cardiovascular: NL Sounds; No Murmurs; No JVD, RRR Abdominal: NL Sounds; No Tenderness; No Distention Lymphatic: No Cervical Adenopathy Extremities: - - r leg with scattered black macules Neurological: - - resists passive range of motion of all her extremities Result Diagrams: 08/17/17 04:15 08/18/17 09:40 Additional Lab and Data: Lab Results 08/14/17 08/14/17 Range/Units 19:48 19:48 WBC 5.9 (3.5-10.8) 10^3/ul RBC 4.19 (4.0-5.4) 10^6/ul Hgb 11.7 L (12.0-16.0) g/dl Hct 35 (35-47) % MCV 83 (80-97) fL MCH 28 (27-31) pg MCHC 34 (31-36) g/dl RDW 16 H (10.5-15) % Plt Count 337 (150-450) 10^3/ul MPV 7.6 (7.4-10.4) um3 Neut % (Auto) 61.7 (38-83) % Lymph % (Auto) 23.3 L (25-47) % Glenn % (Auto) 11.9 H (0-7) % Eos % (Auto) 2.2 (0-6) % Baso % (Auto) 0.9 (0-2) % Absolute Neuts (auto) 3.6 (1.5-7.7) 10^3/ul Absolute Lymphs (auto) 1.4 (1.0-4.8) 10^3/ul Absolute Monos (auto) 0.7 (0-0.8) 10^3/ul Absolute Eos (auto) 0.1 (0-0.6) 10^3/ul Absolute Basos (auto) 0.1 (0-0.2) 10^3/ul Absolute Nucleated RBC 0 10^3/ul Nucleated RBC % 0.1 ESR Pending INR (Anticoag Therapy) 1.13 H (0.77-1.02) APTT 35.9 (26.0-36.3) seconds Microbiology and Other Data: Microbiology 08/15/17 04:12 Nasal Screen MRSA (PCR)(MAXIMINO) - Final Nasal Mrsa Not Detected Assess/Plan/Problems-Billing Assessment: 61 yo female with history of ureteral stent, melanoma untreated x years, DM2, HTN admitted with drowsiness and hypotension and hypoxia from [facility] and found to have pyelonephritis with stent malfunction - Patient Problems (1) Pyelonephritis due to Escherichia coli Current Visit: Yes Status: Acute Code(s): N12 - TUBULO-INTERSTITIAL NEPHRITIS, NOT SPCF ACUTE OR CHRONIC; B96.20 - UNSP ESCHERICHIA COLI THE CAUSE OF DISEASES CLASSD [facility] SNOMED Code(s): 19305913 Comment: Due to R ureteral stent malfunction S/p retrograde cystoscopy and stent exchange; copiuos pus found intraoperatively Pip/tazo day 4 --> e. coli is sensitive to pip/tazo blood cultures remain negative (2) Altered mental state Current Visit: No Status: Acute Priority: High Code(s): R41.82 - ALTERED MENTAL STATUS, UNSPECIFIED SNOMED Code(s): 232268532 Comment: this has been ongoing for months, however it is improving am abg did not show hypercapnia MRI showed encephalomalacia discussed case with Dr. Lynch; recent PET scan did not show mets, only locally advanced melanoma (3) Melanoma Current Visit: No Status: Acute Code(s): C43.9 - MALIGNANT MELANOMA OF SKIN , UNSPECIFIED SNOMED Code(s): 466366124 Comment: locally advanced not likely to be causing her mental status changes (4) Obstructive uropathy Current Visit: No Status: Acute Code(s): N13.9 - OBSTRUCTIVE AND REFLUX UROPATHY, UNSPECIFIED SNOMED Code(s): 9361002 Comment: s/p stent exchange by (5) Sepsis Current Visit: No Status: Acute Priority: High Comment: present on admission, due to pyelonephritis now resolved on pip/tazo (6) Acute renal failure Current Visit: No Status: Acute Comment: resolved (7) Dysphagia Current Visit: Yes Status: Acute Code(s): R13.10 - DYSPHAGIA, UNSPECIFIED SNOMED Code(s): 65699874 Comment: Speech therapy suggests a mechanical esophageal pathology Advanced to thin liquids today Hospice consult DC PO meds (8) Weight loss Current Visit: Yes Status: Acute Comment: globally failing over the past months I discussed hospice with her sister Sarah, who agrees hospice would be helpful for Chela (9) Septic encephalopathy Current Visit: Yes Status: Acute Code(s): G93.41 - METABOLIC ENCEPHALOPATHY SNOMED Code(s): 055898996 Comment: improving and returning to baseline, but baseline is poor Status and Disposition: inpatient, may be appropriate for Kati Haskins with hospice soon, pending hospice consultation
[2017-08-18] MEDS: Ondansetron INJ* 2 MG/ML VIAL IV PRN (22:21)
[2017-08-19] MEDS: Piperacillin/Tazobactam 13.5 GM IV 24 hour continuous infusion IVPB SCH ×2 (02:07)
[2017-08-19] MEDS: Heparin VIAL(*) 5000 UNITS/ML VIAL (FIVE THOUSAND) SUBCUT SCH ×3 (05:39→21:02)
[2017-08-19] MEDS: Levothyroxine TAB* 25 MCG TAB PO SCH (05:40)
[2017-08-19 06:09] LABS: ABS Basophils 0.1 10^3/ul (0-0.2); ABS Eosinophils 0.4 10^3/ul (0-0.6); ABS Lymphocytes 1.8 10^3/ul (1.0-4.8); ABS Monocytes 0.5 10^3/ul (0-0.8); ABS Neutrophils 3.6 10^3/ul (1.5-7.7); ABS Nucleated RBC 0 10^3/ul; Eosinophil % 6.8 % (0-6); Hematocrit 34 % (35-47); Hemoglobin 11.4 g/dl (12.0-16.0); Lymphocyte % 28.4 % (25-47); Mean Corpuscular HGB Conc 34 g/dl (31-36); Mean Corpuscular Hemoglobin 27 pg (27-31); Mean Corpuscular Volume 80 fL (80-97); Mean Platelet Volume 6.9 um3 (7.4-10.4); Nucleated Red Blood Cells % 0; Platelet Count 305 10^3/ul (150-450); Red Cell Distribution Width 16 % (10.5-15); White Blood Count 6.4 10^3/ul (3.5-10.8)
[2017-08-19] MEDS: oxyCODONE TAB* 5 MG TAB PO PRN (06:19)
[2017-08-19 06:24] LABS: EGFR Non-African American 55.5 (>60)
[2017-08-19] MEDS: D5W 1/2 NS 40 Meq KCL 1000 ML* 1,000 ML IV SCH ×2 (08:43→19:25)
[2017-08-19] MEDS: Aspirin EC TAB* 81 MG TAB.EC PO SCH (09:25)
[2017-08-19] MEDS: Nystatin TOP POWDER* 15 GM BTL TOPICAL SCH ×2 (09:25→21:02)
[2017-08-19] MEDS: Venlafaxine EXT RELEASE CAP* 37.5 MG PO SCH (09:25)
[2017-08-19] MEDS: Lactobacillus Acidophilus* 1 TAB PO SCH (09:25)
[2017-08-19] MEDS: Gabapentin CAP(*) 300 MG PO SCH ×2 (09:28→19:38)
[2017-08-19] MEDS ORDERED: Potassium Chlor TAB* 20 MEQ TAB.ER PO ONE (09:49)
[2017-08-19] MEDS ORDERED: Magnesium Sulfate 2 GM IV* 2 GM/50 ML BAG IVPB ONE (09:50)
[2017-08-19] MEDS: Ondansetron INJ* 2 MG/ML VIAL IV PRN ×2 (15:26→21:11)
--- NOTE | 2017-08-19 19:13 | PN ---
Subjective Date of Service: 08/19/17 Interval History: Pt seen and examined. Meds and labs reviewed. Pt has had at least 3 loos bowel movements today. C diff and stool WBC/lactoferrin ordered. Also, asked next of kin in chart regarding code status. Mentioned, will await hospice evaluation before any change in code status. Will defer. Also updated Anni regarding non-specific white matter changes in MRI suggest remote CVA ROS: Denied LLANOS/dizziness, F/C, N/V, CP, SOB, increased cough, sputum production , abd pain, diarrhea, constipation, dysuria, myalgias, arthralgias, throat pain , and new skin lesions. The rest of the 14 point ROS are unremarkable. PHYSICAL EXAM: GEN APPEARANCE: Awake, not in acute distress HEENT: NC/AT, PERRLA, moist oral mucosa, (-) throat erythema NECK: Soft, supple, (-) cervical LAD, (-)JVD HEART: S1S2 WNL, RRR, No MRG CHEST: CTA, BL, GAE, No W/R/R ABD: Soft, ND/NT, NABS 4x Q EXT: No C/C/E SKIN: Warm to touch PSYCH: No active psychosis, hallucinations, depression, SI/HI Family History: Unchanged from Admission Social History: Unchanged from Admission Past Medical History: Unchanged from Admission Objective Active Medications: Aspirin (Aspirin Ec Tab*) 81 mg PO DAILY REPLACED BY [facility] Last Admin: 08/19/17 09:25 Dose: 81 mg Dextrose (D50w Syringe 50 Ml*) 25 gm IV PUSH .FOR FS < 60 - SS PRN PRN Reason: FS < 60 Last Admin: 08/18/17 05:56 Dose: 25 gm Fentanyl Citrate (Fentanyl*) 25 mcg IV SLOW PU Q2H PRN PRN Reason: PAIN Last Admin: 08/18/17 05:13 Dose: 25 mcg Gabapentin (Neurontin Cap(*)) 300 mg PO BID REPLACED BY [facility] Last Admin: 08/19/17 09:28 Dose: Not Given Heparin Sodium (Porcine) (Heparin Vial(*)) 5,000 units SUBCUT Q8HR REPLACED BY [facility] Last Admin: 08/19/17 13:51 Dose: 5,000 units Heparin Sodium (Porcine) (Heparin Flush Picc/Ml/Cvc(*)) 1 - 3 ml FLUSH 0600, 1800 REPLACED BY [facility] PRN Reason: Protocol Last Admin: 08/19/17 17:58 Dose: 1 ml Piperacillin Sod/Tazobactam (Sod 13.5 gm/ Sodium Chloride) 500 mls @ 20.833 mls /hr IVPB Q24H REPLACED BY [facility] Last Admin: 08/19/17 02:07 Dose: 20.833 mls/hr Potassium Chloride/Dextrose (D5w 1/2 Ns 40 Meq Kcl 1000 Ml*) 1,000 mls @ 150 mls/hr IV PER RATE REPLACED BY [facility] Lactobacillus Rhamnosus (Lactobacillus Acidophilus*) 1 tab PO DAILY REPLACED BY [facility] Last Admin: 08/19/17 09:25 Dose: 1 tab Levothyroxine Sodium (Synthroid Tab*) 25 mcg PO DAILY@0600 REPLACED BY [facility] Last Admin: 08/19/17 05:40 Dose: 25 mcg Nystatin (Nystatin Top Powder*) 1 applic TOPICAL BID REPLACED BY [facility] Last Admin: 08/19/17 09:25 Dose: 1 applic Ondansetron HCl (Zofran Inj*) 4 mg IV Q6H PRN PRN Reason: NAUSEA Last Admin: 08/19/17 15:26 Dose: 4 mg Oxycodone HCl (Roxycodone Tab*) 10 mg PO Q6H PRN PRN Reason: PAIN - BREAKTHROUGH Last Admin: 08/19/17 06:19 Dose: 10 mg Pharmacy Consult (Zosyn Per Pharmacy*) 1 note FOLLOW UP . PRN PRN Reason: PER PROTOCOL Venlafaxine HCl (Effexor Xr Cap*) 37.5 mg PO DAILY REPLACED BY [facility] Last Admin: 08/19/17 09:25 Dose: 37.5 mg Vital Signs - 8 hr 08/19/17 08/19/17 12:04 15:47 Temperature 97.4 F 98.7 F Pulse Rate 89 94 Respiratory 16 16 Rate Blood Pressure 96/47 89/50 (mmHg) O2 Sat by Pulse 94 89 Oximetry Oxygen Devices in Use Now: Nasal Cannula Result Diagrams: 08/19/17 06:00 08/19/17 06:00 Additional Lab and Data: Lab Results 08/14/17 08/14/17 Range/Units 19:48 19:48 WBC 5.9 (3.5-10.8) 10^3/ul RBC 4.19 (4.0-5.4) 10^6/ul Hgb 11.7 L (12.0-16.0) g/dl Hct 35 (35-47) % MCV 83 (80-97) fL MCH 28 (27-31) pg MCHC 34 (31-36) g/dl RDW 16 H (10.5-15) % Plt Count 337 (150-450) 10^3/ul MPV 7.6 (7.4-10.4) um3 Neut % (Auto) 61.7 (38-83) % Lymph % (Auto) 23.3 L (25-47) % Dickens % (Auto) 11.9 H (0-7) % Eos % (Auto) 2.2 (0-6) % Baso % (Auto) 0.9 (0-2) % Absolute Neuts (auto) 3.6 (1.5-7.7) 10^3/ul Absolute Lymphs (auto) 1.4 (1.0-4.8) 10^3/ul Absolute Monos (auto) 0.7 (0-0.8) 10^3/ul Absolute Eos (auto) 0.1 (0-0.6) 10^3/ul Absolute Basos (auto) 0.1 (0-0.2) 10^3/ul Absolute Nucleated RBC 0 10^3/ul Nucleated RBC % 0.1 ESR Pending INR (Anticoag Therapy) 1.13 H (0.77-1.02) APTT 35.9 (26.0-36.3) seconds Microbiology and Other Data: Microbiology 08/15/17 04:12 Nasal Screen MRSA (PCR)(MAXIMINO) - Final Nasal Mrsa Not Detected Assess/Plan/Problems-Billing Assessment: 61 yo female with history of ureteral stent, melanoma untreated x years, DM2, HTN admitted with drowsiness and hypotension and hypoxia from [facility] and found to have pyelonephritis with stent malfunction - Patient Problems (1) Pyelonephritis due to Escherichia coli Current Visit: Yes Status: Acute Code(s): N12 - TUBULO-INTERSTITIAL NEPHRITIS, NOT SPCF ACUTE OR CHRONIC; B96.20 - UNSP ESCHERICHIA COLI THE CAUSE OF DISEASES CLASSD [facility] SNOMED Code(s): 36938532 Comment: --Due to R ureteral stent malfunction --S/p retrograde cystoscopy and stent exchange; copiuos pus found intraoperatively --Pip/tazo day 4 --> e. coli is sensitive to pip/tazo blood cultures remain negative (2) Altered mental state Current Visit: No Status: Acute Priority: High Code(s): R41.82 - ALTERED MENTAL STATUS, UNSPECIFIED SNOMED Code(s): 221657707 Comment: this has been ongoing for months, however it is improving am abg did not show hypercapnia MRI showed encephalomalacia discussed case with Dr. Lynch; recent PET scan did not show mets, only locally advanced melanoma (3) Melanoma Current Visit: No Status: Acute Code(s): C43.9 - MALIGNANT MELANOMA OF SKIN , UNSPECIFIED SNOMED Code(s): 805146247 Comment: locally advanced not likely to be causing her mental status changes (4) Obstructive uropathy Current Visit: No Status: Acute Code(s): N13.9 - OBSTRUCTIVE AND REFLUX UROPATHY, UNSPECIFIED SNOMED Code(s): 2244055 Comment: s/p stent exchange by Status and Disposition: inpatient, may be appropriate for [facility] with hospice soon, pending hospice consultation --Awaiting hospice
[2017-08-20] MEDS: PROCHLORPERAZINE INJ 5 MG/ML 2 ML VIAL IV PRN ×2 (00:42→18:33)
[2017-08-20] MEDS: D5W 1/2 NS 40 Meq KCL 1000 ML* 1,000 ML IV SCH ×3 (02:13→21:24)
[2017-08-20] MEDS: Heparin VIAL(*) 5000 UNITS/ML VIAL (FIVE THOUSAND) SUBCUT SCH ×3 (06:20→22:40)
[2017-08-20] MEDS: Levothyroxine TAB* 25 MCG TAB PO SCH (06:20)
[2017-08-20] MEDS: Piperacillin/Tazobactam 13.5 GM IV 24 hour continuous infusion IVPB SCH ×2 (06:25)
[2017-08-20 06:39] LABS: ABS Basophils 0.1 10^3/ul (0-0.2); ABS Eosinophils 0.5 10^3/ul (0-0.6); ABS Lymphocytes 1.7 10^3/ul (1.0-4.8); ABS Monocytes 0.5 10^3/ul (0-0.8); ABS Nucleated RBC 0 10^3/ul; Eosinophil % 9.5 % (0-6); Hematocrit 32 % (35-47); Hemoglobin 10.8 g/dl (12.0-16.0); Lymphocyte % 29.1 % (25-47); Mean Corpuscular HGB Conc 34 g/dl (31-36); Mean Corpuscular Hemoglobin 28 pg (27-31); Mean Corpuscular Volume 82 fL (80-97); Mean Platelet Volume 7.2 um3 (7.4-10.4); Nucleated Red Blood Cells % 0.1; Platelet Count 294 10^3/ul (150-450); Red Blood Count 3.88 10^6/ul (4.0-5.4); Red Cell Distribution Width 16 % (10.5-15); White Blood Count 5.8 10^3/ul (3.5-10.8)
[2017-08-20 06:58] LABS: EGFR Non-African American 53.7 (>60)
[2017-08-20] MEDS: Nystatin TOP POWDER* 15 GM BTL TOPICAL SCH ×2 (09:24→21:18)
[2017-08-20] MEDS: Lactobacillus Acidophilus* 1 TAB PO SCH (09:24)
[2017-08-20] MEDS: Aspirin EC TAB* 81 MG TAB.EC PO SCH (09:24)
[2017-08-20] MEDS: Venlafaxine EXT RELEASE CAP* 37.5 MG PO SCH (09:24)
[2017-08-20] MEDS: Gabapentin CAP(*) 300 MG PO SCH ×2 (09:28→21:16)
[2017-08-20] MEDS: oxyCODONE TAB* 5 MG TAB PO PRN ×2 (10:17→18:33)
[2017-08-20] MEDS: Ondansetron INJ* 2 MG/ML VIAL IV PRN (10:17)
[2017-08-20] MEDS: cefTRIAXone(*) 1 GM in NS 0.9% 50 ML* 50 ML IVPB SCH (10:17)
--- NOTE | 2017-08-20 14:40 | PN ---
Progress Note - Progress Note Date of Service: 08/20/17 Note: This patient was seen in palliative consultation on 08/18/17 and deemed appropriate for hospice services due to untreated melanoma, altered mental status with dysphagia and significant weight loss. Her prognosis would be expected to be less than 6 months. She can be discharged back to her SNF with subsequent sign on to hospice.
--- NOTE | 2017-08-20 17:19 | PN ---
Subjective Date of Service: 08/20/17 Interval History: Pt seen and examined. Meds and labs reviewed. ROS: Denied LLANOS/dizziness, F/C, N/V, CP, SOB, increased cough, sputum production , abd pain, diarrhea, constipation, dysuria, myalgias, arthralgias, throat pain , and new skin lesions. The rest of the 14 point ROS are unremarkable. PHYSICAL EXAM: GEN APPEARANCE: Awake, not in acute distress, Obese HEENT: NC/AT, PERRLA, moist oral mucosa, (-) throat erythema NECK: Soft, supple, (-) cervical LAD, (-)JVD HEART: S1S2 WNL, RRR, No MRG CHEST: CTA, BL, GAE, No W/R/R ABD: Soft, ND/NT, NABS 4x Q EXT: No C/C/E SKIN: Warm to touch PSYCH: No active psychosis, hallucinations, depression, SI/HI Family History: Unchanged from Admission Social History: Unchanged from Admission Past Medical History: Unchanged from Admission Objective Active Medications: Aspirin (Aspirin Ec Tab*) 81 mg PO DAILY [facility] Last Admin: 08/20/17 09:24 Dose: 81 mg Dextrose (D50w Syringe 50 Ml*) 25 gm IV PUSH .FOR FS < 60 - SS PRN PRN Reason: FS < 60 Last Admin: 08/18/17 05:56 Dose: 25 gm Fentanyl Citrate (Fentanyl*) 25 mcg IV SLOW PU Q2H PRN PRN Reason: PAIN Last Admin: 08/18/17 05:13 Dose: 25 mcg Gabapentin (Neurontin Cap(*)) 300 mg PO BID [facility] Last Admin: 08/20/17 09:28 Dose: Not Given Heparin Sodium (Porcine) (Heparin Vial(*)) 5,000 units SUBCUT Q8HR [facility] Last Admin: 08/20/17 13:25 Dose: 5,000 units Heparin Sodium (Porcine) (Heparin Flush Picc/Ml/Cvc(*)) 1 - 3 ml FLUSH 0600, 1800 [facility] PRN Reason: Protocol Last Admin: 08/20/17 16:55 Dose: Not Given Piperacillin Sod/Tazobactam (Sod 13.5 gm/ Sodium Chloride) 500 mls @ 20.833 mls /hr IVPB Q24H [facility] Last Admin: 08/20/17 06:25 Dose: 20.833 mls/hr Ceftriaxone Sodium 1 gm/ (Sodium Chloride) 50 mls @ 200 mls/hr IVPB Q24H [facility] Stop: 08/25/17 09:59 Last Admin: 08/20/17 10:17 Dose: 200 mls/hr Potassium Chloride/Dextrose (D5w 1/2 Ns 40 Meq Kcl 1000 Ml*) 1,000 mls @ 100 mls/hr IV PER RATE [facility] Last Admin: 08/20/17 09:24 Dose: 100 mls/hr Lactobacillus Rhamnosus (Lactobacillus Acidophilus*) 1 tab PO DAILY [facility] Last Admin: 08/20/17 09:24 Dose: 1 tab Levothyroxine Sodium (Synthroid Tab*) 25 mcg PO DAILY@0600 [facility] Last Admin: 08/20/17 06:20 Dose: 25 mcg Nystatin (Nystatin Top Powder*) 1 applic TOPICAL BID [facility] Last Admin: 08/20/17 09:24 Dose: 1 applic Ondansetron HCl (Zofran Inj*) 4 mg IV Q6H PRN PRN Reason: NAUSEA Last Admin: 08/20/17 10:17 Dose: 4 mg Oxycodone HCl (Roxycodone Tab*) 10 mg PO Q6H PRN PRN Reason: PAIN - BREAKTHROUGH Last Admin: 08/20/17 10:17 Dose: 10 mg Prochlorperazine Edisylate (Compazine Inj*) 10 mg IV Q6H PRN PRN Reason: NAUSEA Last Admin: 08/20/17 00:42 Dose: 10 mg Venlafaxine HCl (Effexor Xr Cap*) 37.5 mg PO DAILY [facility] Last Admin: 08/20/17 09:24 Dose: Not Given Vital Signs - 8 hr 08/20/17 08/20/17 08/20/17 10:17 11:35 12:18 Temperature 99.0 F Pulse Rate 81 Respiratory 16 16 14 Rate Blood Pressure 104/52 (mmHg) O2 Sat by Pulse 99 Oximetry 08/20/17 15:07 Temperature 98.0 F Pulse Rate 87 Respiratory 20 Rate Blood Pressure 111/56 (mmHg) O2 Sat by Pulse 98 Oximetry Oxygen Devices in Use Now: Nasal Cannula Result Diagrams: 08/20/17 05:56 08/20/17 05:56 Additional Lab and Data: Lab Results 04/23/18 04/23/18 Range/Units 19:48 19:48 WBC 5.9 (3.5-10.8) 10^3/ul RBC 4.19 (4.0-5.4) 10^6/ul Hgb 11.7 L (12.0-16.0) g/dl Hct 35 (35-47) % MCV 83 (80-97) fL MCH 28 (27-31) pg MCHC 34 (31-36) g/dl RDW 16 H (10.5-15) % Plt Count 337 (150-450) 10^3/ul MPV 7.6 (7.4-10.4) um3 Neut % (Auto) 61.7 (38-83) % Lymph % (Auto) 23.3 L (25-47) % Bell % (Auto) 11.9 H (0-7) % Eos % (Auto) 2.2 (0-6) % Baso % (Auto) 0.9 (0-2) % Absolute Neuts (auto) 3.6 (1.5-7.7) 10^3/ul Absolute Lymphs (auto) 1.4 (1.0-4.8) 10^3/ul Absolute Monos (auto) 0.7 (0-0.8) 10^3/ul Absolute Eos (auto) 0.1 (0-0.6) 10^3/ul Absolute Basos (auto) 0.1 (0-0.2) 10^3/ul Absolute Nucleated RBC 0 10^3/ul Nucleated RBC % 0.1 ESR Pending INR (Anticoag Therapy) 1.13 H (0.77-1.02) APTT 35.9 (26.0-36.3) seconds Microbiology and Other Data: Microbiology 08/15/17 04:12 Nasal Screen MRSA (PCR)(MAXIMINO) - Final Nasal Mrsa Not Detected Assess/Plan/Problems-Billing Assessment: 61 yo female with history of ureteral stent, melanoma untreated x years, DM2, HTN admitted with drowsiness and hypotension and hypoxia from [facility] and found to have pyelonephritis with stent malfunction - Patient Problems (1) Pyelonephritis due to Escherichia coli Current Visit: Yes Status: Acute Code(s): N12 - TUBULO-INTERSTITIAL NEPHRITIS, NOT SPCF ACUTE OR CHRONIC; B96.20 - UNSP ESCHERICHIA COLI THE CAUSE OF DISEASES CLASSD [facility] SNOMED Code(s): 33413569 Comment: --Urine culture suggests E. coli --Due to R ureteral stent malfunction --S/p retrograde cystoscopy and stent exchange; copiuos pus found intraoperatively --D/C'd Zosyn and placed pt on Rocephin this AM (2) Altered mental state Current Visit: No Status: Acute Priority: High Code(s): R41.82 - ALTERED MENTAL STATUS, UNSPECIFIED SNOMED Code(s): 581685489 Comment: this has been ongoing for months, however it is improving am abg did not show hypercapnia MRI showed encephalomalacia discussed case with Dr. Lynch; recent PET scan did not show mets, only locally advanced melanoma (3) Melanoma Current Visit: No Status: Acute Code(s): C43.9 - MALIGNANT MELANOMA OF SKIN , UNSPECIFIED SNOMED Code(s): 088159965 Comment: locally advanced not likely to be causing her mental status changes (4) Obstructive uropathy Current Visit: No Status: Acute Code(s): N13.9 - OBSTRUCTIVE AND REFLUX UROPATHY, UNSPECIFIED SNOMED Code(s): 0123277 Comment: s/p stent exchange by Status and Disposition: --Appreciate Dr. White's input and will touch base with pt and family regarding prognosis and to further recommend hospice so pt can focus on quality of life
[2017-08-21] MEDS: Piperacillin/Tazobactam 13.5 GM IV 24 hour continuous infusion IVPB SCH ×2 (03:59)
[2017-08-21 05:15] LABS: ABS Basophils 0.1 10^3/ul (0-0.2); ABS Eosinophils 0.5 10^3/ul (0-0.6); ABS Lymphocytes 1.8 10^3/ul (1.0-4.8); ABS Monocytes 0.4 10^3/ul (0-0.8); ABS Nucleated RBC 0 10^3/ul; Eosinophil % 8.9 % (0-6); Hematocrit 30 % (35-47); Hemoglobin 9.8 g/dl (12.0-16.0); Lymphocyte % 30.9 % (25-47); Mean Corpuscular HGB Conc 33 g/dl (31-36); Mean Corpuscular Hemoglobin 27 pg (27-31); Mean Corpuscular Volume 82 fL (80-97); Mean Platelet Volume 7.2 um3 (7.4-10.4); Nucleated Red Blood Cells % 0; Platelet Count 277 10^3/ul (150-450); Red Blood Count 3.65 10^6/ul (4.0-5.4); Red Cell Distribution Width 17 % (10.5-15); White Blood Count 5.8 10^3/ul (3.5-10.8)
[2017-08-21 05:37] LABS: EGFR Non-African American 55.5 (>60)
[2017-08-21] MEDS: Levothyroxine TAB* 25 MCG TAB PO SCH (05:43)
[2017-08-21] MEDS: Heparin VIAL(*) 5000 UNITS/ML VIAL (FIVE THOUSAND) SUBCUT SCH ×3 (05:44→21:46)
[2017-08-21] MEDS: D5W 1/2 NS 40 Meq KCL 1000 ML* 1,000 ML IV SCH ×2 (09:12→20:29)
[2017-08-21] MEDS: cefTRIAXone(*) 1 GM in NS 0.9% 50 ML* 50 ML IVPB SCH (09:13)
[2017-08-21] MEDS: oxyCODONE TAB* 5 MG TAB PO PRN (09:25)
[2017-08-21] MEDS: Aspirin EC TAB* 81 MG TAB.EC PO SCH (10:07)
[2017-08-21] MEDS: Gabapentin CAP(*) 300 MG PO SCH ×2 (10:07→20:29)
[2017-08-21] MEDS: Lactobacillus Acidophilus* 1 TAB PO SCH (10:07)
[2017-08-21] MEDS: Venlafaxine EXT RELEASE CAP* 37.5 MG PO SCH (10:08)
[2017-08-21] MEDS: Nystatin TOP POWDER* 15 GM BTL TOPICAL SCH ×2 (13:20→21:46)
[2017-08-21] MEDS: fentaNYL* 50 MCG/ML 2 ML VIAL (100 MCG VIAL) IV SLOW PU PRN ×2 (14:09→23:59)
[2017-08-21] MEDS ORDERED: Morphine INJ* 2 MG/ML 1 ML CARPUJECT IV PRN (16:14)
--- NOTE | 2017-08-21 17:15 | CONS ---
CONSULTATION REPORT: DATE OF CONSULTATION: 08/21/17 REQUESTING PHYSICIAN: Dr. Saini. INDICATION: Dysphagia. NARRATIVE: Ms. Diallo is a 61-year-old female who is bedbound, who has been a resident of a [facility] for an extended period of time. She has multiple medical comorbidities, the first of which is malignant melanoma that she has opted not to treat. She also has a recurrent history of nephrolithiasis and frequent urinary tract infections. She was hospitalized this time around due to pyelonephritis and required a stent change with Dr. Friedman. She was intubated for this. She also has a history of hypopituitarism and hypoadrenalism. She was again admitted this hospitalization for pyelo and the patient did mention to staff that she has been having dysphagia since being admitted. Nursing staff is concerned about her ability to safely swallow. She did have a swallowing evaluation on 08/17/17, which showed that she could only tolerate thin liquids and was made n.p.o. Today, she was also seen by Dr. White from Palliative Care Medicine and was accepted into the hospice program ; however, the patient and her twin sister have put that on hold pending a GI evaluation of her dysphagia. The patient had lost weight approximately 60 pounds this year. She states that she cannot swallow liquids or solids. Again, while she was at the skilled nursing just a week ago, she was having no difficulties of swallowing other than occasional pill dysphagia. She denies any history of typical GERD symptoms, but the patient and her twin sister denied any family esophageal issues. No history of allergies or asthma. PAST MEDICAL HISTORY: Please see the HPI. Additionally, she has: 1. Anemia. 2. Hypertension. 3. DVTs. 4. Super morbid obesity. 5. Anxiety/depression. MEDICATIONS: At her skilled nursing included: 1. Aspirin. 2. Neurontin. 3. Synthroid. 4. Lisinopril. 5. Zofran. 6. Triamcinolone. 7. Effexor. 8. Norvasc. 9. Oxycodone. ALLERGIES: LASIX, MORPHINE, LATEX, ADHESIVE TAPE, IODINE, LYRICA. FAMILY HISTORY: Again, no GI, upper GI/esophageal malignancies or concerns. SOCIAL HISTORY: She lives at the [facility]. REVIEW OF SYSTEMS: Other than mentioned in the HPI, 14-point review of systems was unremarkable. PHYSICAL EXAM: Temperature is 97.8, blood pressure is 111/62, pulse is 83. General: Chronically ill, older than her stated age female lying flat in bed. Alert, oriented, pleasant, fluent. HEENT: Mucous membranes are moist. Heart: Regular rate and rhythm. No murmurs, rubs or gallops. Lungs: Clear to auscultation. No wheezes, rales or rhonchi. Abdomen: Again is super morbidly obese, positive bowel sounds, soft, nontender, nondistended. No hepatosplenomegaly, masses, rebound or guarding. Skin is warm and dry. DIAGNOSTIC STUDIES/LAB DATA: Labs of note: White count is 5.8, hemoglobin is 9.8, platelets of 277. Sodium is 132, BUN is 1, creatinine is 1.01. INR is 1.13. She did have an MRI of her brain which showed encephalomalacia with remote infarct stable, white matter changes. She also had a chest abdomen and pelvis CT on the that showed right hydro rectal wall thickening, perirectal stranding suggestive of proctitis, cellulitis in her left gluteal region, hepatic steatosis and large mediastinal lymph nodes and large retroperitoneal lymph nodes, new, possibly secondary to right renal infection. IMPRESSION AND PLAN: This is a 61-year-old female who is bedbound who has multiple medical issues, not the least of which is her malignant melanoma that she is opting not to treat who has been accepted by palliative care services and who now is requesting a GI evaluation for 1 week of dysphagia. She did fail her bedside swallowing evaluation. I think we need to perform more of a formal one with the video fluoroscopy esophagram. I discussed with her possible neurological causes of her dysphagia, I doubt damage from intubation, strictures, and rings, additionally eosinophilic esophagitis and/or malignancy. She could have external compression due to lymph nodes; however, they do not appear changed from her recent CT. I would like to first get the video esophagram with a formal swallow evaluation tomorrow. Pending it, she may need an upper endoscopy. GI will continue to follow. [id number]/CPS #: [id number] MTDD
[2017-08-21] MEDS: HYDROmorphone INJ* 2 MG/ML CARPUJECT SYRINGE IV SLOW PU PRN ×2 (17:43→21:45)
--- NOTE | 2017-08-21 19:18 | PN ---
Subjective Date of Service: 08/21/17 Interval History: Pt seen and examined. Meds and labs reviewed. Spoke with pt and her sister Sarah this AM regarding hospice visit, however, upon arrival of Sarah, she had a conversation with Chela and mentioned she would like to further evaluate her dysphagia before deciding to go to hospice. Spoke with Dr. Chavez regarding her case. Please see discussion below. Dr. White accepted pt for hospice. ROS: Denied LLANOS/dizziness, F/C, N/V, CP, SOB, increased cough, sputum production , abd pain, diarrhea, constipation, dysuria, myalgias, arthralgias, throat pain , and new skin lesions. The rest of the 14 point ROS are unremarkable. PHYSICAL EXAM: GEN APPEARANCE: Awake, not in acute distress HEENT: NC/AT, PERRLA, moist oral mucosa, (-) throat erythema NECK: Soft, supple, (-) cervical LAD, (-)JVD HEART: S1S2 WNL, RRR, No MRG CHEST: CTA, BL, GAE, No W/R/R ABD: Soft, ND/NT, NABS 4x Q EXT: No C/C/E SKIN: Warm to touch PSYCH: No active psychosis, hallucinations, depression, SI/HI Family History: Unchanged from Admission Social History: Unchanged from Admission Past Medical History: Unchanged from Admission Objective Active Medications: Aspirin (Aspirin Ec Tab*) 81 mg PO DAILY [facility] Last Admin: 08/21/17 10:07 Dose: Not Given Dextrose (D50w Syringe 50 Ml*) 25 gm IV PUSH .FOR FS < 60 - SS PRN PRN Reason: FS < 60 Last Admin: 08/18/17 05:56 Dose: 25 gm Fentanyl Citrate (Fentanyl*) 25 mcg IV SLOW PU Q2H PRN PRN Reason: PAIN Last Admin: 08/21/17 14:09 Dose: 25 mcg Gabapentin (Neurontin Cap(*)) 300 mg PO BID [facility] Last Admin: 08/21/17 10:07 Dose: Not Given Heparin Sodium (Porcine) (Heparin Vial(*)) 5,000 units SUBCUT Q8HR [facility] Last Admin: 08/21/17 14:09 Dose: 5,000 units Heparin Sodium (Porcine) (Heparin Flush Picc/Ml/Cvc(*)) 1 - 3 ml FLUSH 0600, 1800 [facility] PRN Reason: Protocol Last Admin: 08/21/17 17:03 Dose: Not Given Hydromorphone HCl (Dilaudid Inj*) 0.5 mg IV SLOW PU Q4H PRN PRN Reason: PAIN Last Admin: 08/21/17 17:43 Dose: 0.5 mg Ceftriaxone Sodium 1 gm/ (Sodium Chloride) 50 mls @ 200 mls/hr IVPB Q24H [facility] Stop: 08/25/17 09:59 Last Admin: 08/21/17 09:13 Dose: 200 mls/hr Potassium Chloride/Dextrose (D5w 1/2 Ns 40 Meq Kcl 1000 Ml*) 1,000 mls @ 100 mls/hr IV PER RATE [facility] Last Admin: 08/21/17 09:12 Dose: 100 mls/hr Lactobacillus Rhamnosus (Lactobacillus Acidophilus*) 1 tab PO DAILY [facility] Last Admin: 08/21/17 10:07 Dose: Not Given Levothyroxine Sodium (Synthroid Tab*) 25 mcg PO DAILY@0600 [facility] Last Admin: 08/21/17 05:43 Dose: 25 mcg Nystatin (Nystatin Top Powder*) 1 applic TOPICAL BID [facility] Last Admin: 08/21/17 13:20 Dose: Not Given Ondansetron HCl (Zofran Inj*) 4 mg IV Q6H PRN PRN Reason: NAUSEA Last Admin: 08/20/17 10:17 Dose: 4 mg Oxycodone HCl (Roxycodone Tab*) 10 mg PO Q6H PRN PRN Reason: PAIN - BREAKTHROUGH Last Admin: 08/21/17 09:25 Dose: 10 mg Prochlorperazine Edisylate (Compazine Inj*) 10 mg IV Q6H PRN PRN Reason: NAUSEA Last Admin: 08/20/17 18:33 Dose: 10 mg Venlafaxine HCl (Effexor Xr Cap*) 37.5 mg PO DAILY [facility] Last Admin: 08/21/17 10:08 Dose: Not Given Vital Signs - 8 hr 08/21/17 08/21/17 08/21/17 11:47 12:30 14:09 Temperature 97.8 F Pulse Rate 83 Respiratory 15 18 16 Rate Blood Pressure 111/62 (mmHg) O2 Sat by Pulse 98 Oximetry 08/21/17 08/21/17 08/21/17 15:18 15:25 17:43 Temperature 97.9 F Pulse Rate 87 Respiratory 16 14 20 Rate Blood Pressure 105/57 (mmHg) O2 Sat by Pulse 98 Oximetry Oxygen Devices in Use Now: None Result Diagrams: 08/21/17 05:00 08/21/17 05:00 Additional Lab and Data: Lab Results 08/14/17 08/14/17 Range/Units 19:48 19:48 WBC 5.9 (3.5-10.8) 10^3/ul RBC 4.19 (4.0-5.4) 10^6/ul Hgb 11.7 L (12.0-16.0) g/dl Hct 35 (35-47) % MCV 83 (80-97) fL MCH 28 (27-31) pg MCHC 34 (31-36) g/dl RDW 16 H (10.5-15) % Plt Count 337 (150-450) 10^3/ul MPV 7.6 (7.4-10.4) um3 Neut % (Auto) 61.7 (38-83) % Lymph % (Auto) 23.3 L (25-47) % Pender % (Auto) 11.9 H (0-7) % Eos % (Auto) 2.2 (0-6) % Baso % (Auto) 0.9 (0-2) % Absolute Neuts (auto) 3.6 (1.5-7.7) 10^3/ul Absolute Lymphs (auto) 1.4 (1.0-4.8) 10^3/ul Absolute Monos (auto) 0.7 (0-0.8) 10^3/ul Absolute Eos (auto) 0.1 (0-0.6) 10^3/ul Absolute Basos (auto) 0.1 (0-0.2) 10^3/ul Absolute Nucleated RBC 0 10^3/ul Nucleated RBC % 0.1 ESR Pending INR (Anticoag Therapy) 1.13 H (0.77-1.02) APTT 35.9 (26.0-36.3) seconds Microbiology and Other Data: Microbiology 08/15/17 04:12 Nasal Screen MRSA (PCR)(MAXIMINO) - Final Nasal Mrsa Not Detected Assess/Plan/Problems-Billing Assessment: 61 yo female with history of ureteral stent, melanoma untreated x years, DM2, HTN admitted with drowsiness and hypotension and hypoxia from [facility] and found to have pyelonephritis with stent malfunction - Patient Problems (1) Dysphagia Current Visit: Yes Status: Acute Code(s): R13.10 - DYSPHAGIA, UNSPECIFIED SNOMED Code(s): 45270051 Comment: - Will await Video fluoroscopy esophagram per Dr. Chavez +/- EGD - Family aware (2) Pyelonephritis due to Escherichia coli Current Visit: Yes Status: Acute Code(s): N12 - TUBULO-INTERSTITIAL NEPHRITIS, NOT SPCF ACUTE OR CHRONIC; B96.20 - UNSP ESCHERICHIA COLI THE CAUSE OF DISEASES CLASSD [facility] SNOMED Code(s): 57397893 Comment: --Urine culture suggests E. coli --Due to R ureteral stent malfunction --S/p retrograde cystoscopy and stent exchange; copiuos pus found intraoperatively --Continue Rocephin (3) Altered mental state Current Visit: No Status: Acute Priority: High Code(s): R41.82 - ALTERED MENTAL STATUS, UNSPECIFIED SNOMED Code(s): 025600014 Comment: this has been ongoing for months, however it is improving am abg did not show hypercapnia MRI showed encephalomalacia discussed case with Dr. Lynch; recent PET scan did not show mets, only locally advanced melanoma (4) Melanoma Current Visit: No Status: Acute Code(s): C43.9 - MALIGNANT MELANOMA OF SKIN , UNSPECIFIED SNOMED Code(s): 923638683 Comment: locally advanced not likely to be causing her mental status changes (5) Obstructive uropathy Current Visit: No Status: Acute Code(s): N13.9 - OBSTRUCTIVE AND REFLUX UROPATHY, UNSPECIFIED SNOMED Code(s): 9050268 Comment: s/p stent exchange by Status and Disposition: --Appreciate Dr. ed Redman - Awaiting result of dysphagia study/ies
[2017-08-22] MEDS: HYDROmorphone INJ* 2 MG/ML CARPUJECT SYRINGE IV SLOW PU PRN ×5 (01:21→22:49)
[2017-08-22] MEDS: Levothyroxine TAB* 25 MCG TAB PO SCH (04:58)
[2017-08-22] MEDS: Heparin VIAL(*) 5000 UNITS/ML VIAL (FIVE THOUSAND) SUBCUT SCH ×3 (05:41→21:46)
[2017-08-22] MEDS: D5W 1/2 NS 40 Meq KCL 1000 ML* 1,000 ML IV SCH ×3 (05:41→19:30)
[2017-08-22] MEDS: Aspirin EC TAB* 81 MG TAB.EC PO SCH (07:24)
[2017-08-22] MEDS: Lactobacillus Acidophilus* 1 TAB PO SCH (07:24)
[2017-08-22] MEDS: Gabapentin CAP(*) 300 MG PO SCH ×2 (07:24→21:38)
[2017-08-22] MEDS: Venlafaxine EXT RELEASE CAP* 37.5 MG PO SCH (07:25)
[2017-08-22] MEDS ORDERED: Magnesium Sulfate 2 GM IV* 2 GM/50 ML BAG IVPB ONE (09:40)
[2017-08-22] MEDS: cefTRIAXone(*) 1 GM in NS 0.9% 50 ML* 50 ML IVPB SCH (09:53)
[2017-08-22] MEDS: Nystatin TOP POWDER* 15 GM BTL TOPICAL SCH ×2 (09:56→21:46)
--- NOTE | 2017-08-22 11:39 | RAD ---
INDICATION: Dysphasia COMPARISON: None FINDINGS: 48 seconds of fluoroscopy were provided for the patient pathology department. Fluoroscopic imaging of the swallowing mechanism were performed. Briefly, the patient swallowed liquid and solid barium coated items without aspiration. The patient was in some discomfort during the examination and this was therefore limited study. Images were recorded for review. Please refer to full speech pathology report CPT II Codes: G9500 (fluoro time doc)
--- NOTE | 2017-08-22 16:54 | PN ---
Subjective Date of Service: 08/22/17 Interval History: Pt seen and examined. Meds and labs reviewed. Spoke with pt during my rounds, unfortunately the pt is more lethargic today and was not able to concentrate regarding updates. I called her sister Sarah again this afternoon and relayed the information of the video flouroscopic study. Please see discussion below ROS: Unable to obtain a reliable 14 point ROS. PHYSICAL EXAM: GEN APPEARANCE: Lethargic, not in acute distress HEENT: NC/AT, PERRLA, moist oral mucosa, (-) throat erythema NECK: Soft, supple, (-) cervical LAD, (-)JVD HEART: S1S2 WNL, RRR, No MRG CHEST: CTA, BL, GAE, No W/R/R ABD: Soft, ND/NT, NABS 4x Q EXT: No C/C/E SKIN: Warm to touch PSYCH: No active psychosis, hallucinations, depression, SI/HI Family History: Unchanged from Admission Social History: Unchanged from Admission Past Medical History: Unchanged from Admission Objective Active Medications: Aspirin (Aspirin Ec Tab*) 81 mg PO DAILY [facility] Last Admin: 08/22/17 07:24 Dose: Not Given Dextrose (D50w Syringe 50 Ml*) 25 gm IV PUSH .FOR FS < 60 - SS PRN PRN Reason: FS < 60 Last Admin: 08/18/17 05:56 Dose: 25 gm Gabapentin (Neurontin Cap(*)) 300 mg PO BID [facility] Last Admin: 08/22/17 07:24 Dose: Not Given Heparin Sodium (Porcine) (Heparin Vial(*)) 5,000 units SUBCUT Q8HR [facility] Last Admin: 08/22/17 13:13 Dose: 5,000 units Heparin Sodium (Porcine) (Heparin Flush Picc/Ml/Cvc(*)) 1 - 3 ml FLUSH 0600, 1800 [facility] PRN Reason: Protocol Last Admin: 08/22/17 04:58 Dose: Not Given Hydromorphone HCl (Dilaudid Inj*) 1 mg IV SLOW PU Q4H PRN PRN Reason: PAIN Last Admin: 08/22/17 09:53 Dose: 1 mg Ceftriaxone Sodium 1 gm/ (Sodium Chloride) 50 mls @ 200 mls/hr IVPB Q24H [facility] Stop: 08/25/17 09:59 Last Admin: 08/22/17 09:53 Dose: 200 mls/hr Potassium Chloride/Dextrose (D5w 1/2 Ns 40 Meq Kcl 1000 Ml*) 1,000 mls @ 100 mls/hr IV PER RATE [facility] Last Admin: 08/22/17 05:41 Dose: 100 mls/hr Lactobacillus Rhamnosus (Lactobacillus Acidophilus*) 1 tab PO DAILY [facility] Last Admin: 08/22/17 07:24 Dose: Not Given Levothyroxine Sodium (Synthroid Tab*) 25 mcg PO DAILY@0600 [facility] Last Admin: 08/22/17 04:58 Dose: Not Given Nystatin (Nystatin Top Powder*) 1 applic TOPICAL BID [facility] Last Admin: 08/22/17 09:56 Dose: 1 applic Ondansetron HCl (Zofran Inj*) 4 mg IV Q6H PRN PRN Reason: NAUSEA Last Admin: 08/20/17 10:17 Dose: 4 mg Prochlorperazine Edisylate (Compazine Inj*) 10 mg IV Q6H PRN PRN Reason: NAUSEA Last Admin: 08/20/17 18:33 Dose: 10 mg Venlafaxine HCl (Effexor Xr Cap*) 37.5 mg PO DAILY [facility] Last Admin: 08/22/17 07:25 Dose: Not Given Vital Signs - 8 hr 08/22/17 08/22/17 08/22/17 09:53 11:10 11:20 Temperature 98.1 F Pulse Rate 89 Respiratory 18 16 16 Rate Blood Pressure 112/59 (mmHg) O2 Sat by Pulse 98 Oximetry Oxygen Devices in Use Now: None Result Diagrams: 08/21/17 05:00 08/21/17 05:00 Additional Lab and Data: Lab Results 08/14/17 08/14/17 Range/Units 19:48 19:48 WBC 5.9 (3.5-10.8) 10^3/ul RBC 4.19 (4.0-5.4) 10^6/ul Hgb 11.7 L (12.0-16.0) g/dl Hct 35 (35-47) % MCV 83 (80-97) fL MCH 28 (27-31) pg MCHC 34 (31-36) g/dl RDW 16 H (10.5-15) % Plt Count 337 (150-450) 10^3/ul MPV 7.6 (7.4-10.4) um3 Neut % (Auto) 61.7 (38-83) % Lymph % (Auto) 23.3 L (25-47) % [place] % (Auto) 11.9 H (0-7) % Eos % (Auto) 2.2 (0-6) % Baso % (Auto) 0.9 (0-2) % Absolute Neuts (auto) 3.6 (1.5-7.7) 10^3/ul Absolute Lymphs (auto) 1.4 (1.0-4.8) 10^3/ul Absolute Monos (auto) 0.7 (0-0.8) 10^3/ul Absolute Eos (auto) 0.1 (0-0.6) 10^3/ul Absolute Basos (auto) 0.1 (0-0.2) 10^3/ul Absolute Nucleated RBC 0 10^3/ul Nucleated RBC % 0.1 ESR Pending INR (Anticoag Therapy) 1.13 H (0.77-1.02) APTT 35.9 (26.0-36.3) seconds Microbiology and Other Data: Microbiology 08/15/17 04:12 Nasal Screen MRSA (PCR)(MAXIMINO) - Final Nasal Mrsa Not Detected Assess/Plan/Problems-Billing Assessment: 61 yo female with history of ureteral stent, melanoma untreated x years, DM2, HTN admitted with drowsiness and hypotension and hypoxia from [facility] and found to have pyelonephritis with stent malfunction - Patient Problems (1) Dysphagia Current Visit: Yes Status: Acute Code(s): R13.10 - DYSPHAGIA, UNSPECIFIED SNOMED Code(s): 52662522 Comment: - Will await Video fluoroscopy esophagram unfortunately did not find any definitive abnormality other than possible hyper-gag reflex during the exam--- reported to RN this AM - Family aware - Per Sarah, pt may go to planned hospice if no other modes of therapy to improve hyper-gag reflex (2) Pyelonephritis due to Escherichia coli Current Visit: Yes Status: Acute Code(s): N12 - TUBULO-INTERSTITIAL NEPHRITIS, NOT SPCF ACUTE OR CHRONIC; B96.20 - UNSP ESCHERICHIA COLI THE CAUSE OF DISEASES CLASSD [facility] SNOMED Code(s): 41059588 Comment: --Urine culture suggests E. coli --Due to R ureteral stent malfunction --S/p retrograde cystoscopy and stent exchange; copiuos pus found intraoperatively --Continue Rocephin for 3 more days for a total of 10 (3) Altered mental state Current Visit: No Status: Acute Priority: High Code(s): R41.82 - ALTERED MENTAL STATUS, UNSPECIFIED SNOMED Code(s): 248530382 Comment: this has been ongoing for months, however it is improving am abg did not show hypercapnia MRI showed encephalomalacia discussed case with Dr. Lynch; recent PET scan did not show mets, only locally advanced melanoma (4) Melanoma Current Visit: No Status: Acute Code(s): C43.9 - MALIGNANT MELANOMA OF SKIN , UNSPECIFIED SNOMED Code(s): 529187182 Comment: locally advanced not likely to be causing her mental status changes (5) Obstructive uropathy Current Visit: No Status: Acute Code(s): N13.9 - OBSTRUCTIVE AND REFLUX UROPATHY, UNSPECIFIED SNOMED Code(s): 3553390 Comment: s/p stent exchange by Status and Disposition: --Appreciate Dr. ed Redman - Awaiting result of dysphagia study/ies
[2017-08-23 05:07] LABS: ABS Basophils 0.1 10^3/ul (0-0.2); ABS Eosinophils 0.5 10^3/ul (0-0.6); ABS Monocytes 0.6 10^3/ul (0-0.8); ABS Neutrophils 2.9 10^3/ul (1.5-7.7); ABS Nucleated RBC 0 10^3/ul; Eosinophil % 8.1 % (0-6); Hematocrit 32 % (35-47); Hemoglobin 10.2 g/dl (12.0-16.0); Lymphocyte % 32.7 % (25-47); Mean Corpuscular HGB Conc 32 g/dl (31-36); Mean Corpuscular Hemoglobin 27 pg (27-31); Mean Corpuscular Volume 82 fL (80-97); Mean Platelet Volume 7.3 um3 (7.4-10.4); Nucleated Red Blood Cells % 0.1; Platelet Count 314 10^3/ul (150-450); Red Blood Count 3.84 10^6/ul (4.0-5.4); Red Cell Distribution Width 17 % (10.5-15)
[2017-08-23 05:09] LABS: EGFR Non-African American 74.8 (>60)
[2017-08-23] MEDS: HYDROmorphone INJ* 2 MG/ML CARPUJECT SYRINGE IV SLOW PU PRN ×2 (05:22→10:22)
[2017-08-23] MEDS: Heparin VIAL(*) 5000 UNITS/ML VIAL (FIVE THOUSAND) SUBCUT SCH ×2 (05:23→16:08)
[2017-08-23] MEDS: Levothyroxine TAB* 25 MCG TAB PO SCH (05:28)
[2017-08-23] MEDS: D5W 1/2 NS 40 Meq KCL 1000 ML* 1,000 ML IV SCH (05:41)
[2017-08-23] MEDS: Nystatin TOP POWDER* 15 GM BTL TOPICAL SCH (10:03)
[2017-08-23] MEDS: cefTRIAXone(*) 1 GM in NS 0.9% 50 ML* 50 ML IVPB SCH (10:43)
[2017-08-23] MEDS: Aspirin EC TAB* 81 MG TAB.EC PO SCH (10:49)
[2017-08-23] MEDS: Gabapentin CAP(*) 300 MG PO SCH (10:56)
[2017-08-23] MEDS: Lactobacillus Acidophilus* 1 TAB PO SCH (11:00)
[2017-08-23] MEDS: Venlafaxine EXT RELEASE CAP* 37.5 MG PO SCH (11:00)
--- NOTE | 2017-08-23 14:46 | DS ---
CC: Dr. Drew Lynch; Dr. Chavez; Dr. White.* DISCHARGE SUMMARY: DATE OF ADMISSION: 08/15/17 DATE OF DISCHARGE: 08/23/17. DISCHARGE DIAGNOSES: As follows: 1. Comfort measures only care. 2. Pyelonephritis with sepsis, sepsis has resolved, completed treatment. 3. Locally advanced melanoma. 4. Dysphagia, possibly secondary to hyper-gag reflex. HISTORY OF PRESENT ILLNESS/HOSPITAL COURSE: The patient is a 61-year-old lady with history of DVTs, morbid obesity, depression, hypertension, melanoma, and dysphagia with poor p.o. intake, who opted not to treat her malignant melanoma. She was hospitalized due to her pyelonephritis with sepsis and required a stent change with Dr. Friedman. She was intubated for this, but was successfully extubated. She also has history of hypopituitarism and hypoadrenalism. During this hospitalization, she presented with pyelonephritis with sepsis which had resolved with antibiotic therapy and stent placement as discussed and patient has had multiple conversations regarding comfort measures given her multiple comorbidities just described in addition to her frequent readmissions with ever decreasing interval between each readmission. She had been evaluated by GI service for her dysphagia with a video fluoroscopic esophagram which revealed that the patient swallowed liquid and solid barium coated items without aspiration and there was some discomfort during the examination. The GI department offered possible EGD; however, given multiple comorbidities, family and patient declined and instead chose hospice, and hence she will be discharged to [facility] on hospice medications. REVIEW OF SYSTEMS: The patient denied any recent headaches, dizziness, fever, chills, nausea, vomiting, chest pain, shortness of breath, increased cough, and sputum production, abdominal pain, diarrhea, constipation, pain and/or increased frequency of urination, myalgias, arthralgias, throat pain, or new skin lesions. Rest of the 14 point review of systems are otherwise unremarkable. PHYSICAL EXAMINATION: Reveals the following vital signs. Blood pressure 140/84 , and 98 per minute heart rate, 18 per minute respiratory rate, and 97 degrees Fahrenheit. General Appearance: The patient is awake with a blunt affect with waxing and waning mental status, but today with blunt affect and only looks at the examiner without answering my questions. HEENT: Normocephalic, atraumatic. PERRLA. Extraocular muscles intact. Negative for icterus. Moist oral mucosa. Negative throat erythema. Neck is soft, supple with no cervical lymphadenopathy. No JVD. Heart: S1, S2 within normal limits. Regular rate and rhythm. No murmurs, rubs or gallops. Chest: Clear to auscultation bilaterally, good air entry. No wheezes, rales and rhonchi. Abdomen is soft, nondistended, nontender. Normoactive bowel sounds x4. Extremities: No cyanosis, clubbing with 1 to 2+ bilateral lower extremity edema. Psychiatric: No active psychosis, depression, suicidal or homicidal ideation, with the patient with blunt affect. TIME SPENT: The total time spent evaluating patient, reviewing pertinent data, and appropriate documentation is greater than 30 minutes. [id number]/[facility] #: [id number] [facility] MEDICAL CENTERUsman
[2017-08-23 16:24] VITALS: BP 118/66
== END 2017-08-23 18:00 | DRG 659 ==
LOC: ED 18:46 → ICU 22:04 → INTOOBSV 22:04 → ICU 08-15 01:51 → OBSVTOIN 08-15 09:30 → MEDTELE 08-16 15:19
PROVIDERS: ADMIT Hospitalist; ATTEND Student in an Organized Health Care Education/Training Program
PROC: 0T938ZZ Drainage of Right Kidney Pelvis, Via Natural or Artificial Opening Endoscopic (ICD-10-PCS; 2017-08-15)
PROC: 0TP98DZ Removal of Intraluminal Device from Ureter, Via Natural or Artificial Opening Endoscopic (ICD-10-PCS; 2017-08-15)
PROC: 0T768DZ Dilation of Right Ureter with Intraluminal Device, Via Natural or Artificial Opening Endoscopic (ICD-10-PCS; 2017-08-15)
PROC: BT1D1ZZ Fluoroscopy of Right Kidney, Ureter and Bladder using Low Osmolar Contrast (ICD-10-PCS; principal; 2017-08-15 02:30)
DX: T83.511A Infection and inflammatory reaction due to indwelling urethral catheter, initial encounter (principal); A41.9 Sepsis, unspecified organism; G93.41 Metabolic encephalopathy; E23.0 Hypopituitarism; E27.40 Unspecified adrenocortical insufficiency; N17.9 Acute kidney failure, unspecified; N11.1 Chronic obstructive pyelonephritis; E87.1 Hypo-osmolality and hyponatremia; N18.4 Chronic kidney disease, stage 4 (severe); T83.112A Breakdown (mechanical) of indwelling ureteral stent, initial encounter; N39.0 Urinary tract infection, site not specified; Z66 Do not resuscitate; I95.9 Hypotension, unspecified; R41.0 Disorientation, unspecified; Z96.0 Presence of urogenital implants; M19.90 Unspecified osteoarthritis, unspecified site; M81.0 Age-related osteoporosis without current pathological fracture; G89.4 Chronic pain syndrome; F32.9 Major depressive disorder, single episode, unspecified; F41.9 Anxiety disorder, unspecified; E66.01 Morbid (severe) obesity due to excess calories; R13.10 Dysphagia, unspecified; Z51.5 Encounter for palliative care; C43.71 Malignant melanoma of right lower limb, including hip; R63.4 Abnormal weight loss; R09.02 Hypoxemia; N20.0 Calculus of kidney; D63.8 Anemia in other chronic diseases classified elsewhere; R29.2 Abnormal reflex; J39.2 Other diseases of pharynx; B96.20 Unspecified Escherichia coli [E. coli] as the cause of diseases classified elsewhere; I12.9 Hypertensive chronic kidney disease with stage 1 through stage 4 chronic kidney disease, or unspecified chronic kidney disease; E11.22 Type 2 diabetes mellitus with diabetic chronic kidney disease; E11.649 Type 2 diabetes mellitus with hypoglycemia without coma; E03.9 Hypothyroidism, unspecified; Z91.041 Radiographic dye allergy status; Z86.73 Personal history of transient ischemic attack (TIA), and cerebral infarction without residual deficits; Z88.5 Allergy status to narcotic agent; Z88.8 Allergy status to other drugs, medicaments and biological substances; Z91.048 Other nonmedicinal substance allergy status; Z86.718 Personal history of other venous thrombosis and embolism; Z92.21 Personal history of antineoplastic chemotherapy; Z87.891 Personal history of nicotine dependence; Z73.6 Limitation of activities due to disability; Z85.820 Personal history of malignant melanoma of skin; Z68.36 Body mass index [BMI] 36.0-36.9, adult; Z91.040 Latex allergy status; Z90.49 Acquired absence of other specified parts of digestive tract
CPT/HCPCS: 36415; 36600; 70450; 70551; 71045; 71250; 74176; 74230; 74420; 80048; 80053; 80329; 81003; 81015; 82140; 82550; 82803; 83605; 83630; 83735; 83880; 84439; 84443; 84481; 84484; 85025; 85610; 85652; 85730; 86140; 87040; 87077; 87086; 87186; 87493; 87502; 87641; 93005; 99232; 99285; A9270-GY; C1751; C1876; G0378; G0480; J0696; J0780; J1170; J1644; J2270; J2405; J2543; J2704; J3010; J3475